=== PATIENT | female | born 1935 | race Caucasian/White ===

== ENCOUNTER → 2023-04-20 08:54 | Outpatient (CLI) | payer MEDICARE, SELFPAY ==
--- NOTE | ~2023-04-20 | US_ITS ---
Abdominal Sonogram: Real-time sonographic imaging of the abdomen was performed. Clinical History: Abdominal pain Findings: The liver is small with nodular contour. No intrahepatic biliary dilatation or definite ma ss lesion. Main portal vein demonstrates normal direction of flow. The spleen is normal in size witho ut evidence of focal lesion. The gallbladder is well distended, and contains small layering gallston es. No definite gallbladder wall thickening. The common bile duct measures 4 mm. The visualized panc reas, aorta, and IVC are unremarkable. The right kidney measures 10.7 cm in length and the left kidn ey measures 8.3 cm. There is no hydronephrosis or renal calculus. Moderate ascites noted Impression: Cirrhotic liver with associated moderate abdominopelvic ascites. Cholelithiasis. Reviewed, dictated and finalized at [facility]. Impression: Cirrhotic liver with associated moderate abdominopelvic ascites. Cholelithiasis.
--- NOTE | ~2023-04-20 | XR_ITS ---
Supine and upright views of the abdomen Clinical history: Abdominal pain Findings: Bowel gas pattern is nonspecific. No evidence for obstruction or free air. No abnormal mass lesion or calcification is seen. There is levoscoliosis and degenerative spondylitic changes of the lumbar spine. Impression: Nonspecific bowel gas pattern. Degenerative changes of the lumbar spine with levoscoliosis. Reviewed, dictated and finalized at location . Impression: Nonspecific bowel gas pattern. Degenerative changes of the lumbar spine with levoscoliosis.
== END ==
DX: R10.84 Generalized abdominal pain (principal); K80.20 Calculus of gallbladder without cholecystitis without obstruction
CPT/HCPCS: 74018; 76700

== ENCOUNTER 2023-05-17 11:59 | Outpatient (CLI) | payer MEDICARE, SELFPAY ==
[2023-05-17 12:22] LABS: Basophils Percent Auto 0.5 % (0.2-1.2); Eosinophils Absolute Auto 0.2 K/mm3 (0-0.3); Eosinophils Percent Auto 3.1 % (0-4.4); Hematocrit 33.5 % (37.0-47.0); Hemoglobin 10.4 g/dL (12.0-15.0); Immature Granulocyte Absolute 0.02 K/mm3 (0.00-0.031); Immature Granulocyte Percent A 0.4 % (0-0.5); Lymphocytes Absolute Auto 0.64 K/mm3 (0.9-3.2); Lymphocytes Percent Auto 11.5 % (18.3-44.2); Mean Corpuscular Hemoglobin 27.4 pg (26-34); Mean Corpuscular Volume 88.4 fl (80-100); Mean Platelet Volume 8.8 fl (7.4-10.4); Monocytes Absolute Auto 0.6 K/mm3 (0.1-0.6); Monocytes Percent Auto 9.9 % (2.6-8.5); Neutrophils Absolute Auto 4.2 K/mm3 (1.3-6.7); Neutrophils Percent Auto 74.6 % (45.5-73.1); Platelet Count Result 176 k/mm3 (150-375); Red Blood Count 3.79 M/mm3 (4.2-5.4); Red Cell Distribution Width 17.7 % (11.5-14.5); White Blood Count 5.6 K/mm3 (4.5-10.0)
[2023-05-17 12:34] LABS: Iron 32 ug/dL (37-170)
[2023-05-17 12:43] LABS: Percent Iron Saturation 9 % (20-50)
== END 2023-05-17 12:00 | disposition home or self-care (01) ==
PROVIDERS: Visit Provider Internal Medicine Gastroenterology
DX: K74.60 Unspecified cirrhosis of liver (principal)
CPT/HCPCS: 36415; 83540; 83550; 85025; 86038; 86039

== ENCOUNTER 2023-06-06 13:12 | Outpatient (CLI) | payer MEDICARE, SELFPAY ==
--- NOTE | ~2023-06-06 | US_ITS ---
EXAMINATION: US paracentesis abd w/image DATE: 06/06/2023 15:29 INDICATION: Ascites. TECHNIQUE: The procedure and its risks and benefits were discussed with the patient. Potential risks discussed included bleeding and infection. The skin was prepped and draped in sterile fashion. 1% lid ocaine was used for local anesthesia. Under ultrasound guidance, a 5 Fr catheter with trochar was adv anced into the ascites in the left lower quadrant. Fluid was aspirated into vacuum bottles. The juan ter was removed, and a dressing was applied. There were no immediate complications. FINDINGS: Ultrasound images demonstrate ascites and the catheter within the fluid. IMPRESSION: 1. Successful ultrasound-guided paracentesis yielding 4850 mL of clear yellow fluid. Reviewed, dictated and finalized at location A.
[2023-06-06 14:01] LABS: Mean Platelet Volume 9.1 fl (7.4-10.4); Platelet Count Result 189 k/mm3 (150-375)
[2023-06-06 14:17] LABS: INR 1.6; Prothrombin Time 19.8 Seconds (11.1-14.7)
[2023-06-06 17:08] LABS: Appearance Peritoneal Fluid Clear (Clear); Color Peritoneal Fluid Yellow (Colorless); Source Peritoneal Fluid Peritoneal Fluid
[2023-06-06 17:09] LABS: Nucleated Cells Peritoneal Flu 141 /uL (0-500)
[2023-06-06 17:11] LABS: Lymphocytes Peritoneal Fluid 8 %; Macrophages Peritoneal Fluid 4 %; Mesothelial Cells Peritoneal Fluid 2 %; Monocytes Peritoneal Fluid 52 %; Neutrophils Peritoneal Fluid 32 % (0-25)
[2023-06-09 10:46] LABS: RBC Peritoneal Fluid < 2000 /uL (0-100000)
[2023-06-11 20:57] LABS: Mitochondrial (M2) Ab (IgG) <=20.0 U (<=20.0)
== END 2023-06-06 13:13 | disposition home or self-care (01) ==
LOC: ANHIMG 13:13
PROVIDERS: Referring Provider Nurse Practitioner; Visit Provider Internal Medicine Gastroenterology
DX: R18.8 Other ascites (principal); K74.60 Unspecified cirrhosis of liver
CPT/HCPCS: 36415; 49083; 83520; 85049; 85610; 88104; 88108; 88305; 89051

== ENCOUNTER 2023-07-19 03:29 | Emergency (ER) | payer MEDICARE, SELFPAY ==
[2023-07-19] VITALS (7 sets, daily range): BP systolic 106–129; BP diastolic 53–99; PULSE 82–99; RESP 15–21; TEMP 36.6; O2SAT 95–98
--- NOTE | ~2023-07-19 | XR_ITS ---
Portable chest x-ray Comparison: 07/04/2014 Clinical History: Pain Findings: Possible minimal right pleural effusion. Probable minimal central congestive change. Card iomediastinal silhouette is stable, status post CABG. There is a transverse, displaced fracture throu gh the surgical neck region of the proximal right humerus.. Impression: Transverse, displaced fracture of the surgical neck region of the proximal right humerus. There is so me lucency about the fracture site, which could indicate typical osteolysis, however underlying patho logic lesion is not definitively excluded. Dedicated shoulder radiographs are recommended to further assess. Minimal central congestive change and minimal right pleural effusion. Stable cardiomegaly, status post CABG. Reviewed, dictated and finalized at [facility]. FF PUBLISHING AGENT Impression: Transverse, displaced fracture of the surgical neck region of the proximal righ t humerus. There is some lucency about the fracture site, which could indicate typical osteolysis, however underlying pathologic lesion is not definitively ex cluded. Dedicated shoulder radiographs are recommended to further assess. Minimal central congestive change and minimal right pleural effusion. Stable cardiomegaly, status post CABG.
--- NOTE | ~2023-07-19 | XR_ITS ---
Right Shoulder Technique: AP and scapular Y views were obtained. Clinical History: Pain Findings: There is a transverse fracture through the surgical neck of the humerus, with significant d isplacement by at least one full shaft width. There is probable comminution of fracture with extensio n of fracture lines to the greater tuberosity. Humeral head remains normally located with respect to the glenoid. AC joint intact. Soft tissues are unremarkable. Impression: Comminuted fracture of the surgical neck of the humerus with extension to the greater tuberosity, wit h significant displacement of the major distal fracture fragment. No definite evidence for underlying pathologic lesion. Reviewed, dictated and finalized at location . ISHER ASSISTANT Impression: Comminuted fracture of the surgical neck of the humerus with extension to the g reater tuberosity, with significant displacement of the major distal fracture f ragment. No definite evidence for underlying pathologic lesion.
--- NOTE | 2023-07-19 03:33 | ECG_ITS ---
Measurements Intervals [place] Rate: 91 P: [place]: 0 QRS: -3 QRSD: 98 T: -28 QT: 361 QTc: 446 Interpretive Statements ATRIAL FIBRILLATION POSSIBLE ANTERIOR MYOCARDIAL INFARCTION , OF INDETERMINATE AGE [30 ms Q WAVE IN V3/V4, OR R < 0.2 mV IN V4] INFEROLATERAL T-WAVE ABNORMALITY, CONSIDER ISCHEMIA ABNORMAL ECG NO PREVIOUS ECG AVAILABLE FOR COMPARISON Electronically Signed On 07-19-2023 16:58:27 WOOL SPOTTER by Josh Redd M.D.
[2023-07-19 03:53] LABS: Basophils Percent Auto 0.7 % (0.2-1.2); Eosinophils Absolute Auto 0.3 K/mm3 (0-0.3); Eosinophils Percent Auto 5.2 % (0-4.4); Hematocrit 27.4 % (37.0-47.0); Hemoglobin 8.3 g/dL (12.0-15.0); Immature Granulocyte Absolute 0.03 K/mm3 (0.00-0.031); Immature Granulocyte Percent A 0.6 % (0-0.5); Lymphocytes Absolute Auto 0.84 K/mm3 (0.9-3.2); Lymphocytes Percent Auto 15.5 % (18.3-44.2); Mean Corpuscular HGB Conc 30.3 g/dl (32-36); Mean Corpuscular Hemoglobin 27.2 pg (26-34); Mean Corpuscular Volume 89.8 fl (80-100); Mean Platelet Volume 8.3 fl (7.4-10.4); Monocytes Absolute Auto 0.9 K/mm3 (0.1-0.6); Monocytes Percent Auto 16.1 % (2.6-8.5); Neutrophils Absolute Auto 3.4 K/mm3 (1.3-6.7); Neutrophils Percent Auto 61.9 % (45.5-73.1); Platelet Count Result 234 k/mm3 (150-375); Red Blood Count 3.05 M/mm3 (4.2-5.4); Red Cell Distribution Width 18.2 % (11.5-14.5); White Blood Count 5.4 K/mm3 (4.5-10.0)
[2023-07-19 04:04] LABS: Potassium 4.3 mmol/L (3.4-5.0)
[2023-07-19 04:05] LABS: Alanine Aminotransferase 11 U/L (6-35); Albumin Level 3.2 g/dL (3.5-5.1); Alkaline Phosphatase 100 U/L (38-126); Anion Gap 9 mmol/L (8-16); Aspartate Amino Transferase 21 U/L (14-36); Blood Urea Nitrogen 31 mg/dL (7-17); Calcium 8.8 mg/dL (8.4-10.2); Carbon Dioxide 25 mmol/L (22-30); Chloride 102 mmol/L (98-107); Estimated Glomerular Filt Rate 42; Glucose 92 mg/dL (65-110); Lipase 151 U/L (23-300); Sodium 136 mmol/L (137-145)
[2023-07-19 04:08] LABS: INR 1.6; Prothrombin Time 20.2 Seconds (11.1-14.7)
[2023-07-19 04:09] LABS: Partial Thromboplastin Time 43.4 SECONDS (22.3-36.8)
--- NOTE | 2023-07-19 04:10 | ED.CHESTPAIN ---
HPI - Chest Pain General Chief Complaint: Chest Pain <Apurva Quinn MD - Last Filed: 07/19/23 07:10> Stated Complaint: CHEST PAIN, COVID+ <Apurva Quinn MD - Last Filed: 07/19/23 07:10> Time Seen by Provider: 07/19/23 03:37 <Apurva Quinn MD - Last Filed: 07/19/23 07:10> History of Present Illness HPI narrative: patient presents the emergency department by EMS from rehab. She has had a complicated extensive past medical history recently. She has a cardiac history of quadruple bypass in 2006. Recently she fell resulting in a in arm fracture. Recently diagnosed with pericardial effusion. She has a history of atrial fibrillation. For the past 3 days she has had intermittent episodes of chest pain relieved with nitro. Tonight she was sent in for evaluation. She was also recently diagnosed with COVID. Overall she is very pleasant and in no distress. <Apurva Quinn MD - Last Filed: 07/19/23 07:10> Related Data Home Medications: Home Medications Medication Instructions Recorded Confirmed diltiazem HCl 30 mg tablet 30 mg PO BID 05/17/23 07/07/23 (Cardizem) labetalol 200 mg tablet 200 mg PO TID 05/17/23 07/07/23 ondansetron HCl 4 mg tablet 4 mg PO Q8H 05/17/23 07/07/23 pantoprazole 40 mg tablet,delayed 40 mg PO QAM 05/17/23 07/07/23 release rivaroxaban 10 mg tablet (Xarelto) 10 mg PO DAILY 05/17/23 07/07/23 acetaminophen 500 mg capsule 500 mg PO Q6H PRN 07/07/23 alprazolam 0.25 mg tablet 0.25 mg PO DAILY 07/07/23 cholecalciferol (vitamin D3) 325 325 mcg PO WEEKLY 07/07/23 mcg (13,000 unit) capsule empagliflozin 10 mg tablet 10 mg PO DAILY 07/07/23 (Jardiance) ezetimibe 10 mg tablet 10 mg PO DAILY 07/07/23 furosemide 20 mg tablet (Lasix) 40 mg PO QAM 07/07/23 07/07/23 furosemide 40 mg/4 mL oral solution 40 mg PO QAM 07/07/23 krill oil 500 mg capsule mg PO 07/07/23 labetalol 200 mg tablet 200 mg PO Q12H 07/07/23 lactulose 10 gram oral packet 20 g PO DAILY 07/07/23 lidocaine 5 % topical patch 1 patch topical DAILY 07/07/23 melatonin 3 mg tablet 3 mg PO QHS 07/07/23 nitroglycerin 0.4 mg sublingual 0.4 mg sublingual Q5M PRN 07/07/23 tablet rivaroxaban 10 mg tablet (Xarelto) 10 mg PO DAILY 07/07/23 <Apurva Quinn MD - Last Filed: 07/19/23 07:10> Allergies/Adverse Reactions: Allergies Allergy/AdvReac Type Severity Reaction Status Date / Time atropine Allergy Unknown Unknown Verified 07/07/23 10:42 <Apurva Quinn MD - Last Filed: 07/19/23 07:10> Review of Systems Review of Systems: Review of systems negative except for what is documented in the HPI <Apurva Quinn MD - Last Filed: 07/19/23 07:10> [facility] Past Medical History Medical History: Medical History A-fib Arthritis Gall bladder disease Glaucoma Heart disease Hypertension Macular degeneration <Apurva Quinn MD - Last Filed: 07/19/23 07:10> Surgical History Surgical History: Surgical History H/O heart bypass surgery H/O: hysterectomy <Apurva Quinn MD - Last Filed: 07/19/23 07:10> Family History Family History: Family History Mother Heart disease Hypertension <Apurva Quinn MD - Last Filed: 07/19/23 07:10> Social History Social History: Social History Smoking status: Former smoker Alcohol intake: never Substance use: never Substance use type: does not use <Apurva Quinn MD - Last Filed: 07/19/23 07:10> Exam Narrative: GENERAL: Well-appearing, well-nourished, and in no acute distress. HEAD: Normocephalic, atraumatic. EYES: PERRLA and EOMI. ENT: Nares clear, no rhinorrhea or epistaxis. Mucous membranes moist. NECK: Supple. CHEST: Clear to auscult
[2023-07-19 04:15] LABS: Troponin I < 0.012 ng/mL (0.000-0.034)
--- NOTE | 2023-07-19 06:26 | ECG_ITS ---
Measurements Intervals [place] Rate: 84 P: [place]: 0 QRS: 9 QRSD: 92 T: -23 QT: 403 QTc: 478 Interpretive Statements ATRIAL FIBRILLATION ABNORMAL RHYTHM ECG INFEROLATERAL T-WAVE ABNORMALITY, CONSIDER ISCHEMIA ABNORMAL ECG COMPARED TO ECG 07/19/2023 03:34:46 NO SIGNIFICANT CHANGES Electronically Signed On 07-19-2023 16:59:07 [employer] by Josh Redd M.D.
[2023-07-19] MEDS: ASPIRIN 81 MG CHEWABLE TABLET 324 MG PO (06:48)
[2023-07-19 06:59] LABS: Troponin I < 0.012 ng/mL (0.000-0.034)
== END 2023-07-19 09:35 ==
PROVIDERS: Emergency Medicine; Emergency Provider Emergency Medicine
DX: R07.89 Other chest pain (principal); I48.91 Unspecified atrial fibrillation; M19.90 Unspecified osteoarthritis, unspecified site; I11.0 Hypertensive heart disease with heart failure; I50.9 Heart failure, unspecified
CPT/HCPCS: 36415; 71045; 73030; 80053; 83690; 84484; 85025; 85610; 85730; 93005; 99284; A9270

== ENCOUNTER 2023-08-19 12:21 | Inpatient (IN) | payer MEDICARE, SELFPAY ==
[2023-08-19] VITALS (13 sets, daily range): BP systolic 112–161; BP diastolic 66–96; PULSE 92–128; RESP 18–40; TEMP 36.2–36.4; O2SAT 87–100; BMI 27.6
--- NOTE | ~2023-08-19 | CT_ITS ---
EXAMINATION: CTA chest PE protocol DATE: 08/20/2023 08:24 INDICATION: Hypoxia TECHNIQUE: Computed tomography angiography (CTA) of the chest was performed with 100 mL Omnipaque-350 intravenous contrast timed to evaluate the pulmonary arteries. Coronal maximum intensity projection 3D-reconstructions were created by the technologist. The dose-length product (DLP) was 441.39 mGy-cm. Automated exposure control and iterative reconstruction technique were employed. COMPARISON: None. FINDINGS: The pulmonary arteries are well-opacified. Motion artifact limits evaluation of the periphe ral pulmonary arteries. No central pulmonary embolism is identified. Cardiomegaly is noted. There are changes of coronary artery bypass grafting. There is a moderate size right pleural effusion. No pneu mothorax is identified. There are minimal airspace opacities of the left lower lobe. There is near co mplete passive atelectasis of the right middle and lower lobes. There are healing anterolateral fract ures of the right sixth and seventh ribs. There is mild mediastinal and left hilar lymphadenopathy, l ikely reactive. There is enlargement of the main and central pulmonary arteries, consistent with pulm onary hypertension. There is severe thoracic and lower cervical spondylosis. Upper abdominal ascites is noted. Thyroid nodules measure up to 2.8 cm on the right. IMPRESSION: 1. No central pulmonary embolus identified.. Sensitivity limited by motion artifact. 2. Cardiomegaly. 3. Moderate size right pleural effusion with passive atelectasis of the right middle and lower lobes. 4. Minimal airspace opacities of the left lower lobe, consistent with atelectasis versus pneumonia. 5. Multinodular goiter. Consider follow-up thyroid ultrasound for risk stratification. Reviewed, dictated and finalized at location F. UNT OFFICER IMPRESSION: 1. No central pulmonary embolus identified.. Sensitivity limited by motion baljinder fact. 2. Cardiomegaly. 3. Moderate size right pleural effusion with passive atelectasis of the right m iddle and lower lobes. 4. Minimal airspace opacities of the left lower lobe, consistent with atelectas is versus pneumonia. 5. Multinodular goiter. Consider follow-up thyroid ultrasound for risk stratifi cation.
--- NOTE | ~2023-08-19 | XR_ITS ---
EXAMINATION: XR chest 1V portable INDICATION: Shortness of breath TECHNIQUE: Portable AP chest at 0554 hours COMPARISON: 08/19/2023, 08/20/2023 FINDINGS: There is a moderate to large sized right pleural effusion without significant change. Assoc iated airspace opacities of the right mid and lower lung zones are stable. Cardiomegaly is noted. The re is no pneumothorax. There are changes of coronary artery bypass grafting. 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 IMPRESSION: 1. Moderate to large size right pleural effusion without significant change. Associated airspace opac ities of the right mid and lower lung zones. Are consistent with passive atelectasis is seen on the c omparison CT. 2. Cardiomegaly. Reviewed, dictated and finalized at location F. STAND ATTENDANT IMPRESSION: 1. Moderate to large size right pleural effusion without significant change. As sociated airspace opacities of the right mid and lower lung zones. Are consiste nt with passive atelectasis is seen on the comparison CT. 2. Cardiomegaly.
--- NOTE | ~2023-08-19 | US_ITS ---
EXAMINATION: US thoracentesis DATE: 08/22/2023 15:14 INDICATION: Right pleural effusion TECHNIQUE: The procedure and its risks and benefits were discussed with the patient. Potential risks discussed included bleeding, infection, and pneumothorax. The patient understood the risks and agreed to proceed. The skin was prepped and draped in sterile fashion. 1% lidocaine was used for local anes thesia. Under ultrasound guidance, a 5 Fr catheter with trochar was advanced into the right pleural e ffusion. Fluid was aspirated. The catheter was removed, and a dressing was applied. There were no imm ediate complications. FINDINGS: Ultrasound images demonstrate a moderate-sized right pleural effusion and the catheter within the flu id. IMPRESSION: 1. Successful ultrasound-guided thoracentesis yielding 1100 mL of isaias-colored fluid. Reviewed, dictated and finalized at location A. SPLANTER IMPRESSION: 1. Successful ultrasound-guided thoracentesis yielding 1100 mL of isaias-colore d fluid.
--- NOTE | ~2023-08-19 | XR_ITS ---
EXAMINATION: XR chest 2V DATE: 08/19/2023 13:25 INDICATION: Shortness of breath. Ascites. TECHNIQUE: frontal and lateral views of the chest were obtained. COMPARISON: Chest radiograph dated 07/19/2023 FINDINGS: Significant interval increase in size of a now large right pleural effusion with opacification of the right lower and majority the mid lung zones. 1 cm nodular opacity in the left perihilar region. No p neumothorax or left-sided pleural effusion. Cardiomegaly with dense mitral annular calcification. The re is a prominent bulge along the left side of the mediastinum most likely related to enlargement of the main pulmonary artery although could not exclude lymphadenopathy at the AP window. Median sternot ezequiel wires and mediastinal surgical clips are seen, likely from prior coronary artery bypass grafting. Partially visualized displaced fracture at the right humeral neck. Moderate to severe thoracic spond ylosis. Age-indeterminate mild compression fractures in the upper lumbar spine. IMPRESSION: 1. Significant increase in size of a unilateral large right pleural effusion with associated atelecta sis and/or pneumonia in the mid and lower lung zones. Consider diagnostic/therapeutic thoracentesis. 2. 1 cm nodular opacity in the left perihilar region which given conspicuity is most likely calcified related to old granulomatous disease. 3. Prominent bulge along the left side of the mediastinum likely related to enlargement of the centra l pulmonary arteries in the setting of pulmonary arterial hypertension however could not exclude lymp hadenopathy at the AP window and would consider further evaluation with contrast enhanced chest CT to more definitively evaluate both this and the pulmonary nodule. Reviewed, dictated and finalized at location A. RESS STRIPPER IMPRESSION: 1. Significant increase in size of a unilateral large right pleural effusion wi th associated atelectasis and/or pneumonia in the mid and lower lung zones. 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 2. 1 cm nodular opacity in the left perihilar region which given conspicuity is most likely calcified related to old granulomatous disease. 3. Prominent bulge along the left side of the mediastinum likely related to enl argement of the central pulmonary arteries in the setting of pulmonary arterial hypertension however could not exclude lymphadenopathy at the AP window and wo uld consider further evaluation with contrast enhanced chest CT to more definit ively evaluate both this and the pulmonary nodule.
--- NOTE | ~2023-08-19 | US_ITS ---
EXAMINATION: US paracentesis abd w/image DATE: 08/22/2023 15:14 INDICATION: Ascites. TECHNIQUE: The procedure and its risks and benefits were discussed with the patient. Potential risks discussed included bleeding and infection. The skin was prepped and draped in sterile fashion. 1% lid ocaine was used for local anesthesia. Under ultrasound guidance, a 5 Fr catheter with trochar was adv anced into the ascites in the right abdomen. Fluid was aspirated into vacuum bottles. The catheter wa s removed, and a dressing was applied. There were no immediate complications. FINDINGS: Ultrasound images demonstrate ascites and the catheter within the fluid. IMPRESSION: 1. Successful ultrasound-guided paracentesis yielding 1600 mL of clear yellow fluid. Reviewed, dictated and finalized at location A. X DIPPER
--- NOTE | ~2023-08-19 | XR_ITS ---
Portable chest x-ray Comparison: 08/21/2023 Clinical History: Effusion Findings: Moderate to large right pleural effusion is unchanged. Left lung clear. Cardiomediastinal silhouette is stable, status post CABG. Stable fracture through the proximal right humeral shaft.. Impression: Stable moderate to large right pleural effusion. Stable right humeral fracture. Reviewed, dictated and finalized at [facility]. CULTURAL SALES REPRESENTATIVE Impression: Stable moderate to large right pleural effusion. Stable right humeral fracture.
--- NOTE | ~2023-08-19 | XR_ITS ---
EXAMINATION: XR shoulder RT min 2V INDICATION: Proximal humerus fracture TECHNIQUE: Four views of the right shoulder are submitted. COMPARISON: 07/19/2023 FINDINGS: Again noted is a comminuted surgical neck fracture of the humerus with extension into the g reater tuberosity. The distal fracture fragment remains anteriorly and inferiorly displaced. There is calcified callus formation at the fracture site. No new fracture is identified. 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 Soft tissues are unremarkable. A right -sided pleural effusion is noted. IMPRESSION: 1. Comminuted surgical neck fracture of the right humerus, with extension to the greater tuberosity, with persistent displacement of the distal fracture fragment and interval development of calcified ca llus. Reviewed, dictated and finalized at location F. LOPMENT DIRECTOR IMPRESSION: 1. Comminuted surgical neck fracture of the right humerus, with extension to th e greater tuberosity, with persistent displacement of the distal fracture fragm ent and interval development of calcified callus.
--- NOTE | ~2023-08-19 | XR_ITS ---
EXAMINATION: [id number] DATE: 08/22/2023 15:06 INDICATION: Status post thoracentesis for right pleural effusion TECHNIQUE: frontal and lateral views of the chest were obtained. COMPARISON: Chest radiograph dated 06/19/2024 FINDINGS: Interval decrease in a now small left pleural effusion. Airspace opacity left mid and lower lung zone could represent associated atelectasis and/or pneumonia. No pneumothorax or left-sided pleural effus ion. Cardiomegaly with mitral annular calcification. Median sternotomy wires and mediastinal surgical clips are seen, likely from prior coronary artery bypass grafting. Again seen is a displaced fractur e of the right humeral neck with some callus formation. IMPRESSION: 1. No pneumothorax and decrease in size of a now small right pleural effusion postthoracentesis. 2. Opacities in the right mid and lower lung zone which could represent associated atelectasis and/or pneumonia. 3. Healing displaced proximal right humeral fracture. Reviewed, dictated and finalized at location A. SELING CENTER MANAGER IMPRESSION: 1. No pneumothorax and decrease in size of a now small right pleural effusion p ostthoracentesis. 2. Opacities in the right mid and lower lung zone which could represent associa kip atelectasis and/or pneumonia. 3. Healing displaced proximal right humeral fracture.
--- NOTE | 2023-08-19 12:55 | ECG_ITS ---
Measurements Intervals [place] Rate: 100 P: CT: 0 QRS: 50 QRSD: 85 T: -35 QT: 336 QTc: 433 Interpretive Statements ATRIAL FIBRILLATION WITH RAPID VENTRICULAR RESPONSE LOW QRS VOLTAGE IN LIMB LEADS ST-T WAVE ABNORMALITY IN ANTEROLAT/INF LEADS- CONSIDER ISCHEMIA BASELINE ARTIFACT- I, II, III, V1-V6 ABNORMAL ECG COMPARED TO ECG 07/19/2023 06:29:00 HEART RATE HAS INCREASED Electronically Signed On 08-19-2023 13:17:33 AUTOMOTIVE UPHOLSTERER by Caleb Chakraborty D.O.
[2023-08-19 13:14] LABS: Basophils Percent Auto 0.4 % (0.2-1.2); Eosinophils Absolute Auto 0.1 K/mm3 (0-0.3); Eosinophils Percent Auto 0.9 % (0-4.4); Hematocrit 34.2 % (37.0-47.0); Hemoglobin 9.5 g/dL (12.0-15.0); Immature Granulocyte Absolute 0.03 K/mm3 (0.00-0.031); Immature Granulocyte Percent A 0.4 % (0-0.5); Lymphocytes Absolute Auto 0.65 K/mm3 (0.9-3.2); Lymphocytes Percent Auto 8.7 % (18.3-44.2); Mean Corpuscular HGB Conc 27.8 g/dl (32-36); Mean Corpuscular Hemoglobin 23.2 pg (26-34); Mean Corpuscular Volume 83.6 fl (80-100); Mean Platelet Volume 8.3 fl (7.4-10.4); Monocytes Absolute Auto 0.8 K/mm3 (0.1-0.6); Monocytes Percent Auto 10.4 % (2.6-8.5); Neutrophils Absolute Auto 5.9 K/mm3 (1.3-6.7); Neutrophils Percent Auto 79.2 % (45.5-73.1); Platelet Count Result 267 k/mm3 (150-375); Red Blood Count 4.09 M/mm3 (4.2-5.4); Red Cell Distribution Width 18.3 % (11.5-14.5); White Blood Count 7.5 K/mm3 (4.5-10.0)
[2023-08-19 13:27] LABS: INR 2.4; Prothrombin Time 27.6 Seconds (11.1-14.7)
[2023-08-19 13:28] LABS: Hypochromasia 1+ (NORMAL); Partial Thromboplastin Time 42.5 SECONDS (22.3-36.8); Platelet Estimate Adequate (Adequate); Schistocytes None Seen (NORMAL)
[2023-08-19 13:29] LABS: Alanine Aminotransferase 13 U/L (6-35); Albumin Level 3.7 g/dL (3.5-5.1); Alkaline Phosphatase 119 U/L (38-126); Anion Gap 9 mmol/L (8-16); Aspartate Amino Transferase 19 U/L (14-36); Bilirubin,Total 0.9 mg/dL (0.2-1.3); Blood Urea Nitrogen 37 mg/dL (7-17); Calcium 8.9 mg/dL (8.4-10.2); Carbon Dioxide 22 mmol/L (22-30); Chloride 107 mmol/L (98-107); Estimated Glomerular Filt Rate 36; Glucose 96 mg/dL (65-110); Lactic Acid Reflex 1.5 mmol/L (0.7-2.0); Potassium 5.3 mmol/L (3.4-5.0); Sodium 138 mmol/L (137-145)
[2023-08-19 13:39] LABS: NT Pro B Type Natriuretic Pept 8290 pg/mL (19.9-100); Troponin I 0.017 ng/mL (0.000-0.034)
--- NOTE | 2023-08-19 13:41 | ED.SOB ---
HPI - SOB/Dyspnea General Chief Complaint: Shortness of Breath/Dyspnea Stated Complaint: sob Time Seen by Provider: 08/19/23 12:53 History of Present Illness HPI Narrative: Patient is an 87-year-old female with history of AFib on Eliquis, cirrhosis presenting with shortness of breath. Patient states that for the last several days she has been increasingly short of breath and has some minor chest pressure. States that she is in physical therapy for a broken right arm they noticed that she was breathing hard so she came in for evaluation. States that she had a paracentesis several months ago her to abdominal swelling. States that she felt somewhat short of breath at this time the paracentesis helped. States that her abdomen feels slightly distended but not like it was. Complains of mild lower extremity swelling. No abdominal pain, nausea vomiting, diarrhea, dysuria. No fevers or chills. Related Data Home Medications Medication Instructions Recorded Confirmed diltiazem HCl 30 mg tablet 30 mg PO Q12H 05/17/23 08/19/23 (Cardizem) ondansetron HCl 4 mg tablet 4 mg PO Q8H 05/17/23 08/19/23 pantoprazole 40 mg tablet,delayed 40 mg PO QAM 05/17/23 08/19/23 release alprazolam 0.25 mg tablet 0.25 mg PO DAILY PRN Anxiety 07/07/23 08/19/23 ezetimibe 10 mg tablet 10 mg PO HS 07/07/23 08/19/23 furosemide 20 mg tablet (Lasix) 20 mg PO QAM 07/07/23 08/19/23 krill oil 500 mg capsule 1,000 mg PO DAILY 07/07/23 08/19/23 labetalol 200 mg tablet 200 mg PO Q12H 07/07/23 08/19/23 lidocaine 5 % topical patch 1 patch topical DAILY 07/07/23 08/19/23 nitroglycerin 0.4 mg sublingual 0.4 mg sublingual Q5M PRN Chest 07/07/23 08/19/23 tablet Pain rivaroxaban 10 mg tablet (Xarelto) 10 mg PO HS 07/07/23 08/19/23 ergocalciferol (vitamin D2) 1,250 1,250 mcg PO WEEKLY 08/19/23 08/19/23 mcg (50,000 unit) capsule spironolactone 50 mg tablet 50 mg PO BID 08/19/23 08/19/23 Allergies Allergy/AdvReac Type Severity Reaction Status Date / Time atropine Allergy Unknown Unknown Verified 07/07/23 10:42 acetaminophen AdvReac Headache Verified 08/19/23 18:13 [From Darvocet-N 100] apixaban [From Eliquis] AdvReac Numbness Verified 08/19/23 18:12 propoxyphene AdvReac Headache Verified 08/19/23 18:12 [From Darvocet-N] [id number]-[id number]-JsM Reductase AdvReac Muscle Pain Verified 08/19/23 18:12 Inhibitor Review of Systems Review of Systems: All systems reviewed & are unremarkable except as noted in HPI and below PMFSH Past Medical History Medical History (Updated 08/20/23 @ 12:45 by Samantha Arvizu MD) Arthritis Autoimmune liver disease Chronic anemia Chronic anticoagulation Chronic kidney disease, stage 3 Cirrhosis of liver Coronary artery disease Gastroesophageal reflux disease Glaucoma Hypertension Macular degeneration Paroxysmal atrial fibrillation Surgical History Surgical History (Updated 08/19/23 @ 20:48 by Astrid Mckinnon PA-C) History of cataract extraction History of coronary artery bypass graft (2006) History of hysterectomy History of tonsillectomy Family History Family History Mother Heart disease Hypertension Social History Social History (Updated 08/19/23 @ 20:49 by Astrid Mckinnon PA-C) Social History: Healthcare power of collections attorney: Oma Rowena, niece. Code status: Full code. Smoking status: Never smoker Alcohol intake: never Substance use: never Substance use type: does not use Do You Feel Safe in your Home?: Yes Lack of Transportation: No Lack of Food: Never True Current Housing: I Have Housing Concerned About Future Housing: No Difficulty Paying Gas/Electric Bills: No Difficulty Paying for Meds: No Currently Unemployed: No Education: High School Diploma/GED Difficulty w/ Childcare or Family Care: No Additional living arrangements comments: Lives alone. Spiritual care concerns: No Exam Narrative:
[2023-08-19] MEDS: FUROSEMIDE INJ 40 MG/4 ML VIAL IV PUSH (14:31)
--- NOTE | 2023-08-19 16:40 | PC.NURSE ---
This patient, Mary Beth Puente, was admitted to [facility] Surg Room 326-01. Patient/family oriented to hospital policies and general routines including ID bracelet, bed and alarms, visiting hours, pain management, procedures, bathroom and other care routines, personal items, smoking policy, room service/diet, and visiting hours. Information on how to activate the Rapid Response Team has been discussed. Patient/Family are encouraged to report perceived risks to care and to ask questions if they do not understand what they are told or what they should do.
[2023-08-19 20:00] LABS: Anion Gap 7 mmol/L (8-16); Blood Urea Nitrogen 38 mg/dL (7-17); Calcium 9.3 mg/dL (8.4-10.2); Carbon Dioxide 24 mmol/L (22-30); Chloride 106 mmol/L (98-107); Estimated Glomerular Filt Rate 36; Glucose 95 mg/dL (65-110); Magnesium 2.1 mg/dL (1.6-2.3); Potassium 5.2 mmol/L (3.4-5.0); Sodium 137 mmol/L (137-145)
--- NOTE | 2023-08-19 20:41 | PM.IMHP ---
H&P: HPI History of Present Illness Date/Time: 08/19/23 16:45 Chief Complaint: Shortness of breath. Narrative: This is a very pleasant 87-year-old female with cirrhosis, congestive heart failure, coronary artery disease status post CABG, paroxysmal atrial fibrillation on chronic anticoagulation, gastroesophageal reflux disease, anemia, and chronic kidney disease who presented to the emergency department via private vehicle for evaluation of shortness of breath. The patient provides the following history; her nephew provides additional information with the patient's permission. According to the nephew, she has chronic shortness of breath and even at rest she sometimes appears to be a bit labored. She is currently on home health and physical therapy was there today working with her (recent right humeral fracture) and they felt she seemed increasingly short of breath from baseline and they decided would be best for her to come in for evaluation as she has also noticed some pressure in her chest the last few days though not currently. SpO2 was 87% on room air on arrival to the ED. Labs were significant for proBNP of 8290, potassium 5.3, creatinine 1.40. Chest x-ray showed significant increase in a large right pleural effusion which is thought to be the cause of her symptoms. Thoracentesis was unable to be performed today as she had a dose of Xarelto last evening at about 22:00. She was given a dose of IV Lasix 40 mg x 1 and she is being admitted in this setting. At the time my evaluation she has no specific complaints. She endorses chronic orthopnea which has been a little worse over the last week or so. She has noticed some increase in swelling in her legs recently. She denies lightheadedness, dizziness, sweats, cold and flu symptoms, exertional chest pain, current chest discomfort, pleuritic pain, sensations of racing heart, nausea, vomiting, diarrhea, abdominal pain, and calf pain. She has not gained weight and in fact she has lost 30 to 45 lb in the last several months due to intermittent issues with nausea and early satiety. Review of Systems Review of Systems: Twelve systems were reviewed and are negative except for as per HPI. [facility] Past Medical History Medical History (Updated 08/19/23 @ 20:56 by Astrid Mckinnon PA-C) Arthritis Autoimmune liver disease Chronic anemia Chronic anticoagulation Chronic kidney disease, stage 3 Cirrhosis of liver Coronary artery disease Gastroesophageal reflux disease Glaucoma Hypertension Macular degeneration Paroxysmal atrial fibrillation Surgical History Surgical History (Updated 08/19/23 @ 20:48 by Astrid Mckinnon PA-C) History of cataract extraction History of coronary artery bypass graft (2006) History of hysterectomy History of tonsillectomy Family History Family History Mother Heart disease Hypertension Social History Social History (Updated 08/19/23 @ 20:49 by Astrid Mckinnon PA-C) Social History: Healthcare power of claim attorney: Oma Guaman, niece. Code status: Full code. Smoking status: Never smoker Alcohol intake: never Substance use: never Substance use type: does not use Do You Feel Safe in your Home?: Yes Lack of Transportation: No Lack of Food: Never True Current Housing: I Have Housing Concerned About Future Housing: No Difficulty Paying Gas/Electric Bills: No Difficulty Paying for Meds: No Currently Unemployed: No Education: High School Diploma/GED Difficulty w/ Childcare or Family Care: No Additional living arrangements comments: Lives alone. Spiritual care concerns: No Meds Home Medications and Allergies Home Medications Medication Instructions Recorded Confirmed Type diltiazem HCl 30 mg tablet 30 mg PO Q12H 05/17/23 08/19/23 History (Cardizem) ondansetron HCl 4 mg tablet 4 mg PO Q8H 05/17/23 08/19/23 History pantoprazole 40 mg tablet,delayed 40 mg P
[2023-08-19 21:26] LABS: Troponin I 0.029 ng/mL (0.000-0.034)
[2023-08-19] MEDS: ONDANSETRON HCL ODT 4 MG TABLET PO (21:45)
[2023-08-19] MEDS: LABETALOL HCL 100 MG TABLET 200 MG PO (21:46)
[2023-08-19] MEDS: dilTIAZem HCL 30 MG TABLET PO (21:46)
[2023-08-19] MEDS: EZETIMIBE 10 MG TABLET PO (21:46)
[2023-08-19] MEDS: FUROSEMIDE INJ 40 MG/4 ML VIAL 20 MG IV PUSH (21:46)
[2023-08-19] MEDS: ALPRAZolam (*CRX) 0.25 MG TABLET PO (23:20)
[2023-08-20] VITALS (11 sets, daily range): BP systolic 111–121; BP diastolic 51–69; PULSE 64–89; RESP 18–20; TEMP 36.1–36.7; O2SAT 98–100
[2023-08-20 06:14] LABS: Hematocrit 29.8 % (37.0-47.0); Hemoglobin 8.2 g/dL (12.0-15.0); Mean Corpuscular HGB Conc 27.5 g/dl (32-36); Mean Corpuscular Hemoglobin 23.4 pg (26-34); Mean Corpuscular Volume 84.9 fl (80-100); Mean Platelet Volume 8.2 fl (7.4-10.4); Platelet Count Result 225 k/mm3 (150-375); Red Blood Count 3.51 M/mm3 (4.2-5.4); Red Cell Distribution Width 18.6 % (11.5-14.5); White Blood Count 7.3 K/mm3 (4.5-10.0)
[2023-08-20 06:25] LABS: INR 1.6; Prothrombin Time 20.3 Seconds (11.1-14.7)
[2023-08-20 06:26] LABS: Partial Thromboplastin Time 40.4 SECONDS (22.3-36.8)
[2023-08-20 06:34] LABS: Anion Gap 10 mmol/L (8-16); Carbon Dioxide 21 mmol/L (22-30); Chloride 104 mmol/L (98-107); Sodium 135 mmol/L (137-145)
[2023-08-20 06:35] LABS: Blood Urea Nitrogen 43 mg/dL (7-17); Calcium 8.9 mg/dL (8.4-10.2); Estimated Glomerular Filt Rate 36; Glucose 90 mg/dL (65-110)
[2023-08-20] MEDS: PANTOPRAZOLE 40 MG TABLET PO (09:10)
[2023-08-20] MEDS: LABETALOL HCL 100 MG TABLET 200 MG PO ×2 (09:10→21:55)
[2023-08-20] MEDS: dilTIAZem HCL 30 MG TABLET PO ×2 (09:10→21:56)
[2023-08-20] MEDS: ONDANSETRON HCL ODT 4 MG TABLET PO ×2 (09:13→15:53)
[2023-08-20] MEDS: LIDOCAINE 5% PATCH 1 PATCH TOPICAL (09:14)
[2023-08-20] MEDS: FUROSEMIDE INJ 40 MG/4 ML VIAL IV PUSH (09:17)
--- NOTE | 2023-08-20 12:06 | P.PNIM_ITS ---
Progress Note: A&P Assessment and Plan (1) Hypoxia: Code(s): R09.02 - Hypoxemia Status: Acute Assessment and Plan: * Etiology concern for effusion that is noted on CXR, vs effusion and possible LLL PNA found on CTA. * Continue supportive oxygenation. * Wean oxygen as able to. * Continue to monitor and VS (2) Pleural effusion: Code(s): J90 - Pleural effusion, not elsewhere classified Status: Acute Assessment and Plan: * Thoracentesis is ordered. Xarelto is being held in the setting of needing drained. * Attempting to diurese with Lasix 40 mg IVP BID today. * CXR in AM. * Daily weight * Accurate I&O. (3) Cirrhosis of liver with ascites: Code(s): K74.60 - Unspecified cirrhosis of liver; R18.8 - Other ascites Status: Acute Assessment and Plan: * Paracentesis is ordered by admitting hospitalist, although no imaging is noted to have been done showing ascites, and her Physical exam is not all that suspicious of needing acute para, will keep order and see what Radiologist says when US is performed. * Attempting to diurese. (4) Hyperkalemia: Code(s): E87.5 - Hyperkalemia Status: Acute Assessment and Plan: * Presenting potassium was 5.3. Trended down to 5.0. * Continue to monitor with labs. (5) Chronic kidney disease, stage 3: Code(s): N18.30 - Chronic kidney disease, stage 3 unspecified Status: Acute Assessment and Plan: * At baseline with Cr of 1.4. * Using Lasix today at increased dose to attempt diuresis. (6) Chronic anemia: Code(s): D64.9 - Anemia, unspecified Status: Acute Assessment and Plan: * Suspect Secondary to Chronic kidney disease. * No signs of active bleeding. * Hgb is 8.2, down from 9.5 yesterday. * Will order occult blood from stool. (7) Paroxysmal atrial fibrillation: Code(s): I48.0 - Paroxysmal atrial fibrillation Status: Acute Assessment and Plan: * Chronically on Xarelto. * Currently rate controlled with oral Diltiazem and labetalol. 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 * SCD's in meantime. (9) Abnormal chest x-ray: Code(s): R93.89 - Abnormal findings on diagnostic imaging of other specified body structures Status: Acute Assessment and Plan: * CTA PE protocol was ordered this AM for the findings of dilation of the Pulmonary arteries noted on CXR from yesterday it demonstrates no PE, there is cardiomegaly, moderate right sided pleural effusion with passive atelectasis of the RLM and RLL, minimal airspace opacities of the LLL consistent with Atelectasis vs. PNA and a multinodular goiter. * As there is concern for possible PNA, abx of Azithromycin and Rocephin are ordered to start. * Repeat CXR in AM. * Monitor labs and VS. 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 She was being evaluated by Home Health when they noted that she was having increased dyspnea and she was brought to the ER for evaluatio
--- NOTE | 2023-08-20 12:06 | PM.IMPN ---
Progress Note: A&P Assessment and Plan (1) Hypoxia: Code(s): R09.02 - Hypoxemia Status: Acute Assessment and Plan: Etiology concern for effusion that is noted on CXR, vs effusion and possible LLL PNA found on CTA. Continue supportive oxygenation. Wean oxygen as able to. Continue to monitor and VS (2) Pleural effusion: Code(s): J90 - Pleural effusion, not elsewhere classified Status: Acute Assessment and Plan: Thoracentesis is ordered. Xarelto is being held in the setting of needing drained. Attempting to diurese with Lasix 40 mg IVP BID today. CXR in AM. Daily weight Accurate I&O. (3) Cirrhosis of liver with ascites: Code(s): K74.60 - Unspecified cirrhosis of liver; R18.8 - Other ascites Status: Acute Assessment and Plan: Paracentesis is ordered by admitting hospitalist, although no imaging is noted to have been done showing ascites, and her Physical exam is not all that suspicious of needing acute para, will keep order and see what Radiologist says when US is performed. Attempting to diurese. (4) Hyperkalemia: Code(s): E87.5 - Hyperkalemia Status: Acute Assessment and Plan: Presenting potassium was 5.3. Trended down to 5.0. Continue to monitor with labs. (5) Chronic kidney disease, stage 3: Code(s): N18.30 - Chronic kidney disease, stage 3 unspecified Status: Acute Assessment and Plan: At baseline with Cr of 1.4. Using Lasix today at increased dose to attempt diuresis. (6) Chronic anemia: Code(s): D64.9 - Anemia, unspecified Status: Acute Assessment and Plan: Suspect Secondary to Chronic kidney disease. No signs of active bleeding. Hgb is 8.2, down from 9.5 yesterday. Will order occult blood from stool. (7) Paroxysmal atrial fibrillation: Code(s): I48.0 - Paroxysmal atrial fibrillation Status: Acute Assessment and Plan: Chronically on Xarelto. Currently rate controlled with oral Diltiazem and labetalol. 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 SCD's in meantime. (9) Abnormal chest x-ray: Code(s): R93.89 - Abnormal findings on diagnostic imaging of other specified body structures Status: Acute Assessment and Plan: CTA PE protocol was ordered this AM for the findings of dilation of the Pulmonary arteries noted on CXR from yesterday it demonstrates no PE, there is cardiomegaly, moderate right sided pleural effusion with passive atelectasis of the RLM and RLL, minimal airspace opacities of the LLL consistent with Atelectasis vs. PNA and a multinodular goiter. As there is concern for possible PNA, abx of Azithromycin and Rocephin are ordered to start. Repeat CXR in AM. Monitor labs and VS. 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 She was being evaluated by Home Health when they noted that she was having increased dyspnea and she was brought to the ER for evaluation where it was found that the pt was initially hypoxic with sats of 87%, and she is now requiring supplemental oxygen. Her BNP was 8290, K+ 5.3 and Cr of 1.4. CXR with large right sided pleural effusion present and they were unable to do Thoracentesis yesterday because the pt had Xarelto within the previous 24 hours. She endorses recent MARINELLI, Orthopnea and ntoes that it has been worse over the course of the past week, but she does
[2023-08-20] MEDS: AZITHROMYCIN 500 MG/NS 250 ML 500 MG/250 ML BAG 250 MG IVPB (14:01)
--- NOTE | 2023-08-20 20:58 | ECHO_ITS ---
Patient Info Name: Mary Beth Puente Age: 87 years : 1935 Gender: Female Ht: 63 in Wt: 120 lbs BSA: 1.56 m2 HR: 83 bpm BP: 111 / 69 mmHg Heart Rhythm: Atrial Fibrillation Technical Quality: Good Exam Date: 08/20/2023 1:31 PM Exam Location: Echo Lab Patient Status: Outpatient Admit Date: 08/19/2023 Staff Ordering Physician: Astrid Mckinnon PA-C Assistant Passenger Locomotive Engineer: Thuan Carreon RDCS Attending Provider: Nohemy Irizarry Referring Physician: Pratibha NG; Exam Type: CA echo doppler color flow Study Info Indications - CHF, CAD Complete two-dimensional, color flow and Doppler transthoracic echocardiogram is performed. Summary 1. Complete two-dimensional, color flow and Doppler transthoracic echocardiogram is performed. 2. Left ventricular chamber dimension is normal. 3. Left ventricular systolic function is normal, estimated at 55-60%. 4. There is moderately increased left ventricular wall thickness. 5. The left ventricular diastolic function is indeterminate. 6. Right ventricular chamber dimension is severely enlarged. 7. Right ventricular systolic function is reduced. 8. Left atrial chamber dimension is severely enlarged. 9. Right atrial chamber dimension is severely enlarged. 10. There is mild to moderate aortic valve stenosis with a peak velocity of 202 cm/s, mean gradient of 7 mmHg, and aortic valve area of 1.5 cm2. 11. There is mild aortic valve regurgitation. 12. There is severe aortic valve calcification. 13. There is mild mitral valve regurgitation. 14. The mitral valve annulus is severely calcified. 15. There is severe tricuspid valve regurgitation. 16. Severe pulmonary hypertension, estimated pulmonary arterial systolic pressure is 60 mmHg. 17. There is moderate pulmonic regurgitation. 18. Pleural effusion is seen. Left Ventricle Left ventricular chamber dimension is normal. Left ventricular systolic function is normal, estimated at 55-60%. There is moderately increased left ventricular wall thickness. The left ventricular diastolic function is indeterminate. Right Ventricle Right ventricular chamber dimension is severely enlarged. Right ventricular systolic function is reduced. Left Atria Left atrial chamber dimension is severely enlarged. Right Atria Right atrial chamber dimension is severely enlarged. Atrial Septum Suspected patent foramen ovale visualized by color flow imaging. Aortic Valve The aortic valve is probable trileaflet. There is mild to moderate aortic valve stenosis with a peak velocity of 202 cm/s, mean gradient of 7 mmHg, and aortic valve area of 1.5 cm2. There is mild aortic valve regurgitation. There is severe aortic valve calcification. Pulmonic Valve The pulmonic valve is normal. There is no pulmonic valve stenosis. There is moderate pulmonic regurgitation. Mitral Valve There is no mitral valve stenosis. There is mild mitral valve regurgitation. The mitral valve annulus is severely calcified. Tricuspid Valve The tricuspid valve leaflets are normal. There is no significant tricuspid valve stenosis. There is severe tricuspid valve regurgitation. Severe pulmonary hypertension, estimated pulmonary arterial systolic pressure is 60 mmHg. Other Findings Pleural effusion is seen. Pericardium/Pleural The pericardium appears normal. There is no pericardial effusion. Inferior Vena Cava Normal inferior vena cava with <50% collapse upon inspiration consistent with elevated right atrial pressure, 10 mmHg. Aorta The aortic root size at the sinus of Valsalva is normal. Left Andrew
[2023-08-20] MEDS: EZETIMIBE 10 MG TABLET PO (21:52)
[2023-08-21] VITALS (13 sets, daily range): BP systolic 95–130; BP diastolic 50–77; PULSE 55–90; RESP 12–24; TEMP 36.3–36.4; O2SAT 95–100
[2023-08-21] MEDS: ALPRAZolam (*CRX) 0.25 MG TABLET PO (01:18)
[2023-08-21] MEDS: ONDANSETRON HCL ODT 4 MG TABLET PO ×2 (01:18→14:59)
[2023-08-21 06:19] LABS: Basophils Absolute Auto 0.1 K/mm3 (0.0-0.1); Basophils Percent Auto 0.7 % (0.2-1.2); Eosinophils Absolute Auto 0.3 K/mm3 (0-0.3); Eosinophils Percent Auto 3.7 % (0-4.4); Hematocrit 27.5 % (37.0-47.0); Hemoglobin 7.6 g/dL (12.0-15.0); Immature Granulocyte Absolute 0.04 K/mm3 (0.00-0.031); Immature Granulocyte Percent A 0.6 % (0-0.5); Lymphocytes Absolute Auto 0.88 K/mm3 (0.9-3.2); Mean Corpuscular HGB Conc 27.6 g/dl (32-36); Mean Corpuscular Hemoglobin 22.8 pg (26-34); Mean Corpuscular Volume 82.6 fl (80-100); Mean Platelet Volume 8.4 fl (7.4-10.4); Monocytes Absolute Auto 0.8 K/mm3 (0.1-0.6); Monocytes Percent Auto 12.1 % (2.6-8.5); Neutrophils Absolute Auto 4.7 K/mm3 (1.3-6.7); Neutrophils Percent Auto 69.9 % (45.5-73.1); Platelet Count Result 219 k/mm3 (150-375); Red Blood Count 3.33 M/mm3 (4.2-5.4); Red Cell Distribution Width 18.3 % (11.5-14.5); White Blood Count 6.8 K/mm3 (4.5-10.0)
[2023-08-21 06:41] LABS: Alanine Aminotransferase 11 U/L (6-35); Albumin Level 3.2 g/dL (3.5-5.1); Alkaline Phosphatase 101 U/L (38-126); Anion Gap 9 mmol/L (8-16); Aspartate Amino Transferase 18 U/L (14-36); Bilirubin,Total 0.7 mg/dL (0.2-1.3); Blood Urea Nitrogen 45 mg/dL (7-17); Calcium 8.4 mg/dL (8.4-10.2); Carbon Dioxide 25 mmol/L (22-30); Chloride 101 mmol/L (98-107); Estimated Glomerular Filt Rate 33; Glucose 87 mg/dL (65-110); Potassium 4.5 mmol/L (3.4-5.0); Sodium 135 mmol/L (137-145)
[2023-08-21 06:46] LABS: Hypochromasia 1+ (NORMAL); Platelet Estimate Adequate (Adequate)
[2023-08-21 06:47] LABS: Anisocytosis 1+ (NORMAL); Schistocytes None Seen (NORMAL)
[2023-08-21] MEDS: LABETALOL HCL 100 MG TABLET 200 MG PO ×2 (07:58→20:46)
[2023-08-21] MEDS: FUROSEMIDE INJ 40 MG/4 ML VIAL IV PUSH (08:03)
[2023-08-21] MEDS: PANTOPRAZOLE 40 MG TABLET PO (08:03)
[2023-08-21] MEDS: dilTIAZem HCL 30 MG TABLET PO ×2 (08:03→20:46)
--- NOTE | 2023-08-21 10:03 | P.PNIM_ITS ---
Progress Note: A&P Assessment and Plan (1) Hypoxia: Code(s): R09.02 - Hypoxemia Status: Acute Assessment and Plan: * Etiology concern for effusion that is noted on CXR, vs effusion and possible LLL PNA found on CTA. * Continue supportive oxygenation. * Wean oxygen as able to. * Continue to monitor and VS * 08/21/23: Stable and nurse attempting to wean oxygen. Pt. does not normally wear oxygen at baseline. We will repeat CXR in AM to evaluate effusion and any infection. Overall interval improvement in oxygenation. (2) Pleural effusion: Code(s): J90 - Pleural effusion, not elsewhere classified Status: Acute Assessment and Plan: * Thoracentesis is ordered. Xarelto is being held in the setting of needing drained. * Attempting to diurese with Lasix 40 mg IVP daily today. * CXR in AM. * Daily weight * Accurate I&O. * 08/21/23: CXR this AM shows a moderate to large size right pleural effusion without significant change in size. There are associated airspace opacities of the right middle and lower lung zones with cardiomegaly. ECHO performed yesterday was read as a normal LVSF with E Fof 55-60%. Pt does have severe Pulmonary HTN w/pressrure of 60. Pt's clinical exam is improved overall with regards to auscultation, the ability to attempt to wean supplemental oxygen and VS. She has had an overall net loss of weight by 1.1 kg since admission. We will continue the Lasix 40 mg IVP daily in the current setting an re- evaluate with repeat labs and imaging in the AM. (3) Cirrhosis of liver with ascites: Code(s): K74.60 - Unspecified cirrhosis of liver; R18.8 - Other ascites Status: Acute Assessment and Plan: * Paracentesis is ordered by admitting hospitalist, although no imaging is noted to have been done showing ascites, and her Physical exam is not all that suspicious of needing acute para, will keep order and see what Radiologist says when US is performed. * Attempting to diurese. * 08/21/22: Abdomen today is more firm to palpation and more rotund. Little to no relief given with the administration of Lasix. (4) Hyperkalemia: Code(s): E87.5 - Hyperkalemia Status: Resolved Assessment and Plan: * Presenting potassium was 5.3. Trended down to 5.0. * Continue to monitor with labs. * 08/21/23: Resolved at 4.5. Will continue to monitor now for hypokalemia in setting of using loop diuretics. (5) Chronic kidney disease, stage 3: Code(s): N18.30 - Chronic kidney disease, stage 3 unspecified Status: Acute Assessment and Plan: * At baseline with Cr of 1.4. * Using Lasix today at increased dose to attempt diuresis. * 08/21/23: Stable creatinine at 1.5. (6) Chronic anemia: Code(s): D64.9 - Anemia, unspecified Status: Chronic Assessment and Plan: * Suspect Secondary to Chronic kidney disease. * No signs of active bleeding. * Hgb is 8.2, down from 9.5 yesterday. * Will order occult blood from stool. * 08/21/23: Still awaiting results of stool for occult blood. No acute blood loss and Xarelto currently on hold for procedure tomorrow. Suspect this is chronic in nature secondary to renal disease. (7) Paroxysmal atrial fibrillation: Code(s): I48.0 - Paroxysmal atrial fibrillation Status: Chronic Assessment and Plan: * Chronically on Xarelto. * Currently rate controlled with oral Diltiazem and labetalol. * Monitor with telemetry * 08/21/23: Currently rate continues to be controlled 70s-80s. Continue telemetry in the current setting and continue to monitor. (8) Chronic anticoagulati
--- NOTE | 2023-08-21 10:03 | PM.IMPN ---
Progress Note: A&P Assessment and Plan (1) Hypoxia: Code(s): R09.02 - Hypoxemia Status: Acute Assessment and Plan: Etiology concern for effusion that is noted on CXR, vs effusion and possible LLL PNA found on CTA. Continue supportive oxygenation. Wean oxygen as able to. Continue to monitor and VS 08/21/23: Stable and nurse attempting to wean oxygen. Pt. does not normally wear oxygen at baseline. We will repeat CXR in AM to evaluate effusion and any infection. Overall interval improvement in oxygenation. (2) Pleural effusion: Code(s): J90 - Pleural effusion, not elsewhere classified Status: Acute Assessment and Plan: Thoracentesis is ordered. Xarelto is being held in the setting of needing drained. Attempting to diurese with Lasix 40 mg IVP daily today. CXR in AM. Daily weight Accurate I&O. 08/21/23: CXR this AM shows a moderate to large size right pleural effusion without significant change in size. There are associated airspace opacities of the right middle and lower lung zones with cardiomegaly. ECHO performed yesterday was read as a normal LVSF with E Fof 55-60%. Pt does have severe Pulmonary HTN w/pressrure of 60. Pt's clinical exam is improved overall with regards to auscultation, the ability to attempt to wean supplemental oxygen and VS. She has had an overall net loss of weight by 1.1 kg since admission. We will continue the Lasix 40 mg IVP daily in the current setting an re-evaluate with repeat labs and imaging in the AM. (3) Cirrhosis of liver with ascites: Code(s): K74.60 - Unspecified cirrhosis of liver; R18.8 - Other ascites Status: Acute Assessment and Plan: Paracentesis is ordered by admitting hospitalist, although no imaging is noted to have been done showing ascites, and her Physical exam is not all that suspicious of needing acute para, will keep order and see what Radiologist says when US is performed. Attempting to diurese. 08/21/22: Abdomen today is more firm to palpation and more rotund. Little to no relief given with the administration of Lasix. (4) Hyperkalemia: Code(s): E87.5 - Hyperkalemia Status: Resolved Assessment and Plan: Presenting potassium was 5.3. Trended down to 5.0. Continue to monitor with labs. 08/21/23: Resolved at 4.5. Will continue to monitor now for hypokalemia in setting of using loop diuretics. (5) Chronic kidney disease, stage 3: Code(s): N18.30 - Chronic kidney disease, stage 3 unspecified Status: Acute Assessment and Plan: At baseline with Cr of 1.4. Using Lasix today at increased dose to attempt diuresis. 08/21/23: Stable creatinine at 1.5. (6) Chronic anemia: Code(s): D64.9 - Anemia, unspecified Status: Chronic Assessment and Plan: Suspect Secondary to Chronic kidney disease. No signs of active bleeding. Hgb is 8.2, down from 9.5 yesterday. Will order occult blood from stool. 08/21/23: Still awaiting results of stool for occult blood. No acute blood loss and Xarelto currently on hold for procedure tomorrow. Suspect this is chronic in nature secondary to renal disease. (7) Paroxysmal atrial fibrillation: Code(s): I48.0 - Paroxysmal atrial fibrillation Status: Chronic Assessment and Plan: Chronically on Xarelto. Currently rate controlled with oral Diltiazem and labetalol. Monitor with telemetry 08/21/23: Currently rate continues to be controlled 70s-80s. Continue telemetry in the current setting and continue to monitor. 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 SCD's in meantime. 08/21/23: Continue to hold for procedure tomorrow. (9) Abnormal chest x-ray: Code(s): R93.89 - Abnormal findings on diagnostic imaging of other specified body structures Status: Acute As
[2023-08-21] MEDS: AZITHROMYCIN 500 MG/NS 250 ML 500 MG/250 ML BAG 250 MG IVPB (12:48)
[2023-08-21 15:05] LABS: IFOB Positive Control Positive; Immunochemical Fecal Occult Bl Positive (N)
[2023-08-21] MEDS: EZETIMIBE 10 MG TABLET PO (20:46)
[2023-08-22] VITALS (14 sets, daily range): BP systolic 110–117; BP diastolic 55–62; PULSE 60–97; RESP 18–20; TEMP 36.7–36.8; O2SAT 84–95
[2023-08-22] MEDS: ALPRAZolam (*CRX) 0.25 MG TABLET PO (01:27)
[2023-08-22] MEDS: ONDANSETRON HCL ODT 4 MG TABLET PO (05:32)
[2023-08-22] MEDS: LIDOCAINE 5% PATCH 1 PATCH TOPICAL ×2 (05:33→21:29)
[2023-08-22 06:24] LABS: Basophils Percent Auto 0.5 % (0.2-1.2); Eosinophils Absolute Auto 0.3 K/mm3 (0-0.3); Eosinophils Percent Auto 3.9 % (0-4.4); Hematocrit 28.4 % (37.0-47.0); Immature Granulocyte Absolute 0.02 K/mm3 (0.00-0.031); Immature Granulocyte Percent A 0.3 % (0-0.5); Lymphocytes Absolute Auto 0.83 K/mm3 (0.9-3.2); Lymphocytes Percent Auto 12.9 % (18.3-44.2); Mean Corpuscular HGB Conc 28.2 g/dl (32-36); Mean Corpuscular Hemoglobin 22.7 pg (26-34); Mean Corpuscular Volume 80.7 fl (80-100); Mean Platelet Volume 8.3 fl (7.4-10.4); Monocytes Absolute Auto 0.8 K/mm3 (0.1-0.6); Monocytes Percent Auto 11.9 % (2.6-8.5); Neutrophils Absolute Auto 4.5 K/mm3 (1.3-6.7); Neutrophils Percent Auto 70.5 % (45.5-73.1); Platelet Count Result 221 k/mm3 (150-375); Red Blood Count 3.52 M/mm3 (4.2-5.4); Red Cell Distribution Width 18.3 % (11.5-14.5); White Blood Count 6.4 K/mm3 (4.5-10.0)
[2023-08-22 06:43] LABS: Alanine Aminotransferase 11 U/L (6-35); Albumin Level 3.5 g/dL (3.5-5.1); Alkaline Phosphatase 102 U/L (38-126); Anion Gap 9 mmol/L (8-16); Aspartate Amino Transferase 18 U/L (14-36); Bilirubin,Total 0.6 mg/dL (0.2-1.3); Blood Urea Nitrogen 47 mg/dL (7-17); Calcium 8.8 mg/dL (8.4-10.2); Carbon Dioxide 25 mmol/L (22-30); Chloride 101 mmol/L (98-107); Estimated Glomerular Filt Rate 30; Glucose 73 mg/dL (65-110); Magnesium 2.2 mg/dL (1.6-2.3); Potassium 4.4 mmol/L (3.4-5.0); Sodium 135 mmol/L (137-145)
[2023-08-22 06:49] LABS: Anisocytosis 1+ (NORMAL); Hypochromasia 2+ (NORMAL); Platelet Estimate Adequate (Adequate)
[2023-08-22 06:50] LABS: Schistocytes None Seen (NORMAL)
[2023-08-22] MEDS: LABETALOL HCL 100 MG TABLET 200 MG PO ×2 (08:22→21:28)
[2023-08-22] MEDS: FUROSEMIDE INJ 40 MG/4 ML VIAL IV PUSH (08:24)
[2023-08-22] MEDS: dilTIAZem HCL 30 MG TABLET PO ×2 (08:24→21:27)
[2023-08-22] MEDS: PANTOPRAZOLE 40 MG TABLET PO (08:24)
--- NOTE | 2023-08-22 10:56 | PM.IMPN ---
Progress Note: A&P Assessment and Plan (1) Hypoxia: Code(s): R09.02 - Hypoxemia Status: Acute Assessment and Plan: Etiology concern for effusion that is noted on CXR, vs effusion and possible LLL PNA found on CTA. Continue supportive oxygenation. Wean oxygen as able to. Continue to monitor and VS 08/21/23: Stable and nurse attempting to wean oxygen. Pt. does not normally wear oxygen at baseline. We will repeat CXR in AM to evaluate effusion and any infection. Overall interval improvement in oxygenation. 08/22/23: Pt failed trial of oxygen wean with oxygen found to be 84% this morning. 1L Oxygen was replaced and pt recovered without incident. Suspect the degree of ascites and the degree of effusion on the right side is contributing to her hypoxia. Will attempt to wean again after Paracentesis and Thoracentesis and if unable to wean, will will do home oxygen evaluation. (2) Pleural effusion: Code(s): J90 - Pleural effusion, not elsewhere classified Status: Acute Assessment and Plan: Thoracentesis is ordered. Xarelto is being held in the setting of needing drained. Attempting to diurese with Lasix 40 mg IVP daily today. CXR in AM. Daily weight Accurate I&O. 08/21/23: CXR this AM shows a moderate to large size right pleural effusion without significant change in size. There are associated airspace opacities of the right middle and lower lung zones with cardiomegaly. ECHO performed yesterday was read as a normal LVSF with E Fof 55-60%. Pt does have severe Pulmonary HTN w/pressrure of 60. Pt's clinical exam is improved overall with regards to auscultation, the ability to attempt to wean supplemental oxygen and VS. She has had an overall net loss of weight by 1.1 kg since admission. We will continue the Lasix 40 mg IVP daily in the current setting an re-evaluate with repeat labs and imaging in the AM. 08/22/23: Repeat CXR this AM shows interval resolution of the left sided effusion, but the right side remains large in size. There are no signs of acute infection, so the abx is discontinued. Pt to have Thoracentesis and Paracentesis this afternoon. Pt did receive another dose of Lasix 40 mg yesterday and this AM her renal function was slightly further declined at 1.60/47. Will hold off on further attempt to diurese any fluid off given the appearance of the CXR and the fact that she is having a Thoracentesis today. (3) Right humeral fracture: Code(s): S42.301A - Unspecified fracture of shaft of humerus, right arm, initial encounter for closed fracture Status: Acute Assessment and Plan: Fracture from 07/30, again identified on CXR this AM. Pt with surprisingly good AROM of the right arm and little pain that she has not complained of with exception of Lidocaine patch. She follows with Dr. Lindo, orthopedic surgeon at [facility]. She last saw him within the past couple of weeks and was told that my bone is back in one piece. I have concern for possible instability of the arm and Orthopedics activities concierge is consulted for recommendations of weight bearing and correct management in the current situation pending her discharge and follow up with Dr. Lindo. (4) Positive occult stool blood test: Code(s): R19.5 - Other fecal abnormalities Status: Acute Assessment and Plan: Pt with noted drop in Hgb despite holding Xarelto. Asymptomatic Consult GI for evaluation prior to pt's Xarelto being restarted post thoracentesis and paracentesis today. Coags are ordered in the setting of her chronic liver disease for review. (5) Cirrhosis of liver with ascites: Code(s): K74.60 - Unspecified cirrhosis of liver; R18.8 - Other ascites Status: Acute Assessment and Plan: Paracentesis is ordered by admitting hospitalist, although no imaging is noted to have been done showing ascites, and her Physical exam is not all that suspicious of needing acute para, will keep order and see what Radiologist
[2023-08-22 12:00] LABS: INR 1.3; Partial Thromboplastin Time 35.5 SECONDS (22.3-36.8); Prothrombin Time 17.2 Seconds (11.1-14.7)
[2023-08-22] MEDS: EZETIMIBE 10 MG TABLET PO (21:25)
[2023-08-23] VITALS (16 sets, daily range): BP systolic 97–115; BP diastolic 43–62; PULSE 68–88; RESP 15–22; TEMP 36.4–36.5; O2SAT 90–97
[2023-08-23 07:21] LABS: Basophils Percent Auto 0.5 % (0.2-1.2); Eosinophils Absolute Auto 0.2 K/mm3 (0-0.3); Eosinophils Percent Auto 3.1 % (0-4.4); Hematocrit 27.3 % (37.0-47.0); Hemoglobin 7.6 g/dL (12.0-15.0); Immature Granulocyte Absolute 0.03 K/mm3 (0.00-0.031); Immature Granulocyte Percent A 0.5 % (0-0.5); Lymphocytes Absolute Auto 0.79 K/mm3 (0.9-3.2); Lymphocytes Percent Auto 12.3 % (18.3-44.2); Mean Corpuscular HGB Conc 27.8 g/dl (32-36); Mean Corpuscular Hemoglobin 22.8 pg (26-34); Mean Corpuscular Volume 81.7 fl (80-100); Mean Platelet Volume 8.4 fl (7.4-10.4); Monocytes Absolute Auto 0.6 K/mm3 (0.1-0.6); Neutrophils Absolute Auto 4.7 K/mm3 (1.3-6.7); Neutrophils Percent Auto 73.6 % (45.5-73.1); Platelet Count Result 220 k/mm3 (150-375); Red Blood Count 3.34 M/mm3 (4.2-5.4); Red Cell Distribution Width 18.5 % (11.5-14.5); White Blood Count 6.4 K/mm3 (4.5-10.0)
[2023-08-23 07:33] LABS: Alanine Aminotransferase 9 U/L (6-35); Albumin Level 3.1 g/dL (3.5-5.1); Alkaline Phosphatase 98 U/L (38-126); Anion Gap 4 mmol/L (8-16); Aspartate Amino Transferase 18 U/L (14-36); Bilirubin,Total 0.7 mg/dL (0.2-1.3); Blood Urea Nitrogen 45 mg/dL (7-17); Calcium 8.5 mg/dL (8.4-10.2); Carbon Dioxide 30 mmol/L (22-30); Chloride 99 mmol/L (98-107); Estimated Glomerular Filt Rate 36; Glucose 84 mg/dL (65-110); Magnesium 2.2 mg/dL (1.6-2.3); Potassium 4.5 mmol/L (3.4-5.0); Sodium 133 mmol/L (137-145)
[2023-08-23 07:56] LABS: Hypochromasia 2+ (NORMAL); Ovalocytes 1+ (NORMAL); Platelet Estimate Adequate (Adequate); Schistocytes None Seen (NORMAL)
--- NOTE | 2023-08-23 08:13 | PM.CNOR ---
Assessment and Plan Assessment and plan (1) Right humeral fracture: Qualifiers: Encounter type: subsequent encounter Humerus Location: surgical neck Fracture type: closed Fracture alignment: displaced Fracture healing: with routine healing Fracture morphology: 2-part Qualified Code(s): S42.221D - 2-part displaced fracture of surgical neck of right humerus, subsequent encounter for fracture with routine healing Code(s): S42.301A - Unspecified fracture of shaft of humerus, right arm, initial encounter for closed fracture Status: Acute Assessment and Plan: Asked to see patient for right humerus fracture while she is here for pulmonary complications. She has about 2 months from right proximal fracture. New radiographs yesterday show good callus formation. She has fairly good range of motion on exam mild tenderness. She can progress to weight-bearing as tolerated. No need for immobilization this time. PT/OT for assistance and ambulation with walker. Able to use arm with walker. May follow up as directed History of Present Illness HPI Consult date: 08/23/23 Requesting physician: Nohemy Irizarry APN-C Consult reason: fracture (Right shoulder) Chief complaint: Pleural Effusions/Ascites Narrative: 87-year-old woman claims she fell June 24 injuring her right shoulder. Right proximal humerus fracture which she has been followed at [facility] for. She is admitted here pulmonary complications. Was told she was not a surgical candidate to medical history. She has some pain in the right shoulder with movement. She is able to move. She is out of the sling. Denies numbness or tingling. Review of Systems Constitutional: Constitutional: Denies fever(s) Eyes: Eyes: Denies blurry vision ENT: Reports Normal hearing present Cardiovascular: Cardiovascular: Denies chest pain and Denies dyspnea Respiratory: Respiratory: Denies dyspnea and Denies wheezing Gastrointestinal: Gastrointestinal: Denies abdominal pain Genitourinary: Genitourinary: Denies urinary urgency Musculoskeletal: Musculoskeletal: Reports as per HPI and Denies numbness Integumentary/Breasts: Skin/Breast: Denies changing lesions and Denies sores Neurologic: Reports Normal hearing present, Denies behavioral changes, Denies confusion, Denies numbness and Denies convulsions Psychiatric: Psychiatric: Denies behavioral changes, Denies confusion and Denies hallucinations Endocrine: Endocrine: Denies heat intolerance Hematologic/Lymphatic: Hematologic/Lymphatic: Denies easy bleeding Allergic/Immunologic: Allergic/Immunologic: Denies wheezing [facility] Past Medical History Medical History Arthritis Autoimmune liver disease Chronic anemia Chronic anticoagulation Chronic kidney disease, stage 3 Cirrhosis of liver Coronary artery disease Gastroesophageal reflux disease Glaucoma Hypertension Macular degeneration Paroxysmal atrial fibrillation Positive occult stool blood test Right humeral fracture Surgical History Surgical History History of cataract extraction History of coronary artery bypass graft (2006) History of hysterectomy History of tonsillectomy Family History Family History Mother Heart disease Hypertension Social History Social History Social History: Healthcare power of attorney law clerk: Oma Guaman, niece. Code status: Full code. Smoking status: Never smoker Alcohol intake: never Substance use: never Substance use type: does not use Do You Feel Safe in your Home?: Yes Lack of Transportation: No Lack of Food: Never True Current Housing: I Have Housing Concerned About Future Housing: No Difficulty Paying Gas/Electric Bills: No Difficulty Paying for Meds: No Cu
[2023-08-23] MEDS: LABETALOL HCL 100 MG TABLET 200 MG PO ×2 (09:05→21:04)
[2023-08-23] MEDS: PANTOPRAZOLE 40 MG TABLET PO (09:06)
[2023-08-23] MEDS: dilTIAZem HCL 30 MG TABLET PO ×2 (09:06→21:03)
--- NOTE | 2023-08-23 11:21 | PM.IMPN ---
Progress Note: A&P Assessment and Plan (1) Hypoxia: Code(s): R09.02 - Hypoxemia Status: Resolved Assessment and Plan: Etiology concern for effusion that is noted on CXR, vs effusion and possible LLL PNA found on CTA. Continue supportive oxygenation. Wean oxygen as able to. Continue to monitor and VS 08/21/23: Stable and nurse attempting to wean oxygen. Pt. does not normally wear oxygen at baseline. We will repeat CXR in AM to evaluate effusion and any infection. Overall interval improvement in oxygenation. 08/22/23: Pt failed trial of oxygen wean with oxygen found to be 84% this morning. 1L Oxygen was replaced and pt recovered without incident. Suspect the degree of ascites and the degree of effusion on the right side is contributing to her hypoxia. Will attempt to wean again after Paracentesis and Thoracentesis and if unable to wean, will do home oxygen evaluation. 08/23/23: Resolved, sats maintaining on room air. (2) Pleural effusion: Code(s): J90 - Pleural effusion, not elsewhere classified Status: Acute Assessment and Plan: Thoracentesis is ordered. Xarelto is being held in the setting of needing drained. Attempting to diurese with Lasix 40 mg IVP daily today. CXR in AM. Daily weight Accurate I&O. 08/21/23: CXR this AM shows a moderate to large size right pleural effusion without significant change in size. There are associated airspace opacities of the right middle and lower lung zones with cardiomegaly. ECHO performed yesterday was read as a normal LVSF with E Fof 55-60%. Pt does have severe Pulmonary HTN w/pressure of 60. Pt's clinical exam is improved overall with regards to auscultation, the ability to attempt to wean supplemental oxygen and VS. She has had an overall net loss of weight by 1.1 kg since admission. We will continue the Lasix 40 mg IVP daily in the current setting an re-evaluate with repeat labs and imaging in the AM. 08/22/23: Repeat CXR this AM shows interval resolution of the left sided effusion, but the right side remains large in size. There are no signs of acute infection, so the abx is discontinued. Pt to have Thoracentesis and Paracentesis this afternoon. Pt did receive another dose of Lasix 40 mg yesterday and this AM her renal function was slightly further declined at 1.60/47. Will hold off on further attempt to diurese any fluid off given the appearance of the CXR and the fact that she is having a Thoracentesis today. 08/23/23: Post thoracentesis yesterday where 1100 ml was withdrawn, CXR is without pneumothorax and there is interval decrease in size of right pleural effusion. There are signs of acute atelectasis in the right middle and lower lung zones. (3) Right humeral fracture: Qualifiers: Encounter type: subsequent encounter Humerus Location: surgical neck Fracture type: closed Fracture morphology: 2-part Fracture alignment: displaced Fracture healing: with routine healing Qualified Code(s): S42.221D - 2-part displaced fracture of surgical neck of right humerus, subsequent encounter for fracture with routine healing Code(s): S42.301A - Unspecified fracture of shaft of humerus, right arm, initial encounter for closed fracture Status: Acute Assessment and Plan: Fracture from 07/30, again identified on CXR this AM. Pt with surprisingly good AROM of the right arm and little pain that she has not complained of with exception of Lidocaine patch. She follows with Dr. Lindo, orthopedic surgeon at [facility]. She last saw him within the past couple of weeks and was told that my bone is back in one piece. I have concern for possible instability of the arm and Orthopedics refrigeration brazer/solderer is consulted for recommendations of weight bearing and correct management in the current situation pending her discharge and follow up with Dr. Lindo. 08/23/23: Dr. Browning consulted, and I do appreciate his expert input, and no new precautions, splinting or weight bearing limitatio
--- NOTE | 2023-08-23 15:03 | WPDGICN ---
Assessment and Plan Assessment and plan (1) Acute on chronic anemia: Code(s): D64.9 - Anemia, unspecified Status: Acute Assessment and Plan: probably multifactorial from ckd, cirrhosis, etc she is unsure about EGD, will go ahead and schedule for tomorrow but patient also will talk to family members before committing to EGD (she would need one anyways to assess if varices/portal hypertension based on history of cirrhosis and also if safe to resume anticoagulation) (2) Positive occult stool blood test: Code(s): R19.5 - Other fecal abnormalities Status: Acute Assessment and Plan: egd in am if she is agreeable (3) Respiratory failure with hypoxia: Code(s): J96.91 - Respiratory failure, unspecified with hypoxia Status: Acute Assessment and Plan: resolved after thoracenthesis (4) Cirrhosis of liver with ascites: Code(s): K74.60 - Unspecified cirrhosis of liver; R18.8 - Other ascites Status: Acute Assessment and Plan: she will see Dr Bernstein as outpatient just had new paracentesis (5) Pleural effusion: Code(s): J90 - Pleural effusion, not elsewhere classified Status: Acute (6) Chronic anticoagulation: Code(s): 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 Status: Chronic (7) Paroxysmal atrial fibrillation: Code(s): I48.0 - Paroxysmal atrial fibrillation Status: Chronic GI Consult Note Consult date/time: 08/23/23 15:03 Reason for consult: cirrhosis, ascites, chronic anemia and FOBT + HPI: Mary Beth Puente is a 87 year old female?with cirrhosis who has seen Dr Bernstein (mild elevated ELIAS, no alcohol use and required paracentesis previously), congestive heart failure, coronary artery disease status post CABG, paroxysmal atrial fibrillation on chronic anticoagulation with xarelto, chronic anemia Hgb ~ 10, and chronic kidney disease who came to the emergency department for worsening shortness of breath. She has been getting home health and physical therapy because recent right humeral fracture and previous to admission noted more labored breathing. On arrival was hypoxic, CXR found significant increase in a large right pleural effusion, she underwent thoracenthesis 1.1 L and also 1.6L ascites fluid removed, now she is feeling much better. We are called because noted slowly downtrending hgb 7.6 but no overt gib however occult blood positive. She had egd and colonoscopy about 10 years ago per patient. She is unsure if would like to have EGD. Review of Systems Constitutional: Constitutional: Denies chills and Reports fatigue Eyes: Eyes: Denies blurry vision ENT: Reports Normal hearing present Cardiovascular: Cardiovascular: Denies chest pain Respiratory: Respiratory: Reports dyspnea on exertion Gastrointestinal: Gastrointestinal: Denies bloating Genitourinary: Genitourinary: Denies nocturia Musculoskeletal: Musculoskeletal: Denies neck pain Integumentary/Breasts: Skin/Breast: Denies rash Neurologic: Denies confusion Psychiatric: Psychiatric: Denies behavioral changes [facility] Past Medical History Medical History (Updated 08/23/23 @ 15:10 by Wally Fernandez MD) Acute on chronic anemia Arthritis Autoimmune liver disease Chronic anemia Chronic anticoagulation Chronic kidney disease, stage 3 Cirrhosis of liver Coronary artery disease Gastroesophageal reflux disease Glaucoma Hypertension Macular degeneration Paroxysmal atrial fibrillation Positive occult stool blood test Right humeral fracture Surgical History Surgical History History of cataract extraction History of coronary artery bypass graft (2006) History of hysterectomy History of tonsillectomy Family History Family History Mother Heart disease Hypertension Social History Social History (Reviewed 08/23/23 @ 08:15 by
--- NOTE | 2023-08-23 16:24 | HOMEO2EVAL ---
Evaluation was performed at [facility] Home Oxygen Evaluation RC: Home Oxygen (O2) Evaluation Start: 08/23/23 09:05 Freq: ONCE Status: Active Protocol: RPE Activity Type Activity Date Activity User E-sign Co-sign Detail Recorded Client Recorded Date Recorded By Document 08/23/23 15:45 TAMMY [id number] 08/23/23 16:24 TAMMY Document 08/23/23 15:50 TAMMY [id number] 08/23/23 16:24 TAMMY Document 08/23/23 16:00 TAMMY [id number] 08/23/23 16:24 TAMMY 08/23/23 08/23/23 08/23/23 15:45 15:50 16:00 Home O2 Evaluation [Oxygen] -Test Phase Resting Exercise Resting -Oxygen Delivery Room Air Room Air Room Air [Pulse Oximetry] -Pulse Oximetry (90-100 %) 92 90 91 [Pulse Rate] -Pulse Rate (60-100 beats/min) 75 86 79 [Comments] -Home Oxygen Evaluation Comments NO HOME O2 NEEDED AT THIS TIME. [Charges] -Evaluation Charges O2 Evaluation by Pulmonary
--- NOTE | 2023-08-23 16:25 | PCRCNOTE ---
HOME O2 EVAL DONE, NO HOME O2 NEEDED AT THIS TIME.
[2023-08-23] MEDS: ONDANSETRON HCL ODT 4 MG TABLET PO (18:32)
[2023-08-23] MEDS: EZETIMIBE 10 MG TABLET PO (21:04)
[2023-08-23] MEDS: ALPRAZolam (*CRX) 0.25 MG TABLET PO (21:04)
[2023-08-24] VITALS (11 sets, daily range): BP systolic 85–121; BP diastolic 35–74; PULSE 62–80; RESP 16–22; TEMP 35.9–36.6; O2SAT 92–95
[2023-08-24 06:32] LABS: Basophils Percent Auto 0.7 % (0.2-1.2); Eosinophils Absolute Auto 0.3 K/mm3 (0-0.3); Eosinophils Percent Auto 4.7 % (0-4.4); Hematocrit 27.1 % (37.0-47.0); Hemoglobin 7.7 g/dL (12.0-15.0); Immature Granulocyte Absolute 0.02 K/mm3 (0.00-0.031); Immature Granulocyte Percent A 0.4 % (0-0.5); Lymphocytes Absolute Auto 1.01 K/mm3 (0.9-3.2); Lymphocytes Percent Auto 18.3 % (18.3-44.2); Mean Corpuscular HGB Conc 28.4 g/dl (32-36); Mean Corpuscular Volume 80.9 fl (80-100); Mean Platelet Volume 8.4 fl (7.4-10.4); Monocytes Absolute Auto 0.7 K/mm3 (0.1-0.6); Monocytes Percent Auto 12.5 % (2.6-8.5); Neutrophils Absolute Auto 3.5 K/mm3 (1.3-6.7); Neutrophils Percent Auto 63.4 % (45.5-73.1); Platelet Count Result 214 k/mm3 (150-375); Red Blood Count 3.35 M/mm3 (4.2-5.4); Red Cell Distribution Width 18.5 % (11.5-14.5); White Blood Count 5.5 K/mm3 (4.5-10.0)
[2023-08-24 06:43] LABS: Alanine Aminotransferase 10 U/L (6-35); Albumin Level 2.9 g/dL (3.5-5.1); Alkaline Phosphatase 89 U/L (38-126); Anion Gap 6 mmol/L (8-16); Aspartate Amino Transferase 17 U/L (14-36); Bilirubin,Total 0.6 mg/dL (0.2-1.3); Blood Urea Nitrogen 42 mg/dL (7-17); Calcium 8.4 mg/dL (8.4-10.2); Carbon Dioxide 25 mmol/L (22-30); Chloride 102 mmol/L (98-107); Estimated Glomerular Filt Rate 39; Glucose 84 mg/dL (65-110); Magnesium 2.2 mg/dL (1.6-2.3); Potassium 4.3 mmol/L (3.4-5.0); Sodium 133 mmol/L (137-145)
[2023-08-24 08:19] LABS: Hypochromasia 1+ (NORMAL); Platelet Estimate Adequate (Adequate); Schistocytes None Seen (NORMAL)
[2023-08-24 08:20] LABS: Ovalocytes 1+ (NORMAL)
--- NOTE | 2023-08-24 10:44 | PCPTNOTE ---
The patient treatment was not able to be completed due to patient out of room for testing. Will plan to continue treatment per plan of care.
--- NOTE | 2023-08-24 10:50 | PC.NURSE ---
To GI lab via relocalityer.
[2023-08-24] MEDS: LACTATED RINGERS 1,000 ML 150 ML IV CONT (11:04)
--- NOTE | 2023-08-24 11:39 | WPDANESEPPF ---
Anes - Initial Pre Proc Eval Procedure: Operation Date: 08/24/23 13:30 Proposed Procedures p Esophagogastroduodenoscopy - Wally Fernandez MD Date/Time: 08/24/23 11:39 Surgeon: BONILLA Li Pre Op Diagnosis: Pleural Effusions/Ascites Patient Data Age: 87 Gender: F Height: 1.47 m Weight: 58.5 kg Last Vital Signs Temp 96.7 F L 08/24/23 11:02 Pulse 79 08/24/23 11:02 Resp 16 08/24/23 11:02 BP 121/52 L 08/24/23 11:02 Pulse Ox 92 08/24/23 11:02 O2 Del Method Room Air 08/24/23 11:02 O2 Flow Rate 1 08/23/23 09:05 FiO2 28 08/21/23 07:51 Allergies Allergy/AdvReac Type Severity Reaction Status Date / Time atropine Allergy Unknown Unknown Verified 07/07/23 10:42 acetaminophen AdvReac Headache Verified 08/19/23 18:13 [From Darvocet-N 100] apixaban [From Eliquis] AdvReac Numbness Verified 08/19/23 18:12 propoxyphene AdvReac Headache Verified 08/19/23 18:12 [From Darvocet-N] [id number] Reductase AdvReac Muscle Pain Verified 08/19/23 18:12 Inhibitor Home Medications Medication Instructions Recorded Confirmed Type diltiazem HCl 30 mg tablet 30 mg PO Q12H 05/17/23 08/19/23 History (Cardizem) ondansetron HCl 4 mg tablet 4 mg PO Q8H 05/17/23 08/19/23 History pantoprazole 40 mg tablet,delayed 40 mg PO QAM 05/17/23 08/19/23 History release alprazolam 0.25 mg tablet 0.25 mg PO DAILY PRN Anxiety 07/07/23 08/19/23 History ezetimibe 10 mg tablet 10 mg PO HS 07/07/23 08/19/23 History furosemide 20 mg tablet (Lasix) 20 mg PO QAM 07/07/23 08/19/23 History krill oil 500 mg capsule 1,000 mg PO DAILY 07/07/23 08/19/23 History labetalol 200 mg tablet 200 mg PO Q12H 07/07/23 08/19/23 History lidocaine 5 % topical patch 1 patch topical DAILY 07/07/23 08/19/23 History nitroglycerin 0.4 mg sublingual 0.4 mg sublingual Q5M PRN Chest 07/07/23 08/19/23 History tablet Pain rivaroxaban 10 mg tablet (Xarelto) 10 mg PO HS 07/07/23 08/19/23 History ergocalciferol (vitamin D2) 1,250 1,250 mcg PO WEEKLY 08/19/23 08/19/23 History mcg (50,000 unit) capsule spironolactone 50 mg tablet 50 mg PO BID 08/19/23 08/19/23 History simethicone 125 mg tablet 125 mg PO TID PRN Abdominal 08/23/23 08/23/23 History Discomfort Laboratory Tests 08/24/23 06:16 WBC 5.5 K/mm3 (4.5-10.0) RBC 3.35 L M/mm3 (4.2-5.4) Hgb 7.7 L g/dL (12.0-15.0) Hct 27.1 L % (37.0-47.0) MCV 80.9 fl (80-100) MCH 23.0 L pg (26-34) MCHC 28.4 L g/dl (32-36) RDW 18.5 H % (11.5-14.5) Plt Count 214 k/mm3 (150-375) MPV 8.4 fl (7.4-10.4) Immature Gran % (Auto) 0.4 % (0-0.5) Neut % (Auto) 63.4 % (45.5-73.1) Lymph % (Auto) 18.3 % (18.3-44.2) [place] % (Auto) 12.5 H % (2.6-8.5) Eos % (Auto) 4.7 H % (0-4.4) Baso % (Auto) 0.7 % (0.2-1.2) Lymph # (Auto) 1.01 K/mm3 (0.9-3.2) [place] # (Auto) 0.7 H K/mm3 (0.1-0.6) Eos # (Auto) 0.3 K/mm3 (0-0.3) Baso # (Auto) 0.0 K/mm3 (0.0-0.1) Abs Immat Gran (auto) 0.02 K/mm3 (0.00-0.031) Absolute Neuts (auto) 3.5 K/mm3 (1.3-6.7) Absolute Nucleated RBC 0.0 K/mm3 (0.0-0.012) Nucleated RBC % 0.0 % (0.0-0.2) Platelet Estimate Adequate (Adequate) Hypochromasia 1+ (NORMAL) Ovalocytes 1+ (NORMAL) Schistocytes None seen (NORMAL) Sodium 133 L mmol/L (137-145) Potassium 4.3 mmol/L (3.4-5.0) Chloride 102 mmol/L (98-107) Carbon Dioxide 25 mmol/L (22-30) Anion Gap 6 L mmol/L (8-16) BUN 42 H mg/dL (7-17) Creatinine 1.30 H mg/dL (0.7-1.0) Estim Creat Clear Calc Not Reportable Estimated GFR 39 L (59 - ) Glucose 84 mg/dL (65-110) Calcium 8.4 mg/dL (8.4-10.2) Magnesium 2.2 mg/dL (1.6-2.3) Total Bilirubin 0.6 mg/dL (0.2-1.3) AST 17 U/L (14-36) ALT 10 U/L (6-35) Alkaline Phosphatase 89 U/L (38-126) Total Protein 5.0 L g/dL
--- NOTE | 2023-08-24 12:05 | PC.NURSE ---
Back from GI Lab via stretcher.
[2023-08-24] MEDS: PANTOPRAZOLE 40 MG TABLET PO (12:14)
[2023-08-24] MEDS: SIMETHICONE 125 MG CHEW TAB PO (13:08)
--- NOTE | 2023-08-24 13:09 | PM.DS ---
DS: Admitting Diagnosis Discharge Date 08/24/23 Admitting Diagnosis Large pleural effusion DS: Discharge Diagnosis Discharge Diagnosis (1) Hypoxia: Code(s): R09.02 - Hypoxemia Status: Resolved (2) Pleural effusion: Code(s): J90 - Pleural effusion, not elsewhere classified Status: Acute (3) Right humeral fracture: Qualifiers: Encounter type: subsequent encounter Fracture alignment: displaced Fracture healing: with routine healing Fracture morphology: 2-part Fracture type: closed Humerus Location: surgical neck Qualified Code(s): S42.221D - 2-part displaced fracture of surgical neck of right humerus, subsequent encounter for fracture with routine healing Code(s): S42.301A - Unspecified fracture of shaft of humerus, right arm, initial encounter for closed fracture Status: Acute (4) Positive occult stool blood test: Code(s): R19.5 - Other fecal abnormalities Status: Acute (5) Cirrhosis of liver with ascites: Code(s): K74.60 - Unspecified cirrhosis of liver; R18.8 - Other ascites Status: Acute (6) Hyperkalemia: Code(s): E87.5 - Hyperkalemia Status: Resolved (7) Chronic kidney disease, stage 3: Code(s): N18.30 - Chronic kidney disease, stage 3 unspecified Status: Acute (8) Chronic anemia: Code(s): D64.9 - Anemia, unspecified Status: Chronic (9) Paroxysmal atrial fibrillation: Code(s): I48.0 - Paroxysmal atrial fibrillation Status: Chronic (10) Chronic anticoagulation: Code(s): Z79.01 - detention (current) use of anticoagulants Status: Chronic (11) Abnormal chest x-ray: Code(s): R93.89 - Abnormal findings on diagnostic imaging of other specified body structures Status: Acute DS: Summary Hospital Course Hospital Course: This is a 87-year-old female with a past medical history of cirrhosis, CHF, CAD status post CABG, AFib on anticoagulation, GERD, anemia and CKD the presented to the ED on 08/19/2023 due to shortness of breath. Patient also endorses increased chest pressure but no pain. She was found to have a oxygen saturation of 87% on room air she was started on O2. Chest x-ray showing large right pleural effusion. Due to patient be on anticoagulation this had to be held prior to thoracentesis being done. Echocardiogram showing normal LVSF with EF of 55-60%. Patient does get paracentesis as needed he due to cirrhosis and increased ascites fluid. Patient underwent paracentesis on 08/22/2023. Patient also had a thoracentesis on 08/22/2023. There were no signs of acute infection and the antibiotics that patient was recently put more discontinued. Fluid analysis was sent. Patient was able to come off of oxygen after thoracentesis and paracentesis were performed. It was noticed that patient had a drop in hemoglobin. Due to patient being on Xarelto anemia workup was performed she was found to have positive occult stool. GI was consulted and EGD was performed due to concern for esophageal varices. EGD did not reveal any sign of acute bleed or varices but did show a gastric nodule that should be followed up as an outpatient. Patient was cleared by GI to resume Xarelto. Patient much better and her symptoms are much improved. Her labs and vital signs are stable and she is medically clear for discharge at this time. Time Spent with Patient Time attestation: Total time spent providing and/or coordinating discharge services: DS: Data Data Completed and Pending Labs on day of discharge: Labs from last 24 hours 08/24/23 06:16 WBC 5.5 RBC 3.35 L Hgb 7.7 L Hct 27.1 L MCV 80.9 MCH 23.0 L MCHC 28.4 L RDW 18.5 H Plt Count 214 MPV 8.4 Immature Gran % (Auto) 0.4 Neut % (Auto) 63.4 Lymph % (Auto) 18.3 Sampson % (Auto) 12.5 H Eos % (Auto) 4.7 H Baso % (Auto) 0.7 Lymph # (Auto) 1.01 Sampson # (Auto) 0.7 H Eos # (Auto) 0.3 Baso # (Auto) 0.0 Abs Immat
== END 2023-08-24 15:45 | disposition home health service (06) | DRG 187 ==
LOC: ANHED 14:37 → ANH3MEDSUR 16:32
PROVIDERS: Internal Medicine Gastroenterology; Nurse Practitioner Adult Health; Physician Assistant; Admitting Provider Student in an Organized Health Care Education/Training Program; Emergency Provider Emergency Medicine; Visit Provider Internal Medicine Critical Care Medicine
PROC: 0DJ08ZZ Inspection of Upper Intestinal Tract, Via Natural or Artificial Opening Endoscopic (ICD-10-PCS; CPT 43235; principal; 2023-08-24 13:30)
DX: J90 Pleural effusion, not elsewhere classified (principal); I13.0 Hypertensive heart and chronic kidney disease with heart failure and stage 1 through stage 4 chronic kidney disease, or unspecified chronic kidney disease; R18.8 Other ascites; R09.02 Hypoxemia; N18.30 Chronic kidney disease, stage 3 unspecified; S42.211D Unspecified displaced fracture of surgical neck of right humerus, subsequent encounter for fracture with routine healing; X58.XXXD Exposure to other specified factors, subsequent encounter; I50.9 Heart failure, unspecified; K74.60 Unspecified cirrhosis of liver; D13.1 Benign neoplasm of stomach; R19.5 Other fecal abnormalities; E87.5 Hyperkalemia; I48.0 Paroxysmal atrial fibrillation; R93.89 Abnormal findings on diagnostic imaging of other specified body structures; I25.10 Atherosclerotic heart disease of native coronary artery without angina pectoris; D63.1 Anemia in chronic kidney disease; K21.9 Gastro-esophageal reflux disease without esophagitis; M19.90 Unspecified osteoarthritis, unspecified site; H40.9 Unspecified glaucoma; H35.30 Unspecified macular degeneration; Z79.01 Long term (current) use of anticoagulants; Z95.1 Presence of aortocoronary bypass graft; Z90.710 Acquired absence of both cervix and uterus
CPT/HCPCS: 32555; 36415; 49083; 71045; 71046; 71275; 73030; 80048; 80053; 82274; 83605; 83735; 83880; 84443; 84484; 85025; 85027; 85610; 85730; 87070; 87075; 87205; 93005; 93306; 94618; 96375; 96376; 97161; 97165; 97530; 97535; 99291; A9270; G0378; J0456; J0696; J1940; J2704; J7120; Q9967

== ENCOUNTER 2023-10-05 09:38 | Outpatient (CLI) | payer MEDICARE, SELFPAY ==
--- NOTE | ~2023-10-05 | XR_ITS ---
EXAMINATION: XR chest 2V DATE: 10/05/2023 10:26 INDICATION: Shortness of breath. TECHNIQUE: Frontal and lateral views of the chest were obtained. COMPARISON: Chest 2 views 08/22/23, chest CT 08/20/2023 FINDINGS: There is a moderate-sized right pleural effusion. There are airspace opacities at right balwinder g base. No pneumothorax. Cardiomegaly is noted. Median sternotomy wires and mediastinal surgical clip s are seen, likely from prior coronary artery bypass grafting. There is an old healed fracture of pro ximal right humerus. There is mild chronic anterior wedging of multiple vertebral bodies. IMPRESSION: 1. Worsened moderate-sized right pleural effusion. 2. Airspace opacities at right lung base, consistent with atelectasis versus pneumonia. 3. Cardiomegaly. Reviewed, dictated and finalized at location A. EF PILOT IMPRESSION: 1. Worsened moderate-sized right pleural effusion. 2. Airspace opacities at right lung base, consistent with atelectasis versus pn eumonia. 3. Cardiomegaly.
== END 2023-10-05 09:39 | disposition home or self-care (01) ==
DX: R91.8 Other nonspecific abnormal finding of lung field (principal); J90 Pleural effusion, not elsewhere classified; I51.7 Cardiomegaly
CPT/HCPCS: 71046

== ENCOUNTER 2023-10-07 17:41 | Observation (INO) | payer MEDICARE, SELFPAY ==
--- NOTE | ~2023-10-07 | US_ITS ---
EXAMINATION: US thoracentesis DATE: 10/08/2023 11:24 INDICATION: pleural effusion TECHNIQUE: The procedure and its risks, benefits, and alternatives were discussed with the patient. P otential risks discussed included bleeding, infection, and pneumothorax. The patient understood the r isks and agreed to proceed. The skin was prepped and draped in sterile fashion. 1% lidocaine was used for local anesthesia. Under ultrasound guidance, a 5 Fr catheter with trochar was advanced into the right pleural effusion. Fluid was aspirated. The catheter was removed, and a dressing was applied. Th ere were no immediate complications. FINDINGS: Ultrasound images demonstrate a right pleural effusion and the catheter within the fluid. IMPRESSION: 1. Successful ultrasound-guided thoracentesis yielding 1000 mL of yellow fluid. Reviewed, dictated and finalized at location A. Y MAN IMPRESSION: 1. Successful ultrasound-guided thoracentesis yielding 1000 mL of yellow fluid .
--- NOTE | ~2023-10-07 | XR_ITS ---
EXAMINATION: XR chest 1V DATE: 10/08/2023 10:28 INDICATION: Right pleural effusion status post thoracentesis. TECHNIQUE: A single frontal view of the chest was obtained. COMPARISON: Chest single view 10/07/2023, chest CT 08/20/23 FINDINGS: There is a moderate-sized right pleural effusion. There are airspace opacities in right mid and lower lung zones. No pneumothorax. Cardiomegaly is noted. Median sternotomy wires and mediastina l surgical clips are seen, likely from prior coronary artery bypass grafting. There is an old healed fracture of proximal right humerus. IMPRESSION: 1. Moderate-sized right pleural effusion with improvement status post thoracentesis. 2. Airspace opacities in right mid and lower lung zones, consistent with atelectasis versus pneumonia . 3. Cardiomegaly. Reviewed, dictated and finalized at location A. L SORTER IMPRESSION: 1. Moderate-sized right pleural effusion with improvement status post thoracent esis. 2. Airspace opacities in right mid and lower lung zones, consistent with atelec tasis versus pneumonia. 3. Cardiomegaly.
--- NOTE | ~2023-10-07 | US_ITS ---
EXAMINATION: US paracentesis abd w/image DATE: 10/08/2023 11:22 INDICATION: Ascites. TECHNIQUE: The procedure and its risks, benefits, and alternatives were discussed with the patient. P otential risks discussed included bleeding and infection. The skin was prepped and draped in sterile fashion. 1% lidocaine was used for local anesthesia. Under ultrasound guidance, a 5 Fr catheter with trochar was advanced into the ascites in the right lower quadrant. Fluid was aspirated. The catheter was removed, and a dressing was applied. There were no immediate complications. FINDINGS: Ultrasound images demonstrate ascites and the catheter within the fluid. IMPRESSION: 1. Successful ultrasound-guided paracentesis yielding 1300 mL of yellow fluid. Reviewed, dictated and finalized at location A. S LOADER
--- NOTE | ~2023-10-07 | XR_ITS ---
EXAMINATION: XR chest 2V DATE: 10/07/2023 18:59 INDICATION: Shortness of breath TECHNIQUE: PA and lateral views of the chest are obtained. COMPARISON: 10/05/2023 FINDINGS: There is a stable moderate-sized right pleural effusion. Cardiomegaly is noted. There are u nchanged airspace opacities of the right lung base. No pneumothorax is identified. Median sternotomy wires and mediastinal surgical clips are seen, likely from prior coronary artery bypass grafting. An old healed fracture of the proximal right humerus is noted. There is severe thoracic spondylosis. IMPRESSION: 1. Stable moderate size right pleural effusion with associated airspace opacities, consistent with at electasis versus pneumonia. 2. Cardiomegaly. Reviewed, dictated and finalized at location F. DENTIAL SALES REPRESENTATIVE IMPRESSION: 1. Stable moderate size right pleural effusion with associated airspace opaciti es, consistent with atelectasis versus pneumonia. 2. Cardiomegaly.
[2023-10-07 18:19] VITALS: BP 138/104; PULSE 71; RESP 20; TEMP 36.1; O2SAT 96
--- NOTE | 2023-10-07 18:22 | ECG_ITS ---
Measurements Intervals [place] Rate: 75 P: CT: 0 QRS: -7 QRSD: 99 T: -14 QT: 431 QTc: 484 Interpretive Statements ATRIAL FIBRILLATION INCOMPLETE RIGHT BUNDLE BRANCH BLOCK BORDERLINE ST-T WAVE ABNORMALITY- INFERIOR LEADS BASELINE ARTIFACT- I, III, AVL, AVF ABNORMAL ECG COMPARED TO ECG 08/19/2023 13:08:54 HEART RATE HAS DECREASED Electronically Signed On 10-07-2023 20:22:28 TELECOMMUNICATIONS FIELD ENGINEER by Caleb Chakraborty D.O.
[2023-10-07 18:45] LABS: Basophils Percent Auto 0.6 % (0.2-1.2); Eosinophils Absolute Auto 0.2 K/mm3 (0-0.3); Eosinophils Percent Auto 2.8 % (0-4.4); Hematocrit 30.4 % (37.0-47.0); Hemoglobin 8.2 g/dL (12.0-15.0); Immature Granulocyte Absolute 0.02 K/mm3 (0.00-0.031); Immature Granulocyte Percent A 0.3 % (0-0.5); Lymphocytes Absolute Auto 0.54 K/mm3 (0.9-3.2); Lymphocytes Percent Auto 7.7 % (18.3-44.2); Mean Corpuscular Hemoglobin 18.6 pg (26-34); Mean Corpuscular Volume 69.1 fl (80-100); Mean Platelet Volume 8.3 fl (7.4-10.4); Monocytes Absolute Auto 0.5 K/mm3 (0.1-0.6); Monocytes Percent Auto 7.4 % (2.6-8.5); Neutrophils Absolute Auto 5.7 K/mm3 (1.3-6.7); Neutrophils Percent Auto 81.2 % (45.5-73.1); Platelet Count Result 259 k/mm3 (150-375); Red Cell Distribution Width 21.1 % (11.5-14.5); White Blood Count 7.1 K/mm3 (4.5-10.0)
[2023-10-07 18:54] LABS: Alanine Aminotransferase 13 U/L (6-35); Albumin Level 3.6 g/dL (3.5-5.1); Alkaline Phosphatase 102 U/L (38-126); Anion Gap 6 mmol/L (8-16); Aspartate Amino Transferase 29 U/L (14-36); Bilirubin,Total 0.8 mg/dL (0.2-1.3); Blood Urea Nitrogen 28 mg/dL (7-17); Calcium 8.8 mg/dL (8.4-10.2); Carbon Dioxide 25 mmol/L (22-30); Chloride 108 mmol/L (98-107); Estimated Glomerular Filt Rate 59; Glucose 110 mg/dL (65-110); Lipase 134 U/L (23-300); Potassium 4.3 mmol/L (3.4-5.0); Sodium 139 mmol/L (137-145)
[2023-10-07 18:59] LABS: INR 1.4; Prothrombin Time 18.1 Seconds (11.1-14.7)
[2023-10-07 19:01] LABS: Partial Thromboplastin Time 38.6 SECONDS (22.3-36.8)
[2023-10-07 19:05] LABS: Troponin I < 0.012 ng/mL (0.000-0.034)
[2023-10-07 19:11] LABS: Anisocytosis 1+ (NORMAL); Hypochromasia 1+ (NORMAL); Platelet Estimate Adequate (Adequate)
[2023-10-07 19:12] LABS: Ovalocytes 1+ (NORMAL); Schistocytes None Seen (NORMAL)
--- NOTE | 2023-10-07 20:10 | ED.GENADULT ---
HPI - General Adult General Chief complaint: Weakness Stated complaint: SOB, pneumonia Time Seen by Provider: 10/07/23 19:40 History of Present Illness HPI narrative: Patient is a 87-year-old female who presents emergency department with chief complaint of shortness of breath and abnormal chest x-ray. The patient reports that she has history of cirrhosis and reports that she has had pleural effusions and ascites before in the past patient reports she was last tapped both thoracentesis and paracentesis in the middle of August the patient reports that she had an outpatient chest x-ray done and was told that she may have a pneumonia but does have a large pleural effusion. The patient states she has been getting more short of breath and she gets short of breath with even getting up from a wheelchair to a bed. The patient reports that this time she is not hypoxic she does report that she is on an anticoagulant and has not taken her evening dose tonight as she was coming up to the [facility]. Related Data Home Medications Medication Instructions Recorded Confirmed diltiazem HCl 30 mg tablet 30 mg PO Q12H 05/17/23 08/19/23 (Cardizem) ondansetron HCl 4 mg tablet 4 mg PO Q8H 05/17/23 08/19/23 pantoprazole 40 mg tablet,delayed 40 mg PO QAM 05/17/23 08/19/23 release alprazolam 0.25 mg tablet 0.25 mg PO DAILY PRN Anxiety 07/07/23 08/19/23 ezetimibe 10 mg tablet 10 mg PO HS 07/07/23 08/19/23 furosemide 20 mg tablet (Lasix) 20 mg PO QAM 07/07/23 08/19/23 krill oil 500 mg capsule 1,000 mg PO DAILY 07/07/23 08/19/23 labetalol 200 mg tablet 200 mg PO Q12H 07/07/23 08/19/23 lidocaine 5 % topical patch 1 patch topical DAILY 07/07/23 08/19/23 nitroglycerin 0.4 mg sublingual 0.4 mg sublingual Q5M PRN Chest 07/07/23 08/19/23 tablet Pain rivaroxaban 10 mg tablet (Xarelto) 10 mg PO HS 07/07/23 08/19/23 ergocalciferol (vitamin D2) 1,250 1,250 mcg PO WEEKLY 08/19/23 08/19/23 mcg (50,000 unit) capsule spironolactone 50 mg tablet 50 mg PO BID 08/19/23 08/19/23 simethicone 125 mg tablet 125 mg PO TID PRN Abdominal 08/23/23 08/23/23 Discomfort Allergies Allergy/AdvReac Type Severity Reaction Status Date / Time atropine Allergy Unknown Unknown Verified 07/07/23 10:42 acetaminophen AdvReac Headache Verified 08/19/23 18:13 [From Darvocet-N 100] apixaban [From Eliquis] AdvReac Numbness Verified 08/19/23 18:12 propoxyphene AdvReac Headache Verified 08/19/23 18:12 [From Darvocet-N] [id number] Reductase AdvReac Muscle Pain Verified 08/19/23 18:12 Inhibitor Review of Systems Review of Systems: A 10 system review of systems was completed on the patient and is negative except for what is stated in the HPI. Nursing and ancillary documentation was reviewed. [facility] Past Medical History Medical History Acute on chronic anemia Arthritis Autoimmune liver disease Chronic anemia Chronic anticoagulation Chronic kidney disease, stage 3 Cirrhosis of liver Coronary artery disease Gastric nodule Gastroesophageal reflux disease Glaucoma Hypertension Macular degeneration Paroxysmal atrial fibrillation Positive occult stool blood test Right humeral fracture Surgical History Surgical History History of cataract extraction History of coronary artery bypass graft (2006) History of hysterectomy History of tonsillectomy Family History Family History Mother Heart disease Hypertension Social History Social History Social History: Healthcare power of attorney general: Oma Guaman, niece. Code status: Full code. Smoking status: Never smoker Alcohol intake: never Substance use: never Substance use type: does not use Do You Feel Safe in your Home?: Yes Lack of Transportat
--- NOTE | 2023-10-07 21:15 | ECG_ITS ---
Measurements Intervals [place] Rate: 77 P: VT: 0 QRS: -8 QRSD: 97 T: -32 QT: 400 QTc: 455 Interpretive Statements ATRIAL FIBRILLATION INCOMPLETE RIGHT BUNDLE BRANCH BLOCK BORDERLINE ST-T WAVE ABNORMALITY- ANTEROLAT/INF LEADS BASELINE ARTIFACT- I, III, AVL, AVF, V1-V6 ABNORMAL ECG COMPARED TO ECG 10/07/2023 18:33:15 NO SIGNIFICANT CHANGES Electronically Signed On 10-08-2023 8:59:26 WIRE TURNING MACHINE OPERATOR by Caleb Chakraborty D.O.
[2023-10-07 21:42] LABS: Troponin I < 0.012 ng/mL (0.000-0.034)
--- NOTE | 2023-10-07 23:03 | ADMGEN ---
This patient, Mary Beth Puente, was admitted to [address] [place] [address] Room 324-02 at 22:30. Patient/family oriented to hospital policies and general routines including ID bracelet, bed and alarms, visiting hours, pain management, procedures, bathroom and other care routines, personal items, smoking policy, room service/diet, and visiting hours. Information on how to activate the Rapid Response Team has been discussed. Patient/Family are encouraged to report perceived risks to care and to ask questions if they do not understand what they are told or what they should do.
[2023-10-08] VITALS (8 sets, daily range): BP systolic 109–138; BP diastolic 55–62; PULSE 78–118; RESP 18–22; TEMP 36.2–36.6; O2SAT 92–95; BMI 28.5
[2023-10-08 01:00] LABS: Troponin I < 0.012 ng/mL (0.000-0.034)
--- NOTE | 2023-10-08 01:39 | PM.IMHP ---
H&P: HPI History of Present Illness Date/Time: 10/08/23 01:39 Chief Complaint: Shortness of breath Narrative: 87-year-old female with past medical history of right-sided heart failure, moderate aortic stenosis, severe pulmonary hypertension and valvular insufficiency who presented to the ER with shortness of breath. The patient reports he has been having progressive shortness of breath for the last week. Her doctor reviewed her outpatient chest x-ray from Tuesday and center into the ER after telling her that she had pneumonia and a large pleural effusion. Patient has not been having any cough or congestion. She has had recurrent pleural effusions in the past due to heart failure. She has had worsening over generalized weakness and denies any significant cough. She does report that her abdomen has been becoming more distended recently. She has had a 12 lb weight gain since her last doctor's visit the of September. She has also noticed over the last week her legs pay have become more swollen as well. She denies any chest pain or palpitations. She denies significant orthopnea but when I arrived to interview the patient at 03:00 patient was sitting upright on the side of the bed. She stated she could not get comfortable laying down. She has not been having any hypoxia. She lives alone and does tend to eat a lot of prepackaged meals. However she does not add any additional salt to food that she cooks or to the prepackaged foods. She has been compliant with her cardiac meds. She reports that she has become so short of breath that she was having difficulty keeping up with her physical therapy for her right humerus fracture. It was actually her physical therapist that suggested she come in for evaluation. The patient had a thoracentesis and a paracentesis done in August. She reports that she had 5 L of fluid removed with her paracentesis. Patient reports that during her recent hospitalization at [facility] when she broke her humerus they mentioned a cardiac procedure. It sounds as if they were discussing with her whether she would like to have a Maze procedure. She is still considering this. Review of Systems Review of Systems: 12 systems were reviewed with pertinent positives and negatives per HPI. Except as documented in the HPI, all other systems were reviewed and are negative. [facility] Past Medical History Medical History (Updated 10/08/23 @ 09:01 by Venus Reardon DO) Arthritis Autoimmune liver disease CHF (congestive heart failure) Echocardiogram 08/2023: EF 55-60 with normal left ventricular dimension, moderate left ventricular wall thickness, indeterminate diastolic dysfunction, severe right ventricular enlargement, reduced right ventricular systolic function, severe left and right atrial enlargement, [id number] aortic valve stenosis with peak velocity 2 O2 mean gradient of 7 and valve area of 1.5, mild aortic valve regurgitation, severe tricuspid regurgitation, severe pulmonary hypertension with RVSP of 60, moderate pulmonic regurgitation Chronic anemia Chronic anticoagulation Chronic kidney disease, stage 3 Cirrhosis of liver Coronary artery disease Gastric nodule Gastroesophageal reflux disease Glaucoma Hypertension Macular degeneration Paroxysmal atrial fibrillation Right humeral fracture Surgical History Surgical History History of cataract extraction History of coronary artery bypass graft (2006) History of hysterectomy History of tonsillectomy Family History Family History Mother Heart disease Hypertension Social History Social History (Updated 10/08/23 @ 08:53 by Venus Reardon DO) Social History: She was for 60 years but has been since 2018. She lives alone. She mobilizes by use of a folding wheelchair and therapy is encouraged her to start trying to ambulate
[2023-10-08] MEDS: FUROSEMIDE INJ 40 MG/4 ML VIAL IV PUSH (09:04)
[2023-10-08] MEDS: dilTIAZem HCL 30 MG TABLET PO ×2 (11:45→20:53)
[2023-10-08] MEDS: OPTI-GEN TAB 2 TABLET PO ×2 (11:45→17:22)
[2023-10-08] MEDS: PANTOPRAZOLE 40 MG TABLET PO (11:45)
[2023-10-08] MEDS: SPIRONOLACTONE 50 MG TABLET PO ×2 (11:45→17:22)
--- NOTE | 2023-10-08 18:10 | PM.IMPN ---
Progress Note: A&P Assessment and Plan (1) Recurrent right pleural effusion: Code(s): J90 - Pleural effusion, not elsewhere classified Status: Acute (2) Generalized weakness: Code(s): R53.1 - Weakness Status: Acute (3) Chronic kidney disease, stage 3: Qualifiers: Chronic kidney disease stage 3 subtype: stage 3a (GFR 45-59) Qualified Code(s): N18.31 - Chronic kidney disease, stage 3a Code(s): N18.30 - Chronic kidney disease, stage 3 unspecified Status: Acute (4) Acute dyspnea: Code(s): R06.00 - Dyspnea, unspecified Status: Acute (5) Ascites: Qualifiers: Ascites type: other type Qualified Code(s): R18.8 - Other ascites Code(s): R18.8 - Other ascites Status: Acute Plan Place patient under observation status 10/08/2023: Patient underwent thoracentesis with drainage of 1000 cc yellow fluid 10/08/2023: Patient underwent paracenteses with drainage of 1300 cc yellow fluid Continue with IV fluids and oral Aldactone for diuresis Strict input and output monitoring Encouraged to ambulate DC planning in a.m. if she remains stable ? Patient seen and examined at bedside during my morning rounds ? Collaborated with patient's nurse at the bedside in detail and addressed all concerns ? Labs, electrolytes, radiology, investigations and test results reviewed ? Consult/Nursing/Ancilliary notes on the chart reviewed and appreciated ? Spoke with patient/family at the bedside and answered all the questions that they had Repeat labs in a.m. Electrolyte replacement as per protocol. Patient will be monitored very closely on the floor. Further recommendations as per the hospital course. Time Spent With Patient Time with patient: 15 - 25 minutes Subjective Date/time seen: 10/08/23 18:10 Interval history: Patient seen and evaluated at bedside status post thoracentesis and paracentesis. She is feeling better. Shortness of breath has improved. Review of Systems Review of Systems: 12 systems were reviewed with pertinent positives and negatives per HPI. Except as documented in the HPI, all other systems were reviewed and are negative. All systems reviewed & are unremarkable except as noted in HPI and below Exam Narrative: PHYSICAL EXAMINATION: Vital signs: Please see the chart General physical exam: Patient sitting at the bedside, pleasant and cooperative with exam, appears tired and fatigued Head/eyes: Atraumatic, EOMI, PERRLA ENT: Moist mucous membranes, nasal passages clear Neck: Supple, full range of motion, trachea midline CVS: S1 + S2, regular rate and rhythm, no murmurs Respiratory: Bilaterally decreased air entry in both lung lawson, mild B/L crackles, symmetric chest expansion, + scattered bilateral rales Abdomen: Soft, + mild abdominal tenderness on palpation, bowel sounds +ve, no organomegaly Extremities: No clubbing, no cyanosis, ++ bilateral pitting edema, no calf tenderness Musculoskeletal: Moves all, adequate range of motion, no muscle spasms Skin: Warm, dry, no jaundice, no cyanosis Neurological: Awake, alert, oriented x 3, cranial nerves II-XII intact, no focal neurological deficits Psychiatric: Normal mood, non suicidal HENMT: Other: Mucous membranes are moist, no oral pharyngeal erythema, crowded posterior oropharynx Eyes: Other: Pupils are equal and reactive, evidence of bilateral lens replacements noted, positive conjunctival pallor, no scleral icterus Neck: Other: Marked JVD even with the patient's sitting completely upright, otherwise supple, loss of cervical lordosis Resp: Other: Markedly decreased breath sounds on the right, conversational tachypnea Cardio: Other: Regular rate, irregular rhythm, 2+ bilateral radial pulses GI: Other: Distended, tight, nontender, dullness to percussion Back/Spine/Pelvis: Other: Mild thoracic kyphosis Skin: Other: Generalized
[2023-10-08] MEDS: EZETIMIBE 10 MG TABLET PO (20:53)
[2023-10-08] MEDS: ALPRAZolam (*CRX) 0.25 MG TABLET PO (23:33)
[2023-10-09] VITALS (9 sets, daily range): BP systolic 90–138; BP diastolic 59–68; PULSE 61–100; RESP 16–26; TEMP 36.1–36.6; O2SAT 90–92
[2023-10-09 06:05] LABS: Basophils Absolute Auto 0.1 K/mm3 (0.0-0.1); Basophils Percent Auto 0.8 % (0.2-1.2); Eosinophils Absolute Auto 0.3 K/mm3 (0-0.3); Eosinophils Percent Auto 4.4 % (0-4.4); Hematocrit 28.7 % (37.0-47.0); Hemoglobin 7.6 g/dL (12.0-15.0); Immature Granulocyte Absolute 0.01 K/mm3 (0.00-0.031); Immature Granulocyte Percent A 0.2 % (0-0.5); Lymphocytes Absolute Auto 1.22 K/mm3 (0.9-3.2); Lymphocytes Percent Auto 19.9 % (18.3-44.2); Mean Corpuscular HGB Conc 26.5 g/dl (32-36); Mean Corpuscular Hemoglobin 18.4 pg (26-34); Mean Corpuscular Volume 69.3 fl (80-100); Mean Platelet Volume 8.3 fl (7.4-10.4); Monocytes Absolute Auto 0.7 K/mm3 (0.1-0.6); Monocytes Percent Auto 11.8 % (2.6-8.5); Neutrophils Absolute Auto 3.9 K/mm3 (1.3-6.7); Neutrophils Percent Auto 62.9 % (45.5-73.1); Platelet Count Result 263 k/mm3 (150-375); Red Blood Count 4.14 M/mm3 (4.2-5.4); Red Cell Distribution Width 20.9 % (11.5-14.5); White Blood Count 6.1 K/mm3 (4.5-10.0)
[2023-10-09 06:19] LABS: Anion Gap 2 mmol/L (8-16); Blood Urea Nitrogen 29 mg/dL (7-17); Calcium 8.5 mg/dL (8.4-10.2); Carbon Dioxide 27 mmol/L (22-30); Chloride 107 mmol/L (98-107); Estimated Glomerular Filt Rate 47; Glucose 97 mg/dL (65-110); Potassium 4.4 mmol/L (3.4-5.0); Sodium 136 mmol/L (137-145)
[2023-10-09 07:00] LABS: Iron 22 ug/dL (37-170)
[2023-10-09 07:09] LABS: Percent Iron Saturation 6 % (20-50)
[2023-10-09] MEDS: OPTI-GEN TAB 2 TABLET PO (09:59)
[2023-10-09] MEDS: LABETALOL HCL 100 MG TABLET 200 MG PO (09:59)
[2023-10-09] MEDS: LIDOCAINE 5% PATCH 1 PATCH TOPICAL (10:00)
[2023-10-09] MEDS: PANTOPRAZOLE 40 MG TABLET PO (10:00)
[2023-10-09] MEDS: dilTIAZem HCL 30 MG TABLET PO (10:00)
[2023-10-09] MEDS: SPIRONOLACTONE 50 MG TABLET PO (10:00)
[2023-10-09] MEDS: IRON SUCROSE COMPLEX 500 MG in SODIUM CHLORIDE 0.9% IV 250 ML 79 MG IVPB (10:31)
--- NOTE | 2023-10-09 12:09 | PM.DS ---
DS: Admitting Diagnosis Discharge Date 10/09/2023: Admitting Diagnosis (1) Recurrent right pleural effusion: ?Code(s): J90 - Pleural effusion, not elsewhere classified ?Status:?Acute (2) Generalized weakness: ?Code(s): R53.1 - Weakness ?Status:?Acute (3) Chronic kidney disease, stage 3: ?Qualifiers: ?Chronic kidney disease stage 3 subtype:?stage 3a (GFR 45-59)? Qualified Code(s):?N18.31 - Chronic kidney disease, stage 3a ?Code(s): N18.30 - Chronic kidney disease, stage 3 unspecified ?Status:?Acute (4) Acute dyspnea: ?Code(s): R06.00 - Dyspnea, unspecified ?Status:?Acute (5) Ascites: ?Qualifiers: ?Ascites type:?other type? Qualified Code(s):?R18.8 - Other ascites ?Code(s): R18.8 - Other ascites ?Status:?Acute DS: Discharge Diagnosis Discharge Diagnosis (1) Generalized weakness: Code(s): R53.1 - Weakness Status: Acute (2) Recurrent right pleural effusion: Code(s): J90 - Pleural effusion, not elsewhere classified Status: Acute (3) Acute dyspnea: Code(s): R06.00 - Dyspnea, unspecified Status: Acute (4) Acute on chronic anemia: Code(s): D64.9 - Anemia, unspecified Status: Acute (5) Respiratory failure with hypoxia: Code(s): J96.91 - Respiratory failure, unspecified with hypoxia Status: Acute (6) Pleural effusion: Code(s): J90 - Pleural effusion, not elsewhere classified Status: Acute (7) Hypoxia: Code(s): R09.02 - Hypoxemia Status: Resolved (8) Chronic anemia: Code(s): D64.9 - Anemia, unspecified Status: Chronic (9) Chronic kidney disease, stage 3: Qualifiers: Chronic kidney disease stage 3 subtype: stage 3a (GFR 45-59) Qualified Code(s): N18.31 - Chronic kidney disease, stage 3a Code(s): N18.30 - Chronic kidney disease, stage 3 unspecified Status: Acute (10) Coronary artery disease: Code(s): I25.10 - Atherosclerotic heart disease of [place] coronary artery without angina pectoris Status: Acute (11) Chronic anticoagulation: Code(s): Z79.01 - USP (current) use of anticoagulants Status: Chronic (12) Paroxysmal atrial fibrillation: Code(s): I48.0 - Paroxysmal atrial fibrillation Status: Chronic (13) Portal hypertension: Code(s): K76.6 - Portal hypertension Status: Acute (14) Ascites: Qualifiers: Ascites type: other type Qualified Code(s): R18.8 - Other ascites Code(s): R18.8 - Other ascites Status: Acute (15) Cirrhosis: Code(s): K74.60 - Unspecified cirrhosis of liver Status: Acute DS: Summary Hospital Course Reason for hospitalization: Patient admitted with shortness of breath Hospital Course: H&P: HPI History of Present Illness Date/Time: 10/08/23? 01:39 Chief Complaint: Shortness of breath Narrative: 87-year-old female with past medical history of right-sided heart failure, moderate aortic stenosis, severe pulmonary hypertension and valvular insufficiency who presented to the ER with shortness of breath.? The patient reports he has been having progressive shortness of breath for the last week.? Her doctor reviewed her outpatient chest x-ray from Tuesday and center into the ER after telling her that she had pneumonia and a large pleural effusion.? Patient has not been having any cough or congestion.? She has had recurrent pleural effusions in the past due to heart failure.? She has had worsening over generalized weakness and denies any significant cough.? She does report that her abdomen has been becoming more distended recently.? She has had a 12 lb weight gain since her last doctor's visit the September.? She has also noticed over the last week her legs pay have become more swollen as well.? She denies any chest pain or palpitations.? She denies significant orthopnea but when I arrived to interview
== END 2023-10-09 15:20 | disposition home health service (06) ==
LOC: ANHED 20:31 → ANH3MEDSUR 22:01
PROVIDERS: Emergency Medicine; Admitting Provider Internal Medicine; Emergency Provider Emergency Medicine; Visit Provider Family Medicine
DX: J90 Pleural effusion, not elsewhere classified (principal); J96.91 Respiratory failure, unspecified with hypoxia; R53.1 Weakness; I13.0 Hypertensive heart and chronic kidney disease with heart failure and stage 1 through stage 4 chronic kidney disease, or unspecified chronic kidney disease; I50.810 Right heart failure, unspecified; N18.30 Chronic kidney disease, stage 3 unspecified; D63.1 Anemia in chronic kidney disease; K74.60 Unspecified cirrhosis of liver; K76.6 Portal hypertension; R18.8 Other ascites; I35.0 Nonrheumatic aortic (valve) stenosis; R94.31 Abnormal electrocardiogram [ECG] [EKG]; I25.10 Atherosclerotic heart disease of native coronary artery without angina pectoris; Z82.49 Family history of ischemic heart disease and other diseases of the circulatory system; Z95.1 Presence of aortocoronary bypass graft; K21.9 Gastro-esophageal reflux disease without esophagitis; H40.9 Unspecified glaucoma; H35.30 Unspecified macular degeneration; I48.0 Paroxysmal atrial fibrillation; I27.20 Pulmonary hypertension, unspecified; Z79.01 Long term (current) use of anticoagulants; Z79.891 Long term (current) use of opiate analgesic; Z79.899 Other long term (current) drug therapy
CPT/HCPCS: 32555; 36415; 49083; 71045; 71046; 80048; 80053; 82728; 83540; 83550; 83690; 83735; 84100; 84484; 85025; 85610; 85730; 93005; 96365; 96366; 99285; A9270; G0378; J1756; J1940; J7050

== ENCOUNTER 2023-11-03 15:57 | Observation (INO) | payer MEDICARE, SELFPAY ==
[2023-11-03] VITALS (22 sets, daily range): BP systolic 120–151; BP diastolic 53–131; PULSE 88–146; RESP 12–27; TEMP 36.3–36.9; O2SAT 93–99; BMI 22.1
--- NOTE | 2023-11-03 16:37 | ED.RECABL ---
HPI - Recheck/Abnormal Lab/Rx General Chief Complaint: Recheck/Abnormal Lab/Rx <Virginia Gloria PA-C - Last Filed: 11/03/23 16:48> Stated Complaint: elevated K+ <Virginia Gloria PA-C - Last Filed: 11/03/23 16:48> Time Seen by Provider: 11/03/23 18:14 <Virginia Gloria PA-C - Last Filed: 11/03/23 16:48> Focused HPI: 88 y/o F with a hx of CHF, cirrhosis, a fib chronically anticoagulated with Xarelto, hyperlipidemia, and hypertension presents to the ED for hyperkalemia. Pt states she had labs drawn yesterday by her PCP Yesterday and was contacted by her PCP today advised to come to the ER for a potassium of 6.7. 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 Bernstein. patient states her PCP recently discontinued her Lasix and started her on torsemide two weeks ago, also discontinued her labetalol yesterday. She denies chest pain, shortness of breath, Palpitations, syncope, abdominal pain, vomiting or diarrhea, fever. patient states she had some dysuria yesterday but believes that has since resolved. GENERAL: Well-appearing, well-nourished, and in no acute distress. HEAD: Normocephalic, atraumatic. CHEST: Clear to auscultation. ?No respiratory distress. HEART: Regular rate and rhythm.? NEURO: ?Alert and oriented x3. Patient screened in triage and initial orders placed.? ?Additional care and disposition to be based upon?diagnostic testing and treatment. <Virginia Gloria PA-C - Last Filed: 11/03/23 16:48> History of Present Illness HPI narrative: 88-year-old female present to the emergency department for evaluation of hyperkalemia. Patient had a potassium of 6.7 yesterday but on repeat was 6.2 today. Patient is on spironolactone addendum recently had her Lasix stopped. Patient denies any complaints. <Parish Joshi MD - Last Filed: 11/03/23 21:13> Related Data Home Medications: Home Medications Medication Instructions Recorded Confirmed diltiazem HCl 30 mg tablet 30 mg PO Q12H 05/17/23 10/07/23 (Cardizem) ondansetron HCl 4 mg tablet 4 mg PO Q8H PRN Nausea 05/17/23 10/07/23 pantoprazole 40 mg tablet,delayed 40 mg PO QAM 05/17/23 10/07/23 release alprazolam 0.25 mg tablet 0.25 mg PO DAILY PRN Anxiety 07/07/23 10/07/23 ezetimibe 10 mg tablet 10 mg PO HS 07/07/23 10/07/23 furosemide 20 mg tablet (Lasix) 20 mg PO QAM 07/07/23 10/07/23 krill oil 500 mg capsule 1,500 mg PO DAILY 07/07/23 10/07/23 labetalol 200 mg tablet 200 mg PO Q12H 07/07/23 10/07/23 lidocaine 5 % topical patch 1 patch topical DAILY 07/07/23 10/07/23 nitroglycerin 0.4 mg sublingual 0.4 mg sublingual Q5M PRN Chest 07/07/23 10/07/23 tablet Pain rivaroxaban 10 mg tablet (Xarelto) 10 mg PO HS 07/07/23 10/07/23 ergocalciferol (vitamin D2) 1,250 1,250 mcg PO WEEKLY 08/19/23 10/07/23 mcg (50,000 unit) capsule spironolactone 50 mg tablet 50 mg PO BID 08/19/23 10/07/23 simethicone 125 mg tablet 125 mg PO TID PRN gas, bloating 08/23/23 10/07/23 coenzyme Q10 200 mg tablet 200 mg PO DAILY 10/07/23 10/07/23 oxycodone 5 mg tablet 5 mg PO Q8H PRN Pain (Scale Score 10/07/23 10/07/23 4-6) vitamins A,C,J-uhkv-dgzbfx 2,148 2 tablet PO BID 10/07/23 10/07/23 mcg-113 mg-45 mg-17.4 mg tablet (PreserVision AREDS) <Virginia Gloria PA-C - Last Filed: 11/03/23 16:48> Allergies/Adverse Reactions: Allergies Allergy/AdvReac Type Severity Reaction Status Date / Time atropine Allergy Unknown Unknown Verified 07/07/23 10:42 acetaminophen AdvReac Headache Verified 08/19/23 18:13 [From Darvocet-N 100] apixaban [From Eliquis] AdvReac Numbness Verified 08/19/23 18:12 propoxyphene AdvReac Headache Verified 08/19/23 18:12 [From Darvocet-N] Bfscdsb-IYY-HrM Reductase AdvReac Muscle Pain Verified 08/19/23 18:12 Inhibitor <Virginia Gloria PA-C - Last Filed: 11/03/23 16:48> Review of Systems Review of Systems: All systems reviewed & are unremar
--- NOTE | 2023-11-03 16:48 | ECG_ITS ---
Measurements Intervals [place] Rate: 92 P: [place]: 0 QRS: -3 QRSD: 90 T: 8 QT: 332 QTc: 413 Interpretive Statements ATRIAL FLUTTER/TACHYCARDIA DELAYED PRECORDIAL R/S TRANSITION ABNORMAL ECG COMPARED TO ECG 10/07/2023 21:21:27 ATRIAL FLUTTER NOW PRESENT Electronically Signed On 11-03-2023 20:18:05 CDT by Caleb Chakraborty D.O.
[2023-11-03 17:17] LABS: Basophils Absolute Auto 0.1 K/mm3 (0.0-0.1); Basophils Percent Auto 0.9 % (0.2-1.2); Eosinophils Absolute Auto 0.4 K/mm3 (0-0.3); Eosinophils Percent Auto 5.6 % (0-4.4); Hematocrit 40.5 % (37.0-47.0); Hemoglobin 11.5 g/dL (12.0-15.0); Immature Granulocyte Absolute 0.02 K/mm3 (0.00-0.031); Immature Granulocyte Percent A 0.3 % (0-0.5); Lymphocytes Absolute Auto 0.98 K/mm3 (0.9-3.2); Lymphocytes Percent Auto 14.1 % (18.3-44.2); Mean Corpuscular HGB Conc 28.4 g/dl (32-36); Mean Corpuscular Hemoglobin 20.6 pg (26-34); Mean Corpuscular Volume 72.6 fl (80-100); Monocytes Absolute Auto 0.5 K/mm3 (0.1-0.6); Monocytes Percent Auto 7.8 % (2.6-8.5); Neutrophils Percent Auto 71.3 % (45.5-73.1); Platelet Count Result 301 k/mm3 (150-375); Red Blood Count 5.58 M/mm3 (4.2-5.4); Red Cell Distribution Width 30.1 % (11.5-14.5)
[2023-11-03 17:29] LABS: Anisocytosis 1+; Hypochromasia 1+; Ovalocytes 1+; Platelet Estimate Adequate (Adequate); Schistocytes None Seen
[2023-11-03 17:43] LABS: Alanine Aminotransferase 20 U/L (6-35); Albumin Level 4.8 g/dL (3.5-5.1); Alkaline Phosphatase 111 U/L (38-126); Anion Gap 7 mmol/L (4-12); Aspartate Amino Transferase 35 U/L (14-36); Bilirubin,Total 0.8 mg/dL (0.2-1.3); Blood Urea Nitrogen 56 mg/dL (7-17); Calcium 10.2 mg/dL (8.4-10.2); Carbon Dioxide 28 mmol/L (22-30); Chloride 97 mmol/L (98-107); Estimated Glomerular Filt Rate 33; Glucose 136 mg/dL (65-110); Magnesium 2.5 mg/dL (1.6-2.3); Potassium 6.2 mmol/L (3.4-5.0); Sodium 132 mmol/L (137-145)
[2023-11-03] MEDS: ALBUTEROL SULFATE NEB 2.5 MG/3 ML INH INHALATION (18:15)
[2023-11-03 18:30] LABS: Glucose Point of Care 104 mg/dl (65-105)
[2023-11-03] MEDS: DEXTROSE 50% 25 GM/50 ML SYRINGE IV PUSH (18:31)
[2023-11-03] MEDS: FUROSEMIDE INJ 40 MG/4 ML VIAL 20 MG IV PUSH (18:32)
[2023-11-03] MEDS: SODIUM BICARBONATE 8.4% 50 MEQ/50 ML SYRINGE IV PUSH (18:32)
[2023-11-03] MEDS: INSULIN HUMAN REGULAR (*BKC) 100 UNITS/ML IV PUSH (18:34)
[2023-11-03] MEDS: CALCIUM GLUC 1,000 MG/NS 50 ML 1,000 MG/50 ML BAG 100 MG IVPB (18:35)
[2023-11-03 18:48] LABS: Appearance Urine Clear (Clear); Bilirubin Urine Negative (Negative); Blood Urine Negative (Negative); Color Urine Yellow (Yellow); Glucose Urine UA Negative (Negative); Ketones Urine Negative (Negative); Leukocyte Esterase Ur Negative LEU/UL (Negative); Nitrate Urine Negative (Negative); Protein Urine Negative (Negative); Specific Grav Ur 1.007 (1.001-1.035); Urobilinogen Urine 0.2 mg/dL (<2.0); pH Urine 5.5 (5.0-9.0)
[2023-11-03] MEDS: SODIUM ZIRCONIUM CYCLOSILICATE 10 GM POWD.PACK PO (19:15)
[2023-11-03 19:17] LABS: Add Urine Microscopic? NO
[2023-11-03 23:05] LABS: Anion Gap 13 mmol/L (4-12); Blood Urea Nitrogen 61 mg/dL (7-17); Calcium 10.4 mg/dL (8.4-10.2); Carbon Dioxide 27 mmol/L (22-30); Chloride 94 mmol/L (98-107); Estimated Glomerular Filt Rate 33; Glucose 193 mg/dL (65-110); Potassium 5.3 mmol/L (3.4-5.0); Sodium 134 mmol/L (137-145)
--- NOTE | 2023-11-03 23:05 | ADMGEN ---
This patient, Mary Beth Puente, was admitted to IMU Room 206-02. Patient/family oriented to hospital policies and general routines including ID bracelet, bed and alarms, visiting hours, pain management, procedures, bathroom and other care routines, personal items, smoking policy, room service/diet, and visiting hours. Information on how to activate the Rapid Response Team has been discussed. Patient/Family are encouraged to report perceived risks to care and to ask questions if they do not understand what they are told or what they should do.
--- NOTE | 2023-11-03 23:07 | PM.IMHP ---
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 Source of information comes from review of past medical records, ER physician report and patient report. The patient is a very good historian. The patient was hospitalized in October for right-sided CHF exacerbation with recurrent pleural effusion. She underwent paracentesis and thoracentesis at that time and had 1 L of fluid removed from her right pleural effusion and 1.3 L of peritoneal fluid. After active diuresis she was discharged back home on her spironolactone and Lasix. She was then rehospitalized 2 weeks later at [facility] in [place] for recurrent pleural effusion and had right-sided thoracentesis. She reports since her thoracentesis her breathing is much improved. Her abdominal distension has improved since her admission here in she did not require recurrent paracentesis. She went to her primary care physician for routine follow-up and had labs drawn which demonstrated a potassium of 6.7. She had no other complaints. She reports that she has otherwise been feeling well. She has been her usual active self. She did report morning dysuria once yesterday but has not had persistent dysuria. She does have chronic urinary incontinence. She has discussed medication options with her primary care physician in they have deferred treatment of her incontinence due to side effects of those medications. She has continued to take her spironolactone as directed. She was on Lasix but when she saw her primary care physician yesterday the diuretic was changed to toresimide. Patient is down 8 kg in weight since August and 17 kg in weight since June. Review of Systems Review of Systems: 12 systems were reviewed with pertinent positives and negatives per HPI. Except as documented in the HPI, all other systems were reviewed and are negative. [facility] Past Medical History Medical History (Updated 11/04/23 @ 01:45 by Venus Reardon DO) Arthritis Autoimmune liver disease CHF (congestive heart failure) Echocardiogram 08/2023: EF 55-60 with normal left ventricular dimension, moderate left ventricular wall thickness, indeterminate diastolic dysfunction, severe right ventricular enlargement, reduced right ventricular systolic function, severe left and right atrial enlargement, [id number] aortic valve stenosis with peak velocity 2 O2 mean gradient of 7 and valve area of 1.5, mild aortic valve regurgitation, severe tricuspid regurgitation, severe pulmonary hypertension with RVSP of 60, moderate pulmonic regurgitation Chronic anemia Chronic anticoagulation Chronic kidney disease, stage 3 Cirrhosis of liver Coronary artery disease Gastric nodule Gastroesophageal reflux disease Glaucoma Hypertension Macular degeneration Paroxysmal atrial fibrillation Recurrent right pleural effusion Requiring multiple thoracentesis Right humeral fracture Surgical History Surgical History History of cataract extraction History of coronary artery bypass graft (2006) History of hysterectomy History of tonsillectomy Family History Family History Mother Heart disease Hypertension Social History Social History (Updated 11/04/23 @ 01:34 by Venus Reardon DO) Social History: She was for 60 years but has been since 2018. She lives alone. She mobilizes by use of a folding wheelchair and therapy is encouraged her to start trying to ambulate with a Rollator. She still d
[2023-11-04] VITALS (11 sets, daily range): BP systolic 112–128; BP diastolic 55–66; PULSE 73–105; RESP 12–16; TEMP 36.5; O2SAT 84–100; BMI 23.5
[2023-11-04] MEDS: dilTIAZem HCL 30 MG TABLET PO ×2 (02:23→09:00)
[2023-11-04 04:36] LABS: Hematocrit 38.3 % (37.0-47.0); Hemoglobin 10.9 g/dL (12.0-15.0); Mean Corpuscular HGB Conc 28.5 g/dl (32-36); Mean Corpuscular Hemoglobin 20.5 pg (26-34); Mean Corpuscular Volume 71.9 fl (80-100); Platelet Count Result 257 k/mm3 (150-375); Red Blood Count 5.33 M/mm3 (4.2-5.4); White Blood Count 7.3 K/mm3 (4.5-10.0)
[2023-11-04 04:47] LABS: Anion Gap 6 mmol/L (4-12); Blood Urea Nitrogen 56 mg/dL (7-17); Carbon Dioxide 31 mmol/L (22-30); Chloride 97 mmol/L (98-107); Estimated Glomerular Filt Rate 30; Glucose 91 mg/dL (65-110); Potassium 4.9 mmol/L (3.4-5.0); Sodium 134 mmol/L (137-145)
[2023-11-04] MEDS: OPTI-GEN TAB 2 TABLET PO (09:00)
[2023-11-04] MEDS: SODIUM ZIRCONIUM CYCLOSILICATE 10 GM POWD.PACK PO (09:01)
--- NOTE | 2023-11-04 10:57 | PC.NURSE ---
Dr. Wilson given report. Per Dr. Mccarthy notify Cardiology. Report given to Dr. Clay given report on the family's report of allergy to Metoprolol.
[2023-11-04] MEDS: FERROUS SULFATE 325 MG TABLET DR 324 MG PO (12:42)
--- NOTE | 2023-11-04 13:23 | PM.DS ---
DS: Admitting Diagnosis Discharge Date 11/04/2023: Admitting Diagnosis (1) Acute hyperkalemia: ?Code(s): E87.5 - Hyperkalemia ?Status:?Acute (2) Chronic kidney disease, stage 3: ?Qualifiers: ?Chronic kidney disease stage 3 subtype:?stage 3a (GFR 45-59)? Qualified Code(s):?N18.31 - Chronic kidney disease, stage 3a ?Code(s): N18.30 - Chronic kidney disease, stage 3 unspecified ?Status:?Acute (3) Chronic anticoagulation: ?Code(s): Z79.01 - senior living (current) use of anticoagulants ?Status:?Chronic (4) Paroxysmal atrial fibrillation: ?Code(s): I48.0 - Paroxysmal atrial fibrillation ?Status:?Chronic DS: Discharge Diagnosis Discharge Diagnosis (1) Acute hyperkalemia: Code(s): E87.5 - Hyperkalemia Status: Acute (2) Generalized weakness: Code(s): R53.1 - Weakness Status: Acute (3) Cirrhosis of liver with ascites: Code(s): K74.60 - Unspecified cirrhosis of liver; R18.8 - Other ascites Status: Acute (4) Chronic anemia: Code(s): D64.9 - Anemia, unspecified Status: Chronic (5) Chronic kidney disease, stage 3: Qualifiers: Chronic kidney disease stage 3 subtype: stage 3a (GFR 45-59) Qualified Code(s): N18.31 - Chronic kidney disease, stage 3a Code(s): N18.30 - Chronic kidney disease, stage 3 unspecified Status: Acute (6) Autoimmune liver disease: Code(s): K76.89 - Other specified diseases of liver Status: Acute (7) Coronary artery disease: Code(s): I25.10 - Atherosclerotic heart disease of [place] coronary artery without angina pectoris Status: Acute (8) Chronic anticoagulation: Code(s): Z79.01 - 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 (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) use of anticoagulants Status: Chronic (9) Paroxysmal atrial fibrillation: Code(s): I48.0 - Paroxysmal atrial fibrillation Status: Chronic (10) Portal hypertension: Code(s): K76.6 - Portal hypertension Status: Acute (11) Gallstones: Code(s): K80.20 - Calculus of gallbladder without cholecystitis without obstruction Status: Acute (12) Cirrhosis: Code(s): K74.60 - Unspecified cirrhosis of liver Status: Acute DS: Summary Hospital Course Reason for hospitalization: Patient was sent to the ER for evaluation to get treated for elevated potassium level Hospital Course: History of Present Illness Date/Time: 11/03/23? 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 Source of information comes from review of past medical records, ER physician report and patient report.? The patient is a very good historian.? The patient was hospitalized in October for right-sided CHF exacerbation with recurrent pleural effusion.? She underwent paracentesis and thoracentesis at that time and had 1 L of fluid removed from her right pleural effusion and 1.3 L of peritoneal fluid.? After active diuresis she was discharged back home on her spironolactone and Lasix.? She was then rehospitalized 2 weeks later at [facility] in [place] for recurrent pleural effusion and had right-sided thoracentesis.? She reports since her thoracentesis her breathing is much improved.? Her abdominal distension has improved since her admission here in she did not require recurrent paracentesis.? She went to her primary care physician for routine follow-up and had labs drawn which demonstrated a potassium of 6.7.? She had no other complaints.? She reports that she has otherwise been feeling well.? She has been her usual active self.? She did report morning dysuria once yesterday but has not had persistent dysu
--- NOTE | 2023-11-04 15:12 | PC.NURSE ---
POC reviewed per Dr. Wilson no need to recheck potassium
--- NOTE | 2023-11-04 16:42 | PC.NURSE ---
Dr. Wilson has been given report on the discharge POC et the concerns voiced by the pts niece. With no changes made at this time et to feel free to follow up with the PCP with any concerns message left. Dr Wilson came to the nurses station after the message was left et requested to call the pts niece back to ensure a [place] discharge Plan of care for the discharge orders with no answer from the pts niece at the time of calling from the nurses station. No further changes made
--- NOTE | 2023-11-04 17:26 | PC.NURSE ---
Addendum entered by Ute Villa RN 11/04/23 17:34: The pt's niece has been given report on the events et the changes made to the current POC at this time. Prior to discharge with no further concerns voiced. Education has been given On changes made to Torsemide et to NOT continue the Spironolactone Original Note: Britta Mccarthy / Gary RN 1.) Torsemide 40 mg PO BID. Education has been given to the pt with a new discharge packet completed. The pts niece has been given education on the current discharge POC. The pts nephew was a the bedside et given report as well et education. Discharge packet updated et new orders transmitted. New discharge education given as well as a new discharge packet. All belongings removed per the pt et nephew. The pt was escorted to private family vehicle per PCT. No manifestations of distress noted at the time of discharge from the campus.
== END 2023-11-04 17:27 | disposition home or self-care (01) ==
LOC: ANHED 19:00 → ANHIMU 23:41
PROVIDERS: Internal Medicine; Physician Assistant; Admitting Provider Hospitalist; Emergency Provider Emergency Medicine; Visit Provider Family Medicine
DX: E87.5 Hyperkalemia (principal); I13.0 Hypertensive heart and chronic kidney disease with heart failure and stage 1 through stage 4 chronic kidney disease, or unspecified chronic kidney disease; I50.9 Heart failure, unspecified; N18.30 Chronic kidney disease, stage 3 unspecified; D63.1 Anemia in chronic kidney disease; I48.0 Paroxysmal atrial fibrillation; K74.60 Unspecified cirrhosis of liver; K75.4 Autoimmune hepatitis; R94.31 Abnormal electrocardiogram [ECG] [EKG]; I25.10 Atherosclerotic heart disease of native coronary artery without angina pectoris; Z95.1 Presence of aortocoronary bypass graft; J90 Pleural effusion, not elsewhere classified; R32 Unspecified urinary incontinence; K21.9 Gastro-esophageal reflux disease without esophagitis; H35.30 Unspecified macular degeneration; Z99.89 Dependence on other enabling machines and devices; Z99.3 Dependence on wheelchair; E78.5 Hyperlipidemia, unspecified; Z79.01 Long term (current) use of anticoagulants; Z79.891 Long term (current) use of opiate analgesic; Z79.899 Other long term (current) drug therapy
CPT/HCPCS: 36415; 80048; 80053; 81003; 82948; 83735; 85025; 85027; 93005; 94640; 96365; 96375; 99285; A9270; G0378; J0612; J1815; J1940

== ENCOUNTER 2024-04-27 08:02 | Outpatient (CLI) | payer MEDICARE, SELFPAY ==
--- NOTE | ~2024-04-27 | US_ITS ---
Limited Abdominal Sonogram: Real-time sonographic imaging of the right upper quadrant was performed. Clinical History: Cirrhosis Findings: The liver demonstrate nodular contour with mild hyperechogenicity. No definite focal hepat ic mass seen. Main portal vein demonstrates normal direction of flow. The gallbladder is well distend ed, and demonstrate echogenic, shadowing gallstones, and layering sludge. No gallbladder wall thicken ing. The common bile duct measures 7 mm. The visualized pancreas, aorta, and IVC are unremarkable. Impression: Cirrhotic change of the liver, with nodular contour. Cholelithiasis and gallbladder sludge. Reviewed, dictated and finalized at location M. Impression: Cirrhotic change of the liver, with nodular contour. Cholelithiasis and gallbladder sludge.
== END 2024-04-27 08:03 | disposition home or self-care (01) ==
PROVIDERS: PCP Nurse Practitioner; Visit Provider Nurse Practitioner
DX: K74.60 Unspecified cirrhosis of liver (principal); R18.8 Other ascites; K80.20 Calculus of gallbladder without cholecystitis without obstruction
CPT/HCPCS: 76705

== ENCOUNTER 2024-10-11 11:24 | Outpatient (CLI) | payer MEDICARE, SELFPAY ==
--- NOTE | ~2024-10-11 | XR_ITS ---
CHEST RADIOGRAPH, PA AND LATERAL CLINICAL HISTORY: sob, history of pleural effusions, SOB X TUESDAY . COMPARISON: 10/08/2023 TECHNIQUE: PA and lateral views of the chest. FINDINGS Sternal wires and mediastinal clips are identified, the wires are midline and intact. Large hiatal hernia is redemonstrated. The remainder of the cardiomediastinal silhouette is otherwise unremarkable. Large right-sided pleural effusion, similar in appearance to previous examination dated 10/08/2023. The remainder of the lungs are clear. IMPRESSION: Large right-sided pleural effusion without focal infiltrate. Reviewed, dictated and finalized at location A. STERED NURSE PRACTITIONER
[2024-10-11 12:03] LABS: Hematocrit 39.3 % (37.0-47.0); Hemoglobin 12.7 g/dL (12.0-15.0); Mean Corpuscular HGB Conc 32.3 g/dl (32-36); Mean Corpuscular Hemoglobin 30.6 pg (26-34); Mean Corpuscular Volume 94.7 fl (80-100); Mean Platelet Volume 8.6 fl (7.4-10.4); Platelet Count Result 186 k/mm3 (150-375); Red Blood Count 4.15 M/mm3 (4.2-5.4); Red Cell Distribution Width 14.6 % (11.5-14.5); White Blood Count 5.4 K/mm3 (4.5-10.0)
[2024-10-11 12:28] LABS: INR 2.3; Prothrombin Time 25.3 Seconds (11.1-14.7)
[2024-10-11 12:36] LABS: Alanine Aminotransferase 20 U/L (6-35); Albumin Level 4.2 g/dL (3.5-5.1); Alkaline Phosphatase 109 U/L (38-126); Anion Gap 10 mmol/L (4-12); Aspartate Amino Transferase 23 U/L (14-36); Blood Urea Nitrogen 18 mg/dL (7-17); Calcium 9.7 mg/dL (8.4-10.2); Carbon Dioxide 27 mmol/L (22-30); Chloride 104 mmol/L (98-107); Estimated Glomerular Filt Rate 46; Glucose 102 mg/dL (65-110); Potassium 4.3 mmol/L (3.4-5.0); Sodium 141 mmol/L (137-145)
--- OUTSIDE RECORDS SUMMARY | 2024-10-11 12:53 | XMS_ITS | Encounter Summary ---
Author Organization [facility] Address [address] [place], [place] [address] [address] Care Team Providers Care Organic Extractions Technician Name Role Phone Ed Patel MD Primary Care Provider [phone] Denia Wick RN Unavailable Michael Mondragon MD Unavailable [phone] Keiry Solorio PROGRAMMABLE LOGIC CONTROLLER ASSEMBLER-PROFESSOR OF SPORT MANAGEMENT Unavailable [phone] Reason for Visit * Reason Onset Date Comments Follow-up 07/27/2023 Encounter Details Date Type Department Care Team (Late st Contact Info) Description 07/27/2023 Telephone [facility] [address] [facility] [facility] [place] [id number] Harjinder Metz MD [address] [facility] [address] [place] [address] Follow-up Social History Tobacco Use Types Packs/Day Years Used Date Smoking Tobacco: Never Smokeless Tobacco: Never Alcohol Use Standard Drinks/Week Comments Not Currently 1 (1 standard drink = 0.6 oz pur e alcohol) twice a year AUDIT-C Answer Date Recorded Q1: How often do you have a drink containing alcohol? Never 06/24/2023 Q2: How many drinks containi ng alcohol do you have on a typical day when you are drinking? Patient does not drink Q3: How often do you have si x or more drinks on one occasion? Never 06/24/2023 Overall Financial Resource Strain (CARDIA) Answe r Date Recorded How hard is it for you to pa y for the very basics like food, housing, medical care, and heating? Not hard at all 06/24/2023 [facility] - Occupational Stress Questionnaire Answer Date Recorded Do you feel stress - tense, restless, nervous, or anxious, or unable to sleep at night because your mind is troubled all the time - these days? Not at all 06/24/2023 Hunger Vital Sign Answer Date Recorded Within the past 12 months, y ou worried that your food would run out before you got the money to buy more. Never true 06/25/20 23 Within the past 12 months, t he food you bought just didn't last and you didn't have money to get more. Never true 06/25/2023 PRAPARE - Transportation Answer Date Re corded In the past 12 months, has l ack of transportation kept you from medical appointments or from getting medications? No 06/08 In the past 12 months, has l ack of transportation kept you from meetings, work, or from getting things needed for daily living? No 06/24/2023 Housing Stability Vital Sign Answer Norbert e Recorded In the last 12 months, was t here a time when you were not able to pay the mortgage or rent on time? No 06/24/2023 In the last 12 months, how many places have you lived? 1 06/24/2023 In the last 12 months, was t here a time when you did not have a steady place to sleep or slept in a fci (including now)? No 06/24/2023 Housing Stability Vital Sign Answer Norbert e Recorded In the last 12 months, was t here a time when you were not able to pay the mortgage or rent on time? No 06/24/2023 Number of Times Moved in the Last Year Not on fi le 06/24/2023 Homeless in the Last Year Not on file 2022 Sex and Gender Information Value Date Recorded Sex Assigned at Not on file Gender Identity Not on file Sexual Orientation Not on file documented as of this encounter Functional Status Functional Status Response Date of Assess ment Is person deaf or have serious hearing difficult y? Yes 06/24/2023 Is person blind or have serious difficulty seein g? No 06/24/2023 Does person have serious dif ficulty walking/climbing stairs? Yes 06/24/2023 Does person have difficulty dressing/bathing? Ye s 06/24/2023 Does person have difficulty doing errands alone? No 06/24/2023 Cognitive Status Response Date of Assessm ent Does person have difficulty concentrating/remembering/making decisions? 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 documented in this encounter Plan of Treatment Not on file documented as of this encounter Visit Diagnoses Not on filedocumented in this encounter Care Teams Organic Extractions Technician Relationship Specialty Start Date End Date Ed Patel MD [address] [place] [address] [place] [id number] PCP - General 12/30/09 Denia Wick RN Observer Helper 07/05/14 Michael Mondragon MD Cardiovascular Disease 11/27/18 Keiry Solorio APRN-[facility] [address] [place] [address] [address] [place] [address] Nurse Practitioner Cardiology 11/20/20 documented as of this encounter
--- OUTSIDE RECORDS SUMMARY | 2024-10-11 12:53 | XMS_ITS | Referral Summary ---
Author Organization [facility] Address [facility] [place] [address] Care Team Providers Care Brim Blocker Name Role Phone Ed Patel MD Primary Care Provider [phone] Denia Wick RN Unavailable [phone] Michael Mondragon MD Unavailable [phone] Keiry Solorio HEEL SEAT SANDER-CHORE WORKER Unavailable [phone] Source Comments [facility],non-owned Affiliates and Associated Physician Practices is amultiple site organization consisting of ambulatory clinics and hospital sitesin [place], [place], [place] and [place]. This disclosure is being madepursuant to the Care Everywhere program and may not contain all information available regarding this patient. Last updated 18.[facility] Allergies Active Allergy Reactions Criticality Noted Date Comments Dicyclomine Dizziness 07/05/2014 Propoxyphene N-Apap 09/12/2011 Apixaban Numbness 07/03/2019 States she went numb on her left side and had bad chest pains/will not take ever again Hmg-Coa-R Inhibitors Myalgias High 09/30/2016 Medications * Be aware that medications may not be up to date on this document. Alwaysverify current medications with the patient. Medication Sig Dispensed Refills Start Date End Date Status ezetimibe (ZETIA) 10 MG tablet Take 1 (one) tablet by mouth once daily Active Krill Oil 1000 MG CAPS Take 1,500 Units by mouth once daily Active ALPRAZolam (XANAX) 0.25 MG tablet Take 1 (one) tablet by mouth nightly as needed for Insomnia, Anxiety or Other 3 01/24/2017 Active nitroGLYCERIN (NITROSTAT) 0.4 MG tablet Dissolve 1 (one) tablet under the tongue every 5 minutes as needed for Angina 3 01/24/2017 Active rivaroxaban (XARELTO) 10 MG tablet Take 1 tablet by mouth daily with food 30 tablet 11 07/03/2019 Active dilTIAZem (Cardizem) 30 MG tablet Take 1 (one) tablet by mouth 2 times daily Active acetaminophen (Tylenol) 500 MG tablet Take 1 (one) tablet by mouth every 6 hours as needed Maximum allowable Acetaminophen amount = 4 Grams (4000 mg) / 24 hours. 07/05/2023 Active Additional Information Patient taking differently: 500-1,000 mgOral EVERY 6 HOURS PRN,Fever, Pain, Headache, Maximum allowable Acetaminophen amount = 4 Grams (4000 mg) / 24 hours., Reported on 08/12/2023 saline nasal spray ([place]; Baby [place]) 0.65 % nasal spray [place] 2 (two) sprays into each nostril every 1 hour as needed for Dry Nose 07/05/2023 Active Additional Information Patient not taking.Reason: Other, Reported on 04/25/2024 lidocaine (Lidoderm) 5 % patch Apply 1 (one) patch to skin every 24 hours as needed (For right arm pain) Apply patch to most painful area and remove after 12 hours. May reapply a new patch 12 hours later. 07/05/2023 Active Additional Information Patient not taking.Reason: Other, Reported on 04/25/2024 simethicone (Mylicon) 80 MG chew tablet Take 1 (one) tablet by mouth 4 times daily as needed for Gas Pain 07/05/2023 Active pantoprazole EC (Protonix) 40 MG tablet Take 1 (one) tablet by mouth once daily 07/05/2023 Active vitamin D3 (Cholecalciferol) 25 MCG (1000 UNITS) tablet Take 1 (one) tablet by mouth once daily Start on 07/27, please take 5000 units until then 07/27/2023 Active Additional Information Patient taking differently: 1,500 UnitsOral DAILY,(No instructions reported), Reason: Provider adjusted, Reported on 04/25/2024 furosemide (Lasix) 40 MG tablet Take 1 (one) tablet by mouth once daily 07/05/2023 Active Additional Information Patient taking differently:40 mg Oral2 TIMES DAILY, Reason: Provider adjusted, Reported on 04/25/2024 spironolactone (Aldactone) 25 MG tablet Take 1 (one) tablet by mouth once daily 07/05/2023 Active traMADol (Ultram) 50 MG tablet Take 1 (one) tablet by mouth once daily as needed 12/16/2022 Active ondansetron (Zofran) 4 MG tablet Take 1 (one) tablet by mouth every 6 hours as needed 05/27/2023 Active famotidine (Pepcid) 40 MG tablet Take 1 (one) tablet by mouth at bedtime Active ascorbic acid (Vitamin C) 250 MG tablet Take 6 (six) tablets by mouth once daily Active labetalol (Normodyne; Trandate) 100 MG tablet Take 1 (one) tablet by mouth every 12 hours Active Active Problems Problem Noted Date Diagnosed Date Closed fracture of proximal end of right humerus 06/25/2023 Closed fracture of multiple ribs of right side 1 08/25/2022 Other cirrhosis of liver 06/25/2023 Other ascites 06/25/2023 Ground-level fall 06/25/2023 Pleural effusion associated with hepatic disorde r 06/25/2023 Cardiomegaly 06/25/2023 Trauma 06/24/2023 Paroxysmal atrial fibrillation 07/03/2019 Coronary artery disease involving [place]apache heart 0 02/28/2017 MARINELLI (dyspnea on exertion) 2016 Pulmonary hypertension 2016 MARINELLI (dyspnea on exertion) 10/13/20162022 Overview (07/07/2023): Last Assessment & Plan: Dyspnea is likely due to obesity and CHF. Will continue with hydrochlorothiazide and Lasix on every other day. 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 (FLUAD TRIVALENT; 65Y+) (AIIV3) 06/25/2018 INFLUENZA VACCINE, HIGH-DOSE , QUADR. (FLUZONE HIGH-DOSE QUADRIVALENT; 65Y+), 0.7 ML (HD-IIV4) 04/07/2017 INFLUENZA VACCINE, HIGH-DOSE , TRIV. (FLUZONE HIGH-DOSE TRIVALENT; 65Y+) (HD-IIV3) 06/07/2019,04/07/2017 TDAP (7yrs+) 06/24/2023(Deferred: Patient Condition - Pt states that she got that less than 5 years ago .) Social History Tobacco Use Types Packs/Day Years [...] and heating? Not hard at all 06/24/2023 PHQ-2 Answer Date Recorded Patient Health Questionnaire-2 Score 2 08/10/2023 [facility] - Occupational Stress Questionnaire Answer Date Recorded [...] place to sleep or slept in a nursing home (including now)? No 06/24/2023 Housing Stability Vital [...] on file Sexual Orientation Not on file Last Filed Vital Signs Vital Sign Reading Time Taken Comments Blood Pressure 110/64 05/02/2024 12:15 PM CDT Pulse 60 05/02/2024 12:15 PM CDT Temperature 36.6 C (97.9 F) 05/02/2024 11:59 AM CDT Respiratory Rate 16 05/02/2024 12:15 PM CDT Oxygen Saturation 92% 05/02/2024 12:15 PM CDT Inhaled Oxygen Concentration - - Weight 57.2 kg (126 lb) 04/25/2024 11:23 AM CDT Height 147.3 cm (4' 10 ) 04/25/2024 11:23 AM CDT Body Mass Index 26.33 04/25/2024 11:23 AM CDT Functional Status Functional Status Response Date of [...] person have difficulty concentrating/remembering/making decisions? No 06/24/2023 Plan of Treatment Not on file Advance Directives * Full Code (Latest Code Status on File) Date Activated Date Inactivated Comments 06/24/2023 6:12 PM 07/05/2023 12:38 PM * Full Code Date Activated Date Inactivated Comments 09/30/2016 12:46 PM 10/01/2016 1:35 PM * Full Code Date Activated Date Inactivated Comments 07/05/2014 12:08 PM 07/05/2014 5:38 PM Care Teams Brim Blocker Relationship Specialty Start Date End Date Ed Patel MD [address] [facility] [address] [place] [phone] PCP - General 12/30/09 Denia Wick RN Soa Engineer 07/05/14 Michael Mondragon MD Cardiovascular Disease 11/27/18 Keiry Solorio APRN-CHORE WORKER [facility] [place] [address] [place] [address] [address] [place] [address] Nurse Practitioner Cardiology 11/20/20
--- OUTSIDE RECORDS SUMMARY | 2024-10-11 12:53 | XMS_ITS | Clinical Summary ---
Author Organization [facility] Address [address] 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
--- OUTSIDE RECORDS SUMMARY | 2024-10-11 12:53 | XMS_ITS | CONTINUITY OF CARE DOCUMENT ---
Author Name kelseyajaymarcie Address Unknown Organization [facility] Address [address] [facility] [address] [place] [address] Phone [phone] Care Team Providers Care Materials Coordinator Name Role Phone Edgar PIZARRO, Guy Unavailable FRANK MALIN Unavailable [phone] FRANK MALIN Unavailable [phone] INSURANCE PROVIDERS Payer name Policy type / Coverage type [place] red green party ID AARP MEDICARE ADVANTAGE ([facility] PPO) Other [id number]
--- OUTSIDE RECORDS SUMMARY | 2024-10-11 12:53 | XMS_ITS | Continuity of Care Document ---
Author Organization [facility] Address [address] [place] [address] [address] [place] [address] Phone Care Team Providers Care Product Safety Coordinator Name Role Phone [facility] Unavailable Unavail able Sickage, Natasha Unavailable Unavailable Advance Directives Directive Yes / No Effective Date File Name No Information Encounters Encounter Description Practice Location Reason(s) For Visit Diagnoses Date Provider Providers Copied on Encounter [facility], [address], [place], [place], [id number], [place] tel:[phone] [facility] [place] No Information [facility] [address], [address], [place], [place], [id number] , [place]. tel:[phone] Referring Provider: Shanna Pérez, [address] [facility] [place] [address], [place], [address]. tel:[phone] sulting Provider: Natasha Celis, [address] [place] [address], [address]. tel:[phone] Family History Family Member Type Diagnosis Age At Onset No Information Payers Payer name Insurance type Covered republican ID Authoriza tion(s) No Information Social History Type Description Quantity Date Captured Comments Sex Female Smoking Status No Information Chief Complaint And Reason For Visit No Information Reason For Referral Reason For Referral No Information History Of Present Illness Encounter Date Complaint History Of Prese nt Illness No Information Functional Status Date Functional Assessmen t No Information Instructions Date Instruction Additional Infor mation No Information Assessments Type Assessment Date No Information Patient Care Teams Name Effective Dates (start - stop) Status Members No Information
--- OUTSIDE RECORDS SUMMARY | 2024-10-11 12:53 | XMS_ITS | Encounter Summary ---
Author Organization [facility] Address 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
--- OUTSIDE RECORDS SUMMARY | 2024-10-11 12:53 | XMS_ITS | Encounter Summary ---
Author Organization [facility] Address [address] [place] [address] Care Team Providers Care Reference And Instruction Librarian Name Role Phone Unavailable Primary Care Provider Unavailabl e Encounter Details Date Type Department Care Team (Late st Contact Info) Description 02/22/2002 Outpatient Historical [facility] [place], [place] Support Serv. (Adt Cardiology[facility]) [address] [place] [id number] Cornelio Scott MD NO ADDRESS ON FILE Social History Tobacco Use Types Packs/Day Years Used Date Smoking Tobacco: Never Assessed Comments Unknown Sex and Gender Information Value Date Recorded Sex Assigned at Not on file Legal Sex Female 3:28 AM UTILITY ENGINEER Gender Identity Not on file Sexual Orientation Not on file documented as of this encounter Plan of Treatment Not on file documented as of this encounter Visit Diagnoses Not on filedocumented in this encounter
--- OUTSIDE RECORDS SUMMARY | 2024-10-11 12:53 | XMS_ITS | Clinical Summary ---
Author Organization [facility] Address [address] [place] [address] Care Team Providers Care Shirt Closer Name Role Phone Fiona Doherty APRN, TESTING TECH Unavailable [phone] Ed Patel MD Primary Care Provider [phone] Allergies Active Allergy Reactions Criticality Noted Date Comments Apixaban Anxiety 10/21/2023 Headache, disorientation, anxiety Statins Rash 09/09/2023 Medications ALPRAZolam (XANAX) 0.25 MG Tablet TK 1 T PO QD PRN 7 Active Vitamin D3 (CHOLECALCIFERO L) 125 MCG Tablet Take 5,000 Units by mouth. 3 Active ezetimibe (ZETIA) 10 MG Tablet Take 10 mg by mouth. Active Empagliflozin (JARDIANCE) 10 MG Tablet Take 10 mg by mouth. 3 Active Krill Oil 1000 MG Capsule Take 2,000 Units by mouth. Active nitroGLYCERIN (NITROSTAT) 0.4 MG SL Tablet IVY. ONE EVERY FIVE MINUTES FOR UP TO 3 DOSES UTD 7 Active ondansetron (ZOFRAN) 4 MG Tablet TAKE 1 TABLET BY MOUTH EVERY 6 HOURS NEEDED 3 Active oxyCODONE (ROXICODONE) 5 MG Tablet 0 3 Active pantoprazole (PROTONIX) 40 MG Tablet Delayed Response Take 40 mg by mouth. 3 Active Xarelto 10 MG Tablet Take 10 mg by mouth daily. 3 Active simethicone (MYLICON) 80 MG Chewable Tablet Take 80 mg by mouth. 3 Active traMADol (ULTRAM) 50 MG Tablet Take 50 mg by mouth. 9 Active dilTIAZem (CARDIZEM) 30 MG Tablet Take 30 mg by mouth in the morning and at bedtime. Active Multiple Vitamins-Minera ls (PreserVision AREDS) Capsule Take 1 Capsule by mouth daily. Active naloxone HCl (Narcan) 4 MG/0.1ML Liquid 1 [place] by Nasal route as needed for Opioid Reversal (opioid overdose). administer for symptoms of overdose (severe sleepiness, breathing problems, not responsive). Call 911. May use additional dose to repeat 1 spray intranasally in 2-3 minutes if needed. 2 Each 4 Active baclofen (LIORESAL) 5 MG Tablet Take 1 Tablet by mouth every 8 hours as needed for Muscle spasms. 90 Tablet 4 Active spironolactone (ALDACTONE) 25 MG Tablet Take 1 Tablet by mouth daily. 4 Active furosemide (LASIX) 80 MG Tablet Take 1 Tablet by mouth 2 times daily (with meals). 180 Tablet 3 4 Active famotidine (PEPCID) 40 MG Tablet Take 40 mg by mouth daily. 4 Active Active Problems Problem Noted Date Diagnosed Date Congestive heart failure (CHF) 10/22/2023 PAF (paroxysmal atrial fibrillation) 10/22/2023 Pulmonary HTN 10/22/2023 Arthritis 10/22/2023 Hypertension 10/22/2023 Hyperlipidemia 10/22/2023 Cirrhosis of liver 10/22/2023 CAD (coronary artery disease) 10/22/2023 Anasarca 10/22/2023 Resolved Problems Problem Noted Date Diagnosed Date Resolved Date Pleural effusion 10/21/2023 10/24/2023 Immunizations Immunization Administration Dates Next Due Albumin IV 10/23/2023,10/23/2023,10/22/2023 ,10/22/2023 Social History Tobacco Use Types Packs/Day Years Used Date Smoking Tobacco: Never Passive Smoke Exposure: Never Smokeless Tobacco: Never Tobacco Cessation:Counseling Given: Not Answered Alcohol Use Standard Drinks/Week Comments Never 0 (1 standard drink = 0.6 oz pur e alcohol) [facility] Utilities Answer Date Recorded In the past 12 months has e ITN, oil, or water [employer] threatened to shut off services in your home? Patient declined 10/21/2023 Social Connection and Isolation Panel [NHANES] A nswer Date Recorded In a typical week, how many times do you talk on the phone with family, friends, or neighbors? Patient declined 10/21/2023 How often do you get togethe r with friends or relatives? Patient declined 10/21/2023 How often do you attend anabaptism or mormon serv ices? Patient declined 10/21/2023 Do you belong to any clubs o r organizations such as anabaptism groups, unions, fraternal or athletic groups, or school groups? Patient declined 10/21/2023 How often do you attend meet ings of the clubs or organizations you belong to? Patient declined 10/21/2023 Are you , , di vorced, , never , or living with a partner? Patient declined 10/21/2023 AUDIT-C Answer Date Recorded Q1: How often do you have a drink containing alc ohol? Patient declined 10/21/2023 Q2: How many drinks containi ng alcohol do you have on a typical day when you are drinking? Patient declined 10/21/2023 Q3: How often do you have si x or more drinks on one occasion? Patient declined 10/21/2023 Overall Financial Resource Strain (CARDIA) Answe r Date Recorded How hard is it for you to pa y for the very basics like food, housing, medical care, and heating? Patient declined 10/21/2023 [facility] - Occupational Stress Questionnaire Answer Date Recorded Do you feel stress - tense, restless, nervous, or anxious, or unable to sleep at night because your mind is troubled all the time - these days? Patient declined 10/21/2023 Exercise Vital Sign Answer Date Recorde d On average, how many days pe r week do you engage in moderate to strenuous exercise (like a brisk walk)? Patient declined On average, how many minutes do you engage in exercise at this level? Patient declined 10/21/2023 Hunger Vital Sign Answer Date Recorded Within the past 12 months, y ou worried that your food would run out before you got the money to buy more. Patient declined Within the past 12 months, t he food you bought just didn't last and you didn't have money to get more. Patient declined PRAPARE - Transportation Answer Date Re corded In the past 12 months, has l ack of transportation kept you from medical appointments or from getting medications? Patient declined 10/21/2023 In the past 12 months, has l ack of transportation kept you from meetings, work, or from getting things needed for daily living? Patient declined 10/21/2023 Housing Stability Vital Sign Answer Norbert e Recorded In the last 12 months, was t here a time when you were not able to pay the mortgage or rent on time? Patient declined 10/21/19 24 In the last 12 months, how many places have you lived? 1 10/21/2023 In the last 12 months, was t here a time when you did not have a steady place to sleep or slept in a half-way (including now)? 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 Gender Identity Not on file Sexual Orientation Not on file Last Filed Vital Signs Vital Sign Reading Time Taken Comments Blood Pressure 126/78 04/12/2024 3:24 PM CDT Pulse 100 04/12/2024 3:24 PM CDT Temperature 36.3 C (97.4 F) 04/12/2024 3:24 PM CDT Respiratory Rate 16 11/17/2023 9:54 AM CDT Oxygen Saturation 95% 04/12/2024 3:24 PM CDT Inhaled Oxygen Concentration - - Weight 56.2 kg (124 lb) 04/12/2024 3:24 PM CDT Height 147.3 cm (4' 10 ) 04/12/2024 3:24 PM CDT Body Mass Index 25.92 04/12/2024 3:24 PM CDT Plan of Treatment Upcoming Encounters Date Type Department Care Team (Late st Contact Info) Description 11/12/2024 3:00 PM CDT Office Visit [facility] - [facility] - [place] [address] [place] [address] Fiona Doherty, ELECTRICITY TRADER, TESTING TECH [address] [facility], [address] [place] [address] Health Maintenance Due Date Last Done Comments DEXA Bone Density 1935 TdaP Immunization 1935 Pneumococcal Immunization (5 0+ years) (1 of 2 - PCV) 10/12/1954 Zoster Immunization (1 of 2) 10/12/1985 Hepatitis B Immunization (1 of 3 - Risk 3-dose series) 1995 Respiratory Syncytial Virus (RSV) Immunization (Adult) (1 - 1-dose 75+ series) 10/12/2010 Influenza Immunization (#1) 04/08/202405/10, 06/25/2018, 04/07/2017 SARS-COV-2 Immunization ( - season) 2024 10/28/2020, 10/07/2020 Hepatitis C Virus (HCV) Screening Completed 06/26/2023 Meningococcal Immunization (ACWY) Aged Out No longer eligible b ased on patient's age to complete this topic Rotavirus Immunization Aged Out No lo nger eligible based on patient's age to complete this topic Insurance MEDICARE C [employer] Advance Directives * Full Code (Latest Code Status on File) Date Activated Date Inactivated Comments 10/21/2023 9:25 PM 10/24/2023 6:54 PM CPR-Full Dago atment: FULL ARREST: Attempt Resuscitation/CPR wit intubation and mechanical ventilation. PRE-ARREST: Use entire range of life support measures to stabilize the patient. Care Teams Shirt Closer Relationship Specialty Start Date End Date Ed Patel MD [address] [place] [address] PCP - General Primary Care 07/22/23 Fiona Doherty APRN, TESTING TECH [address] [facility], [address] [place] [address] Nurse Practitioner Cardiology 07/14/23
--- OUTSIDE RECORDS SUMMARY | 2024-10-11 12:53 | XMS_ITS | Clinical Summary ---
Author Organization [facility] at the [facility] Address [address] [place] [address] Care Team Providers Care Hot Air Furnace Installer And Repairer Name Role Phone Ed Patel MD Primary Care Provider [phone] Allergies Active Allergy Reactions Criticality Noted Date Comments Apixaban Other (See comments) Low 07/03/2019 States she went numb on her left side and had bad chest pains/will not take ever again Dicyclomine Dizziness Low 07/05/2014 Ilrnssk-Xhb-Zvc Reductase Inhibitors Unknown High 09/30/2016 Medications ezetimibe (ZETIA) 10 mg tablet Take 10 mg by mouth daily Active hydroCHLOROthia zide (HYDRODIURIL) 25 mg tablet Take 25 mg by mouth daily Active nitroglycerin (NITROSTAT) 0.4 mg SL tablet IVY. ONE EVERY FIVE MINUTES FOR UP TO 3 DOSES UTD 01/24/2017 Active rivaroxaban (XARELTO) 15 mg tablet Take 10 mg by mouth daily Active dilTIAZem (CARDIZEM) 30 mg tablet Take 30 mg by mouth 4 (four) times a day Active KRILL OIL ORAL Take by mouth Active cyanocobalamin, vitamin B-12, (VITAMIN B-12 ORAL) Take by mouth Active coenzyme Q10 (CO Q-10) 10 mg capsule Take 10 mg by mouth daily Active ferrous sulfate 325 mg (65 mg of elemental iron) tablet Take 325 mg by mouth Active ALPRAZolam (XANAX) 0.25 mg tablet as needed 0 06/15/2019 Active vitamins A,C,E-zinc-tracy er (PRESERVISION AREDS) 7,160-113-100 ommi-ns-lusg tablet Take 1 tablet by mouth 2 times daily Active traMADol (ULTRAM) 50 mg tablet 3 07/13/2019 Active atenoloL (TENORMIN) 25 mg tablet Take 25 mg by mouth daily Active furosemide (LASIX) 20 mg tablet Take 0.5 tablets (10 mg total) by mouth every other day 15 tablet 3 09/19/2019 Active Active Problems Problem Noted Date Diagnosed Date MARINELLI (dyspnea on exertion) 07/04/2019 MARINELLI (dyspnea on exertion) 2016 Assessment & Plan (09/21/2019 4:02 PM TECHNOLOGY SOLUTIONS ARCHITECT): Dyspnea is likely due to obesity and CHF. Will continue with hydrochlorothiazide and Lasix on every other day. Assessment & Plan (07/06/2019 8:51 PM TECHNOLOGY SOLUTIONS ARCHITECT): Patient feels better after blood transfusion. Her exertional dyspnea is likely combination of obesity, deconditioning and underlying diastolic dysfunction. I will start her on Lasix 10 mg every other day and follow her symptoms. If her electrolytes and creatinine remains stable we can increase the dose of Lasix. She is also getting hydrochlorothiazide. Assessment & Plan (05/20/2019 11:25 AM CDT): Patient has chronic dyspnea which has gotten worse over the last 2 months. Differential includes worsening CHF, anemia or undiagnosed obstructive airway disease. I will obtain CBC, basic metabolic panel, BNP and full set of PFTs. Obtain results of her echocardiogram. Immunizations Immunization Administration Dates Next Due Influenza, Trivalent, Adjuvanted, Intramuscular 06/25/2018 Influenza, Trivalent, High D ose, Split, Preservative Free, Intramuscular 04/07/2017 Influenza, Trivalent, IM (MDV) 04/30/2014 Surgical History Surgery Date Site/Laterality Comments HEART SURGERY bypass HYSTERECTOMY Medical History Medical History Date Comments A-fib (HCC) Family History Medical History Relation Name Comments Heart disease Mother Relation Name Status Comments Mother Social History Tobacco Use Types Packs/Day Years Used Date Smoking Tobacco: Never Smokeless Tobacco: Never Personal Safety Answer Date Recorded Getting School Help Needed Not on file 08/22 Comments Unknown Sex and Gender Information Value Date Recorded Sex Assigned at Not on file Legal Sex Female 2:33 PM CDT Gender Identity Not on file Sexual Orientation Not on file Obstetrics History Last Filed Vital Signs Vital Sign Reading Time Taken Comments Blood Pressure 178/70 09/19/2019 1:49 PM TECHNOLOGY SOLUTIONS ARCHITECT Pulse 70 09/19/2019 1:49 PM TECHNOLOGY SOLUTIONS ARCHITECT Temperature 36.7 C (98.1 F) 09/19/2019 1:49 PM TECHNOLOGY SOLUTIONS ARCHITECT Respiratory Rate 22 09/19/2019 1:49 PM TECHNOLOGY SOLUTIONS ARCHITECT Oxygen Saturation 97% 09/19/2019 1:49 PM TECHNOLOGY SOLUTIONS ARCHITECT Inhaled Oxygen Concentration - - Weight 80 kg (176 lb 6.4 oz) 09/19/2019 1:49 PM TECHNOLOGY SOLUTIONS ARCHITECT Height 147.3 cm (4' 10 ) 07/04/2019 2:40 PM TECHNOLOGY SOLUTIONS ARCHITECT Body Mass Index 36.87 07/04/2019 2:40 PM TECHNOLOGY SOLUTIONS ARCHITECT Plan of Treatment Not on file Insurance [facility] MEDICARE [employer] [place] [employer] [place] [address] Care Teams Hot Air Furnace Installer And Repairer Relationship Specialty Start Date End Date Ed Patel MD [address] [address] PCP - General Internal Medicine 04/18/19
--- OUTSIDE RECORDS SUMMARY | 2024-10-11 12:53 | XMS_ITS | Referral Summary ---
Author Organization [facility] Address [address] [place] [address] Care Team Providers Care Off Premise Service Representative Name Role Phone Ed Patel MD Primary Care Provider [phone] Allergies Active Allergy Reactions Criticality Noted Date Comments Apixaban Other (See comments) Low 07/03/2019 States she went numb on her left side and had bad chest pains/will not take ever again Dicyclomine Dizziness Low 07/05/2014 Lokyrul-Asf-Rar Reductase Inhibitors Unknown High 09/30/2016 Medications ezetimibe [...] Active vitamins A,C,E-zinc-tracy er (PRESERVISION AREDS) 7,160-113-100 kyxy-ep-ftcg tablet Take 1 tablet by mouth 2 [...] 2016 Assessment & Plan (09/21/2019 4:02 PM RESIDENT SERVICE COORDINATOR): Dyspnea is likely due to obesity and CHF. Will continue with hydrochlorothiazide and Lasix on every other day. Assessment & Plan (07/06/2019 8:51 PM RESIDENT SERVICE COORDINATOR): Patient feels better after blood transfusion. Her [...] Intramuscular 04/07/2017 Influenza, Trivalent, IM (MDV) 04/30/2014 Social History Tobacco Use Types Packs/Day Years [...] Comments Blood Pressure 178/70 09/19/2019 1:49 PM RESIDENT SERVICE COORDINATOR Pulse 70 09/19/2019 1:49 PM RESIDENT SERVICE COORDINATOR Temperature 36.7 C (98.1 F) 09/19/2019 1:49 PM RESIDENT SERVICE COORDINATOR Respiratory Rate 22 09/19/2019 1:49 PM RESIDENT SERVICE COORDINATOR Oxygen Saturation 97% 09/19/2019 1:49 PM RESIDENT SERVICE COORDINATOR Inhaled Oxygen Concentration - - Weight 80 kg (176 lb 6.4 oz) 09/19/2019 1:49 PM RESIDENT SERVICE COORDINATOR Height 147.3 cm (4' 10 ) 07/04/2019 2:40 PM RESIDENT SERVICE COORDINATOR Body Mass Index 36.87 07/04/2019 2:40 PM RESIDENT SERVICE COORDINATOR Plan of Treatment Not on file Insurance [employer] [facility] [facility] MEDICARE RAILRO[employer] MEDICARE [employer] Care Teams Off Premise Service Representative Relationship Specialty Start Date End Date Ed Patel MD [address] [address] PCP - General Internal Medicine 04/18/19
--- OUTSIDE RECORDS SUMMARY | 2024-10-11 12:53 | XMS_ITS | Clinical Summary ---
Author Organization [facility] Address [facility] [facility] [place] [place] [address] Care Team Providers Care Help Desk Manager Name Role Phone Ed Patel MD Primary Care Provider [phone] Denia Wick RN Unavailable [phone] Michael Mondragon MD Unavailable [phone] Keiry Solorio ORTHOPEDIC DESIGNER-RUBBER MILL OPERATOR Unavailable [phone] Source Comments [facility],non-owned Affiliates and Associated Physician Practices is amultiple site organization consisting of ambulatory clinics and hospital sitesin [place], [place], [place] and [place]. This disclosure is being madepursuant to the Care Everywhere program and may not contain all information available regarding this patient. Last updated 18.[facility] Allergies Active Allergy Reactions Criticality Noted [...] hours., Reported on 08/12/2023 saline nasal spray ([place]; Baby [place]) 0.65 % nasal spray [place] 2 (two) sprays into each nostril every [...] atrial fibrillation 07/03/2019 Coronary artery disease involving alutiiq heart 0 02/28/2017 MARINELLI (dyspnea on exertion) 2016 Pulmonary hypertension 2016 MARINELLI (dyspnea on exertion) 10/13/20162022 Overview (07/07/2023): Last Assessment & Plan: Dyspnea is likely due to obesity and CHF. Will continue with hydrochlorothiazide and Lasix on every other day. 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 02/10/2016 Essential [...] that less than 5 years ago .) Family History Medical History Relation Name Comments CAD (Coronary Artery Disease) Mother Relation Name Status Comments Mother Social [...] Recorded Patient Health Questionnaire-2 Score 2 08/10/2023 [facility] - [...] Mass Index 26.33 04/25/2024 11:23 AM CDT Plan of Treatment Health Maintenance Due Date Last Done Comments BONE DENSITY TESTING 1935 DTAP/TDAP/TD VACCINES (1 - Tdap) 10/12/1954 PNEUMOCOCCAL VACCINE 50+ (1 of 2 - PCV) 10/12/1954 ZOSTER VACCINE (1 of 2) 10/12/1985 HEPATITIS B VACCINE (1 of 3 - Risk 3-dose series) 1995 Respiratory Syncytial Virus (RSV) Vaccine Pt: or over 60 yrs (1 - 1-dose 75+ series) 10/12/2010 COVID-19 VACCINE ( season) 2024 10/28/2020, 10/07/2020 INFLUENZA VACCINE (#1) 2024 9, 06/25/2018, 04/07/2017, Additional history exists DEPRESSION SCREENING 08/08/2024 08/10/2023 MEDICARE AWV CALENDAR YEAR 2024 HIB VACCINE Aged Out No longer eligi ble based on patient's age to complete this topic HPV VACCINE Aged Out No longer eligi ble based on patient's age to complete this topic MENINGOCOCCAL (Group B) VACCINE Aged Out No longer eligible based on patient's age to complete this topic MENINGOCOCCAL VACCINE Aged Out No keya prakash eligible based on patient's age to complete this topic Advance Directives * Full Code (Latest Code Status on File) Date Activated Date Inactivated Comments 06/24/2023 6:12 PM 07/05/2023 12:38 PM * Full Code Date Activated Date Inactivated Comments 09/30/2016 12:46 PM 10/01/2016 1:35 PM * Full Code Date Activated Date Inactivated Comments 07/05/2014 12:08 PM 07/05/2014 5:38 PM Care Teams Help Desk Manager Relationship Specialty Start Date End Date Ed Patel MD [address] [facility] [address] [place] [address] PCP - General 12/30/09 Denia Wick, RN Medical Laboratory Manager 07/05/14 Michael Mondragon MD Cardiovascular Disease 11/27/18 Keiry Solorio, ORTHOPEDIC DESIGNER-RUBBER MILL OPERATOR [facility] [place] [facility] [facility] [address] [place] [address] Nurse Practitioner Cardiology 11/20/20
--- OUTSIDE RECORDS SUMMARY | 2024-10-11 12:53 | XMS_ITS | Clinical Summary ---
Author Organization [facility] Address [address] [place] [address] Care Team Providers Care Collection Manager Name Role Phone Unavailable Primary Care Provider Unavailabl e Social History Tobacco Use Types Packs/Day Years Used Date Smoking Tobacco: Never Assessed Comments Unknown Sex and Gender Information Value Date Recorded Sex Assigned at Not on file Legal Sex Female 7:07 PM CDT Gender Identity Not on file Sexual Orientation Not on file Plan of Treatment Health Maintenance Due Date Last Done Comments DTaP, Tdap and Td Vaccines ( 1 - Tdap) 10[birth year]12/1954 Zoster Vaccines (1 of 2) 10/12/1985 Pneumococcal Vaccine: 65+ Ye ars (1 of 1 - PCV) 10/12/2000 RSV Immunization or 60+ Years (1 - 1-dose 75+ series) 10/12/2010 COVID-19 Vaccine ( - 2023-2 5 season) 2024 Influenza Adult (#1) 2024 Meningococcal B Vaccine Aged Out No l onger eligible based on patient's age to complete this topic Meningococcal Vaccine Aged Out No keya prakash eligible based on patient's age to complete this topic RSV Immunizations Under 20 Months Aged Out No longer eligible based on patient's age to complete this topic
--- OUTSIDE RECORDS SUMMARY | 2024-10-11 12:53 | XMS_ITS | Patient Health Summary ---
Author Organization [facility] Address [address] [place] [address] Care Team Providers Care Bilingual Sales Assistant Name Role Phone Ed Patel MD Primary Care Provider [phone] Denia Wick RN Unavailable [phone] Michael Mondragon MD Unavailable [phone] Keiry Jones CAR DISPATCHER-COMMUNITY CENTER DIRECTOR Unavailable [phone]- [phone] Note from [facility] [place],non-owned Affiliates and Associated Physician Practices is amultiple site organization consisting of ambulatory clinics and hospital sitesin [place], [place], [place] and [place]. This disclosure is being madepursuant to the Care Everywhere program and may not contain all information available regarding this patient. Last updated 18.[facility] Allergies * Dicyclomine(Dizziness) * Propoxyphene N-Apap * Apixaban(Numbness) * Hmg-Coa-R Inhibitors(Myalgias) -High Criticality * Amlodipine Besylate,Inactive Medications * Be aware that medications may not be up to date on this document. Alwaysverify current medications with the patient. * ezetimibe (ZETIA) 10 MG tablet Take 1 (one) tablet by mouth once daily * Krill Oil 1000 MG CAPS Take 1,500 Units by mouth once daily * ALPRAZolam (XANAX) 0.25 MG tablet(Started 01/24/2017) Take 1 (one) tablet by mouth nightly as needed for Insomnia, Anxiety or Other 3 refills left * nitroGLYCERIN (NITROSTAT) 0.4 MG tablet(Started 01/24/2017) Dissolve 1 (one) tablet under the tongue every 5 minutes as needed for Angina 3 refills left * rivaroxaban (XARELTO) 10 MG tablet(Started 07/03/2019) Take 1 tablet by mouth daily with food 11 refills remaining * dilTIAZem (Cardizem) 30 MG tablet Take 1 (one) tablet by mouth 2 times daily * acetaminophen (Tylenol) 500 MG tablet(Started 07/05/2023) Take 1 (one) tablet by mouth every 6 hours as needed Maximum allowable Acetaminophen amount = 4 Grams (4000 mg) / 24 hours. * saline nasal spray ([place]; Baby Orick) 0.65 % nasal spray(Started 07/05/2023) [place] 2 (two) sprays into each nostril every 1 hour as needed for Dry Nose * lidocaine (Lidoderm) 5 % patch(Started 07/05/2023) Apply 1 (one) patch to skin every 24 hours as needed (For right arm pain) Apply patch to most painful area and remove after 12 hours. May reapply a new patch 12 hours later. * simethicone (Mylicon) 80 MG chew tablet(Started 07/05/2023) Take 1 (one) tablet by mouth 4 times daily as needed for Gas Pain * pantoprazole EC (Protonix) 40 MG tablet(Started 07/05/2023) Take 1 (one) tablet by mouth once daily * vitamin D3 (Cholecalciferol) 25 MCG (1000 UNITS) tablet(Started 07/27/2023) Take 1 (one) tablet by mouth once daily Start on 07/27, please take 5000 units until then * furosemide (Lasix) 40 MG tablet(Started 07/05/2023) Take 1 (one) tablet by mouth once daily * spironolactone (Aldactone) 25 MG tablet(Started 07/05/2023) Take 1 (one) tablet by mouth once daily * traMADol (Ultram) 50 MG tablet(Started 12/16/2022) Take 1 (one) tablet by mouth once daily as needed * ondansetron (Zofran) 4 MG tablet(Started 05/27/2023) Take 1 (one) tablet by mouth every 6 hours as needed * famotidine (Pepcid) 40 MG tablet Take 1 (one) tablet by mouth at bedtime * ascorbic acid (Vitamin C) 250 MG tablet Take 6 (six) tablets by mouth once daily * labetalol (Normodyne; Trandate) 100 MG tablet Take 1 (one) tablet by mouth every 12 hours Active Problems Problem Noted Date Diagnosed Date Closed fracture of proximal end of right humerus 06/25/2023 Closed fracture of multiple ribs of right side 1 08/25/2022 Other cirrhosis of liver 06/25/2023 Other ascites 06/25/2023 Ground-level fall 06/25/2023 Pleural effusion associated with hepatic disorde r 06/25/2023 Cardiomegaly 06/25/2023 Trauma 06/24/2023 Paroxysmal atrial fibrillation 07/03/2019 Coronary artery disease involving [place] heart 0 02/28/2017 MARINELLI (dyspnea on exertion) 2016 Pulmonary hypertension 2016 MARINELLI (dyspnea on exertion) 10/13/20162022 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 (FLUAD TRIVALENT; 65Y+) (AIIV3)(Given 06/25/2018) * INFLUENZA VACCINE, HIGH-DOSE, QUADR. (FLUZONE HIGH-DOSE QUADRIVALENT; 65Y+), 0.7 ML (HD-IIV4)(Given 04/07/2017) * INFLUENZA VACCINE, HIGH-DOSE, TRIV. (FLUZONE HIGH-DOSE TRIVALENT; 65Y+) (HD-IIV3)(Given 06/07/2019, 04/07/2017) Social History Tobacco Use Types Packs/Day Years [...] you are drinking? Patient does not drink 3 Q3: How often do you have si x or more drinks on one occasion? Never 06/24/2023 Overall Financial Resource Strain (CARDIA) Answe r Date Recorded How hard is it for you to pa y for the very basics like food, housing, medical care, and heating? Not hard at all 06/24/2023 PHQ-2 Answer Date Recorded Patient Health Questionnaire-2 Score 2 08/10/2023 [facility] - Occupational Stress [...] place to sleep or slept in a detention (including now)? No 06/24/2023 Housing Stability Vital [...] Mass Index 26.33 04/25/2024 11:23 AM CDT Procedures * PATHOLOGY TISSUE(Performed 05/02/2024) Performed for Gastric nodule * MO ESOPHAGOSCOPY,ENDOSCOPIC ULTRASND(Performed 05/02/2024) Performed for Gastric nodule * ENDOSCOPIC ULTRASONOGRAPHY, GI(Performed 05/02/2024) * XR SHOULDER RIGHT 2VW OR MORE(Performed 08/10/2023) Performed for Closed fracture of proximal end of right humerus, unspecified fracture morphology, initial encounter * CBC W/O DIFFERENTIAL(Performed 07/05/2023) * PT-INR SLH(Performed 07/05/2023) * PHOSPHORUS BLOOD(Performed 07/05/2023) * MAGNESIUM BLOOD(Performed 07/05/2023) * COMPREHENSIVE METABOLIC PANEL(Performed 07/05/2023) * VAS RIGHT VENOUS DUPLEX UE(Performed 07/04/2023) Performed for Other closed displaced fracture of proximal end of right humerus, initial encounter * B-TYPE NATRIURETIC PEPTIDE(Performed 07/04/2023) * CBC W/O DIFFERENTIAL(Performed 07/04/2023) * PT-INR SLH(Performed 07/04/2023) * PHOSPHORUS BLOOD(Performed 07/04/2023) * MAGNESIUM BLOOD(Performed 07/04/2023) * COMPREHENSIVE METABOLIC PANEL(Performed 07/04/2023) * CBC W/O DIFFERENTIAL(Performed 07/03/2023) * PT-INR SLH(Performed 07/03/2023) * PHOSPHORUS BLOOD(Performed 07/03/2023) * MAGNESIUM BLOOD(Performed 07/03/2023) * COMPREHENSIVE METABOLIC PANEL(Performed 07/03/2023) * CBC W/O DIFFERENTIAL(Performed 07/02/2023) * PT-INR SLH(Performed 07/02/2023) * PHOSPHORUS BLOOD(Performed 07/02/2023) * MAGNESIUM BLOOD(Performed 07/02/2023) * COMPREHENSIVE METABOLIC PANEL(Performed 07/02/2023) * CBC W/O DIFFERENTIAL(Performed 07/01/2023) * PT-INR SLH(Performed 07/01/2023) * PHOSPHORUS BLOOD(Performed 07/01/2023) * MAGNESIUM BLOOD(Performed 07/01/2023) * COMPREHENSIVE METABOLIC PANEL(Performed 07/01/2023) * CBC W/O DIFFERENTIAL(Performed 06/30/2023) * PT-INR SLH(Performed 06/30/2023) * PHOSPHORUS BLOOD(Performed 06/30/2023) * MAGNESIUM BLOOD(Performed 06/30/2023) * COMPREHENSIVE METABOLIC PANEL(Performed 06/30/2023) * TSH REFLEX FREE T4(Performed 06/29/2023) * CBC W/O DIFFERENTIAL(Performed 06/29/2023) * PT-INR SLH(Performed 06/29/2023) * PHOSPHORUS BLOOD(Performed 06/29/2023) * MAGNESIUM BLOOD(Performed 06/29/2023) * COMPREHENSIVE METABOLIC PANEL(Performed 06/29/2023) * ECHO COMPLETE W CONTRAST(Performed 06/28/2023) Performed for Pleural effusion * CARDIAC EKG ORDER(Performed 06/28/2023) * PT-INR SLH(Performed 06/28/2023) * PHOSPHORUS BLOOD(Performed 06/28/2023) * MAGNESIUM BLOOD(Performed 06/28/2023) * COMPREHENSIVE METABOLIC PANEL(Performed 06/28/2023) * CBC W/O DIFFERENTIAL(Performed 06/28/2023) * IR US PARACENTESIS(Performed 06/27/2023) Performed for Other cirrhosis of liver (HCC) * CYTOLOGY NON-CLINICAL EDITOR PANEL (STL)(Performed 06/27/2023) Performed for Other cirrhosis of liver (HCC) * DIFFERENTIAL MANUAL FLUID(Performed 06/27/2023) * PROTEIN BODY FLUID(Performed 06/27/2023) * CELL COUNT W DIFFERENTIAL FLUID(Performed 06/27/2023) * ALBUMIN BODY FLUID(Performed 06/27/2023) * CULTURE FLUID+GRAM STAIN(Performed 06/27/2023) * US ABDOMEN LTD W COMP DOPPLER(Performed 06/27/2023) Performed for Other cirrhosis of liver (HCC) * XR TIBIA FIBULA LEFT 2VW(Performed 06/27/2023) Performed for Left leg pain * URINE DRUG SCREEN IMMUNOASSAY(Performed 06/27/2023) * URINALYSIS W/MICROSCOPIC NO CULTURE(Performed 06/27/2023) * XR CHEST 1VW PORTABLE(Performed 06/27/2023) Performed for MARINELLI (dyspnea on exertion), Pulmonary hypertension (HCC) * CYTOPLASMIC PATTERN(Performed 06/27/2023) * ELIAS HEP-2 IGG BY IFA(Performed 06/27/2023) * FOLATE(Performed 06/27/2023) * VITAMIN B12(Performed 06/27/2023) * IRON + TRANSFERRIN PANEL(Performed 06/27/2023) * FERRITIN(Performed 06/27/2023) * SMOOTH MUSCLE ANTIBODY W REFLEX TITER(Performed 06/27/2023) * MITOCHONDRIAL ANTIBODY SCREEN(Performed 06/27/2023) * HIV-1 HIV-2 ANTIBODY + HIV P24 AG PANEL(Performed 06/27/2023) * HEPATITIS B SURFACE ANTIGEN W RFLX CONFIRMATION(Performed 06/27/2023) * HEPATITIS B SURFACE ANTIBODY(Performed 06/27/2023) * HEPATITIS B CORE ANTIBODY TOTAL(Performed 06/27/2023) * HEPATITIS A ANTIBODY(Performed 06/27/2023) * B-TYPE NATRIURETIC PEPTIDE(Performed 06/27/2023) * ELIAS BLOOD SCREEN W/REFLEX TITER(Performed 06/27/2023) * PT-INR SLH(Performed 06/27/2023) * PHOSPHORUS BLOOD(Performed 06/27/2023) * MAGNESIUM BLOOD(Performed 06/27/2023) * COMPREHENSIVE METABOLIC PANEL(Performed 06/27/2023) * CBC W/O DIFFERENTIAL(Performed 06/27/2023) * PHOSPHORUS BLOOD(Performed 06/26/2023) * MAGNESIUM BLOOD(Performed 06/26/2023) * COMPREHENSIVE METABOLIC PANEL(Performed 06/26/2023) * HEPATITIS C AB SCREEN RFLX NAAT QUANT(Performed 06/26/2023) * CERULOPLASMIN(Performed 06/26/2023) * FACBW-6-YBMOGVWADAL BLOOD(Performed 06/26/2023) * CBC W/O DIFFERENTIAL(Performed 06/26/2023) * TRANSFUSE RED BLOOD CELL LEUKOREDUCED UNIT(S)(Performed 06/26/2023) * PREPARE RBC LEUKOREDUCED UNIT(Performed 06/26/2023) * CBC W/O DIFFERENTIAL(Performed 06/26/2023) * XR CHEST 1VW PORTABLE(Performed 06/26/2023) Performed for Cardiomegaly, Pleural effusion associated with hepatic disorder * CBC W/O DIFFERENTIAL(Performed 06/26/2023) * CBC W/O DIFFERENTIAL(Performed 06/26/2023) * PT-INR SLH(Performed 06/26/2023) * PHOSPHORUS BLOOD(Performed 06/26/2023) * MAGNESIUM BLOOD(Performed 06/26/2023) * BASIC METABOLIC PANEL (CALCIUM TOTAL)(Performed 06/26/2023) * TRANSFUSE RED BLOOD CELL LEUKOREDUCED UNIT(S)(Performed 06/25/2023) * PREPARE RBC LEUKOREDUCED UNIT(Performed 06/25/2023) * CBC W/O DIFFERENTIAL(Performed 06/25/2023) * MAGNESIUM BLOOD(Performed 06/25/2023) * BASIC METABOLIC PANEL (CALCIUM TOTAL)(Performed 06/25/2023) * XR CHEST 1VW PORTABLE(Performed 06/25/2023) Performed for Pleural effusion * CBC W/O DIFFERENTIAL(Performed 06/25/2023) * PT-INR SLH(Performed 06/25/2023) * PHOSPHORUS BLOOD(Performed 06/25/2023) * CBC W/O DIFFERENTIAL(Performed 06/25/2023) * VITAMIN D 25-HYDROXY(Performed 06/25/2023) * PT-INR SLH(Performed 06/25/2023) * PHOSPHORUS BLOOD(Performed 06/25/2023) * MAGNESIUM BLOOD(Performed 06/25/2023) * CBC W/O DIFFERENTIAL(Performed 06/25/2023) * BASIC METABOLIC PANEL (CALCIUM TOTAL)(Performed 06/25/2023) * TEG 6S PLATELET MAPPING(Performed 06/24/2023) * TEG 6 GLOBAL HEMOSTASIS W/ LYSIS(Performed 06/24/2023) * EKG 12-LEAD(Performed 06/24/2023) Performed for Trauma * XR HUMERUS RIGHT 2VW OR MORE(Performed 06/24/2023) Performed for Trauma * XR ELBOW RIGHT 2VW(Performed 06/24/2023) Performed for Trauma * XR SHOULDER RIGHT 2VW OR MORE(Performed 06/24/2023) Performed for Trauma * BLOOD TYPE VERIFICATION(Performed 06/24/2023) * CT LUMBAR SPINE WO CONTRAST(Performed 06/24/2023) Performed for Trauma * CT THORACIC SPINE WO CONTRAST(Performed 06/24/2023) Performed for Trauma * CT CHEST ABDOMEN PELVIS W CONT(Performed 06/24/2023) Performed for Trauma * CT CERVICAL SPINE WO CONTRAST(Performed 06/24/2023) Performed for Trauma * CT HEAD WO CONTRAST(Performed 06/24/2023) Performed for Trauma * XR PELVIS 1 OR 2VW(Performed 06/24/2023) Performed for Trauma * XR CHEST 1VW PORTABLE(Performed 06/24/2023) Performed for Trauma * TYPE + SCREEN PANEL(Performed 06/24/2023) * PTT SLH(Performed 06/24/2023) * TEG 6S PLATELET MAPPING(Performed 06/24/2023) * TEG 6 GLOBAL HEMOSTASIS W/ LYSIS(Performed 06/24/2023) * PT-INR SLH(Performed 06/24/2023) * CBC W AUTO DIFFERENTIAL(Performed 06/24/2023) * COMPREHENSIVE METABOLIC PANEL(Performed 06/24/2023) * ALCOHOL ETHYL BLOOD(Performed 06/24/2023) * OXYGEN(Performed 06/24/2023) * ECHOCARDIOGRAM 2D WITH DOPPLER(Performed 10/23/2020) Performed for Shortness of breath, 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 (HCC) * BASIC METABOLIC PANEL (CALCIUM TOTAL)(Performed 04/18/2020) Performed for Shortness of breath * B-TYPE NATRIURETIC PEPTIDE(Performed 04/18/2020) Performed for Shortness of breath, 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 (HCC), Essential hypertension, benign * EKG 12-LEAD(Performed 04/18/2020) Performed for Paroxysmal atrial fibrillation (HCC) * ECHOCARDIOGRAM 2D WITH DOPPLER(Performed 01/09/2019) Performed for Murmur, Atrial fibrillation, unspecified type (HCC) * HOLTER MONITOR(Performed 12/15/2018) Performed for Palpitations * EKG 12-LEAD(Performed 11/27/2018) Performed for Palpitations * LAB RESULTS ORDER(Performed 10/25/2018) * XR CHEST 2VW(Performed 01/18/2017) Performed for MARINELLI (dyspnea on exertion) * COMPLETE PFT W/WO BRONCHODILATOR(Performed 10/27/2016) * ECHOCARDIOGRAM 2D WITH DOPPLER(Performed 10/26/2016) Performed for SOB (shortness of breath) * CARDIAC CATH CONSULT(Performed 2016) * CARDIAC CATH(Performed 2016) * XR CHEST 2VW(Performed 2016) Performed for MARINELLI (dyspnea on exertion) * PULMONARY/RESPIRATORY REPORT ORDER(Performed 10/05/2016) * CARDIAC PROCEDURE ORDER(Performed 10/05/2016) * CARDIAC RHYTHM STRIP ORDER(Performed 10/05/2016) * ACT - POINT OF CARE(Performed 09/30/2016) * EKG 12-LEAD(Performed 09/30/2016) Performed for S/P drug eluting coronary stent placement * BLOOD GASES ARTERIAL(Performed 09/30/2016) Performed for Essential hypertension, benign * PT-INR(Performed 09/28/2016) Performed for Pre-op testing, Abnormal stress test, Chest pain, unspecified type * CBC W AUTO DIFFERENTIAL(Performed 09/28/2016) Performed for Pre-op testing, Abnormal stress test, Chest pain, unspecified type * BASIC METABOLIC PANEL (CALCIUM TOTAL)(Performed 09/28/2016) Performed for Pre-op testing, Abnormal stress test, Chest pain, unspecified type * NM MYOCARD PERF REST STRESS(Performed 09/22/2016) Performed for Chest pain, unspecified type * EVENT MONITOR(Performed 08/13/2014) Performed for Palpitations * CARDIAC RHYTHM STRIP ORDER(Performed 07/19/2014) * CARDIAC EKG ORDER(Performed 07/08/2014) * NM MYOCARD PERF REST STRESS(Performed 07/05/2014) Performed for Chest pain, unspecified * ECHOCARDIOGRAM 2D WITH DOPPLER(Performed 07/05/2014) Performed for Chest pain * CT ANGIO CHEST(Performed 07/05/2014) Performed for Chest pain * TSH(Performed 07/05/2014) * CBC W AUTO DIFFERENTIAL(Performed 07/05/2014) * B-TYPE NATRIURETIC PEPTIDE(Performed 07/05/2014) * COMPREHENSIVE METABOLIC PANEL(Performed 07/05/2014) * TROPONIN I(Performed 07/05/2014) Performed for Chest pain * TROPONIN I(Performed 07/05/2014) Performed for Chest pain * XR HIP RIGHT 2VW OR MORE(Performed 12/11/2012) Performed for Right hip pain * XR LUMBAR SPINE 4VW OR MORE(Performed 12/11/2012) Performed for Low back pain, Right hip pain * URINALYSIS REFLEX MICROSCOPIC REFLEX CULTURE(Performed 09/12/2011) * CULTURE URINE(Performed 09/12/2011) * AMYLASE BLOOD(Performed 09/12/2011) * LIPASE BLOOD(Performed 09/12/2011) * COMPREHENSIVE METABOLIC PANEL(Performed 09/12/2011) * CBC W AUTO DIFFERENTIAL(Performed 09/12/2011) * EKG 12-LEAD(Performed 09/12/2011) Performed for Chest pain * XR ANKLE LEFT 3VW OR MORE(Performed 12/30/2009) Performed for Ankle Pain Results * PATHOLOGY TISSUE (05/02/2024 11:21 AM CDT) Case Report Surgical Pathology Report Case: [id number] Authorizing Provider: Dinorah Winkler MD Collected: 05/02/2024 11:21 AM Ordering Location: [facility] Received: 05/02/2024 12:55 PM Pathologist: Keiry Hui MD Specimen: Gastric Biopsy, Gastric antral nodule 05/03/2024 3:28 PM CDT [facility] Final Diagnosis Stomach, antral nodule, endomucosal resection (A): - Hyperplastic polyp with reactive changes and features of erosion 05/03/2024 3:[facility] PM [facility] Microscopic Description and Comment Microscopic examination substantiates the final diagnosis. 05/03/2024 3:28 PM CDT [facility] Clinical History The patient is an 88-year-old woman with gastric mucosal mass/polyp found on endoscopy. Operative procedure/findings: Upper EUS/EGD - mass in the antrum of the stomach, endomucosal resection 05/03/2024 3:28 PM T [facility] Gross Description The requisition and specimen(s) are identified with the patient's name Mary Beth Gutierrez. Received in formalin, specimen A , is a 1.2 x 1.0 x 1.0 cm dark pink polypoid tissue. The resection margin is inked green. The tissue is sectioned and entirely submitted in cassettes A1. DF 05/03/2024 3:28 PM CDT [facility] Pathologist Location at [facility] 05/03/2024 3:28 PM CDT [facility] Disclaimer The performance characteristics of all immunohistochemical and indirect immunofluorescence stains (if any) cited in this report were determined by the Histopathology Laboratory of [facility]. Some of these tests were developed by our own laboratory and have not been cleared or approved by the US Food and Drug Administration. The FDA does not require this test to go through premarket FDA review. These tests are used for clinical purposes. They should not be regarded as investigational or for research. This laboratory is certified under the Clinical Laboratory Improvement Amendments (CLIA) as qualified to perform high complexity clinical laboratory testing. This case has been personally reviewed and interpreted by the attending (teaching) pathologist. 05/03/2024 3:28 PM CDT [facility] Embedded Images 05/03/2024 3:28 PM CDT [facility] Biopsy, NOS GASTRIC BIOPSY SPECIMEN / Unknown 05/02/2024 11:21 AM CDT 05/02/2024 12:55 PM CDT Comment:Pre-op diagnosis: Gastric nodule [K31.89] Dinorah Winkler MD LAB - PATHOLOGY/CYTO LOGY ORDERABLES Performing Organization Address City/State/[facility] Co de Phone Number [facility] [address] [phone] * ENDOSCOPIC ULTRASONOGRAPHY, GI (05/02/2024 10:50 AM CDT) Report Endoscopy POC Endoscopy Department Report _ Patient Name: Mary Beth Gutierrez Procedure Date: 05/02/2024 10:50 AM Date of : 1935 Classification: Outpatient Gender: Female Ethnicity: Not or Race: White _ Providers: Dinorah Winkler MD, Dave Spence (Fellow) Referring MD: Procedure: Upper EUS Indications: Gastric mucosal mass/polyp found on endoscopy Medications: Monitored Anesthesia Care Description of Procedure: Pre-Anesthesia Assessment: - Prior to the procedure, a History and Physical was performed, and patient medications and allergies were reviewed. The patient's tolerance of previous anesthesia was also reviewed. The risks and benefits of the procedure and the sedation options and risks were discussed with the patient. All questions were answered, and informed consent was obtained. Prior Anticoagulants: The patient has taken Xarelto (rivaroxaban), last dose was 2 days prior to procedure. ASA Grade Assessment: III - A patient with severe systemic disease. After reviewing the risks and benefits, the patient was deemed in satisfactory condition to undergo the procedure. After obtaining informed consent, the endoscope was passed under direct vision. Throughout the procedure, the patient's blood pressure, pulse, and oxygen saturations were monitored continuously. The [id number] was introduced through the mouth, and advanced to the second part of duodenum. The [id number] was introduced through the and advanced to the. The [id number] was introduced through the and advanced to the. The upper EUS was accomplished without difficulty. The patient tolerated the procedure well. Findings: ENDOSCOPIC FINDING: : The examined esophagus was normal. A single 15 mm sessile polyp with no bleeding and no stigmata of recent bleeding was found at the pylorus. The exam of the stomach was otherwise normal. The examined duodenum was normal. ENDOSONOGRAPHIC FINDING: : A hypoechoic round mass was identified endosonographically in the antrum of the stomach. The mass measured 18 mm by 8 mm in maximal cross-sectional diameter. The endosonographic borders were well-defined. There was sonographic evidence suggesting invasion into the luminal interface/superficial mucosa (Layer 1). Preparations were made for mucosal resection. Eleview was injected to raise the lesion. Snare mucosal resection was performed. Resection and retrieval were complete. Resected tissue margins were examined and clear of polyp tissue. To prevent bleeding after the polypectomy, two hemostatic clips were successfully placed (MR conditional). Clip certified medicine aide: [employer]. There was no bleeding during, or at the end, of the procedure. Multiple stones were visualized endosonographically in the gallbladder. Estimated Blood Loss: Estimated blood loss: none. Complications: No immediate complications. Impression: - Normal esophagus. - A single gastric polyp. - Normal examined duodenum. - A mass was found in the antrum of the stomach. Clips (MR conditional) were placed. Clip certified medicine aide: [employer]. - Multiple stones were visualized endosonographically in the gallbladder. - Mucosal resection was performed. Resection and retrieval were complete. Recommendation: - Discharge patient to home. - Resume previous diet. - Await path results. - Patient has a contact number available for emergencies. The signs and symptoms of potential delayed complications were discussed with the patient. Return to normal activities tomorrow. Written discharge instructions were provided to the patient. - Return to referring physician. Attending Participation: I was present and participated during the entire procedure, including non-sam portions. Procedure Code(s): --- Professional --- 87930, Esophagogastroduodenos copy, flexible, transoral; with endoscopic mucosal resection 38135, Esophagogastroduodenos copy, flexible, transoral; with endoscopic ultrasound examination limited to the esophagus, stomach or duodenum, and adjacent structures Diagnosis Code(s): --- Professional --- K31.7, Polyp of stomach and duodenum K31.89, Other diseases of stomach and duodenum CPT copyright 2021 [employer]. All rights reserved. The codes documented in this report are preliminary and upon hematology technician review may be revised to meet current compliance requirements. Dinorah Winkler MD 05/02/2024 12:01:15 PM This report has been signed electronically. Note Initiated On: 05/02/2024 10:50 AM Number of Addenda: [address] [address] [facility] 05/02/2024 10:5 0 AM CDT Dinorah Winkler MD GI PROCEDURE ORDERAB LES [facility] * XR SHOULDER RIGHT 2VW OR MORE (08/10/2023 9:16 AM ADULT CARE MANAGER) Only the most recent of2 resultswithin the time period is included. Anatomical Region Laterality Modality Upper Extremity Radiographic Shila ging 08/10/2023 9:24 AM ADULT CARE MANAGER Impressions 08/10/2023 9:31 AM ADULT CARE MANAGER IMPRESSION: Moderately displaced proximal humerus fracture with continued callus formation. Report dictated by Larry Kraus MD (resident physician in radiology). I, Jose M Eden MD have personally reviewed and interpreted this examination/study. > Interpreting Provider: Jose M Eden MD on 08/10/2023 9:31 AM Narrative 08/10/2023 9:31 AM ADULT CARE MANAGER PROCEDURE: XR SHOULDER RIGHT 2VW OR MORE, DATE/TIME OF EXAM: 08/10/2023 9:16 AM, LOCATION [facility] INDICATION: S42.201A: Closed fracture of proximal end of right humerus, unspecified fracture morphology, initial encounter ADDITIONAL CLINICAL INFORMATION: Ordering Provider Reason For Exam: Technologist Note: Additional: COMPARISON: 06/24/2023. FINDINGS: Again noted is a moderately displaced comminuted fracture of the proximal humerus with displacement of the humeral shaft relative to the head. There is callus formation. The humeral head is moderately subluxed inferiorly relative to the glenoid. The acromioclavicular joint demonstrates moderate osteoarthritis. The bones are osteopenic. Sternotomy wires and surgical clips are seen. Procedure Note Jose M Eden MD - 08/10/2023 PROCEDURE: XR SHOULDER RIGHT 2VW OR MORE, DATE/TIME OF EXAM: 08/10/2023 9:16 AM, LOCATION [facility] INDICATION: S42.201A: Closed fracture of proximal end of right humerus, unspecified fracture morphology, initial encounter ADDITIONAL CLINICAL INFORMATION: Ordering Provider Reason For Exam: Technologist Note: Additional: COMPARISON: 06/24/2023. FINDINGS: Again noted is a moderately displaced comminuted fracture of theproximal humerus with displacement of the humeral shaft relative to the head.There is callus formation. The humeral head is moderately subluxed inferiorly relative to the glenoid. The acromioclavicular joint demonstratesmoderate osteoarthritis. The bones are osteopenic. Sternotomy wires and surgical clips are seen. IMPRESSION: Moderately displaced proximal humerus fracture with continued callus formation. Report dictated by Larry Kraus MD (resident physician in radiology). I, Jose M Eden MD have personally reviewed and interpreted this examination/study. > Interpreting Provider: Jose M Eden MD on 08/10/2023 9:31 AM Josh Stephens MD DIAGNOSTIC IMAGING O RDERABLES * (ABNORMAL) PT-INR [facility] (07/05/2023 3:26 AM ADULT CARE MANAGER) Only the most recent of13 resultswithin the time period is included. PT 29.5(H) 12.1 - 14.8 Seconds 07/05/2023 4:28 AM [facility] INR 2.9 See Comment 07/05/2023 4:28 AM [facility] Comment:The suggested therap eutic range for standard coumadin (warfarin) therapy is an INR of 2.0-3.0. For high-risk patients (Mechanical Mitral Valve Prosthesis, etc.), the suggested prophylactic therapeutic range is an INR of 2.5-3.5. Blood BLOOD SPECIMEN / Unknown Lab Venipuncture / Unknown 07/05/2023 3:26 AM ADULT CARE MANAGER 07/05/2023 3:57 AM ADULT CARE MANAGER Alexander Damico MD LAB - COAGULATION OR DERABLES [address] [address], [facility] [phone] * (ABNORMAL) CBC W/O DIFFERENTIAL (07/05/2023 3:26 AM ADULT CARE MANAGER) Only the most recent of17 resultswithin the time period is included. WBC 5.7 3.5 - 10.5 10 3/uL 07/05/2023 4:12 AM [facility] RBC 2.79(L) 3.80 - 5.20 10 6/uL 07/05/2023 4:12 AM [facility] Hemoglobin 7.5(L) 12.0 - 15.6 g/dL 07/05/2023 4:12 AM [facility] Hematocrit 24.2(L) 35.0 - 45.0 % 07/05/2023 4:12 AM [facility] MCV 86.7 80.7 - 98.3 fL 07/05/2023 4:12 AM [facility] MCH 26.9 26.7 - 34.0 pg 07/05/2023 4:12 AM [facility] MCHC 31.0 30.8 - 35.9 g/dL 07/05/2023 4:12 AM [facility] RDW-SD 51.2(H) 36.0 - 50.0 fL 07/05/2023 4:12 AM [facility] RDW-CV 16.6(H) 11.2 - 14.8 % 07/05/2023 4:12 AM [facility] Platelet Count 221 150 - 400 10 3/uL 07/05/2023 4:12 AM [facility] MPV 8.7(L) 9.4 - 12.9 fL 07/05/2023 4:12 AM [facility] nRBC Absolute 0.00 0 10 3/uL 07/05/2023 4:12 AM [facility] nRBC Auto 0.0 0 /100 WBC 07/05/2023 4:12 AM [facility] Blood BLOOD SPECIMEN / Unknown Lab Venipuncture / Unknown 07/05/2023 3:26 AM ADULT CARE MANAGER 07/05/2023 3:57 AM [facility] Alexander Damico MD LAB - HEMATOLOGY ORD ERABLES [facility] [address] [place] [address], [facility] [phone] * (ABNORMAL) COMPREHENSIVE METABOLIC PANEL (07/05/2023 3:26 AM ADULT CARE MANAGER) Only the most recent of13 resultswithin the time period is included. BUN 28(H) 7 - 26 mg/dL 07/05/2023 4:29 AM [facility] Creatinine 1.20(H) 0.56 - 0.96 mg/dL 07/05/2023 4:29 AM [facility] Sodium 139 136 - 145 mmol/L 07/05/2023 4:29 AM [facility] Potassium 4.2 3.5 - 4.5 mmol/L 07/05/2023 4:29 AM [facility] Chloride 102 98 - 107 mmol/L 07/05/2023 4:29 AM [facility] CO2 31(H) 22 - 29 mmol/L 07/05/2023 4:29 AM [facility] Glucose 94 70 - 115 mg/dL 07/05/2023 4:29 AM [facility] Calcium 8.2(L) 8.4 - 10.2 mg/dL 07/05/2023 4:29 AM [facility] Protein Total 4.8(L) 6.0 - 8.3 g/dL 07/05/2023 4:29 AM [facility] Albumin 2.4(L) 3.4 - 5.0 g/dL 07/05/2023 4:29 AM [facility] Bilirubin Total 1.2 0.2 - 1.2 mg/dL 07/05/2023 4:29 AM [facility] Alkaline Phosphatase 80 40 - 150 U/L 07/05/2023 4:29 AM [facility] ALT 9 5 - 55 U/L 07/05/2023 4:29 AM [facility] AST 12 5 - 34 U/L 07/05/2023 4:29 AM [facility] Anion Gap 6 6 - 16 07/05/2023 4:29 AM [facility] BUN/Creatinine Ratio 23 7 - 23 07/05/2023 4:29 AM [facility] Osmolality Calculated 293 275 - 295 mOsm/kg 07/05/2023 4:29 AM [facility] Albumin/Globulin Ratio 1.0(L) 1.1 - 2.3 07/05/2023 4:29 AM [facility] eGFR by CKD-EPI 44(L) >=90 mL/min/1.7 3 m2 07/05/2023 4:29 AM [facility] Blood BLOOD SPECIMEN / Unknown Lab Venipuncture / Unknown 07/05/2023 3:26 AM ADULT CARE MANAGER 07/05/2023 3:59 AM ADULT CARE MANAGER Alexander Damico MD LAB - CHEMISTRY [facility]MIN [facility] Performing Organization Address City/[facility]/ZIP Co de Phone Number [facility] [address] [place] [address], [place] [phone] * PHOSPHORUS BLOOD (07/05/2023 3:26 AM ADULT CARE MANAGER) Only the most recent of13 resultswithin the time period is included. Phosphorus 3.2 2.9 - 5.1 mg/dL 07/05/2023 4:29 AM ADULT CARE MANAGER [facility] Blood BLOOD SPECIMEN / Unknown Lab Venipuncture / Unknown 07/05/2023 3:26 AM ADULT CARE MANAGER 07/05/2023 3:59 AM ADULT CARE MANAGER Alexander Damico MD LAB - CHEMISTRY [facility]MIN [facility] Performing Organization Address [facility]/ZIP Co de Phone Number [address] [address], [place] [phone] * MAGNESIUM BLOOD (07/05/2023 3:26 AM ADULT CARE MANAGER) Only the most recent of13 resultswithin the time period is included. Magnesium 1.8 1.6 - 2.6 mg/dL 07/05/2023 4:29 AM ADULT CARE MANAGER [facility] Blood BLOOD SPECIMEN / Unknown Lab Venipuncture / Unknown 07/05/2023 3:26 AM ADULT CARE MANAGER 07/05/2023 3:59 AM ADULT CARE MANAGER Alexander Damico MD LAB - CHEMISTRY [facility] [place] [address] [address], [place] [phone] * VAS RIGHT VENOUS DUPLEX UE (07/04/2023 12:44 PM ADULT CARE MANAGER) Anatomical Region Laterality Modality Upper Extremity Intravascular Ul trasound 07/04/2023 11:5 4 AM ADULT CARE MANAGER Narrative Procedure Note Gabrielle Perales MD - 07/06/2023 Alexander Damico MD VASCULAR LAB ORDERAB LES * (ABNORMAL) B-TYPE NATRIURETIC PEPTIDE (07/04/2023 9:54 AM ADULT CARE MANAGER) Only the most recent of4 resultswithin the time period is included. BNP 821(H) <100 pg/mL 07/04/2023 10:59 AM ADULT CARE MANAGER [facility] Comment: A decision threshold of 100 pg/mL has been demonstrated to provide the maximal combination of sensitivity, specificity and predictive value for the diagnosis of congestive heart failure (CHF). Virtually all patients with no evidence of CHF have BNP values less than 100 pg/mL. A BNP value greater than 100 pg/mL is consistent with the diagnosis of CHF in the appropriate clinical setting. In a study of 693 patients (male and female) with diagnosed CHF, the following values were determined based on the NYHA functional classification system: NYHA Functional Class Mean Valule (pg/mL) % >100 pg/mL I 320 58.1 II 432 73.0 III 656 79.0 IV 1635 98.3 Blood BLOOD SPECIMEN / Unknown Lab Venipuncture / Unknown 07/04/2023 9:54 AM ADULT CARE MANAGER 07/04/2023 10:27 AM ADULT CARE MANAGER Alexander Damico MD LAB - CHEMISTRY ARMIN [facility] Organization Address City/State/[facility] Co de Phone Number [facility] [address] [place] [address], [facility] [phone] * TSH REFLEX FREE T4 (06/29/2023 3:06 AM ADULT CARE MANAGER) TSH 2.946 0.350 - 4.940 uIU/mL 06/29/2023 4:44 AM ADULT CARE MANAGER [facility] Blood BLOOD SPECIMEN / Unknown Lab Venipuncture / Unknown 06/29/2023 3:06 AM ADULT CARE MANAGER 06/29/2023 3:52 AM ADULT CARE MANAGER Alexander Damico MD LAB - CHEMISTRY ARMIN [facility] Organization Address City/State/ZIP Co de Phone Number [address] [address], [facility] [phone] * ECHO COMPLETE W CONTRAST (06/28/2023 12:21 PM ADULT CARE MANAGER) BSA 1.8111316 [id number] m2 SSM CV FUJI PACS LV biplane EF 78 54 - 74 % SSM CV FUJI PACS LV A2C EF 83 52 - 76 % SSM CV FUJ I PACS LV A4C EF 70 46 - 78 % SSM CV FUJ I PACS LV stroke vol BP 75.2 mL SSM CV FUJI PACS LV stroke vol BP index 40.1 mL/m2 SSM CV FUJI PACS LVOT stroke vol 63.86 mL SSM CV FUJI PACS LVOT stroke vol index 34.08 mL/m2 SSM CV FUJI PACS LV stroke vol 2D teich 49.355 ml SSM CV FUJI PACS LV Stroke Index 2D Teich 26.34 mL/m2 SSM CV FUJI PACS LV stroke vol index A4C MOD 47.445 ml/m2 SSM CV FUJI PACS LVIDd 4.30 3.8 - 5.2 cm SSM CV FUJI PACS LVIDs 2.95 2.2 - 3.5 cm SSM CV FUJI PACS IVSd 2D 1.425 0.6 - 0.9 cm SSM CV FUJI PACS LVPWd 1.36 0.6 - 0.9 cm SSM CV FUJI PACS Fractional Shortening 2D 31 28 - 44 % SSM CV FUJI PACS LV ESV BP 21.098 14 - 42 mL SSM CV FUJI PACS LV ESV index BP 11.3 8 - 24 mL/m2 SSM CV FUJI PACS LV ESV A2C 19.986 10 - 54 mL SSM CV FUJI PACS LV ESV index A2C 10.67 6 - 30 mL/m2 SSM CV FUJI PACS LV EDV BP 96.261 46 - 106 mL SSM CV FUJI PACS LV ESV A4C 21.481 12 - 60 mL SSM CV FUJI PACS LV ESV index A4C 11.46 7 - 35 mL/m2 SSM CV FUJI PACS LV EDV index BP 51.4 29 - 61 mL/m2 SSM CV FUJI PACS LV EDV A2C 125.446 41 - 133 mL SSM CV FUJI PACS LV EDV index A2C 66.95 26 - 74 mL/m2 SSM CV FUJI PACS LV EDV A4C 67.43 mL SSM CV FU JI PACS LV ESV 2D 33.477 14 - 42 mL SSM CV FUJI PACS LV EDV index A4C 35.99 30 - 82 mL/m2 SSM CV FUJI PACS LV ESV index 2D 17.87 8 - 24 mL/m2 SSM CV FUJI PACS LV EDV 2D 82.832 46 - 106 mL SSM CV FUJI PACS LV EDV index 2D 44.21 29 - 61 mL/m2 SSM CV FUJI PACS LVOT diam 1.9 cm SSM CV FUJ I PACS LVOT area 2.86 cm2 SSM CV FUJ I PACS LV RWT 0.631 SSM CV FUJ I PACS LV Evans A2C 7.547 cm SSM CV F UJI PACS LV Evans A4C 6.833 cm SSM CV F UJI PACS IVS/LVPW 1.052 SSM CV FUJ I PACS LV mass 2D 258.90168 [id number] 66 - 150 g SSM CV FUJI PACS LV mass index 2D 138.12 44 - 88 g/m2 SSM CV FUJI PACS MV E pk cyrus 126.438 cm/s SSM CV F UJI PACS MV E' lateral cyrus 12.353 cm/s SS M CV FUJI PACS MV DT 128 ms SSM CV FUJ I PACS MV E/e' lateral 10.235 SSM CV FUJI PACS LA vol BP 125.453 mL SSM CV FUJ I PACS TR pk cyrus 401.1 cm/s SSM CV FUJ I PACS P vein S/D ratio 0.90 SSM CV FUJI PACS LVOT pk cyrus 0.98 m/s SSM CV F UJI PACS LVOT mn cyrus 0.67 m/s SSM CV F UJI PACS LVOT mn grad 2.0 mmHg SSM CV FUJI PACS LVOT Cardiac Output 11.549 l/min SSM CV FUJI PACS LVOT Cardiac Index 6.16 l/min/m2 SSM CV FUJI PACS LA vol index 67.0 16 - 34 mL/m2 SSM CV FUJI PACS LA size 5.231 2.7 - 3.8 cm SSM CV FUJI PACS LA vol BP A-L 134.764 mL SSM CV FUJI PACS RV-evans basal diam 4.1 2.5 - 4.1 cm SSM CV FUJI PACS RV-evans longitudinal diam 6.4 5.9 - 8.3 cm SSM CV FUJI PACS RVIDd 3.6 cm SSM CV FUJ I PACS RVOT VTI 13.97 cm SSM CV FUJ I PACS TV S' cyrus 9.171 cm/s SSM CV FUJ I PACS RVOT pk cyrus 0.83 m/s SSM CV F UJI PACS RA area 37.086 cm2 SSM CV FUJ I PACS AV mn grad 12 mmHg SSM CV FU JI PACS AV pk grad 22 mmHg SSM CV FU JI PACS AV mn cyrus 1.68 m/s SSM CV FUJ I PACS AV pk cyrus 2.41 m/s SSM CV FUJ I PACS AV VTI 44.988 cm SSM CV FUJ I PACS LVOT pk grad 3.452 mmHg SSM CV FUJI PACS LVOT VTI 22.343 cm SSM CV FUJ I PACS AV area cont VTI 1.4 cm2 SSM CV FUJI PACS AV area pk cyrus 1.2 cm2 SSM C V FUJI PACS AV Doppler cyrus index pk cyrus 0.406 SSM CV FUJI PACS Dimensionless Index 0.497 SSM CV FUJI PACS MV mn grad 4 mmHg SSM CV FU JI PACS MV pk grad 9 mmHg SSM CV FU JI PACS MV mn cyrus 0.85 m/s SSM CV FUJ I PACS MV pk cyrus 175.927 cm/s SSM CV FUJ I PACS MV PHT 49 ms SSM CV FUJ I PACS MV area PHT 4.46 cm2 SSM CV F UJI PACS MV area cont eq 2.10 cm2 SSM CV FUJI PACS MV VTI 30.445 cm SSM CV FUJ I PACS TR VTI 85.4 cm SSM CV FUJ I PACS TR pk grad 64 mmHg SSM CV FU JI PACS RVOT mn grad 1 mmHg SSM CV FUJI PACS RVOT pk grad 2 mmHg SSM CV FUJI PACS MO pk cyrus 296.85 cm/s SSM CV FUJ I PACS MO pk grad 10 mmHg SSM CV FU JI PACS PV mn grad 2 mmHg SSM CV FU JI PACS PV pk cyrus 113.156 cm/s SSM CV FUJ I PACS PV pk grad 4 mmHg SSM CV FU JI PACS PV VTI 19.961 cm SSM CV FUJ I PACS PV mn cyrus 72.108 cm/s SSM CV FUJ I PACS Ascending aorta 3.00 cm SSM CV FUJI PACS IVC size 3.2 cm SSM CV FUJ I PACS LA ESV A4C MOD Index 62 ml/m2 SSM CV FUJI PACS LA ESV A2C MOD Index 68 ml/m2 SSM CV FUJI PACS [id number] 5.689 cm SSM CV FUJ I PACS [id number] 5.403 cm SSM CV FUJ I PACS Prox Asc Ao Diameter Index 1.6 cm SSM CV FUJI PACS LVIDs index 1.57 1.3 - 2.1 cm/m2 SSM CV FUJI PACS LV LVIDd index 2.29 2.3 - 3.1 cm/m2 SSM CV FUJI PACS sPAP 79.0 mmHg SSM CV FUJ I PACS Anatomical Region Laterality Modality Ultrasound Narrative 06/28/2023 2:03 PM ADULT CARE MANAGER Left Ventricle: Left ventricle size is normal. Moderately increased wall thickness. Normal systolic function with a visually estimated EF of 65 - 70%. Normal wall motion. Grade III diastolic dysfunction with elevated left atrial pressure. Right Ventricle: Right ventricle is moderately dilated. Increased free wall thickness. Moderately reduced systolic function. Left Atrium: Left atrium is severely dilated. Left atrium volume index is 67.0 mL/m2. Right Atrium: Right atrium is severely dilated. Aortic Valve: Valve structure is trileaflet. Moderately calcified leaflets. No regurgitation. Mild to moderate stenosis. AV mean gradient is 12 mmHg. AV peak velocity is 2.41 m/s. AV area by continuity VTI is 1.4 cm2. Mitral Valve: Valve structure is normal. Severe posterior mitral annular calcification. Mildly restricted motion of the posterior leaflet. Mild regurgitation. MV mean gradient is 4 mmHg. Tricuspid Valve: Severe regurgitation. The pulmonary artery systolic pressure is severely elevated. Estimated sPAP is 79.0 mmHg. IVC/SVC: IVC diameter is greater than 21 mm and decreases less than 50% during inspiration; therefore the estimated right atrial pressure is elevated (~15 mmHg). Pericardium: No pericardial effusion. Bilateral pleural effusion. Left Ventricle Left ventricle size is normal. Moderately increased wall thickness. Normal systolic function with a visually estimated EF of 65 - 70%. Normal wall motion. Grade III diastolic dysfunction with elevated left atrial pressure. Right Ventricle Right ventricle is moderately dilated. Increased free wall thickness. Moderately reduced systolic function. Left Atrium Left atrium is severely dilated. Left atrium volume index is 67.0 mL/m2. Right Atrium Right atrium is severely dilated. IVC/SVC IVC diameter is greater than 21 mm and decreases less than 50% during inspiration; therefore the estimated right atrial pressure is elevated (~15 mmHg). Mitral Valve Valve structure is normal. Severe posterior mitral annular calcification. Mildly restricted motion of the posterior leaflet. Mild regurgitation. MV mean gradient is 4 mmHg. Tricuspid Valve Valve structure is normal. No restricted motion. Severe regurgitation. The pulmonary artery systolic pressure is severely elevated. Estimated sPAP is 79.0 mmHg. No stenosis. Aortic Valve Valve structure is trileaflet. Moderately calcified leaflets. No regurgitation. Mild to moderate stenosis. AV mean gradient is 12 mmHg. AV peak velocity is 2.41 m/s. AV area by continuity VTI is 1.4 cm2. Pulmonic Valve Valve structure is normal. No restricted motion. Mild regurgitation. No stenosis. Ascending Aorta Normal sized sinus of Valsalva (aortic root) and ascending aorta. Pericardium No pericardial effusion. Bilateral pleural effusion. Study Details Study quality was adequate. A complete 2D, color Doppler and spectral Doppler echocardiogram was performed. The apical, parasternal, subcostal and suprasternal views were obtained. Definity ultrasound enhancing agent used. Patient exhibited atrial fibrillation. Technical difficulties due to patient's heart rhythm, patient's clinical status and patient's body habitus. Procedure Note Preston Wilkinson MD - 06/28/2023 Left Ventricle: Left ventricle size is normal. Moderately increasedwall thickness. Normal systolic function with a visually estimated EF of65 - 70%. Normal wall motion. Grade III diastolic dysfunction withelevated left atrial pressure. Right Ventricle: Right ventricle is moderately dilated. Increased freewall thickness. Moderately reduced systolic function. Left Atrium: Left atrium is severely dilated. Left atrium volume indexis 67.0 mL/m2. Right Atrium: Right atrium is severely dilated. Aortic Valve: Valve structure is trileaflet. Moderately calcifiedleaflets. No regurgitation. Mild to moderate stenosis. AV mean gradient is12 mmHg. AV peak velocity is 2.41 m/s. AV area by continuity VTI is 1.4cm2. Mitral Valve: Valve structure is normal. Severe posterior mitralannular calcification. Mildly restricted motion of the posterior leaflet.Mild regurgitation. MV mean gradient is 4 mmHg. Tricuspid Valve: Severe regurgitation. The pulmonary artery systolicpressure is severely elevated. Estimated sPAP is 79.0 mmHg. IVC/SVC: IVC diameter is greater than 21 mm and decreases less than 50%during inspiration; therefore the estimated right atrial pressure iselevated (~15 mmHg). Pericardium: No pericardial effusion. Bilateral pleural effusion. Alexander Damico MD ECHO CUPID * CARDIAC EKG ORDER (06/28/2023 8:23 AM ADULT CARE MANAGER) Only the most recent of2 resultswithin the time period is included. Narrative 06/28/2023 8:23 AM ADULT CARE MANAGER Ordered by an unspecified provider. Scanned Document CARDIAC SERVICES ORD ERABLES * IR US PARACENTESIS (06/27/2023 3:38 PM ADULT CARE MANAGER) Anatomical Region Laterality Modality Abdomen X-Ray Angiograph y 06/27/2023 4:50 PM ADULT CARE MANAGER Impressions 06/27/2023 4:53 PM ADULT CARE MANAGER IMPRESSION: Successful ultrasound-guided paracentesis, diagnostic and therapeutic. > Interpreting Provider: Carlos Enrique Mayfield MD on 06/27/2023 4:53 PM Narrative 06/27/2023 4:53 PM ADULT CARE MANAGER PROCEDURE: IR US PARACENTESIS DATE/TIME OF EXAM: 06/27/2023 4:36 PM CLINICAL INFORMATION: Refractory ascites, abdominal discomfort, suspected spontaneous bacterial peritonitis Indication: K74.69: Other cirrhosis of liver (CMS/HCC) COMPARISON: None. PROCEDURE: The risks, benefits, and alternatives of the procedure were discussed with the patient, who agreed to proceed and signed informed consent. The patient was placed in the supine position. An appropriate skin entry site was chosen over the right lower quadrant of the lower abdomen. A sonographic image was obtained for the patient permanent medical record. The skin was prepped and draped in standard sterile fashion. Standard timeout was performed and [place] Protocol Policy steps were completed for the documented procedure. 1% lidocaine was utilized to anesthetize the skin and subcutaneous tissues at the proposed needle entry site. A tiny dermatotomy was made. A 6.5 Bangladeshi pigtail drainage catheter was inserted into the peritoneal cavity using the trocar technique. Appropriate needle placement was confirmed with return of fluid. The catheter was fed off the needle and the needle was withdrawn. The catheter was attached to vacuum drainage. A total of 2.5 liters of clear yellow-colored fluid was aspirated. Fluid was sent to laboratory for analysis if indicated with orders. The patient complained of spasmodic pain in the right and left chest [unclear if this was related to paracentesis, as she felt it even when no aspiration/suction was being performed'. She insisted on the catheter being removed immediately. The catheter was cut and removed. There were no immediate complications. COMPLICATIONS: None immediate. Procedure Note Carlos Enrique Mayfield MD - 06/27/2023 PROCEDURE: IR US PARACENTESIS DATE/TIME OF EXAM: 06/27/2023 4:36 PM CLINICAL INFORMATION: Refractory ascites, abdominal discomfort,suspected spontaneous bacterial peritonitis Indication: K74.69: Other cirrhosis of liver (CMS/HCC) COMPARISON: None. PROCEDURE: The risks, benefits, and alternatives of the procedure were discussedwith the patient, who agreed to proceed and signed informed consent. Thepatient was placed in the supine position. An appropriate skin entry site was chosen over the right lower quadrant of the lower abdomen. A sonographic image was obtained for the patient permanent medical record. The skinwas prepped and draped in standard sterile fashion. Standard timeout was performed and [place] Protocol Policy steps were completed for the documented procedure. 1% lidocaine was utilized to anesthetize the skin and subcutaneoustissues at the proposed needle entry site. A tiny dermatotomy was made. A 6.5 Bangl[place]hi pigtail drainage catheter was inserted into the peritoneal cavity using the trocar technique. Appropriate needle placement was confirmed with return of fluid. The catheter was fed off the needle and the needle was withdrawn. The catheter was attached to vacuum drainage. A total of 2.5 liters of clear yellow-colored fluid was aspirated. Fluid was sent to laboratory for analysis if indicated with orders. Thepatient complained of spasmodic pain in the right and left chest [unclear ifthis was related to paracentesis, as she felt it even when noaspiration/suction was being performed'. She insisted on the catheter being removed immediately. The catheter was cut and removed. There were no immediate complications. COMPLICATIONS: None immediate. IMPRESSION: Successful ultrasound-guided paracentesis, diagnostic and therapeutic. > Interpreting Provider: Carlos Enrique Mayfield MD on 06/27/2023 4:53 PM Alexander Damico MD IR ORDERABLES * PROTEIN BODY FLUID ([facility] ONLY) (06/27/2023 3:33 PM ADULT CARE MANAGER) Protein Fluid 2.8 Not Established For Fluids g/dL 06/27/2023 4:17 PM ADULT CARE MANAGER [facility] Comment:The analytical perfo rmance of this test has been independently validated by [facility]. A reference range has not been established. Comparison of this result with the concentration in blood, serum or plasma is recommended. Fluid PERITONEAL FLUID / Unknown Collection / Unknown 06/27/2023 3:33 PM ADULT CARE MANAGER 06/27/2023 3:54 PM ADULT CARE MANAGER Alexander Damico MD LAB - BODY FLUID ORD ERABLES [facility] [address] [place] [address], [facility] [phone] * ALBUMIN BODY FLUID ([facility] ONLY) (06/27/2023 3:33 PM ADULT CARE MANAGER) Albumin Fluid 1.7 Not Established For Fluids g/dL 06/27/2023 4:17 PM ADULT CARE MANAGER [facility] Comment:The analytical perfo rmance of this test has been independently validated by [facility]. A reference range has not been established. Comparison of this result with the concentration in blood, serum or plasma is recommended. Fluid PERITONEAL FLUID / Unknown Collection / Unknown 06/27/2023 3:33 PM ADULT CARE MANAGER 06/27/2023 3:54 PM ADULT CARE MANAGER Alexander Damico MD LAB - BODY FLUID ORD ERABLES Performing Organization Address [facility]/ZIP Co de Phone Number [address] [address], [facility] [phone] * (ABNORMAL) CELL COUNT W DIFFERENTIAL FLUID (06/27/2023 3:33 PM ADULT CARE MANAGER) Pathologist [facility] Color Fluid Yellow(A) Colorless, Straw 06/27/2023 4:24 PM ADULT CARE MANAGER [facility] Clarity Fluid Slightly Cloudy(A) Clear 06/27/2023 4:24 PM [facility] Volume Fluid 5.0 mL 06/27/2023 4:24 PM [facility] WBC Fluid 264 Reference Range Not Established x10e6/L 06/27/2023 4:24 PM [facility] RBC Fluid <3,000 Reference Range Not Established x10e6/L 06/27/2023 4:24 PM [facility] Differential Manual Differential to follow. 06/27/2023 4:24 PM [facility] Fluid PERITONEAL FLUID / Unknown Collection / Unknown 06/27/2023 3:33 PM ADULT CARE MANAGER 06/27/2023 3:54 PM ADULT CARE MANAGER Narrative [facility] - 06/27/2023 4:24 PM ADULT CARE MANAGER No reference ranges established for body fluid cell counts. The reference ranges provided are derived from published literature. The test results must be integrated into the clinical context for interpretation. Alexander Damico MD LAB - BODY FLUID ORD ERABLES Performing Organization Address City/[facility]/ZIP Co de Phone Number [address] [address], [facility] [phone] * CYTOLOGY NON-CLINICAL EDITOR PANEL (STL) (06/27/2023 3:33 PM ADULT CARE MANAGER) Case Report Medical Cytology Report Case: [id number] Authorizing Provider: Alexander Damico MD Collected: 06/27/2023 03:33 PM Ordering Location: [address] Received: 06/28/2023 08:42 AM Pathologist: Roxana Jones MD Specimen: Peritoneal Fluid 07/02/2023 2:33 PM [facility] Specimen Adequacy Adequate cellularity for evaluation. 07/02/2023 2:33 PM [facility] Final Diagnosis Peritoneal fluid, paracentesis, cytology: - Negative for malignancy - Mixed inflammation with reactive mesothelial cells and macrophages 07/02/2023 2:33 PM [facility] Clinical History The patient is a 87-year-old woman with MASLD complicated presenting following a fall. 07/02/2023 2:33 PM [facility] Gross Description 1 cytospin Pap stained slide from 2 cc clear, yellow fluid 07/02/2023 2:33 PM [facility] Microscopic Description Microscopic examination substantiates the final diagnosis. The specimen is insufficient to make a cell block. 07/02/2023 2:33 PM [facility] Pathologist Location at [facility] 07/02/2023 2:33 PM [facility] Disclaimer The performance characteristics of all immunohistochemical and indirect immunofluorescence stains (if any) cited in this report were determined by the Histopathology Laboratory of [facility]. Some of these tests rely on the use of analyte-specific reagents and are subject to specific labeling requirements by the US Food and Drug Administration. Such tests were developed by the Histology Laboratory of [facility] and have not been cleared or approved by the FDA. The FDA has determined that such clearance and approval is not necessary. These tests are used for clinical purposes and should not be regarded as investigational or for research. This laboratory is certified under the Clinical Laboratory Improvement Amendments (CLIA) as qualified to perform high complexity clinical laboratory testing. This case has been personally reviewed and interpreted by the attending (teaching) pathologist. 07/02/2023 2:33 PM [facility] Embedded Images 07/02/2023 2:33 PM [facility] Pathology/Cytolo gy PERITONEAL FLUID / Unknown Collection / Unknown 06/27/2023 3:33 PM ADULT CARE MANAGER 06/28/2023 8:42 AM ADULT CARE MANAGER Alexander Damico MD LAB - PATHOLOGY/CYTO LOGY ORDERABLES [facility] [address] [place] [address], [facility] [phone] * DIFFERENTIAL MANUAL FLUID (06/27/2023 3:33 PM ADULT CARE MANAGER) Segs % Fluid 57 % 06/27/2023 5:23 PM ADULT CARE MANAGER [facility] Lymphocytes % Fluid 6 % 06/27/2023 5:23 PM ADULT CARE MANAGER [facility] Monocytes % Fluid 1 % 023 5:23 PM ADULT CARE MANAGER [facility] Macrophages % Fluid 35 % 06/27/2023 5:23 PM ADULT CARE MANAGER [facility] Mesothelials % Fluid 1 % 06/27/2023 5:23 PM ADULT CARE MANAGER [facility] Fluid PERITONEAL FLUID / Unknown Collection / Unknown 06/27/2023 3:33 PM ADULT CARE MANAGER 06/27/2023 3:54 PM ADULT CARE MANAGER Narrative [facility] - 06/27/2023 5:23 PM ADULT CARE MANAGER Occasional erythrophage and siderophage seen. Alexander Damico MD LAB - BODY FLUID ORD ERABLES Performing Organization Address [facility]/ZIP Co de Phone Number [facility] [address] [phone], [facility] [phone] * CULTURE FLUID+GRAM STAIN (06/27/2023 3:33 PM ADULT CARE MANAGER) Culture No growth FARHAN 07/01/2023 5:27 AM ADULT CARE MANAGER [facility] Gram Stain Light Red blood cells 07/01/2023 5:27 AM ADULT CARE MANAGER [facility] Gram Stain No organisms seen 023 5:27 AM ADULT CARE MANAGER [facility] Gram Stain No polymorphonuclear cells 07/01/2023 5:27 AM ADULT CARE MANAGER [facility] Other PERITONEAL FLUID / Unknown Collection / Unknown 06/27/2023 3:33 PM ADULT CARE MANAGER 06/27/2023 3:54 PM ADULT CARE MANAGER Alexander Damico MD LAB - MICROBIOLOGY O RDERABLES [facility] [address] [place], [place] [address], [facility] [phone] * US ABDOMEN LTD W COMP DOPPLER (06/27/2023 11:49 AM ADULT CARE MANAGER) Anatomical Region Laterality Modality Abdomen Ultrasound 06/27/2023 11:3 3 AM ADULT CARE MANAGER Impressions 06/27/2023 1:38 PM ADULT CARE MANAGER IMPRESSION: 1.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 2.Normal liver Doppler with patent hepatic vasculature. 3.Cholelithiasis without evidence of acute cholecystitis. Pericholecystic fluid and gallbladder wall thickening favored to be secondary to chronic liver disease and large volume ascites. If there is clinical concern for acute cholecystitis, a HIDA scan may be obtained for further evaluation. > Dictated by Tayo Sow MD (resident physician in radiology). I, Aren Carlton MD have personally reviewed and interpreted this examination/study. > Interpreting Provider: Aren Carlton MD on 06/27/2023 1:38 PM Narrative 06/27/2023 1:38 PM ADULT CARE MANAGER PROCEDURE: US ABDOMEN LTD W COMP DOPPLER, DATE/TIME OF EXAM: 06/27/2023 9:44 AM, LOCATION [facility] INDICATION: K74.69: Other cirrhosis of liver (CMS/HCC) COMPARISON: CT chest abdomen pelvis with contrast 06/24/2023 FINDINGS: Abdomen: The liver has a coarse echotexture and nodular surface, consistent with cirrhosis. No discrete hepatic mass or intrahepatic biliary dilatation is seen. Gallstones are seen within the gallbladder. Pericholecystic fluid is present. The gallbladder wall measures 5 mm in thickness. Sonographic Ortega's sign is negative. The common bile duct is nondilated, measuring 4 mm. The right kidney measures 10.7 x 4.2 x 3.9 cm. Limited views of the right kidney reveal no evidence of nephrolithiasis or hydronephrosis. Scattered punctate echogenic foci within the right kidney are favored to represent Scott plaques. The spleen measures 12.9 cm in length. The visible pancreas is normal in echogenicity. Large volume ascites is present. Liver Doppler: Color and spectral Doppler evaluation demonstrates patency of the hepatic veins with appropriate flow direction and multiphasic waveforms. The main, left, and right portal veins appear patent with normal hepatopetal flow. The main portal vein demonstrates a normal phasic waveform and velocity measures 31 cm/s. The proper hepatic artery is patent and demonstrates a normal arterial waveform with brisk systolic upstroke and antegrade flow. Resistive index in the proper hepatic artery measures 0.75. Procedure Note Aren Carlton MD - 06/27/2023 PROCEDURE: US ABDOMEN LTD W COMP DOPPLER, DATE/TIME OF EXAM:06/27/2023 9:44 AM, LOCATION [facility] INDICATION: K74.69: Other cirrhosis of liver (CMS/HCC) COMPARISON: CT chest abdomen pelvis with contrast 06/24/2023 FINDINGS: Abdomen: The liver has a coarse echotexture and nodular surface, consistent with cirrhosis. No discrete hepatic mass or intrahepatic biliary dilatationis seen. Gallstones are seen within the gallbladder. Pericholecystic fluid is present. The gallbladder wall measures 5 mm in thickness. Sonographic Ortega's sign is negative. The common bile duct is nondilated, measuring4 mm. The right kidney measures 10.7 x 4.2 x 3.9 cm. Limited views of theright kidney reveal no evidence of nephrolithiasis or hydronephrosis.Scattered punctate echogenic foci within the right kidney are favored to represent Scott plaques. The spleen measures 12.9 cm in length. The visible pancreas is normal in echogenicity. Large volume ascites is present. Liver Doppler: Color and spectral Doppler evaluation demonstrates patency of thehepatic veins with appropriate flow direction and multiphasic waveforms. The main, left, and right portal veins appear patent with normal hepatopetal flow. The main portal vein demonstrates a normal phasic waveform and velocity measures 31 cm/s. The proper hepatic artery is patent and demonstrates a normal arterial waveform with brisk systolic upstroke and antegrade flow. Resistiveindex in the proper hepatic artery measures 0.75. IMPRESSION: 1.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 2.Normal liver Doppler with patent hepatic vasculature. 3.Cholelithiasis without evidence of acute cholecystitis.Pericholecystic fluid and gallbladder wall thickening favored to be secondary to chronic liver disease and large volume ascites. If there is clinical concern for acute cholecystitis, a HIDA scan may be obtained for further evaluation. > Dictated by Tayo Sow MD (resident physician in radiology). I, Aren Carlton MD have personally reviewed and interpreted this examination/study. > Interpreting Provider: Aren Carlton MD on 31:38 PM Alexander Damico MD US ORDERABLES * XR TIBIA FIBULA LEFT 2VW (06/27/2023 9:35 AM ADULT CARE MANAGER) Anatomical Region Laterality Modality Lower Extremity Radiographic Shila ging 06/27/2023 10:5 0 AM ADULT CARE MANAGER Impressions 06/27/2023 10:51 AM ADULT CARE MANAGER IMPRESSION: There is partially visualized knee osteoarthritis. There is mild bowing of the tibia and fibula and a likely chronic deformity of distal fibula. No acute fracture. There is soft tissue swelling of the left lower extremity. A calcaneal spur is present. > Interpreting Provider: Oswald Lehman MD on 06/27/2023 10:51 AM Narrative 06/27/2023 10:51 AM ADULT CARE MANAGER PROCEDURE: XR TIBIA FIBULA LEFT 2VW DATE/TIME OF EXAM: 06/27/2023 9:36 AM CLINICAL INFORMATION: None relevant/not provided if blank. Indication: M79.605: Left leg pain Additional History: COMPARISON: None. Procedure Note Oswald Lehman MD - 06/27/2023 PROCEDURE: XR TIBIA FIBULA LEFT 2VW DATE/TIME OF EXAM: 06/27/2023 9:36 AM CLINICAL INFORMATION: None relevant/not provided if blank. Indication: M79.605: Left leg pain Additional History: COMPARISON: None. IMPRESSION: There is partially visualized knee osteoarthritis. There is mild bowingof the tibia and fibula and a likely chronic deformity of distal fibula. No acute fracture. There is soft tissue swelling of the left lowerextremity. A calcaneal spur is present. > Interpreting Provider: Oswald Lehman MD on 06/27/2023 10:51 AM Alexander Damico MD DIAGNOSTIC IMAGING O RDERABLES * URINALYSIS W/MICROSCOPIC NO CULTURE (06/27/2023 6:40 AM ADULT CARE MANAGER) Color UA Yellow Straw, Yellow 06/27/2023 7:03 AM [facility] Clarity UA Clear Clear 06/27/2023 7:03 AM [facility] Specific Bradley UA 1.019 1.005 - 1.030 06/27/2023 7:03 AM [facility] pH UA 5.0 5.0 - 8.0 pH 06/27/2023 7:03 AM [facility] Protein UA Negative Negative 06/27/2023 7:03 AM [facility] Glucose UA Negative Negative 06/27/2023 7:03 AM [facility] Ketone UA Negative Negative 06/27/2023 7:03 AM [facility] Bilirubin UA Negative Negative 06/27/2023 7:03 AM [facility] Blood UA Negative Negative 06/27/2023 7:03 AM [facility] Nitrite UA Negative Negative 06/27/2023 7:03 AM [facility] Leukocyte Esterase Negative Negative 06/27/2023 7:03 AM [facility] Urobilinogen UA Negative Negative mg/dL 06/27/2023 7:03 AM [facility] RBC UA 0-2 None Seen, 0-2, 3-5 /HPF 06/27/2023 7:03 AM [facility] WBC UA 0-5 None Seen, 0-5 /HPF 06/27/2023 7:03 AM [facility] Squamous Epithelial Cells UA 0-2 None Seen, 0-2, 3-5 /HPF 06/27/2023 7:03 AM [facility] Urine URINE SPECIMEN OBTAINED BY CLEAN CATCH PROCEDURE / Unknown Collection / Unknown 06/27/2023 6:40 AM ADULT CARE MANAGER 06/27/2023 6:55 AM [facility] - 06/27/2023 7:03 AM ADULT CARE MANAGER Alexander Damico MD LAB - URINALYSIS ORD ERABLES [facility] [address] [place] [address], [facility] [phone] * (ABNORMAL) URINE DRUG SCREEN IMMUNOASSAY (06/27/2023 6:40 AM [facility]) [facility] Amphetamines Screen Urine Negative Negative : < 1000 ng/mL 06/27/2023 7:18 AM [facility] Barbiturates Screen Urine Negative Negative : < 200 ng/mL 06/27/2023 7:18 AM [facility] Benzodiazepine Screen Urine Negative Negative : < 200 ng/mL 06/27/2023 7:18 AM [facility] Opiates Urine Positive(A) Negative : < 300 ng/mL 06/27/2023 7:18 AM [facility] Comment:Positive urine opiat e screening results should be confirmed by another generally accepted non-immunological method such as gas chromatography or mass spectrometry. Cocaine Metabolites Urine Negative Negative : < 300 ng/mL 06/27/2023 7:18 AM [facility] Phencyclidine Screen Urine Negative Negative : < 25 ng/ml 06/27/2023 7:18 AM [facility] Cannabinoids Screen Urine Negative Negative : <50 ng/mL 06/27/2023 7:18 AM [facility] Methadone Screen Urine Negative Negative : < 300 ng/mL 06/27/2023 7:18 AM [facility] Fentanyl Screen Urine Positive(A) Negative : <1.5 ng/mL 06/27/2023 7:18 AM [facility] Comment:Positive urine fenta nyl screening results should be confirmed by another generally accepted non-immunological method such as gas chromatography or mass spectrometry. Urine URINE / Unknown Collection / Unknown 06/27/2023 6:40 AM [facility] 06/27/2023 6:55 AM [facility] - 06/27/2023 7:18 AM [facility] The Urine Toxicology Screening Panel does not screen for Propoxyphene, Meprobamate, Carisoprodol, Trazodone, mdyl-sdo-oadhchp medications and/or volatiles (Acetone, Isopropanol, Methanol or Ethylene Glycol). Ethanol, Salicylate, Acetaminophen, Tricyclic Antidepressants and several therapeutic drugs may be individually assayed in serum or plasma specimen. Toxicology testing by the [facility] is an aid to medical diagnosis and treatment of patients. No documented chain of custody was maintained. Results are intended to be used for clinical purposes only. Alexander Damico MD LAB - URINE CHEMISTR Y ORDERABLES [facility] [address] [place] [address], [facility] [phone] * XR CHEST 1VW PORTABLE (06/27/2023 5:50 AM ADULT CARE MANAGER) Only the most recent of4 resultswithin the time period is included. Anatomical Region Laterality Modality Chest Radiographic Shila ging 06/27/2023 10:4 1 AM ADULT CARE MANAGER Impressions 06/27/2023 10:42 AM ADULT CARE MANAGER IMPRESSION: Median sternotomy wires are well aligned. 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 There is cardiomegaly. There is left lower lung atelectasis and calcification of the mitral annulus. There is a hiatal hernia. No pneumothorax. There may be a small left pleural effusion. Heart size is unchanged. > Interpreting Provider: Oswald Lehman MD on 06/27/2023 10:42 AM Narrative 06/27/2023 10:42 AM ADULT CARE MANAGER PROCEDURE: XR CHEST 1VW PORTABLE DATE/TIME OF EXAM: 06/27/2023 5:50 AM CLINICAL INFORMATION: None relevant/not provided if blank. Indication: R06.09: MARINELLI (dyspnea on exertion) I27.20: Pulmonary hypertension (CMS/HCC) Additional History: COMPARISON: 06/26/2023. Procedure Note Oswald Lehman MD - 06/27/2023 PROCEDURE: XR CHEST 1VW PORTABLE DATE/TIME OF EXAM: 06/27/2023 5:50 AM CLINICAL INFORMATION: None relevant/not provided if blank. Indication: R06.09: MARINELLI (dyspnea on exertion) I27.20: Pulmonary hypertension (CMS/HCC) Additional History: COMPARISON: 06/26/2023. IMPRESSION: Median sternotomy wires are well aligned. 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 There is cardiomegaly. There is left lower lung atelectasis and calcification of the mitral annulus. There is a hiatal hernia. No pneumothorax. There may be a small left pleural effusion. Heart size is unchanged. > Interpreting Provider: Oswald Lehman MD on 06/27/2023 10:42 AM Alexander Damico MD DIAGNOSTIC IMAGING O RDERABLES * (ABNORMAL) CYTOPLASMIC PATTERN (06/27/2023 4:59 AM ADULT CARE MANAGER) Cytoplasmic Pattern Titer 1:640(A) 06/29/2023 10:24 PM ADULT CARE MANAGER [facility] [employer] ([facility]) Cytoplasmic Pattern Rods and Rings(A) 06/29/2023 10:24 PM ADULT CARE MANAGER [facility] ([facility]) Comment: Performed By: [facility] [address] [place] [address] Pond Worker: Ken Mcfadden MD, PhD CLIA Number: [id number] Blood BLOOD SPECIMEN / Unknown Venipuncture / Unknown 06/27/2023 4:59 AM ADULT CARE MANAGER 06/27/2023 5:08 AM ADULT CARE MANAGER Alexander Damico MD LAB - CHEMISTRY [facility]MIN [facility]) [address] [place] [address], [facility] * ELIAS HEP-2 IGG BY IFA (06/27/2023 4:59 AM ADULT CARE MANAGER) ELIAS HEp-2 IgG <1:80 <1:80 06/29/2023 10:24 PM ADULT CARE MANAGER [facility] ([facility]) ELIAS Interpretive Comment See Note 06/29/2023 10:24 PM ADULT CARE MANAGER [facility] ([facility]) Comment: Antinuclear antibodies by IFA negative for homogeneous, speckled, nucleolar, centromere, and nuclear dots patterns. Rods and Rings pattern Clinical Associations: commonly found in HCV patients who have been treated with pegylated interferon-alpha/ribavirin combination therapy. Main autoantibodies: IMPDH2 (no available tests) List of Abbreviations Antisynthetase syndrome (ARS), chronic active hepatitis (CAH), inflammatory myopathies (IM) [dermatomyositis (DM), polymyositis (PM), necrotizing autoimmune myopathy (NAM)', interstitial lung disease (ILD), juvenile idiopathic arthritis (AMY), mixed connective tissue disease (MCTD), primary biliary cholangitis (PBC), rheumatoid arthritis (RA), systemic autoimmune rheumatic diseases (SARD), Sjogren syndrome (SjS), systemic lupus erythematosus (SLE), systemic sclerosis (SSc), undifferentiated connective tissue disease (UCTD). INTERPRETIVE INFORMATION: ELIAS Interpretive Comment Presence of antinuclear antibodies (ELIAS) is a hallmark feature of systemic autoimmune rheumatic diseases (SARD). However, ELIAS lacks diagnostic specificity and is associated with a variety of diseases (cancers, autoimmune, infectious, and inflammatory conditions) and may also occur in healthy individuals in varying prevalence. The lack of diagnostic specificity requires confirmation of positive ELIAS by more specific serologic tests. ELIAS (nuclear reactivity) positive patterns reported include centromere, homogeneous, nuclear dots, nucleolar, or speckled. ELIAS (cytoplasmic reactivity) positive patterns reported include reticular/AMA, discrete/GW body-like, polar/golgi-like, cytoplasmic speckled or rods and rings. All positive patterns are reported to endpoint titers (1:2560). Reported patterns may help guide differential diagnosis, although they may not be specific for individual antibodies or diseases. Mitotic staining patterns not reported. Negative results do not necessarily rule out SARD. Performed By: [facility] [address] [place] [address] Pond Worker: Ken Mcfadden MD, PhD CLIA Number: [id number] Blood BLOOD SPECIMEN / Unknown Venipuncture / Unknown 06/27/2023 4:59 AM ADULT CARE MANAGER 06/27/2023 5:08 AM ADULT CARE MANAGER Alexander Damico MD LAB - SEROLOGY ORDER SAMIRA [facility] ([facility]) [address] [phone], [facility] * SMOOTH MUSCLE ANTIBODY W REFLEX TITER (06/27/2023 4:59 AM ADULT CARE MANAGER) F-Actin Antibody IgG 9 0 - 19 Units 06/28/2023 8:47 PM ADULT CARE MANAGER [facility] ([facility]) Comment: If F-Actin (Smooth Muscle) Antibody, IgG is negative, the Smooth Muscle Antibody titer by IFA is not performed. REFERENCE INTERVAL: F-Actin (Smooth Muscle) Antibody, IgG by RODRICK 19 Units or less ....... Negative 20 - 30 Units .......... Weak Positive-Suggest repeat testing in two to three weeks with fresh specimen. 31 Units or greater..... Positive-Suggestive of autoimmune hepatitis type 1 or chronic active hepatitis. F-actin IgG antibodies have been shown to have increased sensitivity for autoimmune hepatitis (AIH) but lower specificity than smooth muscle antibodies (SMA). F-actin IgG antibodies can also be seen in SMA-negative disease controls (non-AIH), especially in patients with primary biliary cirrhosis and chronic hepatitis C infections. Some patients with AIH may be SMA-positive but negative for F-actin IgG. Consider testing for SMA by IFA if suspicion for AIH is strong. Performed By: [facility] [address] [place] [address] Pond Worker: Ken Mcfadden MD, PhD CLIA Number: [id number] Blood BLOOD SPECIMEN / Unknown Venipuncture / Unknown 06/27/2023 4:59 AM ADULT CARE MANAGER 06/27/2023 5:08 AM ADULT CARE MANAGER Alexander Damico MD LAB - SEROLOGY ORDER SAMIRA Performing Organization Address City/[facility]/ZIP Co de Phone Number [facility] ([facility]) [address] [place] [address] * HIV-1 HIV-2 ANTIBODY + HIV P24 AG PANEL (06/27/2023 4:59 AM ADULT CARE MANAGER) HIV Antigen/Antibod y 1 & 2 Non-reacti ve Non-react juan 06/27/2023 6:07 AM ADULT CARE MANAGER [facility] Comment:No Laboratory eviden ce of HIV infection. Blood BLOOD SPECIMEN / Unknown Venipuncture / Unknown 06/27/2023 4:59 AM ADULT CARE MANAGER 06/27/2023 5:08 AM ADULT CARE MANAGER Alexander Damico MD LAB - CHEMISTRY ORDE STEVEN [facility] [address] [place] [address], [facility] [phone] * MITOCHONDRIAL ANTIBODY SCREEN (06/27/2023 4:59 AM ADULT CARE MANAGER) Mitochondrial M2 Antibody 9.4 0.0 - 24.9 Units 06/28/2023 8:47 PM ADULT CARE MANAGER [facility] ([facility]) Comment: REFERENCE INTERVAL: Mitochondrial (M2) Antibody, IgG 20.0 Units or less ......... Negative 20.1 - 24.9 Units........... Equivocal 25.0 Units or greater....... Positive Anti-mitochondrial antibodies (AMA) are thought to be present in 90-95% of patients with primary biliary cholangitis (PBC). However, the frequency of detected antibodies may be cohort or assay dependent, as lower sensitivities have been reported. Not all PBC patients are positive for AMA; some patients may be positive for SP100 and/or GP210 antibodies. A negative result does not rule out PBC. Performed By: [facility] [address] [place] [address] Pond Worker: Ken Mcfadden MD, PhD CLIA Number: [id number] Blood BLOOD SPECIMEN / Unknown Venipuncture / Unknown 06/27/2023 4:59 AM ADULT CARE MANAGER 06/27/2023 5:08 AM ADULT CARE MANAGER Alexander Damico MD LAB - CHEMISTRY [facility]MIN [facility] Organization Address City/State/ZIP Co de Phone Number [employer] [facility]) [address] [place] [address], [facility] * (ABNORMAL) ELIAS BLOOD SCREEN W/REFLEX TITER (06/27/2023 4:59 AM ADULT CARE MANAGER) Pathologist [facility] ELIAS IgG Detected (A) None Detected 06/28/2023 10:39 PM ADULT CARE MANAGER [facility] ([facility]) Comment: Antibodies to Anti-Nuclear Antibodies (ELIAS) detected. Additional testing to follow. INTERPRETIVE INFORMATION: Anti-Nuclear Antibodies (ELIAS), IgG by RODRICK Antinuclear Antibodies (ELIAS), IgG by RODRICK: ELIAS specimens are screened using enzyme-linked immunosorbent assay (RODRICK) methodology. All RODRICK results reported as Detected are further tested by indirect fluorescent assay (IFA) using HEp-2 substrate with an IgG-specific conjugate. The ELIAS RODRICK screen is designed to detect antibodies against dsDNA, histones, SS-A (Ro), SS-B (La), Zarate, Zarate/CONTINUING EDUCATION SPECIALIST, Scl-70, Roxane-1, centromeric proteins, other antigens extracted from the HEp-2 cell nucleus. ELIAS RODRICK assays have been reported to have lower sensitivities than ELIAS IFA for systemic autoimmune rheumatic diseases (SARD). Negative results do not necessarily rule out SARD. Performed By: [employer] [address] [place] [id number] Pond Worker: Ken Mcfadden MD, PhD CLIA Number: [id number] Blood BLOOD SPECIMEN / Unknown Venipuncture / Unknown 06/27/2023 4:59 AM ADULT CARE MANAGER 06/27/2023 5:08 AM ADULT CARE MANAGER Alexander Damico MD LAB - CHEMISTRY [facility]MIN [facility] Performing Organization Address [facility] Co de Phone Number [facility] ([facility]) [address] [place] [phone], [facility] * HEPATITIS B SURFACE ANTIBODY (06/27/2023 4:59 AM ADULT CARE MANAGER) Hepatitis B Virus Surface Antibody Non-react juan Non-react juan 06/27/2023 6:07 AM ADULT CARE MANAGER [facility] Comment: < 8 mIU/mL Hepatitis B surface Antibody (HBsAb). Nonreactive for HBsAb - individual is considered not immune to Hepatitis B Virus infection. Hepatitis B Surface Antibody Quantitative 0.1 <8.0 mIU/mL 06/27/2023 6:07 AM ADULT CARE MANAGER [facility] Comment: Hepatitis B Surface Antibody Numeric Result Interpretation: Nonreactive: <8.0 mIU/mL Indeterminate: 8.0 - 12.0 mIU/mL Reactive: >12.0 mIU/mL Blood BLOOD SPECIMEN / Unknown Venipuncture / Unknown 06/27/2023 4:59 AM ADULT CARE MANAGER 06/27/2023 5:08 AM ADULT CARE MANAGER Alexander Damico MD LAB - CHEMISTRY ARMIN [facility] Performing Organization Address City/[facility]/ZIP Co de Phone Number [facility] [address] [place] [address], [facility] [phone] * HEPATITIS B CORE ANTIBODY TOTAL (06/27/2023 4:59 AM ADULT CARE MANAGER) Pathologist [facility] HBc Antibody Total Non-reacti ve Non-reacti ve 06/27/2023 6:07 AM ADULT CARE MANAGER [facility] Blood BLOOD SPECIMEN / Unknown Venipuncture / Unknown 06/27/2023 4:59 AM ADULT CARE MANAGER 06/27/2023 5:08 AM ADULT CARE MANAGER Alexander Damico MD LAB - CHEMISTRY [place]MIN [place] [address] [address], [place] [phone] * HEPATITIS B SURFACE ANTIGEN W RFLX CONFIRMATION (06/27/2023 4:59 AM ADULT CARE MANAGER) Pathologist [facility] Hepatitis B Virus Surface Antigen Non-reacti ve Non-reacti ve 06/27/2023 6:07 AM ADULT CARE MANAGER [facility] Blood BLOOD SPECIMEN / Unknown Venipuncture / Unknown 06/27/2023 4:59 AM ADULT CARE MANAGER 06/27/2023 5:08 AM ADULT CARE MANAGER Alexander Damico MD LAB - CHEMISTRY ARMIN [facility] Performing Organization Address [facility]/ZIP Co de Phone Number [address] [address], [place] [phone] * (ABNORMAL) FOLATE (06/27/2023 4:59 AM ADULT CARE MANAGER) [facility] Folate 4.1(L) 7.0 - 31.4 ng/mL 06/27/2023 6:18 AM ADULT CARE MANAGER [facility] Blood BLOOD SPECIMEN / Unknown Venipuncture / Unknown 06/27/2023 4:59 AM ADULT CARE MANAGER 06/27/2023 5:08 AM ADULT CARE MANAGER Alexander Damico MD LAB - CHEMISTRY ARMIN [facility] Performing Organization Address City/[facility]/ZIP Co de Phone Number [address] [address], [place] [phone] * VITAMIN B12 (06/27/2023 4:59 AM ADULT CARE MANAGER) [facility] Vitamin B12 369 213 - 816 pg/mL 06/27/2023 6:18 AM [facility] Blood BLOOD SPECIMEN / Unknown Venipuncture / Unknown 06/27/2023 4:59 AM ADULT CARE MANAGER 06/27/2023 5:08 AM ADULT CARE MANAGER Alexander Damico MD LAB - CHEMISTRY ARMIN HARRIS Performing Organization Address [facility] Co de Phone Number [address] [address], [facility] [phone] * (ABNORMAL) IRON + TRANSFERRIN PANEL (06/27/2023 4:59 AM ADULT CARE MANAGER) [facility] Iron 21(L) 40 - 150 ug/dL 06/27/2023 5:52 AM [facility] Transferrin 200 174 - 382 mg/dL 06/27/2023 5:52 AM [facility] Transferrin Saturation % 8(L) 16 - 50 % 06/27/2023 5:52 AM [facility] TIBC Calculated 250 240 - 450 ug/dL 06/27/2023 5:52 AM [facility] Blood BLOOD SPECIMEN / Unknown Venipuncture / Unknown 06/27/2023 4:59 AM ADULT CARE MANAGER 06/27/2023 5:08 AM ADULT CARE MANAGER Alexander Damico MD LAB - CHEMISTRY ARMIN HARRIS Performing Organization Address [facility] Co de Phone Number [address] [address], [facility] [phone] * (ABNORMAL) HEPATITIS A ANTIBODY (06/27/2023 4:59 AM ADULT CARE MANAGER) [facility] Hepatitis A Virus Antibody Total Positive( A) Negative 06/28/2023 1:32 PM ADULT CARE MANAGER [employer] ([facility]) Comment: The positive anti-HAV is consistent with recent or remote Hepatitis A infection or antibody response to HAV vaccination. False positive anti-HAV can occur. Performed By: [employer] [address] [place] [id number] Pond Worker: Ken Mcfadden MD, PhD CLIA Number: [id number] Blood BLOOD SPECIMEN / Unknown Venipuncture / Unknown 06/27/2023 4:59 AM ADULT CARE MANAGER 06/27/2023 5:08 AM ADULT CARE MANAGER Alexander Damico MD LAB - CHEMISTRY ARMIN HARRIS [address] * FERRITIN (06/27/2023 4:59 AM ADULT CARE MANAGER) [facility] Ferritin 92 13 - 204 ng/mL 06/27/2023 6:07 AM ADULT CARE MANAGER [facility] Blood BLOOD SPECIMEN / Unknown Venipuncture / Unknown 06/27/2023 4:59 AM ADULT CARE MANAGER 06/27/2023 5:08 AM ADULT CARE MANAGER Alexander Damico MD LAB - CHEMISTRY ARMIN HARRIS Performing Organization Address [facility] Co de Phone Number [address] [address], [place] [phone] * HEPATITIS C AB SCREEN RFLX NAAT QUANT (06/26/2023 11:55 PM ADULT CARE MANAGER) [facility] Hepatitis C Antibody Non-react juan Non-reac tive 06/27/2023 1:13 AM ADULT CARE MANAGER [facility] Comment:Hepatitis C Antibody screen indicates no serologic evidence of past or current infection with Hepatitis C Virus. Patients with unexplained liver disease who are immunocompromised or suspected of having acute Hepatitis C infection may benefit from Nucleic Acid Test (NIDHI) for Hepatitis C Viral RNA to confirm Hepatitis C status. Blood BLOOD SPECIMEN / Unknown Lab Venipuncture / Unknown 06/26/2023 11:55 PM ADULT CARE MANAGER 06/27/2023 12:08 AM ADULT CARE MANAGER Alexander Damico MD LAB - CHEMISTRY ARMIN HARRIS Performing Organization Address City/[facility]/ZIP Co de Phone Number [address] [address], [place] [phone] * CERULOPLASMIN (06/26/2023 11:55 PM ADULT CARE MANAGER) Pathologist [facility] Ceruloplasmin 32 20 - 60 mg/dL 06/27/2023 2:07 AM ADULT CARE MANAGER [facility] Blood BLOOD SPECIMEN / Unknown Lab Venipuncture / Unknown 06/26/2023 11:55 PM ADULT CARE MANAGER 06/27/2023 12:08 AM ADULT CARE MANAGER Alexander Damico MD LAB - CHEMISTRY ARMIN HARRIS [facility] [address] [place] [address], [place] [phone] * (ABNORMAL) ZTHXD-0-LCBRCVSVSSC BLOOD (06/26/2023 11:55 PM ADULT CARE MANAGER) [facility] Acuuy-5-Imwkzn ypsin 284(H) 90 - 200 mg/dL 06/27/2023 2:07 AM ADULT CARE MANAGER [facility] Blood BLOOD SPECIMEN / Unknown Lab Venipuncture / Unknown 06/26/2023 11:55 PM ADULT CARE MANAGER 06/27/2023 12:08 AM ADULT CARE MANAGER Alexander Damico MD LAB - CHEMISTRY ARMIN HARRIS Performing Organization Address City/[facility]/ZIP Co de Phone Number [facility] [address] [place] [address], [place] [phone] * TRANSFUSE RED BLOOD CELL LEUKOREDUCED UNIT(S) (06/26/2023 12:11 PM ADULT CARE MANAGER) Alexander Damico MD NURSING - BLOOD PROD TRANSFUSION * PREPARE (CROSSMATCH) RBC UNIT(S), 1 Units (06/26/2023 7:13 AM ADULT CARE MANAGER) Only the most recent of2 resultswithin the time period is included. [facility] Unit Description AS1 LR PRBC [facility] Unit ABO A [facility] Unit Rh POS [facility] Product Number R02 [facility] Unit Donor # [id number] [facility] Unit Status transfused [facility] Product Code [id number] [facility] Blood Type Barcode 6200 [facility] Expiration Date [id number] S BLOOD BANK LAB Blood Bank BLOOD SPECIMEN / Unknown 06/24/2023 4:14 PM ADULT CARE MANAGER Alexander Damico MD LAB - BLOOD BANK ORD ERABLES [facility] [address] [place] [address], [facility] [phone] * (ABNORMAL) BASIC METABOLIC PANEL (CALCIUM TOTAL) (06/26/2023 12:26 AM ADULT CARE MANAGER) Only the most recent of5 resultswithin the time period is included. BUN 18 7 - 26 mg/dL 06/26/2023 1:01 AM [facility] Creatinine 1.22(H) 0.56 - 0.96 mg/dL 06/26/2023 1:01 AM [facility] Sodium 138 136 - 145 mmol/L 06/26/2023 1:01 AM [facility] Potassium 4.2 3.5 - 4.5 mmol/L 06/26/2023 1:01 AM [facility] Chloride 107 98 - 107 mmol/L 06/26/2023 1:01 AM [facility] CO2 23 22 - 29 mmol/L 06/26/2023 1:01 AM [facility] Glucose 114 70 - 115 mg/dL 06/26/2023 1:01 AM [facility] Calcium 7.9(L) 8.4 - 10.2 mg/dL 06/26/2023 1:01 AM [facility] Anion Gap 8 6 - 16 06/26/2023 1:01 AM [facility] BUN/Creatinine Ratio 15 7 - 23 06/26/2023 1:01 AM [facility] Osmolality Calculated 289 275 - 295 mOsm/kg 06/26/2023 1:01 AM [facility] eGFR by CKD-EPI 43(L) >=90 mL/min/1.7 3 m2 06/26/2023 1:01 AM [facility] Blood BLOOD SPECIMEN / Unknown Venipuncture / Unknown 06/26/2023 12:26 AM ADULT CARE MANAGER 06/26/2023 12:36 AM ADULT CARE MANAGER Tony Hoskins MD LAB - CHEMISTRY ARMIN HARRIS [facility] [address] [place] [address], [place] [phone] * TRANSFUSE RED BLOOD CELL LEUKOREDUCED UNIT(S) (06/25/2023 11:34 PM ADULT CARE MANAGER) Alexander Damico MD NURSING - BLOOD PROD TRANSFUSION * (ABNORMAL) VITAMIN D 25-HYDROXY (06/25/2023 12:35 AM ADULT CARE MANAGER) Vitamin D, 25 Hydroxy 20.0(L) 30.0 - 80.0 ng/mL 06/25/2023 8:47 AM ADULT CARE MANAGER [facility] Comment: The recommendations for 25-Hydroxy Vitamin D clinical decision points are as follows: Deficient: <20.0 ng/mL Insufficient: 20.0 - 29.9 ng/mL Sufficient: 30.0 - 100.0 ng/mL Potential Toxicity: >100 ng/mL Reference: The Endocrine Society Clinical Practice Guidelines. 2011 If the 25-Hydroxy Vitamin D results are inconsitent with clinical evidence, it is recommended that follow-up testing using a method such as LC/MS/MS be performed to confirm the result. Blood BLOOD SPECIMEN / Unknown Venipuncture / Unknown 06/25/2023 12:35 AM ADULT CARE MANAGER 06/25/2023 12:39 AM ADULT CARE MANAGER Brooklyn Carias PA-C LAB - CHEMIS TRY ORDERABLES [facility] [address] [place] [address], [place] [phone] * (ABNORMAL) TEG 6 GLOBAL HEMOSTASIS W/ LYSIS (06/24/2023 6:59 PM ADULT CARE MANAGER) Only the most recent of2 resultswithin the time period is included. Citrated Kaolin R (Reaction Time) 11.4(H) 4.6 - 9.1 min 06/24/2023 8:36 PM ADULT CARE MANAGER [facility] Comment:CK R result above no rmal range. Consistent with hypocoagulable clotting factors. Consider presence of clotting factor deficiency and/or anti-coagulant. Citrated Kaolin LY30 (Lysis) 0.9 0.0 - 2.6 % 06/24/2023 8:36 PM [facility] Citrated Functional Fibrinogen MA (Max Amplitude) 14.2(L) 15.0 - 32.0 mm 06/24/2023 8:36 PM [facility] Comment:CFF MA below normal range. Consistent with decreased fibrinogen contribution to clot strength. Citrated RapidTEG MA (Max Amplitude) 58.3 52.0 - 70.0 mm 06/24/2023 8:36 PM [facility] Blood BLOOD SPECIMEN / Unknown Venipuncture / Unknown 06/24/2023 6:59 PM ADULT CARE MANAGER 06/24/2023 7:04 PM ADULT CARE MANAGER Tony Hoskins MD LAB - HEMATOLOGY ORD ERABLES [facility] [address] [place] [address], [facility] [phone] * (ABNORMAL) TEG 6S PLATELET MAPPING (06/24/2023 6:59 PM ADULT CARE MANAGER) Only the most recent of2 resultswithin the time period is included. TEGPLM (Max Amplitude) Koalin 58.5 53.0 - 68.0 mm 06/24/2023 8:22 PM [facility] TEGPLM (Max Amplitude) ACTF 6.4 2.0 - 19.0 mm 06/24/2023 8:22 PM [facility] TEGPLM (Max Amplitude) ADP 46.6 45.0 - 69.0 mm 06/24/2023 8:22 PM [facility] TEGPLM (Max Amplitude) AA 30.0(L) 51.0 - 71.0 mm 06/24/2023 8:22 PM [facility] Comment:AA MA below normal r imani. Inhibition present. TEGPLM %Inhibition ADP 22.8(H) 0.0 - 17.0 % 06/24/2023 8:22 PM [facility] TEGPLM %Inhibition AA 54.7(H) 0.0 - 11.0 % 06/24/2023 8:22 PM ADULT CARE MANAGER [facility] TEGPLM %Aggregation ADP 77.2(L) 83.0 - 100.0 % 06/24/2023 8:22 PM [facility] TEGPLM % Aggregation AA 45.3(L) 89.0 - 100.0 % 06/24/2023 8:22 PM [facility] Blood BLOOD SPECIMEN / Unknown Venipuncture / Unknown 06/24/2023 6:59 PM ADULT CARE MANAGER 06/24/2023 7:04 PM ADULT CARE MANAGER Tony Hoskins MD LAB - HEMATOLOGY ORD ERABLES Performing Organization Address City/[facility]/ZIP Co de Phone Number [facility] [address] [place] [address], [facility] [phone] * EKG 12-LEAD (06/24/2023 5:07 PM ADULT CARE MANAGER) Only the most recent of5 resultswithin the time period is included. Ventricular Rate 78 BPM [facility] QRS Duration ms 84 ms [facility] Q-T Interval ms 404 ms [facility] QTC Calculation (Bezet) 460 ms [facility] Calculated R [place] 51 degrees [facility] Calculated T [place] -48 degrees [facility] Interpretation EKG ATRIAL FIBRILLATION LOW VOLTAGE QRS NONSPECIFIC T WAVE ABNORMALITY ABNORMAL ECG WHEN COMPARED WITH ECG OF 30-SEP-2016 12:46, ATRIAL FIBRILLATION HAS REPLACED SINUS RHYTHM QRS VOLTAGE HAS DECREASED T WAVE INVERSION NO LONGER EVIDENT IN ANTERIOR LEADS Confirmed by MD VINAY, BERNARD ([id number]) on 06/26/2023 12:19:24 PM [facility] 06/24/2023 5:07 PM ADULT CARE MANAGER 06/26/2023 12:19 PM ADULT CARE MANAGER Alexander Damico MD ECG ORDERABLES Performing Organization Address City/[facility]/ZIP Co de Phone Number [facility] * XR HUMERUS RIGHT 2VW OR MORE (06/24/2023 4:58 PM ADULT CARE MANAGER) Anatomical Region Laterality Modality Upper Extremity Radiographic Shila ging 06/24/2023 5:44 PM ADULT CARE MANAGER Narrative 06/25/2023 2:38 PM ADULT CARE MANAGER PROCEDURE: XR HUMERUS RIGHT 2VW OR MORE, DATE/TIME OF EXAM: 06/24/2023 4:58 PM, LOCATION [facility] INDICATION: T14.90XA: Trauma ADDITIONAL CLINICAL INFORMATION: Ordering Provider Reason For Exam: fracture COMPARISON: None. FINDINGS/IMPRESSION: Moderately displaced comminuted proximal humeral shaft fracture with medial angulation of the distal humeral shaft. Report dictated by Josh Ortega DO (resident physician in radiology). Josh Muñiz DO have personally reviewed and interpreted this examination/study. > Interpreting Provider: Josh Valentine DO on 06/25/2023 2:38 PM Procedure Note Josh Valentine DO - 06/25/2023 PROCEDURE: XR HUMERUS RIGHT 2VW OR MORE, DATE/TIME OF EXAM: 06/24/2023 4:58 PM, LOCATION [facility] INDICATION: T14.90XA: Trauma ADDITIONAL CLINICAL INFORMATION: Ordering Provider Reason For Exam: fracture COMPARISON: None. FINDINGS/IMPRESSION: Moderately displaced comminuted proximal humeral shaft fracture withmedial angulation of the distal humeral shaft. Report dictated by Josh Ortega DO (resident physician in radiology). Josh Muñiz DO have personally reviewed and interpreted this examination/study. > Interpreting Provider: Josh Valentine DO on 06/25/2023 2:38 PM Tony Hoskins MD DIAGNOSTIC IMAGING O RDERABLES * XR ELBOW RIGHT 2VW (06/24/2023 4:58 PM ADULT CARE MANAGER) Anatomical Region Laterality Modality Upper Extremity Radiographic Shila ging 06/27/2023 1:15 PM ADULT CARE MANAGER Impressions 06/27/2023 1:37 PM ADULT CARE MANAGER IMPRESSION: No fracture or dislocation. Report dictated by Cuong Hardy DO (Sales Analyst). Josh Muñiz DO have personally reviewed and interpreted this examination/study. > Interpreting Provider: Josh Valentine DO on 06/27/2023 1:37 PM Narrative 06/27/2023 1:37 PM ADULT CARE MANAGER PROCEDURE: XR ELBOW RIGHT 2VW, DATE/TIME OF EXAM: 06/24/2023 4:58 PM, LOCATION [facility] INDICATION: T14.90XA: Trauma ADDITIONAL CLINICAL INFORMATION: Ordering Provider Reason For Exam: fracture Technologist Note: Additional: COMPARISON: Lateral and AP views of the right humerus obtained on 06/24/2023. FINDINGS: There is no fracture. There is osteopenia. The joint alignment is normal. The soft tissues are normal without evidence of joint effusion. Procedure Note Josh Valentine DO - 06/27/2023 PROCEDURE: XR ELBOW RIGHT 2VW, DATE/TIME OF EXAM: 06/24/2023 4:58 PM, LOCATION [facility] INDICATION: T14.90XA: Trauma ADDITIONAL CLINICAL INFORMATION: Ordering Provider Reason For Exam: fracture Technologist Note: Additional: COMPARISON: Lateral and AP views of the right humerus obtained on 06/24/2023. FINDINGS: There is no fracture. There is osteopenia. The joint alignment is normal. The soft tissues are normal without evidence of joint effusion. IMPRESSION: No fracture or dislocation. Report dictated by Cuong Hardy DO (Sales Analyst). I, Josh Valentine DO have personally reviewed and interpreted this examination/study. > Interpreting Provider: Josh Valentine DO on 06/27/2023 1:37 PM Tony Hoskins MD DIAGNOSTIC IMAGING O RDERABLES * BLOOD TYPE VERIFICATION (06/24/2023 4:43 PM ADULT CARE MANAGER) ABO Rh A POS 06/24/2023 5:0 6 PM ADULT CARE MANAGER [facility] Blood Bank BLOOD SPECIMEN / Unknown Venipuncture / Unknown 06/24/2023 4:43 PM ADULT CARE MANAGER 06/24/2023 4:59 PM ADULT CARE MANAGER Alexander Damico MD LAB - BLOOD BANK ORD ERABLES [facility] [address] [place] [address], [facility] [phone] * CT CHEST ABDOMEN PELVIS W CONT - Abdomen-pelvis trauma, blunt or penetrating (06/24/2023 4:40 PM ADULT CARE MANAGER) Anatomical Region Laterality Modality Chest, Abdomen, Pelvis Computed Tomography 06/24/2023 4:38 PM ADULT CARE MANAGER Impressions 06/25/2023 8:58 AM ADULT CARE MANAGER Impression: 1.Partially visualized comminuted and displaced right proximal humeral fracture. 2.Minimally displaced fractures of the right anterolateral aspects of ribs 6 and 7. 3.Otherwise, no acute visceral, vascular, or osseus injury identified in the chest, abdomen, or pelvis. 4.Small bilateral pleural fluid collections. 5.Cirrhosis with sequelae of portal hypertension including large volume ascites and anasarca. 6.Multiple bilateral heterogeneous nodules of the thyroid, the largest on the right measuring up to 3.4 cm. Nonemergent thyroid ultrasound is recommended for further evaluation if not previously performed. 7.Cardiomegaly with pulmonary vascular congestion. 8.Punctate nonobstructive renal calculus on the left. 9.Extensive sigmoid diverticulosis. 10.Extensive atherosclerosis. > Dictated by Xavi Castañeda DO (resident physician in radiology). I, Kim Sharp MD have personally reviewed and interpreted this examination/study. > Interpreting Provider: Kim Sharp MD on 06/25/2023 8:58 AM Narrative 06/25/2023 8:58 AM ADULT CARE MANAGER PROCEDURE: CT CHEST ABDOMEN PELVIS W CONT, DATE/TIME OF EXAM: 06/24/2023 4:42 PM, LOCATION [facility] INDICATION: Trauma ADDITIONAL CLINICAL INFORMATION: Ordering Provider Reason For Exam: Technologist Note: Additional: COMPARISON: None. TECHNIQUE: CT of the chest, abdomen, and pelvis was performed after the uneventful administration of 100 mL of Isovue 370 intravenous contrast according to standard protocol. Findings: Chest: Lower Neck and Axillae: Multiple bilateral heterogeneous nodules of the thyroid the largest on the right measuring up to 3.4 cm (series 3, image 19). Lungs: Small bilateral pleural effusions. Mild groundglass opacity and vascular congestion. No suspicious pulmonary nodules are identified. There is no pneumothorax. Heart and Pericardium: The cardiac chambers are enlarged. Mediastinum and Radha: Postsurgical changes compatible with prior sternotomy. No mediastinal hemorrhage is present. No enlarged lymph nodes are present. Thoracic Vasculature: The aorta and its branch vessels are atherosclerotic. Abdomen/pelvis: Liver: The liver has a slightly nodular surface, that may suggest hepatic cirrhosis. There is distention of the hepatic veins. Gallbladder and Bile Ducts: Hyperattenuating material within the gallbladder likely represents sludge. Spleen: Normal. Pancreas: Normal. Adrenals: Normal. Kidneys: The kidneys are atrophic, left greater than right. Hypoattenuating subcentimeter lesions are noted bilaterally, too small to characterize, but statistically likely represent simple renal cysts. Punctate nonobstructing renal calculus in the interpolar region of the left kidney (series 4, image 49). Gastrointestinal: Small hiatal hernia. The stomach and visualized loops of small bowel are unremarkable. Extensive sigmoid colon diverticulosis without evidence of diverticulitis is seen. No evidence of obstruction. Normal appendix. Mesentery/Peritoneum/Retroperitoneum: Large volume ascites. Bladder: The bladder wall is diffusely thickened, likely due to decompressed state. Reproductive Organs: The uterus is absent. Abdominal Vasculature: Extensive atherosclerotic calcification of the aorta and its branch vessels. Bones: Comminuted and displaced right proximal humeral fracture is partially included. The glenohumeral joint remains articulated. Minimally displaced fractures of the right anterolateral aspects of ribs 6 and 7. A bone island is present in the L3 vertebral body (series 10, image 115). Grade 1 anterolisthesis of L5 on S1. Moderate to severe degenerative changes of the visualized cervical, thoracic and lumbar spine, most prominent at C5-6. Soft tissues: Anasarca. Fluid containing ventral hernia (series 3, image 107). Procedure Note Kim Sharp MD - 06/25/2023 PROCEDURE: CT CHEST ABDOMEN PELVIS W CONT, DATE/TIME OF EXAM:06/24/2023 4:42 PM, LOCATION [facility] INDICATION: Trauma ADDITIONAL CLINICAL INFORMATION: Ordering Provider Reason For Exam: Technologist Note: Additional: COMPARISON: None. TECHNIQUE: CT of the chest, abdomen, and pelvis was performed after the uneventful administration of 100 mL of Isovue 370 intravenous contrast according to standard protocol. Findings: Chest: Lower Neck and Axillae: Multiple bilateral heterogeneous nodules of the thyroid the largest onthe right measuring up to 3.4 cm (series 3, image 19). Lungs: Small bilateral pleural effusions. Mild groundglass opacity and vascular congestion. No suspicious pulmonary nodules are identified. There is no pneumothorax. Heart and Pericardium: The cardiac chambers are enlarged. Mediastinum and Radha: Postsurgical changes compatible with prior sternotomy. No mediastinal hemorrhage is present. No enlarged lymph nodes are present. Thoracic Vasculature: The aorta and its branch vessels are atherosclerotic. Abdomen/pelvis: Liver: The liver has a slightly nodular surface, that may suggest hepatic cirrhosis. There is distention of the hepatic veins. Gallbladder and Bile Ducts: Hyperattenuating material within the gallbladder likely represents sludge. Spleen: Normal. Pancreas: Normal. Adrenals: Normal. Kidneys: The kidneys are atrophic, left greater than right. Hypoattenuating subcentimeter lesions are noted bilaterally, too small to characterize,but statistically likely represent simple renal cysts. Punctatenonobstructing renal calculus in the interpolar region of the left kidney (series 4,image 49). Gastrointestinal: Small hiatal hernia. The stomach and visualized loops of small bowel are unremarkable. Extensive sigmoid colon diverticulosis without evidence of diverticulitis is seen. No evidence of obstruction. Normal appendix. Mesentery/Peritoneum/Retroperitoneum: Large volume ascites. Bladder: The bladder wall is diffusely thickened, likely due to decompressedstate. Reproductive Organs: The uterus is absent. Abdominal Vasculature: Extensive atherosclerotic calcification of the aorta and its branch vessels. Bones: Comminuted and displaced right proximal humeral fracture is partially included. The glenohumeral joint remains articulated. Minimallydisplaced fractures of the right anterolateral aspects of ribs 6 and 7. A bone island is present in the L3 vertebral body (series 10, [id number]). Grade 1 anterolisthesis of L5 on S1. Moderate to severe degenerative changes of the visualized cervical, thoracic and lumbar spine, most prominent at C5-6. Soft tissues: Anasarca. Fluid containing ventral hernia (series 3, image 107). Impression: 1.Partially visualized comminuted and displaced right proximal humeral fracture. 2.Minimally displaced fractures of the right anterolateral aspects ofribs 6 and 7. 3.Otherwise, no acute visceral, vascular, or osseus injury identified in the chest, abdomen, or pelvis. 4.Small bilateral pleural fluid collections. 5.Cirrhosis with sequelae of portal hypertension including large volume ascites and anasarca. 6.Multiple bilateral heterogeneous nodules of the thyroid, the largeston the right measuring up to 3.4 cm. Nonemergent thyroid ultrasound is recommended for further evaluation if not previously performed. 7.Cardiomegaly with pulmonary vascular congestion. 8.Punctate nonobstructive renal calculus on the left. 9.Extensive sigmoid diverticulosis. 10.Extensive atherosclerosis. > Dictated by Xavi Castañeda DO (resident physician in radiology). Kim Muñiz MD have personally reviewed and interpreted this examination/study. > Interpreting Provider: Kim Sharp MD on 06/25/2023 8:58 AM Alexander Damico MD CT ORDERABLES * CT LUMBAR SPINE WO CONTRAST - T/L-spine trauma, Spine fracture (06/24/2023 4:40 PM ADULT CARE MANAGER) Anatomical Region Laterality Modality Spine Computed Tomogra phy 06/24/2023 5:02 PM ADULT CARE MANAGER Impressions 06/24/2023 7:11 PM ADULT CARE MANAGER IMPRESSION: 1.No acute intracranial abnormality. 2.No acute fracture or traumatic malalignment of the cervical, thoracic, or lumbar spine. 3.Heterogeneous thyroid with a right lobe nodule measuring up to 4.2 cm. Recommend follow-up nonemergent outpatient thyroid ultrasound if not recently performed. 4.Please refer to concurrently reported chest, abdomen, and pelvis CT for description of additional nonspine-related abnormalities. > Dictated by Josh Ortega DO (resident physician in radiology). Jazmyn Muñiz MD, PhD have personally reviewed and interpreted this examination/study. > Interpreting Provider: Jazmyn Ferris MD, PhD on 06/24/2023 7:11 PM Narrative 06/24/2023 7:11 PM ADULT CARE MANAGER EXAM: CT HEAD WO CONTRAST, CT LUMBAR SPINE WO CONTRAST, CT THORACIC SPINE WO CONTRAST, CT CERVICAL SPINE WO CONTRAST, DATE/TIME OF EXAM: 06/24/2023 4:42 PM, LOCATION: [facility] HISTORY: Trauma EXAMINATION: CT scan of the head and CT scan of the cervical, thoracic, and lumbar spine without intravenous contrast TECHNIQUE: CT of the head and cervical spine was performed without intravenous contrast according to standard protocol. CT dose reduction technique was used, including Automated Exposure Control. Reformatted axial, sagittal, and coronal images of the thoracic and lumbar spine were obtained by the technologist from a concurrently performed chest, abdomen, and pelvis CT and sent to the workstation for review. COMPARISON: No prior similar studies are available for comparison. FINDINGS: HEAD: BRAIN PARENCHYMA: No acute hemorrhage, large vascular territory infarct, or mass effect. Small chronic lacune of the right thalamus. Left subinsular region with a tiny hypodensity, which either represents a small chronic lacune or prominent perivascular space. Hypodensities of the bilateral inferior basal ganglia, which favor prominent perivascular spaces. Scattered white matter hypodensities, which are nonspecific but likely represents the sequela of chronic microangiopathic change. Fjyr-to-klimqsud global parenchymal volume loss, which is commensurate for age. VENTRICLES/EXTRA-AXIAL SPACES: No ventriculomegaly or extra-axial collection. Basal cisterns are patent. EXTRACRANIAL STRUCTURES: No acute calvarial fracture. Incidentally noted hyperostosis frontalis interna. Age-indeterminate chronic-appearing fractures of the nasal bones. Minimal mucosal thickening of the ethmoid air cells and the maxillary sinuses. Nasal cavity is clear. Leftward deviated nasal septum with a moderate-sized spur indenting the mucosal surface of the left inferior nasal turbinate. Small right mastoid effusion. Left mastoid air cells are clear. Bilateral lens are present; otherwise, orbits are unremarkable. Moderate calcific atherosclerosis of the carotid siphons and mild calcific atherosclerosis of the vertebral artery V4 segments. Incidentally noted unerupted left maxillary molar and questionable unerupted tooth of the left anterior maxilla. CERVICAL SPINE: ALIGNMENT: Minimal levoconvex curvature of the cervical spine in addition to minimal grade 1 anterolisthesis of C2 on C3 and C3 on C4. No traumatic malalignment. ATLANTOAXIAL JOINT: The dens is intact, the lateral masses of C1 are normally aligned relative to C2, and the atlantodental interval is normal. Ficg-tn-dzbgghmr degenerative changes at the C1-C2 level. BONES: Vertebral body heights are maintained without evidence of acute fracture. Osseous structures are demineralized. DISCS: Multilevel advanced disc space narrowing, which is severe at the C5-C6 and C6-C7 levels. DEGENERATIVE CHANGES: Overall culjievg-dl-xyxede multilevel degenerative changes, characterized by varying degrees of posterior disc bulges/osteophyte complexes, facet arthropathy, and uncovertebral joint hypertrophy. SPINAL CANAL/NEUROFORAMEN: Multilevel spinal canal stenoses that is lsni-gx-vkoeciqw at the C3-C4 and C4-C5 levels and moderate at the C5-C6 and C6-C7 levels secondary to posterior disc bulges/osteophyte compresses. Multilevel neuroforaminal narrowing that is high-grade at the bilateral C3-C4, left C5-C6, and bilateral C6-C7 levels secondary to facet arthropathy and/or uncovertebral joint hypertrophy. SOFT TISSUES: No prevertebral soft tissue swelling. Posterior paraspinal soft tissues are unremarkable. Heterogeneous thyroid with a right lobe nodule measuring up to 4.2 cm and a left lobe nodule measuring 1.4 cm. OTHER: Left greater than right pleural effusions with associated passive atelectasis, which is better evaluated on concurrently reported chest, abdomen, and pelvis CT. Moderate left and wkvu-jt-mimmbkzc right calcific atherosclerosis of the carotid bulbs. THORACIC SPINE: ALIGNMENT: Mild dextroconvex curvature and mild kyphosis of thoracic spine curvature without significant listhesis. No traumatic malalignment. BONES: Vertebral body heights are maintained without evidence of acute fracture. Osseous structures are markedly demineralized. DISCS: Multilevel advanced disc space narrowing. DEGENERATIVE CHANGES: Overall moderate multilevel degenerative changes. SPINAL CANAL/NEUROFORAMEN: No significant osseous spinal canal stenosis. Multilevel neuroforaminal narrowing that is high-grade at the bilateral T10-T11 level. SOFT TISSUES: Posterior paraspinal soft tissues are unremarkable. OTHER: Small bilateral pleural effusions with associated passive atelectasis, which is better evaluated on concurrently reported chest, abdomen, an pelvis CT. Kiuu-lu-mrgwmwto calcific atherosclerosis of the thoracic aorta. LUMBAR SPINE: ALIGNMENT: Mild levoconvex curvature of the lumbar spine with approximately 7 mm right lateral listhesis of L1 relative to L2. Minimal retrolistheses of L1 on L2 and L2 on L3. Degenerative-related grade 1 anterolisthesis of L4 on L5 (measuring 3 mm) and L5 on S1 (measuring 7 mm). No traumatic malalignment. BONES: Vertebral body heights are maintained without evidence of acute fracture. Anterior aspect of the L3 vertebral body with a circumscribed sclerotic lesion measuring up to 1 cm (12/18, ), which favors a benign enostosis (i.e. bone island). Osseous structures are markedly demineralized. DISCS: Multilevel advanced disc space narrowing, which is severe at the L1-L2 and L2-L3 levels and nzzimfzn-ll-ztrfrc elsewhere. Vacuum phenomenon at multiple levels. Degenerative-related endplate sclerotic change at the L1-L2 and L2-L3 levels. DEGENERATIVE CHANGES: Overall severe multilevel degenerative change, characterized by varying degrees of posterior disc bulges, ligamentum flavum hypertrophy, and facet arthropathy. SPINAL CANAL/NEUROFORAMEN: Multilevel spinal canal stenoses that is moderate at the L1-L2 level and ydusezbq-cd-hncbbt from the L2-L3 through the L5-S1 levels secondary to posterior disc bulges/osteophyte complexes, ligamentum flavum hypertrophy, and facet arthropathy. Multilevel spinal canal stenoses that is severe at the right greater than left L1-L2 level, moderate at the bilateral L3-L4 level, and severe at the bilateral L5-S1 level. SOFT TISSUES: Posterior paraspinal soft tissues are unremarkable. OTHER: Partially imaged large volume ascites throughout the abdomen and pelvis. Partially imaged liver with a shrunken appearance and nodular surface suggestive of cirrhosis. Scarred atrophic left kidney with a small nonobstructive stone. Right kidney with a cyst measuring 1.1 cm. Multiple sigmoid colon diverticula without evidence of diverticulitis. These findings are better evaluated on concurrently reported chest, abdomen, and pelvis CT. Procedure Note Jazmyn Ferris MD - 06/24/2023 EXAM: CT HEAD WO CONTRAST, CT LUMBAR SPINE WO CONTRAST, CT THORACICSPINE WO CONTRAST, CT CERVICAL SPINE WO CONTRAST, DATE/TIME OF EXAM:06/24/2023 4:42 PM, LOCATION: [facility] HISTORY: Trauma EXAMINATION: CT scan of the head and CT scan of the cervical, thoracic, and lumbarspine without intravenous contrast TECHNIQUE: CT of the head and cervical spine was performed without intravenous contrast according to standard protocol. CT dose reduction technique was used, including Automated Exposure Control. Reformatted axial, sagittal, and coronal images of the thoracic and lumbar spine were obtained by the technologist from a concurrently performed chest, abdomen, and pelvis CT and sent to the workstation for review. COMPARISON: No prior similar studies are available for comparison. FINDINGS: HEAD: BRAIN PARENCHYMA: No acute hemorrhage, large vascular territory infarct,or mass effect. Small chronic lacune of the right thalamus. Left subinsular region with a tiny hypodensity, which either represents a small chronic lacune or prominent perivascular space. Hypodensities of the bilateral inferior basal ganglia, which favor prominent perivascular spaces. Scattered white matter hypodensities, which are nonspecific but likely represents the sequela of chronic microangiopathic change.Yluz-sm-ptfcyimh global parenchymal volume loss, which is commensurate for age. VENTRICLES/EXTRA-AXIAL SPACES: No ventriculomegaly or extra-axial collection. Basal cisterns are patent. EXTRACRANIAL STRUCTURES: No acute calvarial fracture. Incidentally noted hyperostosis frontalis interna. Age-indeterminate chronic-appearing fractures of the nasal bones. Minimal mucosal thickening of the ethmoidair cells and the maxillary sinuses. Nasal cavity is clear. Leftwarddeviated nasal septum with a moderate-sized spur indenting the mucosal surface of the left inferior nasal turbinate. Small right mastoid effusion. Left mastoid air cells are clear. Bilateral lens are present; otherwise,orbits are unremarkable. Moderate calcific atherosclerosis of the carotidsiphons and mild calcific atherosclerosis of the vertebral artery V4 segments. Incidentally noted unerupted left maxillary molar and questionable unerupted tooth of the left anterior maxilla. CERVICAL SPINE: ALIGNMENT: Minimal levoconvex curvature of the cervical spine inaddition to minimal grade 1 anterolisthesis of C2 on C3 and C3 on C4. Notraumatic malalignment. ATLANTOAXIAL JOINT: The dens is intact, the lateral masses of C1 are normally aligned relative to C2, and the atlantodental interval isnormal. Lenj-lb-wdedyphw degenerative changes at the C1-C2 level. BONES: Vertebral body heights are maintained without evidence of acute fracture. Osseous structures are demineralized. DISCS: Multilevel advanced disc space narrowing, which is severe at the C5-C6 and C6-C7 levels. DEGENERATIVE CHANGES: Overall mkadbajf-po-jlnzhs multilevel degenerative changes, characterized by varying degrees of posterior disc bulges/osteophyte complexes, facet arthropathy, and uncovertebral joint hypertrophy. SPINAL CANAL/NEUROFORAMEN: Multilevel spinal canal stenoses that is jpvs-rt-icikaagm at the C3-C4 and C4-C5 levels and moderate at the C5-C6 and C6-C7 levels secondary to posterior disc bulges/osteophytecompresses. Multilevel neuroforaminal narrowing that is high-grade at the bilateral C3-C4, left C5-C6, and bilateral C6-C7 levels secondary to facet arthropathy and/or uncovertebral joint hypertrophy. SOFT TISSUES: No prevertebral soft tissue swelling. Posterior paraspinal soft tissues are unremarkable. Heterogeneous thyroid with a right lobe nodule measuring up to 4.2 cm and a left lobe nodule measuring 1.4 cm. OTHER: Left greater than right pleural effusions with associated passive atelectasis, which is better evaluated on concurrently reported chest, abdomen, and pelvis CT. Moderate left and kdek-xk-uuqpbves rightcalcific atherosclerosis of the carotid bulbs. THORACIC SPINE: ALIGNMENT: Mild dextroconvex curvature and mild kyphosis of thoracicspine curvature without significant listhesis. No traumatic malalignment. BONES: Vertebral body heights are maintained without evidence of acute fracture. Osseous structures are markedly demineralized. DISCS: Multilevel advanced disc space narrowing. DEGENERATIVE CHANGES: Overall moderate multilevel degenerative changes. SPINAL CANAL/NEUROFORAMEN: No significant osseous spinal canal stenosis. Multilevel neuroforaminal narrowing that is high-grade at the bilateral T10-T11 level. SOFT TISSUES: Posterior paraspinal soft tissues are unremarkable. OTHER: Small bilateral pleural effusions with associated passive atelectasis, which is better evaluated on concurrently reported chest, abdomen, an pelvis CT. Yauy-pe-wshalctg calcific atherosclerosis of the thoracic aorta. LUMBAR SPINE: ALIGNMENT: Mild levoconvex curvature of the lumbar spine withapproximately 7 mm right lateral listhesis of L1 relative to L2. Minimalretrolistheses of L1 on L2 and L2 on L3. Degenerative-related grade 1 anterolisthesisof L4 on L5 (measuring 3 mm) and L5 on S1 (measuring 7 mm). No traumatic malalignment. BONES: Vertebral body heights are maintained without evidence of acute fracture. Anterior aspect of the L3 vertebral body with a circumscribed sclerotic lesion measuring up to 1 cm (5/13, 6/51), which favors abenign enostosis (i.e. bone island). Osseous structures are markedly demineralized. DISCS: Multilevel advanced disc space narrowing, which is severe at the L1-L2 and L2-L3 levels and bnoffzxn-ku-oqwxhn elsewhere. Vacuumphenomenon at multiple levels. Degenerative-related endplate sclerotic change atthe L1-L2 and L2-L3 levels. DEGENERATIVE CHANGES: Overall severe multilevel degenerative change, characterized by varying degrees of posterior disc bulges, ligamentum flavum hypertrophy, and facet arthropathy. SPINAL CANAL/NEUROFORAMEN: Multilevel spinal canal stenoses that is moderate at the L1-L2 level and mppzcmkd-pb-xnfjio from the L2-K9rbeahwg the L5-S1 levels secondary to posterior disc bulges/osteophytecomplexes, ligamentum flavum hypertrophy, and facet arthropathy. Multilevel spinal canal stenoses that is severe at the right greater than left L1-W5cgqok, moderate at the bilateral L3-L4 level, and severe at the bilateral L5-S1 level. SOFT TISSUES: Posterior paraspinal soft tissues are unremarkable. OTHER: Partially imaged large volume ascites throughout the abdomen and pelvis. Partially imaged liver with a shrunken appearance and nodular surface suggestive of cirrhosis. Scarred atrophic left kidney with asmall nonobstructive stone. Right kidney with a cyst measuring 1.1 cm.Multiple sigmoid colon diverticula without evidence of diverticulitis. These findings are better evaluated on concurrently reported chest, abdomen,and pelvis CT. IMPRESSION: 1.No acute intracranial abnormality. 2.No acute fracture or traumatic malalignment of the cervical, thoracic,or lumbar spine. 3.Heterogeneous thyroid with a right lobe nodule measuring up to 4.2 cm. Recommend follow-up nonemergent outpatient thyroid ultrasound if not recently performed. 4.Please refer to concurrently reported chest, abdomen, and pelvis CTfor description of additional nonspine-related abnormalities. > Dictated by Josh Ortega DO (resident physician in radiology). Jazmyn Muñiz MD, PhD have personally reviewed and interpreted this examination/study. > Interpreting Provider: Jazmyn Ferris MD, PhD on 06/24/2023 7:11 PM Alexander Damico MD CT ORDERABLES * CT THORACIC SPINE WO CONTRAST - T/L-spine trauma, spine fracture (06/24/2023 4:40 PM ADULT CARE MANAGER) Anatomical Region Laterality Modality Spine Computed Tomogra phy 06/24/2023 5:02 PM ADULT CARE MANAGER Impressions 06/24/2023 7:11 PM ADULT CARE MANAGER IMPRESSION: 1.No acute intracranial abnormality. 2.No acute fracture or traumatic malalignment of the cervical, thoracic, or lumbar spine. 3.Heterogeneous thyroid with a right lobe nodule measuring up to 4.2 cm. Recommend follow-up nonemergent outpatient thyroid ultrasound if not recently performed. 4.Please refer to concurrently reported chest, abdomen, and pelvis CT for description of additional nonspine-related abnormalities. > Dictated by Josh Ortega DO (resident physician in radiology). Jazmyn Muñiz MD, PhD have personally reviewed and interpreted this examination/study. > Interpreting Provider: Jazmyn Ferris MD, PhD on 06/24/2023 7:11 PM Narrative 06/24/2023 7:11 PM ADULT CARE MANAGER EXAM: CT HEAD WO CONTRAST, CT LUMBAR SPINE WO CONTRAST, CT THORACIC SPINE WO CONTRAST, CT CERVICAL SPINE WO CONTRAST, DATE/TIME OF EXAM: 06/24/2023 4:42 PM, LOCATION: [facility] HISTORY: Trauma EXAMINATION: CT scan of the head and CT scan of the cervical, thoracic, and lumbar spine without intravenous contrast TECHNIQUE: CT of the head and cervical spine was performed without intravenous contrast according to standard protocol. CT dose reduction technique was used, including Automated Exposure Control. Reformatted axial, sagittal, and coronal images of the thoracic and lumbar spine were obtained by the technologist from a concurrently performed chest, abdomen, and pelvis CT and sent to the workstation for review. COMPARISON: No prior similar studies are available for comparison. FINDINGS: HEAD: BRAIN PARENCHYMA: No acute hemorrhage, large vascular territory infarct, or mass effect. Small chronic lacune of the right thalamus. Left subinsular region with a tiny hypodensity, which either represents a small chronic lacune or prominent perivascular space. Hypodensities of the bilateral inferior basal ganglia, which favor prominent perivascular spaces. Scattered white matter hypodensities, which are nonspecific but likely represents the sequela of chronic microangiopathic change. Qrri-ip-kmarfynx global parenchymal volume loss, which is commensurate for age. VENTRICLES/EXTRA-AXIAL SPACES: No ventriculomegaly or extra-axial collection. Basal cisterns are patent. EXTRACRANIAL STRUCTURES: No acute calvarial fracture. Incidentally noted hyperostosis frontalis interna. Age-indeterminate chronic-appearing fractures of the nasal bones. Minimal mucosal thickening of the ethmoid air cells and the maxillary sinuses. Nasal cavity is clear. Leftward deviated nasal septum with a moderate-sized spur indenting the mucosal surface of the left inferior nasal turbinate. Small right mastoid effusion. Left mastoid air cells are clear. Bilateral lens are present; otherwise, orbits are unremarkable. Moderate calcific atherosclerosis of the carotid siphons and mild calcific atherosclerosis of the vertebral artery V4 segments. Incidentally noted unerupted left maxillary molar and questionable unerupted tooth of the left anterior maxilla. CERVICAL SPINE: ALIGNMENT: Minimal levoconvex curvature of the cervical spine in addition to minimal grade 1 anterolisthesis of C2 on C3 and C3 on C4. No traumatic malalignment. ATLANTOAXIAL JOINT: The dens is intact, the lateral masses of C1 are normally aligned relative to C2, and the atlantodental interval is normal. Vfjg-kg-xbbukapw degenerative changes at the C1-C2 level. BONES: Vertebral body heights are maintained without evidence of acute fracture. Osseous structures are demineralized. DISCS: Multilevel advanced disc space narrowing, which is severe at the C5-C6 and C6-C7 levels. DEGENERATIVE CHANGES: Overall hjqsjusr-nt-ualakr multilevel degenerative changes, characterized by varying degrees of posterior disc bulges/osteophyte complexes, facet arthropathy, and uncovertebral joint hypertrophy. SPINAL CANAL/NEUROFORAMEN: Multilevel spinal canal stenoses that is nemi-ed-ccryvrnz at the C3-C4 and C4-C5 levels and moderate at the C5-C6 and C6-C7 levels secondary to posterior disc bulges/osteophyte compresses. Multilevel neuroforaminal narrowing that is high-grade at the bilateral C3-C4, left C5-C6, and bilateral C6-C7 levels secondary to facet arthropathy and/or uncovertebral joint hypertrophy. SOFT TISSUES: No prevertebral soft tissue swelling. Posterior paraspinal soft tissues are unremarkable. Heterogeneous thyroid with a right lobe nodule measuring up to 4.2 cm and a left lobe nodule measuring 1.4 cm. OTHER: Left greater than right pleural effusions with associated passive atelectasis, which is better evaluated on concurrently reported chest, abdomen, and pelvis CT. Moderate left and salz-rt-idldxnkm right calcific atherosclerosis of the carotid bulbs. THORACIC SPINE: ALIGNMENT: Mild dextroconvex curvature and mild kyphosis of thoracic spine curvature without significant listhesis. No traumatic malalignment. BONES: Vertebral body heights are maintained without evidence of acute fracture. Osseous structures are markedly demineralized. DISCS: Multilevel advanced disc space narrowing. DEGENERATIVE CHANGES: Overall moderate multilevel degenerative changes. SPINAL CANAL/NEUROFORAMEN: No significant osseous spinal canal stenosis. Multilevel neuroforaminal narrowing that is high-grade at the bilateral T10-T11 level. SOFT TISSUES: Posterior paraspinal soft tissues are unremarkable. OTHER: Small bilateral pleural effusions with associated passive atelectasis, which is better evaluated on concurrently reported chest, abdomen, an pelvis CT. Tfkb-qd-mxzbduui calcific atherosclerosis of the thoracic aorta. LUMBAR SPINE: ALIGNMENT: Mild levoconvex curvature of the lumbar spine with approximately 7 mm right lateral listhesis of L1 relative to L2. Minimal retrolistheses of L1 on L2 and L2 on L3. Degenerative-related grade 1 anterolisthesis of L4 on L5 (measuring 3 mm) and L5 on S1 (measuring 7 mm). No traumatic malalignment. BONES: Vertebral body heights are maintained without evidence of acute fracture. Anterior aspect of the L3 vertebral body with a circumscribed sclerotic lesion measuring up to 1 cm (12/18, ), which favors a benign enostosis (i.e. bone island). Osseous structures are markedly demineralized. DISCS: Multilevel advanced disc space narrowing, which is severe at the L1-L2 and L2-L3 levels and fpstpdnu-kk-eeqprs elsewhere. Vacuum phenomenon at multiple levels. Degenerative-related endplate sclerotic change at the L1-L2 and L2-L3 levels. DEGENERATIVE CHANGES: Overall severe multilevel degenerative change, characterized by varying degrees of posterior disc bulges, ligamentum flavum hypertrophy, and facet arthropathy. SPINAL CANAL/NEUROFORAMEN: Multilevel spinal canal stenoses that is moderate at the L1-L2 level and bmambngs-lb-yfcvcg from the L2-L3 through the L5-S1 levels secondary to posterior disc bulges/osteophyte complexes, ligamentum flavum hypertrophy, and facet arthropathy. Multilevel spinal canal stenoses that is severe at the right greater than left L1-L2 level, moderate at the bilateral L3-L4 level, and severe at the bilateral L5-S1 level. SOFT TISSUES: Posterior paraspinal soft tissues are unremarkable. OTHER: Partially imaged large volume ascites throughout the abdomen and pelvis. Partially imaged liver with a shrunken appearance and nodular surface suggestive of cirrhosis. Scarred atrophic left kidney with a small nonobstructive stone. Right kidney with a cyst measuring 1.1 cm. Multiple sigmoid colon diverticula without evidence of diverticulitis. These findings are better evaluated on concurrently reported chest, abdomen, and pelvis CT. Procedure Note Jazmyn Ferris MD - 06/24/2023 EXAM: CT HEAD WO CONTRAST, CT LUMBAR SPINE WO CONTRAST, CT THORACICSPINE WO CONTRAST, CT CERVICAL SPINE WO CONTRAST, DATE/TIME OF EXAM:06/24/2023 4:42 PM, LOCATION: [facility] HISTORY: Trauma EXAMINATION: CT scan of the head and CT scan of the cervical, thoracic, and lumbarspine without intravenous contrast TECHNIQUE: CT of the head and cervical spine was performed without intravenous contrast according to standard protocol. CT dose reduction technique was used, including Automated Exposure Control. Reformatted axial, sagittal, and coronal images of the thoracic and lumbar spine were obtained by the technologist from a concurrently performed chest, abdomen, and pelvis CT and sent to the workstation for review. COMPARISON: No prior similar studies are available for comparison. FINDINGS: HEAD: BRAIN PARENCHYMA: No acute hemorrhage, large vascular territory infarct,or mass effect. Small chronic lacune of the right thalamus. Left subinsular region with a tiny hypodensity, which either represents a small chronic lacune or prominent perivascular space. Hypodensities of the bilateral inferior basal ganglia, which favor prominent perivascular spaces. Scattered white matter hypodensities, which are nonspecific but likely represents the sequela of chronic microangiopathic change.Qyff-bd-lyhbfptn global parenchymal volume loss, which is commensurate for age. VENTRICLES/EXTRA-AXIAL SPACES: No ventriculomegaly or extra-axial collection. Basal cisterns are patent. EXTRACRANIAL STRUCTURES: No acute calvarial fracture. Incidentally noted hyperostosis frontalis interna. Age-indeterminate chronic-appearing fractures of the nasal bones. Minimal mucosal thickening of the ethmoidair cells and the maxillary sinuses. Nasal cavity is clear. Leftwarddeviated nasal septum with a moderate-sized spur indenting the mucosal surface of the left inferior nasal turbinate. Small right mastoid effusion. Left mastoid air cells are clear. Bilateral lens are present; otherwise,orbits are unremarkable. Moderate calcific atherosclerosis of the carotidsiphons and mild calcific atherosclerosis of the vertebral artery V4 segments. Incidentally noted unerupted left maxillary molar and questionable unerupted tooth of the left anterior maxilla. CERVICAL SPINE: ALIGNMENT: Minimal levoconvex curvature of the cervical spine inaddition to minimal grade 1 anterolisthesis of C2 on C3 and C3 on C4. Notraumatic malalignment. ATLANTOAXIAL JOINT: The dens is intact, the lateral masses of C1 are normally aligned relative to C2, and the atlantodental interval isnormal. Rhms-xh-djtoeywy degenerative changes at the C1-C2 level. BONES: Vertebral body heights are maintained without evidence of acute fracture. Osseous structures are demineralized. DISCS: Multilevel advanced disc space narrowing, which is severe at the C5-C6 and C6-C7 levels. DEGENERATIVE CHANGES: Overall muiqzimj-bi-vjzrww multilevel degenerative changes, characterized by varying degrees of posterior disc bulges/osteophyte complexes, facet arthropathy, and uncovertebral joint hypertrophy. SPINAL CANAL/NEUROFORAMEN: Multilevel spinal canal stenoses that is uebo-ml-wypeotzz at the C3-C4 and C4-C5 levels and moderate at the C5-C6 and C6-C7 levels secondary to posterior disc bulges/osteophytecompresses. Multilevel neuroforaminal narrowing that is high-grade at the bilateral C3-C4, left C5-C6, and bilateral C6-C7 levels secondary to facet arthropathy and/or uncovertebral joint hypertrophy. SOFT TISSUES: No prevertebral soft tissue swelling. Posterior paraspinal soft tissues are unremarkable. Heterogeneous thyroid with a right lobe nodule measuring up to 4.2 cm and a left lobe nodule measuring 1.4 cm. OTHER: Left greater than right pleural effusions with associated passive atelectasis, which is better evaluated on concurrently reported chest, abdomen, and pelvis CT. Moderate left and brzt-ka-qnnfuizc rightcalcific atherosclerosis of the carotid bulbs. THORACIC SPINE: ALIGNMENT: Mild dextroconvex curvature and mild kyphosis of thoracicspine curvature without significant listhesis. No traumatic malalignment. BONES: Vertebral body heights are maintained without evidence of acute fracture. Osseous structures are markedly demineralized. DISCS: Multilevel advanced disc space narrowing. DEGENERATIVE CHANGES: Overall moderate multilevel degenerative changes. SPINAL CANAL/NEUROFORAMEN: No significant osseous spinal canal stenosis. Multilevel neuroforaminal narrowing that is high-grade at the bilateral T10-T11 level. SOFT TISSUES: Posterior paraspinal soft tissues are unremarkable. OTHER: Small bilateral pleural effusions with associated passive atelectasis, which is better evaluated on concurrently reported chest, abdomen, an pelvis CT. Tprs-ad-nnutffmr calcific atherosclerosis of the thoracic aorta. LUMBAR SPINE: ALIGNMENT: Mild levoconvex curvature of the lumbar spine withapproximately 7 mm right lateral listhesis of L1 relative to L2. Minimalretrolistheses of L1 on L2 and L2 on L3. Degenerative-related grade 1 anterolisthesisof L4 on L5 (measuring 3 mm) and L5 on S1 (measuring 7 mm). No traumatic malalignment. BONES: Vertebral body heights are maintained without evidence of acute fracture. Anterior aspect of the L3 vertebral body with a circumscribed sclerotic lesion measuring up to 1 cm (12/18, ), which favors abenign enostosis (i.e. bone island). Osseous structures are markedly demineralized. DISCS: Multilevel advanced disc space narrowing, which is severe at the L1-L2 and L2-L3 levels and xyugaqsn-gb-nyzdpb elsewhere. Vacuumphenomenon at multiple levels. Degenerative-related endplate sclerotic change atthe L1-L2 and L2-L3 levels. DEGENERATIVE CHANGES: Overall severe multilevel degenerative change, characterized by varying degrees of posterior disc bulges, ligamentum flavum hypertrophy, and facet arthropathy. SPINAL CANAL/NEUROFORAMEN: Multilevel spinal canal stenoses that is moderate at the L1-L2 level and reiaulez-wi-oufxcm from the L2-B0eqddirx the L5-S1 levels secondary to posterior disc bulges/osteophytecomplexes, ligamentum flavum hypertrophy, and facet arthropathy. Multilevel spinal canal stenoses that is severe at the right greater than left L1-Z2byeks, moderate at the bilateral L3-L4 level, and severe at the bilateral L5-S1 level. SOFT TISSUES: Posterior paraspinal soft tissues are unremarkable. OTHER: Partially imaged large volume ascites throughout the abdomen and pelvis. Partially imaged liver with a shrunken appearance and nodular surface suggestive of cirrhosis. Scarred atrophic left kidney with asmall nonobstructive stone. Right kidney with a cyst measuring 1.1 cm.Multiple sigmoid colon diverticula without evidence of diverticulitis. These findings are better evaluated on concurrently reported chest, abdomen,and pelvis CT. IMPRESSION: 1.No acute intracranial abnormality. 2.No acute fracture or traumatic malalignment of the cervical, thoracic,or lumbar spine. 3.Heterogeneous thyroid with a right lobe nodule measuring up to 4.2 cm. Recommend follow-up nonemergent outpatient thyroid ultrasound if not recently performed. 4.Please refer to concurrently reported chest, abdomen, and pelvis CTfor description of additional nonspine-related abnormalities. > Dictated by Josh Ortega DO (resident physician in radiology). I, Jazmyn Ferris MD, PhD have personally reviewed and interpreted this examination/study. > Interpreting Provider: Jazmyn Ferris MD, PhD on 06/24/2023 7:11 PM Alexander Damico MD CT ORDERABLES * CT CERVICAL SPINE WO CONTRAST - C-Spine Trauma, Spine fracture (06/24/2023 4:40 PM ADULT CARE MANAGER) Anatomical Region Laterality Modality Spine Computed Tomogra phy 06/24/2023 5:02 PM ADULT CARE MANAGER Impressions 06/24/2023 7:11 PM ADULT CARE MANAGER IMPRESSION: 1.No acute intracranial abnormality. 2.No acute fracture or traumatic malalignment of the cervical, thoracic, or lumbar spine. 3.Heterogeneous thyroid with a right lobe nodule measuring up to 4.2 cm. Recommend follow-up nonemergent outpatient thyroid ultrasound if not recently performed. 4.Please refer to concurrently reported chest, abdomen, and pelvis CT for description of additional nonspine-related abnormalities. > Dictated by Josh Ortega DO (resident physician in radiology). I, Jazmyn Ferris MD, PhD have personally reviewed and interpreted this examination/study. > Interpreting Provider: Jazmyn Ferris MD, PhD on 06/24/2023 7:11 PM Narrative 06/24/2023 7:11 PM ADULT CARE MANAGER EXAM: CT HEAD WO CONTRAST, CT LUMBAR SPINE WO CONTRAST, CT THORACIC SPINE WO CONTRAST, CT CERVICAL SPINE WO CONTRAST, DATE/TIME OF EXAM: 06/24/2023 4:42 PM, LOCATION: [facility] HISTORY: Trauma EXAMINATION: CT scan of the head and CT scan of the cervical, thoracic, and lumbar spine without intravenous contrast TECHNIQUE: CT of the head and cervical spine was performed without intravenous contrast according to standard protocol. CT dose reduction technique was used, including Automated Exposure Control. Reformatted axial, sagittal, and coronal images of the thoracic and lumbar spine were obtained by the technologist from a concurrently performed chest, abdomen, and pelvis CT and sent to the workstation for review. COMPARISON: No prior similar studies are available for comparison. FINDINGS: HEAD: BRAIN PARENCHYMA: No acute hemorrhage, large vascular territory infarct, or mass effect. Small chronic lacune of the right thalamus. Left subinsular region with a tiny hypodensity, which either represents a small chronic lacune or prominent perivascular space. Hypodensities of the bilateral inferior basal ganglia, which favor prominent perivascular spaces. Scattered white matter hypodensities, which are nonspecific but likely represents the sequela of chronic microangiopathic change. Cawm-xq-gmziuiao global parenchymal volume loss, which is commensurate for age. VENTRICLES/EXTRA-AXIAL SPACES: No ventriculomegaly or extra-axial collection. Basal cisterns are patent. EXTRACRANIAL STRUCTURES: No acute calvarial fracture. Incidentally noted hyperostosis frontalis interna. Age-indeterminate chronic-appearing fractures of the nasal bones. Minimal mucosal thickening of the ethmoid air cells and the maxillary sinuses. Nasal cavity is clear. Leftward deviated nasal septum with a moderate-sized spur indenting the mucosal surface of the left inferior nasal turbinate. Small right mastoid effusion. Left mastoid air cells are clear. Bilateral lens are present; otherwise, orbits are unremarkable. Moderate calcific atherosclerosis of the carotid siphons and mild calcific atherosclerosis of the vertebral artery V4 segments. Incidentally noted unerupted left maxillary molar and questionable unerupted tooth of the left anterior maxilla. CERVICAL SPINE: ALIGNMENT: Minimal levoconvex curvature of the cervical spine in addition to minimal grade 1 anterolisthesis of C2 on C3 and C3 on C4. No traumatic malalignment. ATLANTOAXIAL JOINT: The dens is intact, the lateral masses of C1 are normally aligned relative to C2, and the atlantodental interval is normal. Yvid-km-jlnrxvnu degenerative changes at the C1-C2 level. BONES: Vertebral body heights are maintained without evidence of acute fracture. Osseous structures are demineralized. DISCS: Multilevel advanced disc space narrowing, which is severe at the C5-C6 and C6-C7 levels. DEGENERATIVE CHANGES: Overall hunkmvvu-kr-hfgrzu multilevel degenerative changes, characterized by varying degrees of posterior disc bulges/osteophyte complexes, facet arthropathy, and uncovertebral joint hypertrophy. SPINAL CANAL/NEUROFORAMEN: Multilevel spinal canal stenoses that is qasl-be-ohgdncnh at the C3-C4 and C4-C5 levels and moderate at the C5-C6 and C6-C7 levels secondary to posterior disc bulges/osteophyte compresses. Multilevel neuroforaminal narrowing that is high-grade at the bilateral C3-C4, left C5-C6, and bilateral C6-C7 levels secondary to facet arthropathy and/or uncovertebral joint hypertrophy. SOFT TISSUES: No prevertebral soft tissue swelling. Posterior paraspinal soft tissues are unremarkable. Heterogeneous thyroid with a right lobe nodule measuring up to 4.2 cm and a left lobe nodule measuring 1.4 cm. OTHER: Left greater than right pleural effusions with associated passive atelectasis, which is better evaluated on concurrently reported chest, abdomen, and pelvis CT. Moderate left and mmio-xc-gbmftoky right calcific atherosclerosis of the carotid bulbs. THORACIC SPINE: ALIGNMENT: Mild dextroconvex curvature and mild kyphosis of thoracic spine curvature without significant listhesis. No traumatic malalignment. BONES: Vertebral body heights are maintained without evidence of acute fracture. Osseous structures are markedly demineralized. DISCS: Multilevel advanced disc space narrowing. DEGENERATIVE CHANGES: Overall moderate multilevel degenerative changes. SPINAL CANAL/NEUROFORAMEN: No significant osseous spinal canal stenosis. Multilevel neuroforaminal narrowing that is high-grade at the bilateral T10-T11 level. SOFT TISSUES: Posterior paraspinal soft tissues are unremarkable. OTHER: Small bilateral pleural effusions with associated passive atelectasis, which is better evaluated on concurrently reported chest, abdomen, an pelvis CT. Obim-dt-fcxsdxyb calcific atherosclerosis of the thoracic aorta. LUMBAR SPINE: ALIGNMENT: Mild levoconvex curvature of the lumbar spine with approximately 7 mm right lateral listhesis of L1 relative to L2. Minimal retrolistheses of L1 on L2 and L2 on L3. Degenerative-related grade 1 anterolisthesis of L4 on L5 (measuring 3 mm) and L5 on S1 (measuring 7 mm). No traumatic malalignment. BONES: Vertebral body heights are maintained without evidence of acute fracture. Anterior aspect of the L3 vertebral body with a circumscribed sclerotic lesion measuring up to 1 cm (12/18, ), which favors a benign enostosis (i.e. bone island). Osseous structures are markedly demineralized. DISCS: Multilevel advanced disc space narrowing, which is severe at the L1-L2 and L2-L3 levels and hmjjlsto-kb-hboaim elsewhere. Vacuum phenomenon at multiple levels. Degenerative-related endplate sclerotic change at the L1-L2 and L2-L3 levels. DEGENERATIVE CHANGES: Overall severe multilevel degenerative change, characterized by varying degrees of posterior disc bulges, ligamentum flavum hypertrophy, and facet arthropathy. SPINAL CANAL/NEUROFORAMEN: Multilevel spinal canal stenoses that is moderate at the L1-L2 level and lvqfdifw-vn-hdhraa from the L2-L3 through the L5-S1 levels secondary to posterior disc bulges/osteophyte complexes, ligamentum flavum hypertrophy, and facet arthropathy. Multilevel spinal canal stenoses that is severe at the right greater than left L1-L2 level, moderate at the bilateral L3-L4 level, and severe at the bilateral L5-S1 level. SOFT TISSUES: Posterior paraspinal soft tissues are unremarkable. OTHER: Partially imaged large volume ascites throughout the abdomen and pelvis. Partially imaged liver with a shrunken appearance and nodular surface suggestive of cirrhosis. Scarred atrophic left kidney with a small nonobstructive stone. Right kidney with a cyst measuring 1.1 cm. Multiple sigmoid colon diverticula without evidence of diverticulitis. These findings are better evaluated on concurrently reported chest, abdomen, and pelvis CT. Procedure Note Jazmyn Ferris MD - 06/24/2023 EXAM: CT HEAD WO CONTRAST, CT LUMBAR SPINE WO CONTRAST, CT THORACICSPINE WO CONTRAST, CT CERVICAL SPINE WO CONTRAST, DATE/TIME OF EXAM:06/24/2023 4:42 PM, LOCATION: [facility] HISTORY: Trauma EXAMINATION: CT scan of the head and CT scan of the cervical, thoracic, and lumbarspine without intravenous contrast TECHNIQUE: CT of the head and cervical spine was performed without intravenous contrast according to standard protocol. CT dose reduction technique was used, including Automated Exposure Control. Reformatted axial, sagittal, and coronal images of the thoracic and lumbar spine were obtained by the technologist from a concurrently performed chest, abdomen, and pelvis CT and sent to the workstation for review. COMPARISON: No prior similar studies are available for comparison. FINDINGS: HEAD: BRAIN PARENCHYMA: No acute hemorrhage, large vascular territory infarct,or mass effect. Small chronic lacune of the right thalamus. Left subinsular region with a tiny hypodensity, which either represents a small chronic lacune or prominent perivascular space. Hypodensities of the bilateral inferior basal ganglia, which favor prominent perivascular spaces. Scattered white matter hypodensities, which are nonspecific but likely represents the sequela of chronic microangiopathic change.Mewp-wb-oskkkqfd global parenchymal volume loss, which is commensurate for age. VENTRICLES/EXTRA-AXIAL SPACES: No ventriculomegaly or extra-axial collection. Basal cisterns are patent. EXTRACRANIAL STRUCTURES: No acute calvarial fracture. Incidentally noted hyperostosis frontalis interna. Age-indeterminate chronic-appearing fractures of the nasal bones. Minimal mucosal thickening of the ethmoidair cells and the maxillary sinuses. Nasal cavity is clear. Leftwarddeviated nasal septum with a moderate-sized spur indenting the mucosal surface of the left inferior nasal turbinate. Small right mastoid effusion. Left mastoid air cells are clear. Bilateral lens are present; otherwise,orbits are unremarkable. Moderate calcific atherosclerosis of the carotidsiphons and mild calcific atherosclerosis of the vertebral artery V4 segments. Incidentally noted unerupted left maxillary molar and questionable unerupted tooth of the left anterior maxilla. CERVICAL SPINE: ALIGNMENT: Minimal levoconvex curvature of the cervical spine inaddition to minimal grade 1 anterolisthesis of C2 on C3 and C3 on C4. Notraumatic malalignment. ATLANTOAXIAL JOINT: The dens is intact, the lateral masses of C1 are normally aligned relative to C2, and the atlantodental interval isnormal. Jbxv-zj-mgaukqlg degenerative changes at the C1-C2 level. BONES: Vertebral body heights are maintained without evidence of acute fracture. Osseous structures are demineralized. DISCS: Multilevel advanced disc space narrowing, which is severe at the C5-C6 and C6-C7 levels. DEGENERATIVE CHANGES: Overall fezquhfq-eu-tycemo multilevel degenerative changes, characterized by varying degrees of posterior disc bulges/osteophyte complexes, facet arthropathy, and uncovertebral joint hypertrophy. SPINAL CANAL/NEUROFORAMEN: Multilevel spinal canal stenoses that is ungb-ev-ktkwqddr at the C3-C4 and C4-C5 levels and moderate at the C5-C6 and C6-C7 levels secondary to posterior disc bulges/osteophytecompresses. Multilevel neuroforaminal narrowing that is high-grade at the bilateral C3-C4, left C5-C6, and bilateral C6-C7 levels secondary to facet arthropathy and/or uncovertebral joint hypertrophy. SOFT TISSUES: No prevertebral soft tissue swelling. Posterior paraspinal soft tissues are unremarkable. Heterogeneous thyroid with a right lobe nodule measuring up to 4.2 cm and a left lobe nodule measuring 1.4 cm. OTHER: Left greater than right pleural effusions with associated passive atelectasis, which is better evaluated on concurrently reported chest, abdomen, and pelvis CT. Moderate left and dqjr-rr-dzledzcf rightcalcific atherosclerosis of the carotid bulbs. THORACIC SPINE: ALIGNMENT: Mild dextroconvex curvature and mild kyphosis of thoracicspine curvature without significant listhesis. No traumatic malalignment. BONES: Vertebral body heights are maintained without evidence of acute fracture. Osseous structures are markedly demineralized. DISCS: Multilevel advanced disc space narrowing. DEGENERATIVE CHANGES: Overall moderate multilevel degenerative changes. SPINAL CANAL/NEUROFORAMEN: No significant osseous spinal canal stenosis. Multilevel neuroforaminal narrowing that is high-grade at the bilateral T10-T11 level. SOFT TISSUES: Posterior paraspinal soft tissues are unremarkable. OTHER: Small bilateral pleural effusions with associated passive atelectasis, which is better evaluated on concurrently reported chest, abdomen, an pelvis CT. Jwgt-yw-ndsunkgb calcific atherosclerosis of the thoracic aorta. LUMBAR SPINE: ALIGNMENT: Mild levoconvex curvature of the lumbar spine withapproximately 7 mm right lateral listhesis of L1 relative to L2. Minimalretrolistheses of L1 on L2 and L2 on L3. Degenerative-related grade 1 anterolisthesisof L4 on L5 (measuring 3 mm) and L5 on S1 (measuring 7 mm). No traumatic malalignment. BONES: Vertebral body heights are maintained without evidence of acute fracture. Anterior aspect of the L3 vertebral body with a circumscribed sclerotic lesion measuring up to 1 cm (12/18, ), which favors abenign enostosis (i.e. bone island). Osseous structures are markedly demineralized. DISCS: Multilevel advanced disc space narrowing, which is severe at the L1-L2 and L2-L3 levels and noqtdeud-va-mnuejt elsewhere. Vacuumphenomenon at multiple levels. Degenerative-related endplate sclerotic change atthe L1-L2 and L2-L3 levels. DEGENERATIVE CHANGES: Overall severe multilevel degenerative change, characterized by varying degrees of posterior disc bulges, ligamentum flavum hypertrophy, and facet arthropathy. SPINAL CANAL/NEUROFORAMEN: Multilevel spinal canal stenoses that is moderate at the L1-L2 level and ihnytdav-md-dubgzv from the L2-E1gypijtl the L5-S1 levels secondary to posterior disc bulges/osteophytecomplexes, ligamentum flavum hypertrophy, and facet arthropathy. Multilevel spinal canal stenoses that is severe at the right greater than left L1-M1ikjts, moderate at the bilateral L3-L4 level, and severe at the bilateral L5-S1 level. SOFT TISSUES: Posterior paraspinal soft tissues are unremarkable. OTHER: Partially imaged large volume ascites throughout the abdomen and pelvis. Partially imaged liver with a shrunken appearance and nodular surface suggestive of cirrhosis. Scarred atrophic left kidney with asmall nonobstructive stone. Right kidney with a cyst measuring 1.1 cm.Multiple sigmoid colon diverticula without evidence of diverticulitis. These findings are better evaluated on concurrently reported chest, abdomen,and pelvis CT. IMPRESSION: 1.No acute intracranial abnormality. 2.No acute fracture or traumatic malalignment of the cervical, thoracic,or lumbar spine. 3.Heterogeneous thyroid with a right lobe nodule measuring up to 4.2 cm. Recommend follow-up nonemergent outpatient thyroid ultrasound if not recently performed. 4.Please refer to concurrently reported chest, abdomen, and pelvis CTfor description of additional nonspine-related abnormalities. > Dictated by Josh Ortega DO (resident physician in radiology). Jazmyn Muñiz MD, PhD have personally reviewed and interpreted this examination/study. > Interpreting Provider: Jazmyn Ferris MD, PhD on 06/24/2023 7:11 PM Alexander Damico MD CT ORDERABLES * CT HEAD WO CONTRAST - Head Trauma, CSF leak, mental status changes (06/24/2023 4:40 PM ADULT CARE MANAGER) Anatomical Region Laterality Modality Head Computed Tomogra phy 06/24/2023 5:02 PM ADULT CARE MANAGER Impressions 06/24/2023 7:11 PM ADULT CARE MANAGER IMPRESSION: 1.No acute intracranial abnormality. 2.No acute fracture or traumatic malalignment of the cervical, thoracic, or lumbar spine. 3.Heterogeneous thyroid with a right lobe nodule measuring up to 4.2 cm. Recommend follow-up nonemergent outpatient thyroid ultrasound if not recently performed. 4.Please refer to concurrently reported chest, abdomen, and pelvis CT for description of additional nonspine-related abnormalities. > Dictated by Josh Ortega DO (resident physician in radiology). Jazmyn Muñiz MD, PhD have personally reviewed and interpreted this examination/study. > Interpreting Provider: Jazmyn Ferris MD, PhD on 06/24/2023 7:11 PM Narrative 06/24/2023 7:11 PM ADULT CARE MANAGER EXAM: CT HEAD WO CONTRAST, CT LUMBAR SPINE WO CONTRAST, CT THORACIC SPINE WO CONTRAST, CT CERVICAL SPINE WO CONTRAST, DATE/TIME OF EXAM: 06/24/2023 4:42 PM, LOCATION: [facility] HISTORY: Trauma EXAMINATION: CT scan of the head and CT scan of the cervical, thoracic, and lumbar spine without intravenous contrast TECHNIQUE: CT of the head and cervical spine was performed without intravenous contrast according to standard protocol. CT dose reduction technique was used, including Automated Exposure Control. Reformatted axial, sagittal, and coronal images of the thoracic and lumbar spine were obtained by the technologist from a concurrently performed chest, abdomen, and pelvis CT and sent to the workstation for review. COMPARISON: No prior similar studies are available for comparison. FINDINGS: HEAD: BRAIN PARENCHYMA: No acute hemorrhage, large vascular territory infarct, or mass effect. Small chronic lacune of the right thalamus. Left subinsular region with a tiny hypodensity, which either represents a small chronic lacune or prominent perivascular space. Hypodensities of the bilateral inferior basal ganglia, which favor prominent perivascular spaces. Scattered white matter hypodensities, which are nonspecific but likely represents the sequela of chronic microangiopathic change. Vyhe-om-lgbjkpsq global parenchymal volume loss, which is commensurate for age. VENTRICLES/EXTRA-AXIAL SPACES: No ventriculomegaly or extra-axial collection. Basal cisterns are patent. EXTRACRANIAL STRUCTURES: No acute calvarial fracture. Incidentally noted hyperostosis frontalis interna. Age-indeterminate chronic-appearing fractures of the nasal bones. Minimal mucosal thickening of the ethmoid air cells and the maxillary sinuses. Nasal cavity is clear. Leftward deviated nasal septum with a moderate-sized spur indenting the mucosal surface of the left inferior nasal turbinate. Small right mastoid effusion. Left mastoid air cells are clear. Bilateral lens are present; otherwise, orbits are unremarkable. Moderate calcific atherosclerosis of the carotid siphons and mild calcific atherosclerosis of the vertebral artery V4 segments. Incidentally noted unerupted left maxillary molar and questionable unerupted tooth of the left anterior maxilla. CERVICAL SPINE: ALIGNMENT: Minimal levoconvex curvature of the cervical spine in addition to minimal grade 1 anterolisthesis of C2 on C3 and C3 on C4. No traumatic malalignment. ATLANTOAXIAL JOINT: The dens is intact, the lateral masses of C1 are normally aligned relative to C2, and the atlantodental interval is normal. Gbkx-ri-adwlmrid degenerative changes at the C1-C2 level. BONES: Vertebral body heights are maintained without evidence of acute fracture. Osseous structures are demineralized. DISCS: Multilevel advanced disc space narrowing, which is severe at the C5-C6 and C6-C7 levels. DEGENERATIVE CHANGES: Overall qedpivqr-xp-tafsvl multilevel degenerative changes, characterized by varying degrees of posterior disc bulges/osteophyte complexes, facet arthropathy, and uncovertebral joint hypertrophy. SPINAL CANAL/NEUROFORAMEN: Multilevel spinal canal stenoses that is ycbi-wo-ednbspby at the C3-C4 and C4-C5 levels and moderate at the C5-C6 and C6-C7 levels secondary to posterior disc bulges/osteophyte compresses. Multilevel neuroforaminal narrowing that is high-grade at the bilateral C3-C4, left C5-C6, and bilateral C6-C7 levels secondary to facet arthropathy and/or uncovertebral joint hypertrophy. SOFT TISSUES: No prevertebral soft tissue swelling. Posterior paraspinal soft tissues are unremarkable. Heterogeneous thyroid with a right lobe nodule measuring up to 4.2 cm and a left lobe nodule measuring 1.4 cm. OTHER: Left greater than right pleural effusions with associated passive atelectasis, which is better evaluated on concurrently reported chest, abdomen, and pelvis CT. Moderate left and dste-pr-kvmnrwxl right calcific atherosclerosis of the carotid bulbs. THORACIC SPINE: ALIGNMENT: Mild dextroconvex curvature and mild kyphosis of thoracic spine curvature without significant listhesis. No traumatic malalignment. BONES: Vertebral body heights are maintained without evidence of acute fracture. Osseous structures are markedly demineralized. DISCS: Multilevel advanced disc space narrowing. DEGENERATIVE CHANGES: Overall moderate multilevel degenerative changes. SPINAL CANAL/NEUROFORAMEN: No significant osseous spinal canal stenosis. Multilevel neuroforaminal narrowing that is high-grade at the bilateral T10-T11 level. SOFT TISSUES: Posterior paraspinal soft tissues are unremarkable. OTHER: Small bilateral pleural effusions with associated passive atelectasis, which is better evaluated on concurrently reported chest, abdomen, an pelvis CT. Vtav-sy-tyjcsgdu calcific atherosclerosis of the thoracic aorta. LUMBAR SPINE: ALIGNMENT: Mild levoconvex curvature of the lumbar spine with approximately 7 mm right lateral listhesis of L1 relative to L2. Minimal retrolistheses of L1 on L2 and L2 on L3. Degenerative-related grade 1 anterolisthesis of L4 on L5 (measuring 3 mm) and L5 on S1 (measuring 7 mm). No traumatic malalignment. BONES: Vertebral body heights are maintained without evidence of acute fracture. Anterior aspect of the L3 vertebral body with a circumscribed sclerotic lesion measuring up to 1 cm (5/, 6/51), which favors a benign enostosis (i.e. bone island). Osseous structures are markedly demineralized. DISCS: Multilevel advanced disc space narrowing, which is severe at the L1-L2 and L2-L3 levels and vznbdmlh-qd-ktbfue elsewhere. Vacuum phenomenon at multiple levels. Degenerative-related endplate sclerotic change at the L1-L2 and L2-L3 levels. DEGENERATIVE CHANGES: Overall severe multilevel degenerative change, characterized by varying degrees of posterior disc bulges, ligamentum flavum hypertrophy, and facet arthropathy. SPINAL CANAL/NEUROFORAMEN: Multilevel spinal canal stenoses that is moderate at the L1-L2 level and uyarolko-vg-phsweb from the L2-L3 through the L5-S1 levels secondary to posterior disc bulges/osteophyte complexes, ligamentum flavum hypertrophy, and facet arthropathy. Multilevel spinal canal stenoses that is severe at the right greater than left L1-L2 level, moderate at the bilateral L3-L4 level, and severe at the bilateral L5-S1 level. SOFT TISSUES: Posterior paraspinal soft tissues are unremarkable. OTHER: Partially imaged large volume ascites throughout the abdomen and pelvis. Partially imaged liver with a shrunken appearance and nodular surface suggestive of cirrhosis. Scarred atrophic left kidney with a small nonobstructive stone. Right kidney with a cyst measuring 1.1 cm. Multiple sigmoid colon diverticula without evidence of diverticulitis. These findings are better evaluated on concurrently reported chest, abdomen, and pelvis CT. Procedure Note Jazmyn Ferris MD - 06/24/2023 EXAM: CT HEAD WO CONTRAST, CT LUMBAR SPINE WO CONTRAST, CT THORACICSPINE WO CONTRAST, CT CERVICAL SPINE WO CONTRAST, DATE/TIME OF EXAM:06/24/2023 4:42 PM, LOCATION: [facility] HISTORY: Trauma EXAMINATION: CT scan of the head and CT scan of the cervical, thoracic, and lumbarspine without intravenous contrast TECHNIQUE: CT of the head and cervical spine was performed without intravenous contrast according to standard protocol. CT dose reduction technique was used, including Automated Exposure Control. Reformatted axial, sagittal, and coronal images of the thoracic and lumbar spine were obtained by the technologist from a concurrently performed chest, abdomen, and pelvis CT and sent to the workstation for review. COMPARISON: No prior similar studies are available for comparison. FINDINGS: HEAD: BRAIN PARENCHYMA: No acute hemorrhage, large vascular territory infarct,or mass effect. Small chronic lacune of the right thalamus. Left subinsular region with a tiny hypodensity, which either represents a small chronic lacune or prominent perivascular space. Hypodensities of the bilateral inferior basal ganglia, which favor prominent perivascular spaces. Scattered white matter hypodensities, which are nonspecific but likely represents the sequela of chronic microangiopathic change.Vqpq-jd-hyqxmbqe global parenchymal volume loss, which is commensurate for age. VENTRICLES/EXTRA-AXIAL SPACES: No ventriculomegaly or extra-axial collection. Basal cisterns are patent. EXTRACRANIAL STRUCTURES: No acute calvarial fracture. Incidentally noted hyperostosis frontalis interna. Age-indeterminate chronic-appearing fractures of the nasal bones. Minimal mucosal thickening of the ethmoidair cells and the maxillary sinuses. Nasal cavity is clear. Leftwarddeviated nasal septum with a moderate-sized spur indenting the mucosal surface of the left inferior nasal turbinate. Small right mastoid effusion. Left mastoid air cells are clear. Bilateral lens are present; otherwise,orbits are unremarkable. Moderate calcific atherosclerosis of the carotidsiphons and mild calcific atherosclerosis of the vertebral artery V4 segments. Incidentally noted unerupted left maxillary molar and questionable unerupted tooth of the left anterior maxilla. CERVICAL SPINE: ALIGNMENT: Minimal levoconvex curvature of the cervical spine inaddition to minimal grade 1 anterolisthesis of C2 on C3 and C3 on C4. Notraumatic malalignment. ATLANTOAXIAL JOINT: The dens is intact, the lateral masses of C1 are normally aligned relative to C2, and the atlantodental interval isnormal. Yuns-ho-xomkqhow degenerative changes at the C1-C2 level. BONES: Vertebral body heights are maintained without evidence of acute fracture. Osseous structures are demineralized. DISCS: Multilevel advanced disc space narrowing, which is severe at the C5-C6 and C6-C7 levels. DEGENERATIVE CHANGES: Overall dyzlpppq-um-chunjg multilevel degenerative changes, characterized by varying degrees of posterior disc bulges/osteophyte complexes, facet arthropathy, and uncovertebral joint hypertrophy. SPINAL CANAL/NEUROFORAMEN: Multilevel spinal canal stenoses that is mlzj-rt-elwzmyaw at the C3-C4 and C4-C5 levels and moderate at the C5-C6 and C6-C7 levels secondary to posterior disc bulges/osteophytecompresses. Multilevel neuroforaminal narrowing that is high-grade at the bilateral C3-C4, left C5-C6, and bilateral C6-C7 levels secondary to facet arthropathy and/or uncovertebral joint hypertrophy. SOFT TISSUES: No prevertebral soft tissue swelling. Posterior paraspinal soft tissues are unremarkable. Heterogeneous thyroid with a right lobe nodule measuring up to 4.2 cm and a left lobe nodule measuring 1.4 cm. OTHER: Left greater than right pleural effusions with associated passive atelectasis, which is better evaluated on concurrently reported chest, abdomen, and pelvis CT. Moderate left and ztka-kl-ggyshqui rightcalcific atherosclerosis of the carotid bulbs. THORACIC SPINE: ALIGNMENT: Mild dextroconvex curvature and mild kyphosis of thoracicspine curvature without significant listhesis. No traumatic malalignment. BONES: Vertebral body heights are maintained without evidence of acute fracture. Osseous structures are markedly demineralized. DISCS: Multilevel advanced disc space narrowing. DEGENERATIVE CHANGES: Overall moderate multilevel degenerative changes. SPINAL CANAL/NEUROFORAMEN: No significant osseous spinal canal stenosis. Multilevel neuroforaminal narrowing that is high-grade at the bilateral T10-T11 level. SOFT TISSUES: Posterior paraspinal soft tissues are unremarkable. OTHER: Small bilateral pleural effusions with associated passive atelectasis, which is better evaluated on concurrently reported chest, abdomen, an pelvis CT. Bbxo-ew-bowncjnp calcific atherosclerosis of the thoracic aorta. LUMBAR SPINE: ALIGNMENT: Mild levoconvex curvature of the lumbar spine withapproximately 7 mm right lateral listhesis of L1 relative to L2. Minimalretrolistheses of L1 on L2 and L2 on L3. Degenerative-related grade 1 anterolisthesisof L4 on L5 (measuring 3 mm) and L5 on S1 (measuring 7 mm). No traumatic malalignment. BONES: Vertebral body heights are maintained without evidence of acute fracture. Anterior aspect of the L3 vertebral body with a circumscribed sclerotic lesion measuring up to 1 cm (12/18, ), which favors abenign enostosis (i.e. bone island). Osseous structures are markedly demineralized. DISCS: Multilevel advanced disc space narrowing, which is severe at the L1-L2 and L2-L3 levels and ipvkrlsd-dz-bvsffp elsewhere. Vacuumphenomenon at multiple levels. Degenerative-related endplate sclerotic change atthe L1-L2 and L2-L3 levels. DEGENERATIVE CHANGES: Overall severe multilevel degenerative change, characterized by varying degrees of posterior disc bulges, ligamentum flavum hypertrophy, and facet arthropathy. SPINAL CANAL/NEUROFORAMEN: Multilevel spinal canal stenoses that is moderate at the L1-L2 level and jidpjjdk-im-quefib from the L2-E4iopuqix the L5-S1 levels secondary to posterior disc bulges/osteophytecomplexes, ligamentum flavum hypertrophy, and facet arthropathy. Multilevel spinal canal stenoses that is severe at the right greater than left L1-G4rhzwj, moderate at the bilateral L3-L4 level, and severe at the bilateral L5-S1 level. SOFT TISSUES: Posterior paraspinal soft tissues are unremarkable. OTHER: Partially imaged large volume ascites throughout the abdomen and pelvis. Partially imaged liver with a shrunken appearance and nodular surface suggestive of cirrhosis. Scarred atrophic left kidney with asmall nonobstructive stone. Right kidney with a cyst measuring 1.1 cm.Multiple sigmoid colon diverticula without evidence of diverticulitis. These findings are better evaluated on concurrently reported chest, abdomen,and pelvis CT. IMPRESSION: 1.No acute intracranial abnormality. 2.No acute fracture or traumatic malalignment of the cervical, thoracic,or lumbar spine. 3.Heterogeneous thyroid with a right lobe nodule measuring up to 4.2 cm. Recommend follow-up nonemergent outpatient thyroid ultrasound if not recently performed. 4.Please refer to concurrently reported chest, abdomen, and pelvis CTfor description of additional nonspine-related abnormalities. > Dictated by Josh Ortega DO (resident physician in radiology). I, Jazmyn Ferris MD, PhD have personally reviewed and interpreted this examination/study. > Interpreting Provider: Jazmyn Ferris MD, PhD on 06/24/2023 7:11 PM Alexander Damico MD CT ORDERABLES * XR PELVIS 1 OR 2VW (06/24/2023 4:34 PM ADULT CARE MANAGER) Anatomical Region Laterality Modality Pelvis Radiographic Shila ging 06/24/2023 4:13 PM ADULT CARE MANAGER Impressions 06/25/2023 2:38 PM ADULT CARE MANAGER IMPRESSION: No acute fracture identified. Report dictated by Josh Ortega DO (resident physician in radiology). Josh Muñiz DO have personally reviewed and interpreted this examination/study. > Interpreting Provider: Josh Valentine DO on 06/25/2023 2:38 PM Narrative 06/25/2023 2:38 PM ADULT CARE MANAGER PROCEDURE: XR PELVIS 1 OR 2VW, DATE/TIME OF EXAM: 06/24/2023 4:07 PM, LOCATION [facility] INDICATION: Trauma Fracture suspected COMPARISON: None. FINDINGS: No acute fracture is identified. The femoral heads appear well-seated within their respective acetabula. The pubic symphysis is intact. Bone density and texture are normal. The sacroiliac joints are normal. Procedure Note Josh Valentine DO - 06/25/2023 PROCEDURE: XR PELVIS 1 OR 2VW, DATE/TIME OF EXAM: 06/24/2023 4:07 PM, LOCATION [facility] INDICATION: Trauma Fracture suspected COMPARISON: None. FINDINGS: No acute fracture is identified. The femoral heads appear well-seated within their respective acetabula. The pubic symphysis is intact. Bone density and texture are normal. The sacroiliac joints are normal. IMPRESSION: No acute fracture identified. Report dictated by Josh Ortega DO (resident physician in radiology). Josh Muñiz DO have personally reviewed and interpreted this examination/study. > Interpreting Provider: Josh Valentine DO on 06/25/2023 2:38 PM Alexander Damico MD DIAGNOSTIC IMAGING O RDERABLES * (ABNORMAL) PTT [facility] (06/24/2023 4:05 PM ADULT CARE MANAGER) APTT 43.6(H) 23.0 - 38.4 Seconds 06/24/2023 4:49 PM ADULT CARE MANAGER [facility] Comment:Suggested therapeuti c range for full dose I.V. unfractionated heparin therapy for venous thromboembolism is 71 to 109 seconds. Blood BLOOD SPECIMEN / Unknown Venipuncture / Unknown 06/24/2023 4:05 PM ADULT CARE MANAGER 06/24/2023 4:23 PM ADULT CARE MANAGER Alexander Damico MD LAB - COAGULATION OR DERABLES [facility] [address] [place] [address], [facility] [phone] * TYPE + SCREEN PANEL (06/24/2023 4:05 PM ADULT CARE MANAGER) [facility] Antibody Screen NEG 4:52 PM ADULT CARE MANAGER [facility] ABO Rh A POS 06/24/2023 4:52 PM [facility] Blood Bank BLOOD SPECIMEN / Unknown Venipuncture / Unknown 06/24/2023 4:05 PM ADULT CARE MANAGER 06/24/2023 4:14 PM ADULT CARE MANAGER Alexander Damico MD LAB - BLOOD BANK ORD ERABLES Performing Organization Address [facility]/ZIP Co de Phone Number [facility] [address] [place] [address], [facility] [phone] * (ABNORMAL) CBC W AUTO DIFFERENTIAL (06/24/2023 4:05 PM ADULT CARE MANAGER) Only the most recent of4 resultswithin the time period is included. [facility] WBC 6.7 3.5 - 10.5 10 3/uL 06/24/2023 4:36 PM [facility] RBC 3.66(L) 3.80 - 5.20 10 6/uL 06/24/2023 4:36 PM [facility] Hemoglobin 9.9(L) 12.0 - 15.6 g/dL 06/24/2023 4:36 PM [facility] Hematocrit 31.7(L) 35.0 - 45.0 % 06/24/2023 4:36 PM [facility] MCV 86.6 80.7 - 98.3 fL 06/24/2023 4:36 PM [facility] MCH 27.0 26.7 - 34.0 pg 06/24/2023 4:36 PM [facility] MCHC 31.2 30.8 - 35.9 g/dL 06/24/2023 4:36 PM [facility] RDW-SD 52.4(H) 36.0 - 50.0 fL 06/24/2023 4:36 PM [facility] RDW-CV 16.9(H) 11.2 - 14.8 % 06/24/2023 4:36 PM [facility] Platelet Count 233 150 - 400 10 3/uL 06/24/2023 4:36 PM [facility] MPV 8.8(L) 9.4 - 12.9 fL 06/24/2023 4:36 PM [facility] nRBC Absolute 0.00 0 10 3/uL 06/24/2023 4:36 PM [facility] nRBC Auto 0.0 0 /100 WBC 06/24/2023 4:36 PM [facility] Neutrophils % 81.3(H) 35.0 - 70.0 % 06/24/2023 4:36 PM [facility] Lymphocytes % 8.6(L) 20.0 - 43.0 % 06/24/2023 4:36 PM [facility] Monocytes % 6.1 5.0 - 13.0 % 06/24/2023 4:36 PM [facility] Eosinophils % 3.0 0.0 - 6.0 % 06/24/2023 4:36 PM [facility] Basophil % 0.4 0.0 - 2.0 % 06/24/2023 4:36 PM [facility] Neutrophils Absolute 5.45 1.60 - 7.00 10 3/uL 06/24/2023 4:36 PM [facility] Lymphocyte Absolute 0.58(L) 1.10 - 3.90 10 3/uL 06/24/2023 4:36 PM [facility] Monocytes Absolute 0.41 0.26 - 1.07 10 3/uL 06/24/2023 4:36 PM [facility] Eosinophils Absolute 0.20 0.00 - 0.47 10 3/uL 06/24/2023 4:36 PM [facility] Basophils Absolute 0.03 0.00 - 0.08 10 3/uL 06/24/2023 4:36 PM [facility] Immature Granulocytes % 0.6 0.0 - 1.0 % 06/24/2023 4:36 PM [facility] Immature Granulocytes Absolute 0.04 06/24/2023 4:36 PM [facility] Blood BLOOD SPECIMEN / Unknown Venipuncture / Unknown 06/24/2023 4:05 PM ADULT CARE MANAGER 06/24/2023 4:23 PM ADULT CARE MANAGER Alexander Damico MD LAB - HEMATOLOGY ORD AMY Performing Organization Address [facility]/ZIP Co de Phone Number [facility] [address] [place] [phone], [facility] [phone] * ALCOHOL ETHYL BLOOD (06/24/2023 4:05 PM ADULT CARE MANAGER) Ethanol (mg/dL) <10 <10 mg/dL 4:52 PM [facility] Ethanol Calculated (g/dL) <0.010 <=0.010 g/dL 06/24/2023 4:52 PM [facility] Blood BLOOD SPECIMEN / Unknown Venipuncture / Unknown 06/24/2023 4:05 PM ADULT CARE MANAGER 06/24/2023 4:23 PM ADULT CARE MANAGER Narrative [facility] - 06/24/2023 4:52 PM ADULT CARE MANAGER Ethanol Interp <10: None Detected. Depression of GUITAR TECHNICIAN: >100 mg/dl Potentially Critical: >250 mg/dl Potentially Fatal >400 mg/dl Ethanol in the patient's blood will contribute to the osmolar gap. Ethanol's contribution to the osmolar gap can be estimated by dividing the concentration of ethanol in mg/dL by 4.6. This test is for clinical use only and does not equal a MICHELLE for legal purposes. Alexander Damico MD LAB - CHEMISTRY ARMIN HARRIS Performing Organization Address City/[facility]/ZIP Co de Phone Number [facility] [address] [place] [phone], [facility] [phone] * ECHOCARDIOGRAM 2D WITH DOPPLER (10/23/2020 7:27 AM CDT) Only the most recent of4 resultswithin the time period is included. 10/23/2020 7:27 AM CDT Narrative Procedure Note Mandy Hitchcock DO - 10/23/2020 . [facility] [address] [place] [address] Echocardiography Examination Transthoracic Name: MARY BETH GUTIERREZ MPI#: MR#: [id number] Admission Number: [id number] Study Date: 10/23/2020 Study Time: 06:36 AM Date Of : 1935 Age: 85 years Height: 58 in. (147.3 cm) Weight: 184 lbs. (83.46 kg) BSA: 1.76 m2 Gender: Female Blood Pressure: 164 mmHg / 90 mmHg Heart Rate: Exam Details Procedure Ordered: ECHOCARDIOGRAM 2D W/DOPPLER Procedure Components: Complete 2D, M-mode, complete spectral Doppler, color Doppler Procedure Status: Routine study Facility Location: [facility] Indication: Shortness of Breath Procedure Production Support Consultant: DARRELL Salazar,RDCS,RVT Ordering Provider: KEIRY JONES Reading Physician: Mandy Hitchcock, DO Conclusions Left Ventricle: Left ventricle is normal in size. Normal global systolic left ventricular function. EF range is 70 % -75 %. Left ventricle wall thickness is mildly to moderately increased. There are no regional wall motion abnormalities. Diastolic function is indeterminate. Right Ventricle: Moderately dilated right ventricle. Right ventricular systolic function is mildly reduced. Pulmonary artery pressure moderately increased. Aortic Valve: There is mild to moderate aortic stenosis. Peak velocity 2.2 m/s with mean gradient 10 mmHg. DI 0.42-0.50. Tricuspid Valve Measurements RVSP: 57 mmHg. Patient: MARY BETH GUTIERREZ Study Date: 10/23/2020 06:36 AM Page 1 of 4 Follow up: Findings Left Ventricle: Left ventricle is normal in size. Normal global systolic left ventricular function. EF evaluated by biplane method of disks. Left ventricle wall thickness is mildly to moderately increased. There are no regional wall motion abnormalities. Diastolic function is indeterminate. Right Ventricle: Moderately dilated right ventricle. Right ventricular wall thickness is normal. Right ventricular systolic function is mildly reduced. Pulmonary artery pressure moderately increased. Left Atrium: The left atrium is severely dilated. Right Atrium: The right atrium is markedly dilated. Mitral Valve: Mitral leaflets exhibit normal cuspal separation. No mitral regurgitation. No mitral valve stenosis. There is annular calcification. Aortic Valve: Aortic leaflets exhibit moderately reduced cuspal separation. No aortic valve regurgitation. There is mild to moderate aortic stenosis. Peak velocity 2.2 m/s with mean gradient 10 mmHg. DI 0.42-0.50. Aortic leaflets exhibit calcification. Tricuspid Valve: Tricuspid valve leaflets are normal. Mild tricuspid regurgitation. No tricuspid valve stenosis. Pulmonic Valve: Pulmonic leaflets exhibit normal cuspal separation. No pulmonic valve regurgitation is evident. There is no pulmonic valve stenosis. Aorta: The aorta is normal. No dilation of the ascending aorta. The aortic root exhibits normal size. Great Vessels: IVC: The inferior vena cava is normal in size and course. Pericardium: The pericardium is normal in appearance. No pericardial effusion. Clinical Data Hypertension: Yes Known CAD: Yes Comment: Pulmonary HTN, Paroxysmal atrial fibrillation, Pure hypercholesterolemia, SOB Measurements Anatomy Label Value Normal Value Aorta AoRoot, 2D 2.7 cm (1.4cm - 2.6cm) Aortic Valve AV Vmean 1.43 m/s Aortic Valve AV VTI 42.91 cm Aortic Valve AV PGmax 20 mmHg Aortic Valve AV PGmean 10 mmHg Aortic Valve AV Vmax, Curve 2.23 m/s (1m/s - 1.7m/s) Aortic Valve LVOT VTI / AV VTI 0.55 Aortic Valve NASEEM D (continuity eq. VTI) 1.4 cm Aortic Valve NASEEM Index (continuity 0.68 cm /m Patient: MARY BETH GUTIERREZ Study Date: 10/23/2020 06:36 AM Page 2 of 4 eq.Vmax) Aortic Valve LVOT Vmax / AV Vmax 0.48 Inferior Vena Cava IVC 2.6 cm (1.2cm - 2.3cm) Interventricular septum IVSd, 2D 1.2 cm (0.6cm - 1.1cm) Left Atrium LADs, 2D 5.4 cm (2.7cm - 3.8cm) Left Atrium LA Area s, A4C 40.7 cm (0cm - 20cm ) Left Atrium LA Area s, A2C 34 cm (0cm - 20cm ) Left Atrium LAESV, MOD4 173 ml (22ml - 52ml) Left Atrium LAESV, MOD2 128 ml (22ml - 52ml) Left Atrium LAESV index, MOD4 98.3 ml/m Left Atrium LAESV index, MOD2 72.7 ml/m Left Atrium LAESV index, AL4 111.4 ml/m Left Atrium LAESV index, AL2 76.7 ml/m Left Ventricle LVOT Vmax 1.07 m/s (0.7m/s - 1.1m/s) Left Ventricle LVOTd 1.8 cm (1.8cm - 2cm) Left Ventricle LVOT VTI 23.72 cm (18cm - 22cm) Left Ventricle LVOT PGmax 5 mmHg Left Ventricle LVDd, 2D 4.6 cm (3.7cm - 5.2cm) Left Ventricle LVDs, 2D 3 cm (2.2cm - 3.5cm) Left Ventricle LVPWd, 2D 1.2 cm (0.6cm - 0.9cm) Left Ventricle FS, 2D 34.78 % Left Ventricle LVEDV, BP 64 ml (56ml - 104ml) Left Ventricle LVESV, BP 14 ml (19ml - 49ml) Left Ventricle LVEDV Index, BP 36.4 ml/m (35ml/m - 75ml/m ) Left Ventricle LVESV Index, BP 8 ml/m (12ml/m - 30ml/m ) Left Ventricle LVOT PGmean 2 mmHg Left Ventricle LVOT Vmean 0.73 m/s Left Ventricle EF lower range (%) 70 % Left Ventricle EF upper range (%) 75 % Left Ventricle Diastolic MV E Vmax 1.04 m/s Function Mitral Valve MV Vmax 1.25 m/s Mitral Valve MV Vmean 0.66 m/s Mitral Valve MV VTI 23.94 cm Mitral Valve MVA D (continuity eq.) 2.6 cm Mitral Valve MV PGmax 6 mmHg Mitral Valve MV PGmean 2 mmHg Mitral Valve MVA PHT 3.5 cm Mitral Valve MV PHT 63 ms Right Ventricle Diastolic TR Pmax 49 mmHg Function Right Ventricle Diastolic PV AT 88 ms Function Tricuspid Valve RVSP 57 mmHg Tricuspid Valve RA Pressure 8 mmHg Tricuspid Valve TR Vmax 3.52 m/s (No Signature Object) Patient: MARY BETH GUTIERREZ Study Date: 10/23/2020 06:36 AM Page 3 of 4 Patient: MARY BETH GUTIERREZ Study Date: 10/23/2020 06:36 AM Page 4 of 4 Keiry Jones [facility] DIRECTOR ECHO ORDERAB LES [facility] [address] [place] [address] * MONITOR - HOLTER (12/15/2018) Impressions Boy Cast MD - 12/15/2018 [facility] Heart & Vascular Care - Holter Monitor Name: Mary Beth Gutierrez : 1935 Primary Care Physician:Ed Patel MD Referring Physician: Michael Mondragon MD Clinical Indication: Palpitations. A 14 day holter was placed on 11/27/18. Findings: 14 day holter demonstrates sinus rhythm with an average heart rate of 66 bpm. The minimum HR was 40 bpm at 1:29am and the maximum HR was 149 bpm at 9:11am. There were episodes of atrial fibrillation 13.2 % of the time with the longest episode lasting 44 hr. There were 116 pauses up to 2.4 sec mostly overnight. There were very rare isolated atrial ventricular premature complexes. The patient recorded 13 episodes without specifying symptoms. Corresponding strips demonstrate sinus. Conclusion: 1. Sinus rhythm with paroxysmal atrial fibrillation. Overall, the patient was in AFib 13 % of the time. 2. There were rare pauses up to 2.4 sec overnight. 3. The patient recorded 13 episodes without specifying symptoms. Corresponding strips demonstrate sinus. Thank you. Please do not hesitate to call if there are any questions. Boy Cast MD [facility] - Heart & Vascular Care Office Michael Mondragon MD CARDIAC SERVICES ORD ERABLES * LAB RESULTS ORDER (10/25/2018) Scanned Document LAB - THERAPEUTIC DR UG MONITORING ORDERABLES * XR CHEST PA AND LATERAL (01/18/2017 1:58 PM CDT) Only the most recent of2 resultswithin the time period is included. Anatomical Region Laterality Modality Chest Radiographic Shila ging 01/18/2017 2:05 PM CDT Narrative 01/18/2017 2:05 PM CDT Exam: PA and lateral views of the chest. History: Other forms of dyspnea Findings/Impression: Comparison is made with the previous exam of 2016. Sternotomy wires are present in the midline No focal consolidation, pleural effusion, or pneumothorax is identified. There are opacities seen in the left lung base representing atelectasis/airspace disease. There is also eventration of the right hemidiaphragm. The heart is enlarged. The mediastinal contours appear normal. Procedure Note Ankur Palacios MD - 01/18/2017 Exam: PA and lateral views of the chest. History: Other forms of dyspnea Findings/Impression: Comparison is made with the previous exam of 2016. Sternotomy wires are present in the midline No focal consolidation, pleural effusion, or pneumothorax is identified. There are opacities seen in the left lung base representing atelectasis/airspace disease. There is also eventration of the right hemidiaphragm. The heart is enlarged. The mediastinal contours appear normal. Miguelito Wall MD DIAGNOSTIC IMAGING O RDERABLES * COMPLETE PFT W/WO BRONCHODILATOR (10/27/2016 11:57 AM CDT) Narrative [facility] - 10/27/2016 11:57 AM CDT Miguelito Wall MD 10/27/2016 11:57 AM PULMONARY FUNCTION TEST FVC 1.49 L, 74% predicted. Post bronchodilators 1.25 L, 62% predicted . FEV1 1.19 L, 77 % predicted. Post bronchodilator 1.22 L, 79% predicted. FEV1/ FVC ratio is 80%. FEF 25-75% 1.21L, 87% of predicted TLC 2.79 L, 79% of predicted RV/ TLC ratio 45%, 104 % of predicted. DLCO 9.3 mL / min/ mmHg 51% of predicted. DLCO/VA 1.09 mL / min/ mmHg/L 121% of predicted. Interpretation: Mild reduction in FVC and FEV1 with normal FEV1/ FVC ratio. Lung volumes show mild reduction in TLC with normal RV/ TLC ratio. Diffusion capacity is decreased, but when adjusted for lung volumes the results were normal. Impression: Mild restrictive defect with no obstructive defect. There is no significant response to bronchodilators, but that does not preclude their clinical use. The reduction in diffusion capacity with normal DLCO/ VA could be due to the reduction in lung volumes due to the measurement maneuver. However COPD, interstitial lung disease and pulmonary vascular disease can also decrease diffusion capacity. Please correlate clinically. Miguelito Wall MD, [facility] Be advised that voice recognition software was used in the production of this record. Errors in interpretation may have been inadvertently missed during review. Miguelito Wall MD RESPIRATORY THERAPY ORDERABLES [facility] * CARDIAC CATH PROCEDURE (2016 6:09 PM ADULT CARE MANAGER) Narrative [facility] - 2016 6:09 PM ADULT CARE MANAGER Michael Mondragon MD 2016 6:09 PM POST CORONARY ANGIOGRAPHY/INTERVENTION PROCEDURE NOTE Patient Name: Mary Beth Gutierrez :1935 Physician Name: Michael Mondragon MD Pre-Procedural Diagnosis: Angina, + stress test Procedure Performed: Left Heart Cath, Visualization of Bypass Grafts, Percutaneous Coronary Intervention Indications: 1.CAD Presentation - Stable Angina Procedure: 1. Left heart cath 2. LV gram 3. Coronary angiography. 4. Moderate sedation - After a time-out was performed, conscious sedation (IV fentanyl + IV versed) was administered by CCL RN under direct physician supervision (supervision time from 10.30 am to 1 pm). 5. PTCA/stenting of proximal RCA 85% to 0% 6. Visualization of bypass grafts LVgram: LVEF: 75%. Wall motion - hypercontractile. Mitral regurgitation - minld LVEDP: 15 mmHg Coronary results: R dominant circulation a)LM - 40% distal b)LAD - large. Diffuse 60% proximal/mid stenosis. D1 - occluded. Filled by SVG. c)CIRC - large. Mid L cx stent has 60-70% stenosis. d)RCA - dominant. Calcified. Diffuse disease. Proximal 85% diffuse stenosis. Mid - 50%. 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 She declined trying this again. Michael Mondragon MD [facility] Interventional Cardiology [facility] Heart institute Office Michael Mondragon MD CARDIAC SERVICES ORD ERABLES [facility] * CARDIAC CATH CONSULT (for Epic Reporting) (2016 6:09 PM ADULT CARE MANAGER) Narrative [facility] - 2016 6:09 PM ADULT CARE MANAGER Michael Mondragon MD 2016 6:09 PM POST CORONARY ANGIOGRAPHY/INTERVENTION PROCEDURE NOTE Patient Name: Mary Beth Gutierrez :1935 Physician Name: Michael Mondragon MD Pre-Procedural Diagnosis: Angina, + stress test Procedure Performed: Left Heart Cath, Visualization of Bypass Grafts, Percutaneous Coronary Intervention Indications: 1.CAD Presentation - Stable Angina Procedure: 1. Left heart cath 2. LV gram 3. Coronary angiography. 4. Moderate sedation - After a time-out was performed, conscious sedation (IV fentanyl + IV versed) was administered by CCL RN under direct physician supervision (supervision time from 10.30 am to 1 pm). 5. PTCA/stenting of proximal RCA 85% to 0% 6. Visualization of bypass grafts LVgram: LVEF: 75%. Wall motion - hypercontractile. Mitral regurgitation - minld LVEDP: 15 mmHg Coronary results: R dominant circulation a)LM - 40% distal b)LAD - large. Diffuse 60% proximal/mid stenosis. D1 - occluded. Filled by SVG. c)CIRC - large. Mid L cx stent has 60-70% stenosis. d)RCA - dominant. Calcified. Diffuse disease. Proximal 85% diffuse stenosis. Mid - 50%. 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 She declined trying this again. Michael Mondragon MD [facility] Interventional Cardiology [facility] Heart institute Office Michael Mondragon MD ECHO ORDERABLES [facility] [address] [place] [address] * PULMONARY/RESPIRATORY REPORT ORDER (10/05/2016 5:53 AM ADULT CARE MANAGER) Narrative 10/05/2016 5:53 AM ADULT CARE MANAGER Ordered by an unspecified provider. Scanned Document RESPIRATORY THERAPY ORDERABLES * CARDIAC PROCEDURE ORDER (10/05/2016 5:53 AM ADULT CARE MANAGER) Narrative 10/05/2016 5:53 AM ADULT CARE MANAGER Ordered by an unspecified provider. Scanned Document CARDIAC SERVICES ORD ERABLES * CARDIAC RHYTHM STRIP ORDER (10/05/2016 5:05 AM ADULT CARE MANAGER) Only the most recent of2 resultswithin the time period is included. Narrative 10/05/2016 5:05 AM ADULT CARE MANAGER Ordered by an unspecified provider. Scanned Document CARDIAC SERVICES ORD ERABLES * (ABNORMAL) ACT - POINT OF CARE (09/30/2016 2:25 PM ADULT CARE MANAGER) ACT POCT 111(A) 125 - 187 Seconds [facility] POCT TESTING QC Verified Yes Yes [facility] POC T TESTING Blood BLOOD SPECIMEN / Unknown 09/30/2016 2:25 PM ADULT CARE MANAGER Michael Mondragon MD LAB - POINT OF CARE ORDERABLES [facility] POCT TESTING [address] [phone] * (ABNORMAL) BLOOD GASES ART (09/30/2016 11:12 AM ADULT CARE MANAGER) pH Arterial 7.38 7.35 - 7.45 pH 09/30/2016 11:45 AM ADULT CARE MANAGER [facility] RESP THERAPY pCO2 Arterial 45 35 - 45 mm hg 09/30/2016 11:45 AM ADULT CARE MANAGER [facility] RESP THERAPY pO2 Arterial 47(LL) 80 - 100 mm hg 09/30/2016 11:45 AM ADULT CARE MANAGER [facility] RESP THERAPY HCO3 Arterial 26 22 - 26 mmol/L 09/30/2016 11:45 AM ADULT CARE MANAGER [facility] RESP THERAPY BE Arterial 0.5 -2.0 - 2.0 mmol/L 09/30/2016 11:45 AM ADULT CARE MANAGER [facility] RESP THERAPY O2 Saturation Arterial 81(L) 90 - 100 % 09/30/2016 11:45 AM ADULT CARE MANAGER [facility] RESP THERAPY Hemoglobin Arterial 13.4(L) 14.0 - 16.0 gm/dL 09/30/2016 11:45 AM ADULT CARE MANAGER [facility] RESP THERAPY Carboxyhemoglobin Arterial 0.6 0.0 - 2.5 % 09/30/2016 11:45 AM ADULT CARE MANAGER [facility] RESP THERAPY Methemoglobin Arterial 0.5 0.0 - 2.0 % 09/30/2016 11:45 AM ADULT CARE MANAGER [facility] RESP THERAPY Oxyhemoglobin Arterial 80 % 09/30/2016 11:45 AM ADULT CARE MANAGER [facility] RESP THERAPY Mode Room Air 09/30/2016 11:45 AM ADULT CARE MANAGER [facility] RESP THERAPY Sumanth's Test N/A 09/30/2016 11:45 AM ADULT CARE MANAGER [facility] RESP THERAPY Sample Site R Radial 09/30/2016 11:45 AM ADULT CARE MANAGER [facility] RESP THERAPY Sample Type Arterial 09/30/2016 11:45 AM ADULT CARE MANAGER [facility] RESP THERAPY Controls Operator [employer] ID [id number] 09/30/2016 11:45 AM ADULT CARE MANAGER [facility] RESP THERAPY Notified Who Cat lab 09/30/2016 11:45 AM ADULT CARE MANAGER [facility] RESP THERAPY Notification Time 09/30/2016 11:45 09/30/2016 11:45 AM ADULT CARE MANAGER [facility] RESP THERAPY Notified By Vinay Dickey RCP 09/30/2016 11:45 AM ADULT CARE MANAGER [facility] RESP THERAPY Blood ARTERIAL BLOOD SPECIMEN / Unknown 09/30/2016 11:12 AM ADULT CARE MANAGER 09/30/2016 11:12 AM ADULT CARE MANAGER Michael Mondragon MD LAB - BLOOD GASES OR DERABLES Performing Organization Address [facility] Co de Phone Number [facility] RESP THERAPY [address] * PT-INR (09/28/2016 3:51 PM ADULT CARE MANAGER) INR 1.0 [facility] Comment: Reference Range 0.9-1.1 Moderate-intensity Warfarin Therapy 2.0-3.0 Higher-intensity Warfarin Therapy 3.0-4.0 PT 10.1 9.0 - 11.5 sec [facility] Comment: For more information on this test, go to: [email or web address].[email or web address].COM/faq/[email or web address] REPORT COMMENT: FASTING:NO Test Performed at: [facility] [address] [place] [address] BRADLEY LEES DO,MPH Blood BLOOD SPECIMEN / Unknown 09/28/2016 3:51 PM ADULT CARE MANAGER 09/28/2016 3:51 PM ADULT CARE MANAGER Michael Mondragon MD LAB - COAGULATION OR DERABLES Performing Organization Address City/[facility]/ZIP Co de Phone Number [facility] [address] [place] [address] * NM MYOCARD PERFUSION SPECT STRESS AND REST (09/22/2016 10:51 AM ADULT CARE MANAGER) Only the most recent of2 resultswithin the time period is included. Anatomical Region Laterality Modality Chest Nuclear Digisoni cs 09/22/2016 8:48 AM ADULT CARE MANAGER Narrative Procedure Note Boy Cast MD - 09/22/[address] [place] [address] [facility] Myocardial Perfusion Scan Report Pat.Name: MARY BETH GUTIERREZ Pat.ID: [id number] St.Date: 09/22/2016 Refer.MD: Ed Patel MD Exam Time: 8:48:00 AM Study Type:Nuclear Myocardial Perfusion Scan Weight: 186lb Age: 3 1935,80Y Sex: FEMALE Sonogrphr: RYAN Kim Reason for Study:CAD, Chest pain, Dyspnea on exertion Procedures:Lexiscan Perfusion Scan, Gated Stress Visit ID: [id number] Nurse: RAMSES Valencia Risk Factors:Hypertension, Hypercholesterolemia, Family history Clinical Symptoms:Chest pain/tightness/pressure, Dyspnea on exertion Surgery: Cardiac Stent Placement, Coronary Artery Bypass Graft- 2007 Medications:Aspirin, Atenolol, Lisinopril, Norvasc, Eye drops, Zetia, Imdur, HCTZ Supervised by:RAMSES Valencia SUMMARY: FINDINGS: Myocardial perfusion imaging reveals a moderate sized area of moderately decreased activity in the anterior wall which is reversible between both imaging sets and is consistent with ischemia. The remaining lira demonstrate normal perfusion. LV cavity size appears normal in both imaging sets. Gated myocardial imaging reveals normal LV systolic function with a calculated ejection fraction of 80%. SUMMARY: 1. Abnormal myocardial perfusion study with a moderate sized area of likely moderate ischemia in the anterior wall. 2. Gated images reveal normal LV systolic function. STRESS: Baseline Vital Signs: Intervention: Lexiscan Peak Dose: 0.4 mg Stress Test Results: Target HR: 119 Symptoms and Complications: Signed 09/22/2016 06:08 PM Boy Cast MD, [facility] Michael Mondragon MD [place] ORDERABLES * EVENT MONITOR (08/13/2014) Impressions Boy Cast MD - 08/13/2014 [facility] - Event Monitor Name: Mary Beth Gutierrez : 1935 Primary care provider: Ed Patel Referring provider: Michael Mondragon Clinical Indication: 78 yo woman with palpitations. A 30 day event monitor was placed on 07/10/14 until . Findings: 30 day automatic-recording event monitor demonstrates sinus rhythm with HR range 60-90 bpm. Automatic daily recordings demonstrated rare isolated atrial and ventricular premature complexes. There were no episodes of atrial fibrillation. The patient manually activated the monitor four times, once listing the symptom as fluttering. Corresponding strips demonstrate isolated PVCs. Conclusion: 1. 30 day automatic-recording event monitor demonstrates sinus rhythm with rare atrial and ventricular premature complexes. 2. There were no significant arrhythmias. 3. The patient manually activated the monitor four times, once listing the symptom as fluttering. Corresponding strips demonstrate isolated PVCs. Thank you. Please do not hesitate to call if there are any questions. Boy Cast MD [facility] Office Michael Mondragon MD CARDIAC SERVICES ORD ERABLES * CT ANGIO CHEST W WO CONTRAST (07/05/2014 6:07 AM ADULT CARE MANAGER) Anatomical Region Laterality Modality Chest Computed Tomogra phy 07/05/2014 7:44 AM ADULT CARE MANAGER Impressions 07/05/2014 8:49 AM ADULT CARE MANAGER Negative for pulmonary embolus. Edited by Lexy Tinsley on 07/05/2014 7:48 AM Narrative 07/05/2014 8:[address] angiogram pulmonary arteries. HISTORY: Chest pain, dyspnea. 100 cc Omnipaque 350 is utilized. 3-D MIPs images are provided. Images range from lung apices to the costophrenic sulci during contrast infusion. No filling defects in the pulmonary arteries to suggest pulmonary emboli are seen. There are few areas of groundglass opacification in the lungs. There is no pleural or pericardial effusion. A few small lymph nodes are seen in the mediastinum. A left thyroid lobe nodule or cyst is present. The aorta has normal caliber. A small left adrenal nodule may be present. Procedure Note Ghulam Terrazas MD - 07/05/2014 CT angiogram pulmonary arteries. HISTORY: Chest pain, dyspnea. 100 cc Omnipaque 350 is utilized. 3-D MIPs images are provided. Images range from lung apices to the costophrenic sulci during contrast infusion. No filling defects in the pulmonary arteries to suggest pulmonary emboli are seen. There are few areas of groundglass opacification in the lungs. There is no pleural or pericardial effusion. A few small lymph nodes are seen in the mediastinum. A left thyroid lobe nodule or cyst is present. The aorta has normal caliber. A small left adrenal nodule may be present. IMPRESSION Negative for pulmonary embolus. Edited by Lexy Tinsley on 07/05/2014 7:48 AM Derrick Hughes MD CT ORDERABLES * TROPONIN I (07/05/2014 3:52 AM ADULT CARE MANAGER) Only the most recent of2 resultswithin the time period is included. Troponin I 0.038 0.000 - 0.049 ng/mL 07/05/2014 4:37 AM [facility] Blood BLOOD SPECIMEN / Unknown Venipuncture / Unknown 07/05/2014 3:52 AM ADULT CARE MANAGER 07/05/2014 4:10 AM [facility] Narrative [facility] - 07/05/2014 4:37 AM [facility] Note: Diagnosis of myocardial infarction requires symptoms of ischemia or EKG changes of ischemia and TNI >99th of normal (0.05 ng/mL). Troponin should be drawn on initial assessment and 3-6 hours later as clinically indicated. Any condition resulting in myocardial cell damage can increase cardiac troponin levels. In addition to myocardial infarction, these include but are not limited to CHF, arrhythmia, myocarditis, and non-cardiac related causes such as pulmonary embolism, renal failure and sepsis. Derrick Hughes MD LAB - CHEMISTRY ARMIN HARRIS [facility] [address] [place] [address] * TSH (07/05/2014 3:52 AM ADULT CARE MANAGER) TSH 1.80 0.358 - 3.740 uIU/mL 07/05/2014 2:10 PM ADULT CARE MANAGER [facility] Comment: Blood BLOOD SPECIMEN / Unknown Venipuncture / Unknown 07/05/2014 3:52 AM ADULT CARE MANAGER 07/05/2014 1:42 PM ADULT CARE MANAGER Stevie Mathews MD LAB - CHEMISTRY ARMIN HARRIS Performing Organization Address [facility] Co de Phone Number [facility] [address] [place] [id number] * XR HIP 2+ VW RIGHT (12/11/2012 12:28 PM CDT) Anatomical Region Laterality Modality Pelvis, Lower Extremity Radiogra phic Imaging 12/11/2012 1:53 PM CDT Impressions 12/11/2012 1:53 PM CDT Unremarkable. Narrative 12/11/2012 1:53 PM CDT Right hip, two views DATE: 12/11/2012 INDICATION: Three weeks of hip pain FINDINGS: There is no fracture, dislocation or significant degenerative change. The joint space is preserved. Procedure Note Iris Pascal MD - 12/11/2012 Right hip, two views DATE: 12/11/2012 INDICATION: Three weeks of hip pain FINDINGS: There is no fracture, dislocation or significant degenerative change. The joint space is preserved. IMPRESSION Unremarkable. Ed Patel MD DIAGNOSTIC IMAGING O RDERABLES * XR LUMBAR SPINE 4+VW ROUTINE (12/11/2012 12:28 PM CDT) Anatomical Region Laterality Modality Spine Radiographic Shila ging 12/11/2012 1:55 PM CDT Impressions 12/11/2012 3:11 PM CDT Multilevel chronic spondylosis and degenerative disc disease. Narrative 12/11/2012 3:11 PM CDT LUMBOSACRAL SPINE, FIVE VIEWS DATE: 12/11/2012. INDICATION: Lower back pain. FINDINGS: All lumbar interspaces are narrowed and with vacuum disc phenomena indicating chronic degenerative disc disease. Lower lumbar facets are hypertrophied, greatest between L4 and S1. There is no fracture or subluxation. Oblique views do not demonstrate pars defects. The sacroiliac joints are patent. Procedure Note Iris Pascal MD - 12/11/2012 LUMBOSACRAL SPINE, FIVE VIEWS DATE: 12/11/2012. INDICATION: Lower back pain. FINDINGS: All lumbar interspaces are narrowed and with vacuum disc phenomena indicating chronic degenerative disc disease. Lower lumbar facets are hypertrophied, greatest between L4 and S1. There is no fracture or subluxation. Oblique views do not demonstrate pars defects. The sacroiliac joints are patent. IMPRESSION Multilevel chronic spondylosis and degenerative disc disease. Ed Patel MD DIAGNOSTIC IMAGING O RDERABLES * (ABNORMAL) URINALYSIS ROUTINE W/REFLEX TO CULTURE (09/12/2011 10:50 PM ADULT CARE MANAGER) Source Clean Catch [facility] Color UA Yellow [facility] Character UA Hazy [facility] Glucose UA NEGATIVE NEGATIVE mg/dl [facility] Bilirubin UA SMALL(H) NEGATIVE [facility] Ketone UA TRACE(H) NEGATIVE mg/dl [facility] Specific Bradley UA >=1.030(H) 1.003 - 1.030 [facility] Blood UA NEGATIVE NEGATIVE [facility] pH UA 5.0 5.0 - 9.0 [facility] Protein UA 30(H) NEGATIVE-TR MARZENA mg/dl [facility] Urobilinogen UA 0.2 0.2 - 1.0 Melina Units/dl [facility] Nitrite UA NEGATIVE NEGATIVE [facility] Leukocyte UA TRACE(H) NEGATIVE [facility] WBC UA 7-15(H) 0 - 2 HPF [facility] Epithelial Cell UA 4-5 Squamous None Seen HPF [facility] Mucus UA Few [facility] Bacteria UA Few(H) None Seen [facility] Urine Culture Reflexed to culture [facility] Urine specimen (specimen) URINE SPECIMEN OBTAINED BY CLEAN CATCH PROCEDURE / Unknown 09/12/2011 10:50 PM ADULT CARE MANAGER 09/12/2011 10:57 PM ADULT CARE MANAGER Ken Neely MD LAB - URINALYSIS ORD ERABLES Performing Organization Address [facility]/ZIP Co de Phone Number [facility] [address] [place] [address] * CULTURE URINE (09/12/2011 10:50 PM ADULT CARE MANAGER) Result [facility] Comment: Final CULTURE >10,000 CFU/mL of multiple bacterial morphotypes present. Suggest appropriate recollection with timely transportation to the laboratory if clinically indicated. URINE SPECIMEN OBTAINED BY CLEAN CATCH PROCEDURE / Unknown 09/12/2011 10:50 PM ADULT CARE MANAGER 09/12/2011 11:07 PM ADULT CARE MANAGER Narrative Resulting Agency Comment Performed By [facility];[address] [place] [address];[place] [address] Ken Neely MD LAB - MICROBIOLOGY O RDERABLES Performing Organization Address City/[facility] Co de Phone Number [facility] [address] [place] [address] * LIPASE BLOOD (09/12/2011 10:00 PM ADULT CARE MANAGER) Lipase 84 73 - 393 U/L [facility] Blood specimen (specimen) BLOOD SPECIMEN / Unknown 09/12/2011 10:00 PM ADULT CARE MANAGER 09/12/2011 10:08 PM ADULT CARE MANAGER Ken Neely MD LAB - CHEMISTRY ARMIN HARRIS Performing Organization Address City/[facility]/ZIP Co de Phone Number [facility] [address] [place] [address] * AMYLASE BLOOD (09/12/2011 10:00 PM ADULT CARE MANAGER) Amylase 25 15 - 115 U/L [facility] Blood specimen (specimen) BLOOD SPECIMEN / Unknown 09/12/2011 10:00 PM ADULT CARE MANAGER 09/12/2011 10:08 PM ADULT CARE MANAGER Ken Neely MD LAB - CHEMISTRY ARMIN HARRIS [facility] Organization Address City/State/ZIP Co de Phone Number [facility] [address] [place] [address] * XR ANKLE 3+VW LEFT ROUTINE (12/30/2009 12:34 PM CDT) Anatomical Region Laterality Modality Lower Extremity Radiographic Shila ging 12/30/2009 12:4 1 PM CDT Narrative 12/30/2009 12:42 PM CDT Three view left ankle CLINICAL INFORMATION: Injury and pain There is a nondisplaced distal fibular fracture. The tibiotalar articulation and talar dome is normal. Lateral soft tissue swelling is present. There is no joint effusion DIAGNOSIS: Distal fibular fracture and lateral soft tissue swelling. Procedure Note Derrick Wilkins MD - 12/30/2009 Three view left ankle CLINICAL INFORMATION: Injury and pain There is a nondisplaced distal fibular fracture. The tibiotalar articulation and talar dome is normal. Lateral soft tissue swelling is present. There is no joint effusion DIAGNOSIS: Distal fibular fracture and lateral soft tissue swelling. Ed Patel MD [facility] Care Teams Bilingual Sales Assistant Relationship Specialty Start Date End Date Ed Patel MD [address] [place] [address] [place] [phone] PCP - General 12/30/09 Denia Wick RN Automotive Service Porter 07/05/14 Michael Mondragon MD Cardiovascular Disease 11/27/18 Keiry Jones, CAR DISPATCHER-COMMUNITY CENTER DIRECTOR [facility] Heart [place] [address] [place] [address] [address] [place] [address] Nurse Practitioner Cardiology 11/20/20
--- OUTSIDE RECORDS SUMMARY | 2024-10-11 13:05 | XMS_ITS | Continuity of Care Document ---
Author Organization [facility] [place] [address] [place] [address] [address] [place] [address] Phone Care Team Providers Care Raschel Knitting Machine Operator Name Role Phone [facility] Unavailable Unavail able Sickage, Natasha Unavailable Unavailable Advance Directives Directive Yes / No Effective Date File Name No Information Encounters Encounter Description Practice Location Reason(s) For Visit Diagnoses Date Provider Providers Copied on Encounter [facility], [address], [place], [place], [id number], [place] tel:[phone] [facility] [place] No Information [facility]. [address] [facility], [address], [place], [place], [address] , [place]. tel:[phone] Referring Provider: Shanna Pérez, [address] [facility] [place] [address], [place], [address]. tel:[phone] sulting Provider: Natasha Celis, [address] [place] [address], [address]. tel:[phone] Family History Family Member Type Diagnosis Age [...]
--- OUTSIDE RECORDS SUMMARY | 2024-10-11 13:05 | XMS_ITS | CONTINUITY OF CARE DOCUMENT ---
Author Name kelseyajaymarcie Address Unknown Organization [facility] Address [address] [facility] [address] [place] [address] Phone [phone] Care Team Providers Care Stock Sheets Cleaner Inspector Name Role Phone Edgar PIZARRO, Guy Unavailable FRANK MALIN Unavailable [phone] FRANK MALIN Unavailable [phone] INSURANCE PROVIDERS Payer name Policy type / Coverage type [place] red green party ID AARP MEDICARE ADVANTAGE ([facility] COMPLETE PPO) Other [id number]
[2024-10-15 08:28] LABS: Alpha Fetoprotein Tumor Marker 2.8 ng/mL
== END 2024-10-11 11:25 | disposition home or self-care (01) ==
PROVIDERS: PCP Nurse Practitioner; Visit Provider Nurse Practitioner
DX: J90 Pleural effusion, not elsewhere classified (principal); K74.60 Unspecified cirrhosis of liver; R18.8 Other ascites
CPT/HCPCS: 36415; 71046; 80053; 82105; 85027; 85610

== ENCOUNTER 2024-10-12 16:26 | Inpatient (IN) | payer MEDICARE, SELFPAY ==
--- NOTE | ~2024-10-12 | US_ITS ---
EXAMINATION: US thoracentesis DATE: 10/13/2024 10:26 INDICATION: pleural effusion TECHNIQUE: The procedure and its risks, benefits, and alternatives were discussed with the patient. P otential risks discussed included bleeding, infection, and pneumothorax. The patient understood the r isks and agreed to proceed. The skin was prepped and draped in sterile fashion. 1% lidocaine was used for local anesthesia. Under ultrasound guidance, a 5 Fr catheter with trochar was advanced into the right pleural effusion. Fluid was aspirated. The catheter was removed, and a dressing was applied. Th ere were no immediate complications. FINDINGS: Ultrasound images demonstrate a right pleural effusion and the catheter within the fluid. IMPRESSION: 1. Successful ultrasound-guided thoracentesis yielding 600 mL of isaias-colored fluid. Reviewed, dictated and finalized at location A. NG MACHINE OPERATOR
--- NOTE | ~2024-10-12 | XR_ITS ---
EXAMINATION: [id number] DATE: 10/13/2024 09:27 INDICATION: Right pleural effusion status post thoracentesis. TECHNIQUE: A single frontal view of the chest was obtained. COMPARISON: Chest 2 views 10/12/2024 FINDINGS: There is no pneumonia, pleural effusion, or pneumothorax. Cardiomegaly is noted. Median ashkan rnotomy wires and mediastinal surgical clips are seen, likely from prior coronary artery bypass graft ing. There is an old healed fracture of proximal right humerus. IMPRESSION: 1. Cardiomegaly. Reviewed, dictated and finalized at location A. ERCIAL REAL ESTATE LENDER IMPRESSION: 1. Cardiomegaly.
--- NOTE | ~2024-10-12 | XR_ITS ---
XR chest 2V Ordering provider: Ludmila Segovia APRN History: 89 years Female with . shortness of breath . Comparison: October 11, 2024 FINDINGS: MEDIASTINUM: The cardiac silhouette is moderately enlarged. Congestive megan. Postoperative changes. LUNGS: No pneumothorax. Opacification in the right lung base suggestive of atelectasis versus pneumon ia with minimal effusion. Minimal atelectatic changes in the left lung base medially. OTHER: No free air under the diaphragm. Degenerative spine. Atherosclerotic changes of the aorta. Old fracture in the right humerus IMPRESSION: Cardiomegaly. Right basilar atelectasis versus pneumonia with pleural effusion. Reviewed, dictated and finalized at location A. L INSPECTOR
--- NOTE | ~2024-10-12 | CT_ITS ---
EXAMINATION:CT diagnostic chest wo con DATE: 10/13/2024 02:10 INDICATION: Shortness of breath. TECHNIQUE: Computed tomography (CT) of the chest was performed without intravenous contrast. Automate d exposure control and iterative reconstruction technique were employed. The dose-length product (DLP ) was 259.66 mGy-cm. COMPARISON: Chest CT 08/20/2023 FINDINGS: The lungs demonstrate mild atelectasis. There is septal thickening in the lungs, consistent with mild pulmonary edema. There is a moderate-sized right pleural effusion. There is dependent atel ectasis in right lung. Cardiomegaly is noted. There are coronary artery calcifications. There are horace nges of coronary artery bypass grafting. No pericardial effusion. The central pulmonary arteries are enlarged, consistent with pulmonary arterial hypertension. There are nodules in the thyroid measuring up to 3.1 cm. There is surface nodularity of the liver, consistent with cirrhosis. There is a 5 mm s tone in left kidney. There is severe cervical and thoracic spondylosis. IMPRESSION: 1. Mild pulmonary edema. 2. Moderate-sized right pleural effusion. 3. Multinodular goiter. Consider thyroid ultrasound if clinically indicated given the patient's age. 4. Cirrhosis of the liver. Reviewed, dictated and finalized at location A. CHOOL DISABILITY TEACHER IMPRESSION: 1. Mild pulmonary edema. 2. Moderate-sized right pleural effusion. 3. Multinodular goiter. Consider thyroid ultrasound if clinically indicated giv en the patient's age. 4. Cirrhosis of the liver.
--- OUTSIDE RECORDS SUMMARY | 2024-10-12 16:29 | XMS_ITS | Clinical Summary ---
Author Organization [facility] Address [facility] [facility] [place] [address] Care Team Providers Care Work Study Student Name Role Phone Ed Patel MD Primary Care Provider [phone] Denia Wick RN Unavailable Michael Mondragon MD Unavailable [phone] Keiry Solorio SLAT GRADER-REAL ESTATE LAWYER Unavailable [phone] Source Comments [facility],non-owned Affiliates and Associated Physician Practices is amultiple site organization consisting of ambulatory clinics and hospital sitesin [place], [place], [place] and [place]. This disclosure is being madepursuant to the Care Everywhere program and may not contain all information available regarding this patient. Last updated 18.[facility] Allergies Active Allergy Reactions Criticality Noted [...] hours., Reported on 08/12/2023 saline nasal spray ([place]; Baby [place]) 0.65 % nasal spray [place] 2 (two) sprays into each nostril every [...] atrial fibrillation 07/03/2019 Coronary artery disease involving [place] heart 0 02/28/2017 MARINELLI (dyspnea on exertion) 2016 Pulmonary hypertension 2016 MARINELLI (dyspnea on exertion) 10/13/20162022 Overview (07/07/2023): Last Assessment & Plan: Dyspnea is likely due to obesity and CHF. Will continue with hydrochlorothiazide and Lasix on every other day. 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 No 06/24/2023 Housing Stability Vital [...] 12:08 PM 07/05/2014 5:38 PM Care Teams Work Study Student Relationship Specialty Start Date End Date Ed Patel MD [address] [facility] [address] [place] [address] PCP - General 12/30/09 Denia Wick, RN Knife Changer 07/05/14 Michael Mondragon MD Cardiovascular Disease 11/27/18 Keiry Solorio, SLAT GRADER-REAL ESTATE LAWYER [facility] Heart [place] [facility] [facility] [address] [place] [address] Nurse Practitioner Cardiology 11/20/20
--- OUTSIDE RECORDS SUMMARY | 2024-10-12 16:29 | XMS_ITS | CONTINUITY OF CARE DOCUMENT ---
Author Name kelseyajaymarcie Address Unknown Organization [facility] Address [address] [facility] [address] [place] [address] Phone [phone] Care Team Providers Care Shell Reprint Operator Name Role Phone Edgar PIZARRO, Guy Unavailable [phone] FRANK MALIN Unavailable [phone] FRANK MALIN Unavailable [phone] INSURANCE PROVIDERS Payer name Policy type / Coverage type [place] red republican ID AARP MEDICARE ADVANTAGE ([facility] COMPLETE PPO) Other [id number]
--- OUTSIDE RECORDS SUMMARY | 2024-10-12 16:29 | XMS_ITS | Clinical Summary ---
Author Organization [facility] Address [address] [place] [address] Care Team Providers Care Medical Field Representative Name Role Phone Unavailable Primary Care Provider [...]
--- OUTSIDE RECORDS SUMMARY | 2024-10-12 16:29 | XMS_ITS | Encounter Summary ---
Author Organization [facility] Address [address] [place] [address] Care Team Providers Care Helicopter Mechanic Name Role Phone Unavailable Primary Care Provider Unavailabl e Encounter Details Date Type Department Care Team (Late st Contact Info) Description 03/01/2002 Outpatient Historical [facility] Matthew Wilson MD [facility] [place] [address] CATARACT NOS (Primary Dx) Social History Tobacco Use Types Packs/Day Years Used Date Smoking Tobacco: Never Assessed Comments Unknown Sex and Gender Information Value Date Recorded Sex Assigned at Not on file Legal Sex Female 3:28 AM CLERK Gender Identity Not on file Sexual Orientation Not on file documented as of this encounter Plan of Treatment Not on file documented as of this encounter Visit Diagnoses Diagnosis Unspecified cataract- Primary documented in this encounter
--- OUTSIDE RECORDS SUMMARY | 2024-10-12 16:29 | XMS_ITS | Clinical Summary ---
Author Organization [facility] Address [address] [place] [address] Care Team Providers Care International Project Engineer Name Role Phone Ed Patel MD Primary Care Provider [phone] Allergies Active Allergy Reactions Criticality Noted Date Comments Apixaban Other (See comments) Low 07/03/2019 States she went numb on her left side and had bad chest pains/will not take ever again Dicyclomine Dizziness Low 07/05/2014 Sjciofv-Pll-Mfk Reductase Inhibitors Unknown High 09/30/2016 Medications ezetimibe [...] Active vitamins A,C,E-zinc-tracy er (PRESERVISION AREDS) 7,160-113-100 pnbv-ip-rklk tablet Take 1 tablet by mouth 2 [...] 2016 Assessment & Plan (09/21/2019 4:02 PM MARINE CARGO INSPECTOR): Dyspnea is likely due to obesity and CHF. Will continue with hydrochlorothiazide and Lasix on every other day. Assessment & Plan (07/06/2019 8:51 PM MARINE CARGO INSPECTOR): Patient feels better after blood transfusion. Her [...] Comments Blood Pressure 178/70 09/19/2019 1:49 PM MARINE CARGO INSPECTOR Pulse 70 09/19/2019 1:49 PM MARINE CARGO INSPECTOR Temperature 36.7 C (98.1 F) 09/19/2019 1:49 PM MARINE CARGO INSPECTOR Respiratory Rate 22 09/19/2019 1:49 PM MARINE CARGO INSPECTOR Oxygen Saturation 97% 09/19/2019 1:49 PM MARINE CARGO INSPECTOR Inhaled Oxygen Concentration - - Weight 80 kg (176 lb 6.4 oz) 09/19/2019 1:49 PM MARINE CARGO INSPECTOR Height 147.3 cm (4' 10 ) 07/04/2019 2:40 PM MARINE CARGO INSPECTOR Body Mass Index 36.87 07/04/2019 2:40 PM MARINE CARGO INSPECTOR Plan of Treatment Not on file Insurance [facility] MEDICARE RAILROAD MEDICARE [employer] Care Teams International Project Engineer Relationship Specialty Start Date End Date Ed Patel MD [address] [address] PCP - General Internal Medicine 04/18/19
--- OUTSIDE RECORDS SUMMARY | 2024-10-12 16:29 | XMS_ITS | Referral Summary ---
Author Organization [facility] Address [facility] [facility] [place] [address] Care Team Providers Care Pumper Gager Name Role Phone Ed Patel MD Primary Care Provider Denia Wick RN Unavailable [phone] Michael Mondragon MD Unavailable [phone] Keiry Solorio FITTING ROOM SUPERVISOR-TIRE BALANCER Unavailable [phone] Source Comments [facility],non-owned Affiliates and Associated Physician Practices is amultiple site organization consisting of ambulatory clinics and hospital sitesin [place], [place], [place] and [place]. This disclosure is being madepursuant to the Care Everywhere program and may not contain all information available regarding this patient. Last updated 18.[facility] Allergies Active Allergy Reactions Criticality [...] hours., Reported on 08/12/2023 saline nasal spray ([place]; Baby [place]) 0.65 % nasal spray [place] 2 (two) sprays into each nostril every [...] atrial fibrillation 07/03/2019 Coronary artery disease involving [place] heart 0 02/28/2017 MARINELLI (dyspnea on exertion) 2016 Pulmonary hypertension 2016 MARINELLI (dyspnea on exertion) 10/13/20162022 Overview (07/07/2023): Last Assessment & Plan: Dyspnea is likely due to obesity and CHF. Will continue with hydrochlorothiazide and Lasix on every other day. 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 No 06/24/2023 Housing Stability Vital [...] 12:08 PM 07/05/2014 5:38 PM Care Teams Pumper Gager Relationship Specialty Start Date End Date Ed Patel MD [address] [facility] [address] [place] [phone] PCP - General 12/30/09 Denia Wick RN Commercial Portfolio Manager 07/05/14 Michael Mondragon MD Cardiovascular Disease 11/27/18 Keiry Solorio APRN-TIRE BALANCER [facility] Heart [place] [address] [place] [address] [address] [place] [address] Nurse Practitioner Cardiology 11/20/20
--- OUTSIDE RECORDS SUMMARY | 2024-10-12 16:29 | XMS_ITS | Clinical Summary ---
Author Organization [facility] Address [address] Fernández: Epic Prelude ADT [place] [address] Care Team Providers Care Hotel Valet Attendant Name Role Phone Unavailable Primary Care Provider Unavailabl e Social History Tobacco Use Types Packs/Day Years Used Date Smoking Tobacco: Never Assessed Comments Unknown Sex and Gender Information Value Date Recorded Sex Assigned at Not on file Legal Sex Female 3:28 AM OVERNIGHT HOUSEPERSON Gender Identity Not on file Sexual Orientation Not on file Plan of Treatment Health Maintenance Due Date Last Done Comments DTAP/TDAP/TD VACCINES (1 - Tdap) 10[birth year]12/1954 PNEUMOCOCCAL VACCINE 50+ YEARS (1 of 1 - PCV) 10/12/18 86 ZOSTER VACCINE (1 of 2) 10/12/1985 OSTEOPOROSIS SCREENING 10/12/2000 RSV VACCINE (60+ or ) (1 - 1-dose 75+ series) 10/12/2010 INFLUENZA VACCINE (#1) 2024 Insurance [facility] [id number]
--- OUTSIDE RECORDS SUMMARY | 2024-10-12 16:29 | XMS_ITS | Encounter Summary ---
Author Organization [facility] Address [address] [place], [place] [address] [address] Care Team Providers Care Seo Executive Name Role Phone Ed Patel MD Primary Care Provider Denia Wick RN Unavailable Michael Mondragon MD Unavailable [phone] Keiry Solorio DANCE COACH-CASK MAKER Unavailable [phone] Reason for Visit * Reason Onset Date Comments Follow-up 07/27/2023 Encounter Details Date Type Department Care Team (Late st Contact Info) Description 07/27/2023 Telephone [facility] [address] [facility] [facility] [place] [phone] Harjinder Metz MD [address] [facility] [address] [place] [address] Follow-up Social History Tobacco Use Types Packs/Day [...] and heating? Not hard at all 06/24/2023 [facility] [place] [facility] of Occupat ional Health - Occupational Stress [...] place to sleep or slept in a chcf (including now)? No 06/24/2023 Housing Stability Vital [...] be a change in weight barring status NTORY TRANSCRIBER documented in this encounter Plan of Treatment Not on file documented as of this encounter Visit Diagnoses Not on filedocumented in this encounter Care Teams Seo Executive Relationship Specialty Start Date End Date Ed Patel MD [address] [place] [address] [place] [phone] PCP - General 12/30/09 Denia Wick RN Pneumatic Hoist Operator 07/05/14 Michael Mondragon MD Cardiovascular Disease 11/27/18 Keiry Solorio APRN-[facility]ONZALO [facility] Heart [place] [address] [place] [address] [address] [place] [address] Nurse Practitioner Cardiology 11/20/20 documented as of this encounter
--- OUTSIDE RECORDS SUMMARY | 2024-10-12 16:29 | XMS_ITS | Clinical Summary ---
Author Organization [facility] Address [address] [place] [address] Care Team Providers Care Molder Feeder Name Role Phone Fiona Doherty APRN, SENIOR CAREGIVER Unavailable [phone] Ed Patel MD Primary Care Provider [phone] Allergies Active Allergy Reactions Criticality Noted Date [...] naloxone HCl (Narcan) 4 MG/0.1ML Liquid 1 [place] by Nasal route as needed for Opioid [...] Date Resolved Date Pleural effusion 10/21/2023 10/24/2023 Encounters Date Type Department Care Team Description 10/12/2024 Telephone [facility] [place] [address] [place] [address] Fiona Doherty, OFFICE MANAGER EXECUTIVE ASSISTANT, SENIOR CAREGIVER Advice Only from Last 3 Months Immunizations Immunization Administration Dates Next Due Albumin IV 10/23/2023,10/23/2023,10/22/2023 ,10/22/2023 Social History Tobacco Use Types Packs/Day Years Used Date Smoking Tobacco: Never Passive Smoke Exposure: Never Smokeless Tobacco: Never Tobacco Cessation:Counseling Given: Not Answered Alcohol Use Standard Drinks/Week Comments Never 0 (1 standard drink = 0.6 oz pur e alcohol) [facility] Utilities Answer Date Recorded In the past 12 months has th e electric, gas, oil, or water company threatened to shut off services in your home? Patient declined 10/21/2023 Social Connection and Isolation Panel [NHANES] A nswer Date Recorded In a typical week, how many times do you talk on the phone with family, friends, or neighbors? Patient declined 10/21/2023 How often do you get togethe r with friends or relatives? Patient declined 10/21/2023 How often do you attend oriental orthodox or latter-day serv ices? Patient declined 10/21/2023 Do you belong to any clubs o r organizations such as oriental orthodox groups, unions, fraternal or athletic groups, or [...] medical care, and heating? Patient declined 10/21/2023 [facility] of Occupat ional Health - [...] place to sleep or slept in a senior care (including now)? Patient declined 10/21/2023 Comments No Sex and Gender Information Value Date Recorded Sex Assigned at Not on file Legal Sex Female 9:47 AM GRAINING MACHINE OPERATOR Gender Identity Not on file Sexual Orientation [...] Visit [facility] [place] [address] [place] [phone] Fiona Doherty APRN, SENIOR CAREGIVER [address] [place] [address] Health Maintenance Due Date Last Done Comments DEXA Bone Density 1935 TdaP Immunization 1935 Pneumococcal Immunization (5 0+ years) (1 of 2 - PCV) 10/12/1954 Zoster Immunization (1 of 2) 10/12/1985 Hepatitis B Immunization (1 of 3 - Risk 3-dose series) 1995 Respiratory Syncytial Virus (RSV) Immunization (Adult) (1 - 1-dose 75+ series) 10/12/2010 Influenza Immunization (#1) 04/08/202405/10, 06/25/2018, 04/07/2017 SARS-COV-2 Immunization ( season) 2024 10/28/2020, 10/07/2020 Hepatitis C Virus (HCV) Screening Completed 06/26/2023 Meningococcal Immunization (ACWY) Aged Out No longer eligible b ased on patient's age to complete this topic Rotavirus Immunization Aged Out No lo nger eligible based on patient's age to complete this topic Insurance [facility] Advance Directives * Full Code (Latest Code Status on File) Date Activated Date Inactivated Comments 10/21/2023 9:25 PM 10/24/2023 6:54 PM CPR-Full Dago atment: FULL ARREST: Attempt Resuscitation/CPR wit intubation and mechanical ventilation. PRE-ARREST: Use entire range of life support measures to stabilize the patient. Care Teams Molder Feeder Relationship Specialty Start Date End Date Ed Patel MD [address] [place] [address] PCP - General Primary Care 07/22/23 Fiona Doherty, OFFICE MANAGER EXECUTIVE ASSISTANT, SENIOR CAREGIVER [address] [facility], [address] [place] [address] Nurse Practitioner Cardiology 07/14/23
--- OUTSIDE RECORDS SUMMARY | 2024-10-12 16:29 | XMS_ITS | Encounter Summary ---
Author Organization [facility] Address [address] [place] [address] Phone Care Team Providers Care Polystyrene Molding Machine Tender Name Role Phone Fiona Doherty APRN, SLAB LIFTING ENGINEER Unavailable [phone] Ed Patel MD Primary Care Provider [phone] Reason for Visit * Reason Onset Date Comments Advice Only 10/12/2024 Encounter Details Date Type Department Care Team (Late st Contact Info) Description 10/12/2024 Telephone [facility] - Cardiology - [place] [address] [place] [address] Fiona Doherty APRN, SLAB LIFTING ENGINEER [address] [facility], [address] [place] [address] Advice Only Social History Tobacco Use Types Packs/Day Years Used Date Smoking Tobacco: Never Passive Smoke Exposure: Never Smokeless Tobacco: Never Alcohol Use Standard Drinks/Week Comments Never 0 (1 standard drink = 0.6 oz pur e alcohol) [facility] Utilities Answer Date Recorded In the past 12 months has AW[employer], gas, oil, or water [employer] threatened to shut off services in your home? Patient declined 10/21/2023 Social Connection and Isolation Panel [NHANES] A nswer Date Recorded In a typical week, how many times do you talk on the phone with family, friends, or neighbors? Patient declined 10/21/2023 How often do you get togethe r with friends or relatives? Patient declined 10/21/2023 How often do you attend denominational or baptist serv ices? Patient declined 10/21/2023 Do you belong to any clubs o r organizations such as denominational groups, unions, fraternal or athletic groups, or [...] medical care, and heating? Patient declined 10/21/2023 [facility] - Occupational Stress Questionnaire Answer Date [...] or slept in a assisted (including now)? Patient declined 10/21/2023 Comments No Sex and Gender Information Value Date Recorded Sex Assigned at Not on file Legal Sex Female 9:47 AM WHEEL SHOP SUPERVISOR Gender Identity Not on file Sexual Orientation Not on file documented as of this encounter Miscellaneous Notes * Telephone Encounter - Kandi Wasserman RN - 10/12/2024 11:49 AM CST Patients jessie Zamora calling, states they saw results of CXR from Ray, wanted to know what to do? Patient has had Shortness of breath Since Tuesday10/07/24 Received results from Ray Chopra APRN Large right-sided pleural effusion without focal infiltrate, similar in appearance to previous examination 10/08/[address] Payne have patient go to the ED Patients jessie Zamora is aware and verbalizes understanding. Will take her to the ED L SHOP SUPERVISOR L SHOP SUPERVISOR documented in this encounter Plan of Treatment Upcoming Encounters Date Type Department Care Team (Late st Contact Info) Description 11/12/2024 3:00 PM CDT Office Visit [facility] - Cardiology - [place] [address] [place] [address] Fiona Doherty APRN, SLAB LIFTING ENGINEER [address] [facility], [address] [place] [address] documented as of this encounter Visit Diagnoses Not on filedocumented in this encounter Care Teams Polystyrene Molding Machine Tender Relationship Specialty [place] [address] [place] [id number] PCP - General Primary Care 07/22/23 Fiona Dhoerty, [employer] OFFICER, SLAB LIFTING ENGINEER [address] [facility], [address] [place] [address] Nurse Practitioner Cardiology 07/14/23 documented as of this encounter
--- OUTSIDE RECORDS SUMMARY | 2024-10-12 16:29 | XMS_ITS | Patient Health Summary ---
Author Organization [facility] Address [address] [place] [address] Care Team Providers Care Vice President For Instruction Name Role Phone Ed Patel MD Primary Care Provider [phone] Denia Wick RN Unavailable [phone] Michael Mondragon MD Unavailable [phone] Keiry Jones GALLERY HOST-JEWEL SUPERVISOR Unavailable [phone] Note from [facility],non-owned Affiliates and Associated Physician Practices is amultiple site organization consisting of ambulatory clinics and hospital sitesin [place], [place], [place] and [place]. This disclosure is being madepursuant to the Care Everywhere program and may not contain all information available regarding this patient. Last updated 18.[facility] Allergies * Dicyclomine(Dizziness) * Propoxyphene N-Apap * [...] / 24 hours. 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 No 06/24/2023 Housing Stability Vital [...] TISSUE(Performed 05/02/2024) Performed for Gastric nodule * [place] ESOPHAGOSCOPY,ENDOSCOPIC ULTRASND(Performed 05/02/2024) Performed for Gastric nodule [...] Other cirrhosis of liver (HCC) * CYTOLOGY NON-CLOCK AND WATCH ASSEMBLER PANEL (STL)(Performed 06/27/2023) Performed for Other cirrhosis [...] NAAT QUANT(Performed 06/26/2023) * CERULOPLASMIN(Performed 06/26/2023) * [id number] BLOOD(Performed 06/26/2023) * CBC W/O DIFFERENTIAL(Performed 06/26/2023) [...] artery disease involving coronary bypass graft of wyandotte heart with unstable angina pectoris (HCC) * BASIC METABOLIC PANEL (CALCIUM TOTAL)(Performed 04/18/2020) Performed for Shortness of breath * B-TYPE NATRIURETIC PEPTIDE(Performed 04/18/2020) Performed for Shortness of breath, 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 (HCC), Essential [...] CDT) Case Report Surgical Pathology Report Case: [id number] Authorizing Provider: Dinorah Winkler MD Collected: 05/02/2024 11:21 AM Ordering Location: [facility] ENDOSCOPY Received: 05/02/2024 12:55 PM Pathologist: Keiry Hui MD Specimen: Gastric Biopsy, Gastric antral nodule 05/03/2024 3:28 PM CDT [facility] PATH[facility] Final Diagnosis Stomach, antral nodule, endomucosal resection (A): - Hyperplastic polyp with reactive changes and features of erosion 05/03/2024 3:[facility] Microscopic Description and Comment Microscopic examination substantiates the final diagnosis. 05/03/2024 3:28 PM [facility] Clinical History The patient is an 88-year-old woman with gastric mucosal mass/polyp found on endoscopy. Operative procedure/findings: Upper EUS/EGD - mass in the antrum of the stomach, endomucosal resection 05/03/2024 3:28 PM T [facility] PATHOLOGY LAB Gross Description The requisition and specimen(s) are identified with the patient's name Mary Beth Gutierrez. Received in formalin, specimen A , is a 1.2 x 1.0 x 1.0 cm dark pink polypoid tissue. The resection margin is inked green. The tissue is sectioned and entirely submitted in cassettes A1. DF 05/03/2024 3:28 PM CDT [facility] PATHOLOGY LAB Pathologist Location at [facility] 05/03/2024 3:28 PM CDT [facility] PATHOLOGY LAB Disclaimer The performance characteristics of all immunohistochemical and indirect immunofluorescence stains (if any) cited in this report were determined by the Histopathology Laboratory of [facility]. Some of these tests were developed by [...] attending (teaching) pathologist. 05/03/2024 3:28 PM CDT [facility] PATHOLOGY LAB Embedded Images 05/03/2024 3:28 PM CDT [facility] PATHOLOGY LAB Biopsy, NOS GASTRIC BIOPSY SPECIMEN / Unknown 05/02/2024 11:21 AM CDT 05/02/2024 12:55 PM CDT Comment:Pre-op diagnosis: Gastric nodule [K31.89] Dinorah Winkler MD LAB - PATHOLOGY/CYTO LOGY ORDERABLES Performing Organization Address City/State/[facility] Co de Phone Number [facility] PATHOLOGY LAB [address] [phone] * ENDOSCOPIC ULTRASONOGRAPHY, GI (05/02/2024 10:50 AM [...] to the second part of duodenum. The [id number] was introduced through the and advanced to [...] clips were successfully placed (MR conditional). 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 There was no bleeding during, or at the end, of the procedure. Multiple stones were visualized endosonographically in the gallbladder. Estimated Blood Loss: Estimated blood loss: none. Complications: No immediate complications. Impression: - Normal esophagus. - A single gastric polyp. - Normal examined duodenum. - A mass was found in the antrum of the stomach. Clips (MR conditional) were placed. 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 - Multiple stones were visualized endosonographically [...] non-sam portions. Procedure Code(s): --- Professional --- 01243, Esophagogastroduodenos copy, flexible, transoral; with endoscopic mucosal resection 66342, Esophagogastroduodenos copy, flexible, transoral; with endoscopic ultrasound examination limited to the esophagus, stomach or duodenum, and adjacent structures Diagnosis Code(s): --- Professional --- K31.7, Polyp of stomach and duodenum K31.89, Other diseases of stomach and duodenum CPT copyright 2021 [employer]. All rights reserved. The codes documented in this report are preliminary and upon electronics technician apprentice review may be revised to meet current compliance requirements. Dinorah Winkler MD 05/02/2024 12:01:15 PM This report has been signed electronically. Note Initiated On: 05/02/2024 10:50 AM Number of Addenda: [address] [phone] [facility] 05/02/2024 10:5 0 AM CDT Dinorah Winkler MD GI PROCEDURE ORDERAB LES [facility] * XR SHOULDER RIGHT 2VW OR MORE (08/10/2023 9:16 AM ACCESS SPECIALIST) Only the most recent of2 resultswithin the time period is included. Anatomical Region Laterality Modality Upper Extremity Radiographic Shila ging 08/10/2023 9:24 AM ACCESS SPECIALIST Impressions 08/10/2023 9:31 AM ACCESS SPECIALIST IMPRESSION: Moderately displaced proximal humerus fracture with continued callus formation. Report dictated by Larry Kraus MD (residential specialist). I, Jose M Eden MD have personally reviewed and interpreted this examination/study. > Interpreting Provider: Jose M Eden MD on 08/10/2023 9:31 AM Narrative 08/10/2023 9:31 AM ACCESS SPECIALIST PROCEDURE: XR SHOULDER RIGHT 2VW OR MORE, DATE/TIME OF EXAM: 08/10/2023 9:16 AM, LOCATION [facility] INDICATION: S42.201A: Closed fracture of proximal end [...] DATE/TIME OF EXAM: 08/10/2023 9:16 AM, LOCATION [facility] INDICATION: S42.201A: Closed fracture of proximal end [...] formation. Report dictated by Larry Kraus MD (residential specialist). I, Jose M Eden MD have personally reviewed and interpreted this examination/study. > Interpreting Provider: Jose M Eden MD on 08/10/2023 9:31 AM Josh Stephens MD DIAGNOSTIC IMAGING O RDERABLES * (ABNORMAL) PT-INR [facility] (07/05/2023 3:26 AM ACCESS SPECIALIST) Only the most recent of13 resultswithin the time period is included. PT 29.5(H) 12.1 - 14.8 Seconds 07/05/2023 4:28 AM [facility] INR 2.9 See Comment 07/05/2023 4:28 AM [facility] Comment:The suggested therap eutic range for standard coumadin (warfarin) therapy is an INR of 2.0-3.0. For high-risk patients (Mechanical Mitral Valve Prosthesis, etc.), the suggested prophylactic therapeutic range is an INR of 2.5-3.5. Blood BLOOD SPECIMEN / Unknown Lab Venipuncture / Unknown 07/05/2023 3:26 AM ACCESS SPECIALIST 07/05/2023 3:57 AM ACCESS SPECIALIST Alexander Damico MD LAB - COAGULATION OR DERABLES [address] [address], [place] [phone] * (ABNORMAL) CBC W/O DIFFERENTIAL (07/05/2023 3:26 AM ACCESS SPECIALIST) Only the most recent of17 resultswithin the time period is included. WBC 5.7 3.5 - 10.5 10 3/uL 07/05/2023 4:12 AM [facility] RBC 2.79(L) 3.80 - 5.20 10 6/uL 07/05/2023 4:12 AM [facility] Hemoglobin 7.5(L) 12.0 - 15.6 g/dL 07/05/2023 4:12 AM [facility] Hematocrit 24.2(L) 35.0 - 45.0 % 07/05/2023 4:12 AM [facility] MCV 86.7 80.7 - 98.3 fL 07/05/2023 4:12 AM [facility] MCH 26.9 26.7 - 34.0 pg 07/05/2023 4:12 AM [facility] MCHC 31.0 30.8 - 35.9 g/dL 07/05/2023 4:12 AM [facility] RDW-SD 51.2(H) 36.0 - 50.0 fL 07/05/2023 4:12 AM [facility] RDW-CV 16.6(H) 11.2 - 14.8 % 07/05/2023 4:12 AM [facility] Platelet Count 221 150 - 400 10 3/uL 07/05/2023 4:12 AM [facility] MPV 8.7(L) 9.4 - 12.9 fL 07/05/2023 4:12 AM [facility] nRBC Absolute 0.00 0 10 3/uL 07/05/2023 4:12 AM [facility] nRBC Auto 0.0 0 /100 WBC 07/05/2023 4:12 AM [facility] Blood BLOOD SPECIMEN / Unknown Lab Venipuncture / Unknown 07/05/2023 3:26 AM ACCESS SPECIALIST 07/05/2023 3:57 AM [facility] Alexander Damico MD LAB - HEMATOLOGY ORD ERABLES [facility] [address] [place] [address], [place] [phone] * (ABNORMAL) COMPREHENSIVE METABOLIC PANEL (07/05/2023 3:26 AM ACCESS SPECIALIST) Only the most recent of13 resultswithin the time period is included. BUN 28(H) 7 - 26 mg/dL 07/05/2023 4:29 AM [facility] Creatinine 1.20(H) 0.56 - 0.96 mg/dL 07/05/2023 4:29 AM [facility] Sodium 139 136 - 145 mmol/L 07/05/2023 4:29 AM [facility] Potassium 4.2 3.5 - 4.5 mmol/L 07/05/2023 4:29 AM [facility] Chloride 102 98 - 107 mmol/L 07/05/2023 4:29 AM [facility] CO2 31(H) 22 - 29 mmol/L 07/05/2023 4:29 AM [facility] Glucose 94 70 - 115 mg/dL 07/05/2023 4:29 AM [facility] Calcium 8.2(L) 8.4 - 10.2 mg/dL 07/05/2023 4:29 AM [facility] Protein Total 4.8(L) 6.0 - 8.3 g/dL 07/05/2023 4:29 AM [facility] Albumin 2.4(L) 3.4 - 5.0 g/dL 07/05/2023 4:29 AM [facility] Bilirubin Total 1.2 0.2 - 1.2 mg/dL 07/05/2023 4:29 AM [facility] Alkaline Phosphatase 80 40 - 150 U/L 07/05/2023 4:29 AM [facility] ALT 9 5 - 55 U/L 07/05/2023 4:29 AM [facility] AST 12 5 - 34 U/L 07/05/2023 4:29 AM [facility] Anion Gap 6 6 - 16 07/05/2023 4:29 AM [facility] BUN/Creatinine Ratio 23 7 - 23 07/05/2023 4:29 AM [facility] Osmolality Calculated 293 275 - 295 mOsm/kg 07/05/2023 4:29 AM [facility] Albumin/Globulin Ratio 1.0(L) 1.1 - 2.3 07/05/2023 4:29 AM [facility] eGFR by CKD-EPI 44(L) >=90 mL/min/1.7 3 m2 07/05/2023 4:29 AM [facility] Blood BLOOD SPECIMEN / Unknown Lab Venipuncture / Unknown 07/05/2023 3:26 AM ACCESS SPECIALIST 07/05/2023 3:59 AM ACCESS SPECIALIST Alexander Damico MD LAB - CHEMISTRY [place] Performing Organization Address City/[facility]/ZIP Co de Phone Number [facility] [address] [place] [address], [place] [phone] * PHOSPHORUS BLOOD (07/05/2023 3:26 AM ACCESS SPECIALIST) Only the most recent of13 resultswithin the time period is included. Phosphorus 3.2 2.9 - 5.1 mg/dL 07/05/2023 4:29 AM ACCESS SPECIALIST [facility] Blood BLOOD SPECIMEN / Unknown Lab Venipuncture / Unknown 07/05/2023 3:26 AM ACCESS SPECIALIST 07/05/2023 3:59 AM ACCESS SPECIALIST Alexander Damico MD LAB - CHEMISTRY [place] Performing Organization Address [facility]/ZIP Co de Phone Number [address] [address], [place] [phone] * MAGNESIUM BLOOD (07/05/2023 3:26 AM ACCESS SPECIALIST) Only the most recent of13 resultswithin the time period is included. Magnesium 1.8 1.6 - 2.6 mg/dL 07/05/2023 4:29 AM ACCESS SPECIALIST [facility] Blood BLOOD SPECIMEN / Unknown Lab Venipuncture / Unknown 07/05/2023 3:26 AM ACCESS SPECIALIST 07/05/2023 3:59 AM ACCESS SPECIALIST Alexander Damico MD LAB - CHEMISTRY [place] [address] [address], [place] [phone] * VAS RIGHT VENOUS DUPLEX UE (07/04/2023 12:44 PM ACCESS SPECIALIST) Anatomical Region Laterality Modality Upper Extremity Intravascular Ul trasound 07/04/2023 11:5 4 AM ACCESS SPECIALIST Narrative Procedure Note Gabrielle Perales MD - 07/06/2023 Alexander Damico MD VASCULAR LAB ORDERAB LES * (ABNORMAL) B-TYPE NATRIURETIC PEPTIDE (07/04/2023 9:54 AM ACCESS SPECIALIST) Only the most recent of4 resultswithin the time period is included. BNP 821(H) <100 pg/mL 07/04/2023 10:59 AM ACCESS SPECIALIST [facility] Comment: A decision threshold of 100 pg/mL [...] Lab Venipuncture / Unknown 07/04/2023 9:54 AM ACCESS SPECIALIST 07/04/2023 10:27 AM ACCESS SPECIALIST Alexander Damico MD LAB - CHEMISTRY [facility]MIN [facility] Organization Address City/State/[facility] Co de Phone Number [facility] [address] [place] [phone], [place] [phone] * TSH REFLEX FREE T4 (06/29/2023 3:06 AM ACCESS SPECIALIST) TSH 2.946 0.350 - 4.940 uIU/mL 06/29/2023 4:44 AM ACCESS SPECIALIST [facility] Blood BLOOD SPECIMEN / Unknown Lab Venipuncture / Unknown 06/29/2023 3:06 AM ACCESS SPECIALIST 06/29/2023 3:52 AM ACCESS SPECIALIST Alexander Damico MD LAB - CHEMISTRY [facility] [facility] Organization Address City/State/ZIP Co de Phone Number [address] [address], [place] [phone] * ECHO COMPLETE W CONTRAST (06/28/2023 12:21 PM ACCESS SPECIALIST) BSA [id number] m2 SSM CV FUJI PACS LV biplane [...] CV FUJ I PACS LV mass 2D 258.71397 [id number] 66 - 150 g SSM CV FUJI [...] grad 2 mmHg SSM CV FUJI PACS NH pk cyrus 296.85 cm/s SSM CV FUJ I PACS NH pk grad 10 mmHg SSM CV FU [...] Index 68 ml/m2 SSM CV FUJI PACS [id number] 5.689 cm SSM CV FUJ I PACS [id number] 5.403 cm SSM CV FUJ I PACS Prox Asc Ao Diameter Index 1.6 cm SSM CV FUJI PACS LVIDs index 1.57 1.3 - 2.1 cm/m2 SSM CV FUJI PACS LV LVIDd index 2.29 2.3 - 3.1 cm/m2 SSM CV FUJI PACS sPAP 79.0 mmHg SSM CV FUJ I PACS Anatomical Region Laterality Modality Ultrasound Narrative 06/28/2023 2:03 PM ACCESS SPECIALIST Left Ventricle: Left ventricle size is normal. [...] * CARDIAC EKG ORDER (06/28/2023 8:23 AM ACCESS SPECIALIST) Only the most recent of2 resultswithin the time period is included. Narrative 06/28/2023 8:23 AM ACCESS SPECIALIST Ordered by an unspecified provider. Scanned Document CARDIAC SERVICES ORD ERABLES * IR US PARACENTESIS (06/27/2023 3:38 PM ACCESS SPECIALIST) Anatomical Region Laterality Modality Abdomen X-Ray Angiograph y 06/27/2023 4:50 PM ACCESS SPECIALIST Impressions 06/27/2023 4:53 PM ACCESS SPECIALIST IMPRESSION: Successful ultrasound-guided paracentesis, diagnostic and therapeutic. > Interpreting Provider: Carlos Enrique Mayfield MD on 06/27/2023 4:53 PM Narrative 06/27/2023 4:53 PM ACCESS SPECIALIST PROCEDURE: IR US PARACENTESIS DATE/TIME OF EXAM: [...] sterile fashion. Standard timeout was performed and [place] Protocol Policy steps were completed for the documented procedure. 1% lidocaine was utilized to anesthetize the skin and subcutaneous tissues at the proposed needle entry site. A tiny dermatotomy was made. A 6.5 Nauruan pigtail drainage catheter was inserted into the [...] sterile fashion. Standard timeout was performed and [place] Protocol Policy steps were completed for the documented procedure. 1% lidocaine was utilized to anesthetize the skin and subcutaneoustissues at the proposed needle entry site. A tiny dermatotomy was made. A 6.5 Nauruan pigtail drainage catheter was inserted into the [...] MD IR ORDERABLES * PROTEIN BODY FLUID ([facility] ONLY) (06/27/2023 3:33 PM ACCESS SPECIALIST) Protein Fluid 2.8 Not Established For Fluids g/dL 06/27/2023 4:17 PM ACCESS SPECIALIST [facility] Comment:The analytical perfo rmance of this test has been independently validated by [facility]. A reference range has not been established. Comparison of this result with the concentration in blood, serum or plasma is recommended. Fluid PERITONEAL FLUID / Unknown Collection / Unknown 06/27/2023 3:33 PM ACCESS SPECIALIST 06/27/2023 3:54 PM ACCESS SPECIALIST Alexander Damico MD LAB - BODY FLUID ORD ERABLES [facility] [address] [place] [address], [place] [phone] * ALBUMIN BODY FLUID ([facility] ONLY) (06/27/2023 3:33 PM ACCESS SPECIALIST) Albumin Fluid 1.7 Not Established For Fluids g/dL 06/27/2023 4:17 PM ACCESS SPECIALIST [facility] Comment:The analytical perfo rmance of this test has been independently validated by [facility]. A reference range has not been established. Comparison of this result with the concentration in blood, serum or plasma is recommended. Fluid PERITONEAL FLUID / Unknown Collection / Unknown 06/27/2023 3:33 PM ACCESS SPECIALIST 06/27/2023 3:54 PM ACCESS SPECIALIST Alexander Damico MD LAB - BODY FLUID ORD ERABLES Performing Organization Address [facility]/ZIP Co de Phone Number [address] [address], [place] [phone] * (ABNORMAL) CELL COUNT W DIFFERENTIAL FLUID (06/27/2023 3:33 PM ACCESS SPECIALIST) Pathologist [facility] Color Fluid Yellow(A) Colorless, Straw 06/27/2023 4:24 PM ACCESS SPECIALIST [facility] Clarity Fluid Slightly Cloudy(A) Clear 06/27/2023 4:24 PM [facility] Volume Fluid 5.0 mL 06/27/2023 4:24 PM [facility] WBC Fluid 264 Reference Range Not Established x10e6/L 06/27/2023 4:24 PM [facility] RBC Fluid <3,000 Reference Range Not Established x10e6/L 06/27/2023 4:24 PM [facility] Differential Manual Differential to follow. 06/27/2023 4:24 PM [facility] Fluid PERITONEAL FLUID / Unknown Collection / Unknown 06/27/2023 3:33 PM ACCESS SPECIALIST 06/27/2023 3:54 PM ACCESS SPECIALIST Narrative [facility] - 06/27/2023 4:24 PM ACCESS SPECIALIST No reference ranges established for body fluid cell counts. The reference ranges provided are derived from published literature. The test results must be integrated into the clinical context for interpretation. Alexander Damico MD LAB - BODY FLUID ORD ERABLES Performing Organization Address City/[facility]/ZIP Co de Phone Number [address] [address], [place] [phone] * CYTOLOGY NON-CLOCK AND WATCH ASSEMBLER PANEL (STL) (06/27/2023 3:33 PM ACCESS SPECIALIST) Case Report Medical Cytology Report Case: [id number] Authorizing Provider: Alexander Damico MD Collected: 06/27/2023 03:33 PM Ordering Location: [address] Received: 06/28/2023 08:42 AM Pathologist: Roxana Jones MD Specimen: Peritoneal Fluid 07/02/2023 2:33 PM [facility] PATHOLOGY [facility] Specimen Adequacy Adequate cellularity for evaluation. 07/02/2023 2:33 PM [facility] PATHOLOG[facility] LAB Final Diagnosis Peritoneal fluid, paracentesis, cytology: - Negative for malignancy - Mixed inflammation with reactive mesothelial cells and macrophages 07/02/2023 2:33 PM [facility] PATHOLOGY LAB Clinical History The patient is a 87-year-old woman with MASLD complicated presenting following a fall. 07/02/2023 2:33 PM [facility] PATHOLOGY LAB Gross Description 1 cytospin Pap stained slide from 2 cc clear, yellow fluid 07/02/2023 2:33 PM [facility] PATHOLOGY LAB Microscopic Description Microscopic examination substantiates the final diagnosis. The specimen is insufficient to make a cell block. 07/02/2023 2:33 PM [facility] PATHOLOGY LAB Pathologist Location at [facility] 07/02/2023 2:33 PM [facility] PATHOLOG[facility] Disclaimer The performance characteristics of all immunohistochemical and indirect immunofluorescence stains (if any) cited in this report were determined by the Histopathology Laboratory of [facility]. Some of these tests rely on the use of analyte-specific reagents and are subject to specific labeling requirements by the [place] Food and Drug Administration. Such tests were developed by the Histology Laboratory of [facility] and have not been cleared or [...] the attending (teaching) pathologist. 07/02/2023 2:33 PM [facility] PATHOLOGY LAB Embedded Images 07/02/2023 2:33 PM [facility] PATHOLOGY LAB Pathology/Cytolo gy PERITONEAL FLUID / Unknown Collection / Unknown 06/27/2023 3:33 PM ACCESS SPECIALIST 06/28/2023 8:42 AM ACCESS SPECIALIST Alexander Damico MD LAB - PATHOLOGY/CYTO LOGY ORDERABLES [facility] [address] [place] [address], [place] [phone] * DIFFERENTIAL MANUAL FLUID (06/27/2023 3:33 PM ACCESS SPECIALIST) Segs % Fluid 57 % 06/27/2023 5:23 PM ACCESS SPECIALIST [facility] Lymphocytes % Fluid 6 % 06/27/2023 5:23 PM ACCESS SPECIALIST [facility] Monocytes % Fluid 1 % 023 5:23 PM ACCESS SPECIALIST [facility] Macrophages % Fluid 35 % 06/27/2023 5:23 PM ACCESS SPECIALIST [facility] Mesothelials % Fluid 1 % 06/27/2023 5:23 PM ACCESS SPECIALIST [facility] Fluid PERITONEAL FLUID / Unknown Collection / Unknown 06/27/2023 3:33 PM ACCESS SPECIALIST 06/27/2023 3:54 PM ACCESS SPECIALIST Narrative [facility] - 06/27/2023 5:23 PM ACCESS SPECIALIST Occasional erythrophage and siderophage seen. Alexander Damico MD LAB - BODY FLUID ORD ERABLES Performing Organization Address [facility]/ZIP Co de Phone Number [facility] [address] [phone], [place] [phone] * CULTURE FLUID+GRAM STAIN (06/27/2023 3:33 PM ACCESS SPECIALIST) Culture No growth FAHRAN 07/01/2023 5:27 AM ACCESS SPECIALIST [facility] Gram Stain Light Red blood cells 07/01/2023 5:27 AM ACCESS SPECIALIST [facility] Gram Stain No organisms seen 023 5:27 AM ACCESS SPECIALIST [facility] Gram Stain No polymorphonuclear cells 07/01/2023 5:27 AM ACCESS SPECIALIST [facility] Other PERITONEAL FLUID / Unknown Collection / Unknown 06/27/2023 3:33 PM ACCESS SPECIALIST 06/27/2023 3:54 PM ACCESS SPECIALIST Alexander Damico MD LAB - MICROBIOLOGY O RDERABLES [facility] [address] [place], [place] [address], [place] [phone] * US ABDOMEN LTD W COMP DOPPLER (06/27/2023 11:49 AM ACCESS SPECIALIST) Anatomical Region Laterality Modality Abdomen Ultrasound 06/27/2023 11:3 3 AM ACCESS SPECIALIST Impressions 06/27/2023 1:38 PM ACCESS SPECIALIST IMPRESSION: 1.Hepatic cirrhosis with sequela of portal [...] evaluation. > Dictated by Tayo Sow MD (residential specialist). I, Aren Carlton MD have personally reviewed and interpreted this examination/study. > Interpreting Provider: Aren Carlton MD on 06/27/2023 1:38 PM Narrative 06/27/2023 1:38 PM ACCESS SPECIALIST PROCEDURE: US ABDOMEN LTD W COMP DOPPLER, DATE/TIME OF EXAM: 06/27/2023 9:44 AM, LOCATION [facility] INDICATION: K74.69: Other cirrhosis of liver (CMS/HCC) [...] DOPPLER, DATE/TIME OF EXAM:06/27/2023 9:44 AM, LOCATION [facility] INDICATION: K74.69: Other cirrhosis of liver (CMS/HCC) [...] evaluation. > Dictated by Tayo Sow MD (residential specialist). I, Aren Carlton MD have personally reviewed and interpreted this examination/study. 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 There is mild bowing of the tibia and fibula and a likely chronic deformity of distal fibula. No acute fracture. There is soft tissue swelling of the left lower extremity. A calcaneal spur is present. > Interpreting Provider: Oswald Lehman MD on 06/27/2023 10:51 AM Narrative 06/27/2023 10:51 AM ACCESS SPECIALIST PROCEDURE: XR TIBIA FIBULA LEFT 2VW DATE/TIME [...] URINALYSIS W/MICROSCOPIC NO CULTURE (06/27/2023 6:40 AM ACCESS SPECIALIST) Color UA Yellow Straw, Yellow 06/27/2023 7:03 AM [facility] Clarity UA Clear Clear 06/27/2023 7:03 AM [facility] Specific Bend UA 1.019 1.005 - 1.030 06/27/2023 7:03 AM [facility] pH UA 5.0 5.0 - 8.0 pH 06/27/2023 7:03 AM [facility] Protein UA Negative Negative 06/27/2023 7:03 AM [facility] Glucose UA Negative Negative 06/27/2023 7:03 AM [facility] Ketone UA Negative Negative 06/27/2023 7:03 AM [facility] Bilirubin UA Negative Negative 06/27/2023 7:03 AM [facility] Blood UA Negative Negative 06/27/2023 7:03 AM [facility] Nitrite UA Negative Negative 06/27/2023 7:03 AM [facility] Leukocyte Esterase Negative Negative 06/27/2023 7:03 AM [facility] Urobilinogen UA Negative Negative mg/dL 06/27/2023 7:03 AM [facility] RBC UA 0-2 None Seen, 0-2, 3-5 /HPF 06/27/2023 7:03 AM [facility] WBC UA 0-5 None Seen, 0-5 /HPF 06/27/2023 7:03 AM [facility] Squamous Epithelial Cells UA 0-2 None Seen, 0-2, 3-5 /HPF 06/27/2023 7:03 AM [facility] Urine URINE SPECIMEN OBTAINED BY CLEAN CATCH PROCEDURE / Unknown Collection / Unknown 06/27/2023 6:40 AM ACCESS SPECIALIST 06/27/2023 6:55 AM [facility] - 06/27/2023 7:03 AM ACCESS SPECIALIST Alexander Damico MD LAB - URINALYSIS ORD ERABLES [facility] [address] [place] [address], [place] [phone] * (ABNORMAL) URINE DRUG SCREEN IMMUNOASSAY (06/27/2023 6:40 AM [facility]) [facility] Amphetamines Screen Urine Negative Negative : < 1000 ng/mL 06/27/2023 7:18 AM [facility] Barbiturates Screen Urine Negative Negative : < 200 ng/mL 06/27/2023 7:18 AM [facility] Benzodiazepine Screen Urine Negative Negative : < 200 ng/mL 06/27/2023 7:18 AM [facility] Opiates Urine Positive(A) Negative : < 300 ng/mL 06/27/2023 7:18 AM [facility] Comment:Positive urine opiat e screening results should be confirmed by another generally accepted non-immunological method such as gas chromatography or mass spectrometry. Cocaine Metabolites Urine Negative Negative : < 300 ng/mL 06/27/2023 7:18 AM [facility] Phencyclidine Screen Urine Negative Negative : < 25 ng/ml 06/27/2023 7:18 AM [facility] Cannabinoids Screen Urine Negative Negative : <50 ng/mL 06/27/2023 7:18 AM [facility] Methadone Screen Urine Negative Negative : < 300 ng/mL 06/27/2023 7:18 AM [facility] Fentanyl Screen Urine Positive(A) Negative : <1.5 ng/mL 06/27/2023 7:18 AM [facility] Comment:Positive urine fenta nyl screening results should be confirmed by another generally accepted non-immunological method such as gas chromatography or mass spectrometry. Urine URINE / Unknown Collection / Unknown 06/27/2023 6:40 AM [facility] 06/27/2023 6:55 AM [facility] - 06/27/2023 7:18 AM [facility] The Urine Toxicology Screening Panel does not screen for Propoxyphene, Meprobamate, Carisoprodol, Trazodone, clcn-uca-yizvbth medications and/or volatiles (Acetone, Isopropanol, Methanol or Ethylene Glycol). Ethanol, Salicylate, Acetaminophen, Tricyclic Antidepressants and several therapeutic drugs may be individually assayed in serum or plasma specimen. Toxicology testing by the [facility] is an aid to medical diagnosis and treatment of patients. No documented chain of custody was maintained. Results are intended to be used for clinical purposes only. Alexander Damico MD LAB - URINE CHEMISTR Y ORDERABLES [facility] [address] [place] [address], [place] [phone] * XR CHEST 1VW PORTABLE (06/27/2023 5:50 AM ACCESS SPECIALIST) Only the most recent of4 resultswithin the time period is included. Anatomical Region Laterality Modality Chest Radiographic Shila ging 06/27/2023 10:4 1 AM ACCESS SPECIALIST Impressions 06/27/2023 10:42 AM ACCESS SPECIALIST IMPRESSION: Median sternotomy wires are well aligned. 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 There is cardiomegaly. There is left lower lung atelectasis and calcification of the mitral annulus. There is a hiatal hernia. No pneumothorax. There may be a small left pleural effusion. Heart size is unchanged. > Interpreting Provider: Oswald Lehman MD on 06/27/2023 10:42 AM Narrative 06/27/2023 10:42 AM ACCESS SPECIALIST PROCEDURE: XR CHEST 1VW PORTABLE DATE/TIME OF [...] * (ABNORMAL) CYTOPLASMIC PATTERN (06/27/2023 4:59 AM ACCESS SPECIALIST) Cytoplasmic Pattern Titer 1:640(A) 06/29/2023 10:24 PM ACCESS SPECIALIST [email or web address] ([facility]) Cytoplasmic Pattern Rods and Rings(A) 06/29/2023 10:24 PM ACCESS SPECIALIST [email or web address] ([facility]) Comment: Performed By: [employer] [address] [place] [address] Dock Coordinator: Ken Mcfadden MD, PhD CLIA Number: [id number] Blood BLOOD SPECIMEN / Unknown Venipuncture / Unknown 06/27/2023 4:59 AM ACCESS SPECIALIST 06/27/2023 5:08 AM ACCESS SPECIALIST Alexander Damico MD LAB - CHEMISTRY [facility]) [address] [place] [address], [place] * ELIAS HEP-2 IGG BY IFA (06/27/2023 4:59 AM ACCESS SPECIALIST) ELIAS HEp-2 IgG <1:80 <1:80 06/29/2023 10:24 PM ACCESS SPECIALIST [facility] ([facility]) ELIAS Interpretive Comment See Note 06/29/2023 10:24 PM ACCESS SPECIALIST [facility] ([facility]) Comment: Antinuclear antibodies by IFA negative for [...] not necessarily rule out SARD. Performed By: [employer] [address] [place] [address] Dock Coordinator: Ken Mcfadden MD, PhD CLIA Number: [id number] Blood BLOOD SPECIMEN / Unknown Venipuncture / Unknown 06/27/2023 4:59 AM ACCESS SPECIALIST 06/27/2023 5:08 AM ACCESS SPECIALIST Alexander Damico MD LAB - SEROLOGY ORDER SAMIRA [employer] ([facility]) [address] [place] [id number], [place] * SMOOTH MUSCLE ANTIBODY W REFLEX TITER (06/27/2023 4:59 AM ACCESS SPECIALIST) F-Actin Antibody IgG 9 0 - 19 Units 06/28/2023 8:47 PM ACCESS SPECIALIST [employer] ([facility]) Comment: If F-Actin (Smooth Muscle) Antibody, IgG [...] suspicion for AIH is strong. Performed By: [employer] [address] [place] [address] Dock Coordinator: Ken Mcfadden MD, PhD CLIA Number: [id number] Blood BLOOD SPECIMEN / Unknown Venipuncture / Unknown 06/27/2023 4:59 AM ACCESS SPECIALIST 06/27/2023 5:08 AM ACCESS SPECIALIST Alexander Damico MD LAB - SEROLOGY ORDER SAMIRA Performing Organization Address City/[facility]/ZIP Co de Phone Number [facility] ([facility]) [address] [place] [address] * HIV-1 HIV-2 ANTIBODY + HIV P24 AG PANEL (06/27/2023 4:59 AM ACCESS SPECIALIST) HIV Antigen/Antibod y 1 & 2 Non-reacti ve Non-react juan 06/27/2023 6:07 AM ACCESS SPECIALIST [facility] Comment:No Laboratory eviden ce of HIV infection. Blood BLOOD SPECIMEN / Unknown Venipuncture / Unknown 06/27/2023 4:59 AM ACCESS SPECIALIST 06/27/2023 5:08 AM ACCESS SPECIALIST Alexander Damico MD LAB - CHEMISTRY ORDE STEVEN [facility] [address] [place] [address], [place] [phone] * MITOCHONDRIAL ANTIBODY SCREEN (06/27/2023 4:59 AM ACCESS SPECIALIST) Mitochondrial M2 Antibody 9.4 0.0 - 24.9 Units 06/28/2023 8:47 PM ACCESS SPECIALIST [employer] ([facility]) Comment: REFERENCE INTERVAL: Mitochondrial (M2) Antibody, IgG [...] does not rule out PBC. Performed By: [employer] [address] [place] [address] Dock Coordinator: Ken Mcfadden MD, PhD CLIA Number: [id number] Blood BLOOD SPECIMEN / Unknown Venipuncture / Unknown 06/27/2023 4:59 AM ACCESS SPECIALIST 06/27/2023 5:08 AM ACCESS SPECIALIST Alexander Damico MD LAB - CHEMISTRY [facility] Organization Address City/State/ZIP Co de Phone Number [email or web address]) [address] [place] [address], [place] * (ABNORMAL) ELIAS BLOOD SCREEN W/REFLEX TITER (06/27/2023 4:59 AM ACCESS SPECIALIST) Pathologist [facility] ELIAS IgG Detected (A) None Detected 06/28/2023 10:39 PM ACCESS SPECIALIST [employer] ([facility]) Comment: Antibodies to Anti-Nuclear Antibodies (ELIAS) detected. [...] dsDNA, histones, SS-A (Ro), SS-B (La), Zarate, Zarate/CALENDER LET OFF OPERATOR, Scl-70, Roxane-1, centromeric proteins, other antigens extracted from the HEp-2 cell nucleus. ELIAS RODRICK assays have been reported to have lower sensitivities than ELIAS IFA for systemic autoimmune rheumatic diseases (SARD). Negative results do not necessarily rule out SARD. Performed By: [facility] [address] [place] [address] Dock Coordinator: Ken Mcfadden MD, PhD CLIA Number: [id number] Blood BLOOD SPECIMEN / Unknown Venipuncture / Unknown 06/27/2023 4:59 AM ACCESS SPECIALIST 06/27/2023 5:08 AM ACCESS SPECIALIST Alexander Damico MD LAB - CHEMISTRY [facility] Performing Organization Address [facility] Co de Phone Number [facility] ([facility]) [address] [place] [id number], [place] * HEPATITIS B SURFACE ANTIBODY (06/27/2023 4:59 AM ACCESS SPECIALIST) Hepatitis B Virus Surface Antibody Non-react juan Non-react juan 06/27/2023 6:07 AM ACCESS SPECIALIST [facility] Comment: < 8 mIU/mL Hepatitis B surface Antibody (HBsAb). Nonreactive for HBsAb - individual is considered not immune to Hepatitis B Virus infection. Hepatitis B Surface Antibody Quantitative 0.1 <8.0 mIU/mL 06/27/2023 6:07 AM ACCESS SPECIALIST [facility] Comment: Hepatitis B Surface Antibody Numeric Result Interpretation: Nonreactive: <8.0 mIU/mL Indeterminate: 8.0 - 12.0 mIU/mL Reactive: >12.0 mIU/mL Blood BLOOD SPECIMEN / Unknown Venipuncture / Unknown 06/27/2023 4:59 AM ACCESS SPECIALIST 06/27/2023 5:08 AM ACCESS SPECIALIST Alexander Damico MD LAB - CHEMISTRY [facility] Performing Organization Address City/[facility]/ZIP Co de Phone Number [facility] [address] [place] [address], [place] [phone] * HEPATITIS B CORE ANTIBODY TOTAL (06/27/2023 4:59 AM ACCESS SPECIALIST) Pathologist [facility] HBc Antibody Total Non-reacti ve Non-reacti ve 06/27/2023 6:07 AM ACCESS SPECIALIST [facility] Blood BLOOD SPECIMEN / Unknown Venipuncture / Unknown 06/27/2023 4:59 AM ACCESS SPECIALIST 06/27/2023 5:08 AM ACCESS SPECIALIST Alexander Damico MD LAB - CHEMISTRY [place] [address] [address], [place] [phone] * HEPATITIS B SURFACE ANTIGEN W RFLX CONFIRMATION (06/27/2023 4:59 AM ACCESS SPECIALIST) Pathologist [facility] Hepatitis B Virus Surface Antigen Non-reacti ve Non-reacti ve 06/27/2023 6:07 AM ACCESS SPECIALIST [facility] Blood BLOOD SPECIMEN / Unknown Venipuncture / Unknown 06/27/2023 4:59 AM ACCESS SPECIALIST 06/27/2023 5:08 AM ACCESS SPECIALIST Alexander Damico MD LAB - CHEMISTRY [facility]MIN [facility] Performing Organization Address [facility]/ZIP Co de Phone Number [address] [address], [place] [phone] * (ABNORMAL) FOLATE (06/27/2023 4:59 AM ACCESS SPECIALIST) [facility] Folate 4.1(L) 7.0 - 31.4 ng/mL 06/27/2023 6:18 AM ACCESS SPECIALIST [facility] Blood BLOOD SPECIMEN / Unknown Venipuncture / Unknown 06/27/2023 4:59 AM ACCESS SPECIALIST 06/27/2023 5:08 AM ACCESS SPECIALIST Alexander Damico MD LAB - CHEMISTRY [facility] Performing Organization Address City/[facility]/ZIP Co de Phone Number [address] [address], [place] [phone] * VITAMIN B12 (06/27/2023 4:59 AM ACCESS SPECIALIST) [facility] Vitamin B12 369 213 - 816 pg/mL 06/27/2023 6:18 AM [facility] Blood BLOOD SPECIMEN / Unknown Venipuncture / Unknown 06/27/2023 4:59 AM ACCESS SPECIALIST 06/27/2023 5:08 AM ACCESS SPECIALIST Alexander Damico MD LAB - CHEMISTRY [facility] Performing Organization Address [facility] Co de Phone Number [address] [address], [place] [phone] * (ABNORMAL) IRON + TRANSFERRIN PANEL (06/27/2023 4:59 AM ACCESS SPECIALIST) [facility] Iron 21(L) 40 - 150 ug/dL 06/27/2023 5:52 AM [facility] Transferrin 200 174 - 382 mg/dL 06/27/2023 5:52 AM [facility] Transferrin Saturation % 8(L) 16 - 50 % 06/27/2023 5:52 AM [facility] TIBC Calculated 250 240 - 450 ug/dL 06/27/2023 5:52 AM [facility] Blood BLOOD SPECIMEN / Unknown Venipuncture / Unknown 06/27/2023 4:59 AM ACCESS SPECIALIST 06/27/2023 5:08 AM ACCESS SPECIALIST Alexander Damico MD LAB - CHEMISTRY [facility] Performing Organization Address [facility] Co de Phone Number [address] [address], [place] [phone] * (ABNORMAL) HEPATITIS A ANTIBODY (06/27/2023 4:59 AM ACCESS SPECIALIST) [facility] Hepatitis A Virus Antibody Total Positive( A) Negative 06/28/2023 1:32 PM ACCESS SPECIALIST [employer] ([facility]) Comment: The positive anti-HAV is consistent with recent or remote Hepatitis A infection or antibody response to HAV vaccination. False positive anti-HAV can occur. Performed By: [employer] [address] [place] [address] Dock Coordinator: Ken Mcfadden MD, PhD CLIA Number: [id number] Blood BLOOD SPECIMEN / Unknown Venipuncture / Unknown 06/27/2023 4:59 AM ACCESS SPECIALIST 06/27/2023 5:08 AM ACCESS SPECIALIST Alexander Damico MD LAB - CHEMISTRY ARMIN HARIRS [address] * FERRITIN (06/27/2023 4:59 AM ACCESS SPECIALIST) [facility] Ferritin 92 13 - 204 ng/mL 06/27/2023 6:07 AM ACCESS SPECIALIST [facility] Blood BLOOD SPECIMEN / Unknown Venipuncture / Unknown 06/27/2023 4:59 AM ACCESS SPECIALIST 06/27/2023 5:08 AM ACCESS SPECIALIST Alexander Damico MD LAB - CHEMISTRY [facility] Performing Organization Address [facility] Co de Phone Number [address] [address], [place] [phone] * HEPATITIS C AB SCREEN RFLX NAAT QUANT (06/26/2023 11:55 PM ACCESS SPECIALIST) [facility] Hepatitis C Antibody Non-react juan Non-reac tive 06/27/2023 1:13 AM ACCESS SPECIALIST [facility] Comment:Hepatitis C Antibody screen indicates no serologic evidence of past or current infection with Hepatitis C Virus. Patients with unexplained liver disease who are immunocompromised or suspected of having acute Hepatitis C infection may benefit from Nucleic Acid Test (NIDHI) for Hepatitis C Viral RNA to confirm Hepatitis C status. Blood BLOOD SPECIMEN / Unknown Lab Venipuncture / Unknown 06/26/2023 11:55 PM ACCESS SPECIALIST 06/27/2023 12:08 AM ACCESS SPECIALIST Alexander Damico MD LAB - CHEMISTRY [facility]MIN [facility] Performing Organization Address City/[facility]/ZIP Co de Phone Number [address] [address], [place] [phone] * CERULOPLASMIN (06/26/2023 11:55 PM ACCESS SPECIALIST) Pathologist [facility] Ceruloplasmin 32 20 - 60 mg/dL 06/27/2023 2:07 AM ACCESS SPECIALIST [facility] Blood BLOOD SPECIMEN / Unknown Lab Venipuncture / Unknown 06/26/2023 11:55 PM ACCESS SPECIALIST 06/27/2023 12:08 AM ACCESS SPECIALIST Alexander Damico MD LAB - CHEMISTRY [facility]MIN H[facility] [address] [place] [address], [place] [phone] * (ABNORMAL) NASFR-0-NTHLERBAEGT BLOOD (06/26/2023 11:55 PM ACCESS SPECIALIST) [facility] Ltpoo-9-Fygtxv ypsin 284(H) 90 - 200 mg/dL 06/27/2023 2:07 AM ACCESS SPECIALIST [facility] Blood BLOOD SPECIMEN / Unknown Lab Venipuncture / Unknown 06/26/2023 11:55 PM ACCESS SPECIALIST 06/27/2023 12:08 AM ACCESS SPECIALIST Alexander Damico MD LAB - CHEMISTRY ARMIN [facility] Performing Organization Address City/[facility]/ZIP Co de Phone Number [facility] [address] [place] [address], [place] [phone] * TRANSFUSE RED BLOOD CELL LEUKOREDUCED UNIT(S) (06/26/2023 12:11 PM ACCESS SPECIALIST) Alexander Damico MD NURSING - BLOOD PROD TRANSFUSION * PREPARE (CROSSMATCH) RBC UNIT(S), 1 Units (06/26/2023 7:13 AM ACCESS SPECIALIST) Only the most recent of2 resultswithin the time period is included. [facility] Unit Description AS1 LR PRBC [facility] BLOOD BANK LAB Unit ABO A [facility] BLOOD BANK LAB Unit Rh POS [facility] BLOOD BANK LAB Product Number R02 [facility] B LOOD BANK LAB Unit Donor # [id number] [facility] BLOOD BANK LAB Unit Status transfused [facility] BLO OD BANK LAB Product Code [id number] [facility] BLO OD BANK LAB Blood Type Barcode 6200 [facility] BLOOD BANK LAB Expiration Date [id number] S BLOOD BANK LAB Blood Bank BLOOD SPECIMEN / Unknown 06/24/2023 4:14 PM ACCESS SPECIALIST Alexander Damico MD LAB - BLOOD BANK ORD ERABLES [facility] BLOOD BANK LAB [address] [place] [address], [place] [phone] * (ABNORMAL) BASIC METABOLIC PANEL (CALCIUM TOTAL) (06/26/2023 12:26 AM ACCESS SPECIALIST) Only the most recent of5 resultswithin the time period is included. BUN 18 7 - 26 mg/dL 06/26/2023 1:01 AM [facility] Creatinine 1.22(H) 0.56 - 0.96 mg/dL 06/26/2023 1:01 AM [facility] Sodium 138 136 - 145 mmol/L 06/26/2023 1:01 AM [facility] Potassium 4.2 3.5 - 4.5 mmol/L 06/26/2023 1:01 AM [facility] Chloride 107 98 - 107 mmol/L 06/26/2023 1:01 AM [facility] CO2 23 22 - 29 mmol/L 06/26/2023 1:01 AM [facility] Glucose 114 70 - 115 mg/dL 06/26/2023 1:01 AM [facility] Calcium 7.9(L) 8.4 - 10.2 mg/dL 06/26/2023 1:01 AM [facility] Anion Gap 8 6 - 16 06/26/2023 1:01 AM [facility] BUN/Creatinine Ratio 15 7 - 23 06/26/2023 1:01 AM [facility] Osmolality Calculated 289 275 - 295 mOsm/kg 06/26/2023 1:01 AM [facility] eGFR by CKD-EPI 43(L) >=90 mL/min/1.7 3 m2 06/26/2023 1:01 AM [facility] Blood BLOOD SPECIMEN / Unknown Venipuncture / Unknown 06/26/2023 12:26 AM ACCESS SPECIALIST 06/26/2023 12:36 AM ACCESS SPECIALIST Tony Hoskins MD LAB - CHEMISTRY ARMIN H[facility] [address] [place] [address], [place] [phone] * TRANSFUSE RED BLOOD CELL LEUKOREDUCED UNIT(S) (06/25/2023 11:34 PM ACCESS SPECIALIST) Alexander Damico MD NURSING - BLOOD PROD TRANSFUSION * (ABNORMAL) VITAMIN D 25-HYDROXY (06/25/2023 12:35 AM ACCESS SPECIALIST) Vitamin D, 25 Hydroxy 20.0(L) 30.0 - 80.0 ng/mL 06/25/2023 8:47 AM ACCESS SPECIALIST [facility] Comment: The recommendations for 25-Hydroxy Vitamin D [...] Unknown Venipuncture / Unknown 06/25/2023 12:35 AM ACCESS SPECIALIST 06/25/2023 12:39 AM ACCESS SPECIALIST Brooklyn Carias PA-C LAB - CHEMIS TRY ORDERABLES [facility] [address] [place] [address], [place] [phone] * (ABNORMAL) TEG 6 GLOBAL HEMOSTASIS W/ LYSIS (06/24/2023 6:59 PM ACCESS SPECIALIST) Only the most recent of2 resultswithin the time period is included. Citrated Kaolin R (Reaction Time) 11.4(H) 4.6 - 9.1 min 06/24/2023 8:36 PM ACCESS SPECIALIST [facility] Comment:CK R result above no rmal range. Consistent with hypocoagulable clotting factors. Consider presence of clotting factor deficiency and/or anti-coagulant. Citrated Kaolin LY30 (Lysis) 0.9 0.0 - 2.6 % 06/24/2023 8:36 PM [facility] Citrated Functional Fibrinogen MA (Max Amplitude) 14.2(L) 15.0 - 32.0 mm 06/24/2023 8:36 PM [facility] Comment:CFF MA below normal range. Consistent with decreased fibrinogen contribution to clot strength. Citrated RapidTEG MA (Max Amplitude) 58.3 52.0 - 70.0 mm 06/24/2023 8:36 PM [facility] Blood BLOOD SPECIMEN / Unknown Venipuncture / Unknown 06/24/2023 6:59 PM ACCESS SPECIALIST 06/24/2023 7:04 PM ACCESS SPECIALIST Tony Hoskins MD LAB - HEMATOLOGY ORD ERABLES [facility] [address] [place] [address], [place] [phone] * (ABNORMAL) TEG 6S PLATELET MAPPING (06/24/2023 6:59 PM ACCESS SPECIALIST) Only the most recent of2 resultswithin the time period is included. TEGPLM (Max Amplitude) Koalin 58.5 53.0 - 68.0 mm 06/24/2023 8:22 PM [facility] TEGPLM (Max Amplitude) ACTF 6.4 2.0 - 19.0 mm 06/24/2023 8:22 PM [facility] TEGPLM (Max Amplitude) ADP 46.6 45.0 - 69.0 mm 06/24/2023 8:22 PM [facility] TEGPLM (Max Amplitude) AA 30.0(L) 51.0 - 71.0 mm 06/24/2023 8:22 PM [facility] Comment:AA MA below normal r imani. Inhibition present. TEGPLM %Inhibition ADP 22.8(H) 0.0 - 17.0 % 06/24/2023 8:22 PM [facility] TEGPLM %Inhibition AA 54.7(H) 0.0 - 11.0 % 06/24/2023 8:22 PM ACCESS SPECIALIST [facility] TEGPLM %Aggregation ADP 77.2(L) 83.0 - 100.0 % 06/24/2023 8:22 PM [facility] TEGPLM % Aggregation AA 45.3(L) 89.0 - 100.0 % 06/24/2023 8:22 PM [facility] Blood BLOOD SPECIMEN / Unknown Venipuncture / Unknown 06/24/2023 6:59 PM ACCESS SPECIALIST 06/24/2023 7:04 PM ACCESS SPECIALIST Tony Hoskins MD LAB - HEMATOLOGY ORD ERABLES Performing Organization Address City/[facility]/ZIP Co de Phone Number [facility] [address] [place] [address], [place] [phone] * EKG 12-LEAD (06/24/2023 5:07 PM ACCESS SPECIALIST) Only the most recent of5 resultswithin the time period is included. Ventricular Rate 78 BPM [facility] MUSE QRS Duration ms 84 ms [facility] MUSE Q-T Interval ms 404 ms [facility] MUSE QTC Calculation (Bezet) 460 ms [facility] MUSE Calculated R [place] 51 degrees [facility] MUSE Calculated T [place] -48 degrees [facility] MUSE Interpretation EKG ATRIAL FIBRILLATION LOW VOLTAGE QRS NONSPECIFIC T WAVE ABNORMALITY ABNORMAL ECG WHEN COMPARED WITH ECG OF 30-SEP-2016 12:46, ATRIAL FIBRILLATION HAS REPLACED SINUS RHYTHM QRS VOLTAGE HAS DECREASED T WAVE INVERSION NO LONGER EVIDENT IN ANTERIOR LEADS Confirmed by MD VINAY, BERNARD ([id number]) on 06/26/2023 12:19:24 PM [facility] MUSE 06/24/2023 5:07 PM ACCESS SPECIALIST 06/26/2023 12:19 PM ACCESS SPECIALIST Alexander Damico MD ECG ORDERABLES Performing Organization Address City/[facility]/ZIP Co de Phone Number [facility] MUSE * XR HUMERUS RIGHT 2VW OR MORE (06/24/2023 4:58 PM ACCESS SPECIALIST) Anatomical Region Laterality Modality Upper Extremity Radiographic Shila ging 06/24/2023 5:44 PM ACCESS SPECIALIST Narrative 06/25/2023 2:38 PM ACCESS SPECIALIST PROCEDURE: XR HUMERUS RIGHT 2VW OR MORE, DATE/TIME OF EXAM: 06/24/2023 4:58 PM, LOCATION [facility] INDICATION: T14.90XA: Trauma ADDITIONAL CLINICAL INFORMATION: Ordering Provider Reason For Exam: fracture COMPARISON: None. FINDINGS/IMPRESSION: Moderately displaced comminuted proximal humeral shaft fracture with medial angulation of the distal humeral shaft. Report dictated by Josh Ortega DO (residential specialist). Josh Muñiz DO have personally reviewed and interpreted this examination/study. > Interpreting Provider: Josh Valentine DO on 06/25/2023 2:38 PM Procedure Note Josh Valentine DO - 06/25/2023 PROCEDURE: XR HUMERUS RIGHT 2VW OR MORE, DATE/TIME OF EXAM: 06/24/2023 4:58 PM, LOCATION [facility] INDICATION: T14.90XA: Trauma ADDITIONAL CLINICAL INFORMATION: Ordering Provider Reason For Exam: fracture COMPARISON: None. FINDINGS/IMPRESSION: Moderately displaced comminuted proximal humeral shaft fracture withmedial angulation of the distal humeral shaft. Report dictated by Josh Ortega DO (residential specialist). Josh Muñiz DO have personally reviewed and interpreted this examination/study. > Interpreting Provider: Josh Valentine DO on 06/25/2023 2:38 PM Tony Hoskins MD DIAGNOSTIC IMAGING O RDERABLES * XR ELBOW RIGHT 2VW (06/24/2023 4:58 PM ACCESS SPECIALIST) Anatomical Region Laterality Modality Upper Extremity Radiographic Shila ging 06/27/2023 1:15 PM ACCESS SPECIALIST Impressions 06/27/2023 1:37 PM ACCESS SPECIALIST IMPRESSION: No fracture or dislocation. Report dictated by Cuong Hardy DO (Heat Treating Furnace Tender). Josh Muñiz DO have personally reviewed and interpreted this examination/study. > Interpreting Provider: Josh Valentine DO on 06/27/2023 1:37 PM Narrative 06/27/2023 1:37 PM ACCESS SPECIALIST PROCEDURE: XR ELBOW RIGHT 2VW, DATE/TIME OF EXAM: 06/24/2023 4:58 PM, LOCATION [facility] INDICATION: T14.90XA: Trauma ADDITIONAL CLINICAL INFORMATION: Ordering [...] DATE/TIME OF EXAM: 06/24/2023 4:58 PM, LOCATION [facility] INDICATION: T14.90XA: Trauma ADDITIONAL CLINICAL INFORMATION: Ordering Provider Reason For Exam: fracture Technologist Note: Additional: COMPARISON: Lateral and AP views of the right humerus obtained on 06/24/2023. FINDINGS: There is no fracture. There is osteopenia. The joint alignment is normal. The soft tissues are normal without evidence of joint effusion. IMPRESSION: No fracture or dislocation. Report dictated by Cuong Hardy DO (Heat Treating Furnace Tender). I, Josh Valentine DO have personally reviewed and interpreted this examination/study. > Interpreting Provider: Josh Valentine DO on 06/27/2023 1:37 PM Tony Hoskins MD DIAGNOSTIC IMAGING O RDERABLES * BLOOD TYPE VERIFICATION (06/24/2023 4:43 PM ACCESS SPECIALIST) ABO Rh A POS 06/24/2023 5:0 6 PM ACCESS SPECIALIST [facility] BLOOD BANK LAB Blood Bank BLOOD SPECIMEN / Unknown Venipuncture / Unknown 06/24/2023 4:43 PM ACCESS SPECIALIST 06/24/2023 4:59 PM ACCESS SPECIALIST Alexander Damico MD LAB - BLOOD BANK ORD ERABLES [facility] BLOOD BANK LAB [address] [place] [address], [place] [phone] * CT CHEST ABDOMEN PELVIS W CONT - Abdomen-pelvis trauma, blunt or penetrating (06/24/2023 4:40 PM ACCESS SPECIALIST) Anatomical Region Laterality Modality Chest, Abdomen, Pelvis Computed Tomography 06/24/2023 4:38 PM ACCESS SPECIALIST Impressions 06/25/2023 8:58 AM ACCESS SPECIALIST Impression: 1.Partially visualized comminuted and displaced right [...] atherosclerosis. > Dictated by Xavi Castañeda DO (residential specialist). I, Kim Sharp MD have personally reviewed and interpreted this examination/study. > Interpreting Provider: Kim Sharp MD on 06/25/2023 8:58 AM Narrative 06/25/2023 8:58 AM ACCESS SPECIALIST PROCEDURE: CT CHEST ABDOMEN PELVIS W CONT, DATE/TIME OF EXAM: 06/24/2023 4:42 PM, LOCATION [facility] INDICATION: Trauma ADDITIONAL CLINICAL INFORMATION: Ordering Provider [...] CONT, DATE/TIME OF EXAM:06/24/2023 4:42 PM, LOCATION [facility] INDICATION: Trauma ADDITIONAL CLINICAL INFORMATION: Ordering Provider [...] in the L3 vertebral body (series 10, ). Grade 1 anterolisthesis of L5 on S1. [...] atherosclerosis. > Dictated by Xavi Castañeda DO (residential specialist). Kim Muñiz MD have personally reviewed and interpreted this examination/study. > Interpreting Provider: Kim Sharp MD on 06/25/2023 8:58 AM Alexander Damico MD CT ORDERABLES * CT LUMBAR SPINE WO CONTRAST - T/L-spine trauma, Spine fracture (06/24/2023 4:40 PM ACCESS SPECIALIST) Anatomical Region Laterality Modality Spine Computed Tomogra phy 06/24/2023 5:02 PM ACCESS SPECIALIST Impressions 06/24/2023 7:11 PM ACCESS SPECIALIST IMPRESSION: 1.No acute intracranial abnormality. 2.No acute fracture or traumatic malalignment of the cervical, thoracic, or lumbar spine. 3.Heterogeneous thyroid with a right lobe nodule measuring up to 4.2 cm. Recommend follow-up nonemergent outpatient thyroid ultrasound if not recently performed. 4.Please refer to concurrently reported chest, abdomen, and pelvis CT for description of additional nonspine-related abnormalities. > Dictated by Josh Ortega DO (residential specialist). Jazmyn Muñiz MD, PhD have personally reviewed and interpreted this examination/study. > Interpreting Provider: Jazmyn Ferris MD, PhD on 06/24/2023 7:11 PM Narrative 06/24/2023 7:11 PM ACCESS SPECIALIST EXAM: CT HEAD WO CONTRAST, CT LUMBAR SPINE WO CONTRAST, CT THORACIC SPINE WO CONTRAST, CT CERVICAL SPINE WO CONTRAST, DATE/TIME OF EXAM: 06/24/2023 4:42 PM, LOCATION: [facility] HISTORY: Trauma EXAMINATION: CT scan of the [...] represents the sequela of chronic microangiopathic change. Awkd-yt-lrfeozqq global parenchymal volume loss, which is commensurate [...] C2, and the atlantodental interval is normal. Xwpi-tf-zsdspqhe degenerative changes at the C1-C2 level. BONES: Vertebral body heights are maintained without evidence of acute fracture. Osseous structures are demineralized. DISCS: Multilevel advanced disc space narrowing, which is severe at the C5-C6 and C6-C7 levels. DEGENERATIVE CHANGES: Overall gccvtlrz-gj-vbaccy multilevel degenerative changes, characterized by varying degrees of posterior disc bulges/osteophyte complexes, facet arthropathy, and uncovertebral joint hypertrophy. SPINAL CANAL/NEUROFORAMEN: Multilevel spinal canal stenoses that is nuzb-oh-axfdquea at the C3-C4 and C4-C5 levels and [...] abdomen, and pelvis CT. Moderate left and quru-xy-epyihumh right calcific atherosclerosis of the carotid bulbs. [...] concurrently reported chest, abdomen, an pelvis CT. Ennz-yy-rhtnqunw calcific atherosclerosis of the thoracic aorta. LUMBAR [...] at the L1-L2 and L2-L3 levels and ptcjoowk-qo-uwxomb elsewhere. Vacuum phenomenon at multiple levels. Degenerative-related endplate sclerotic change at the L1-L2 and L2-L3 levels. DEGENERATIVE CHANGES: Overall severe multilevel degenerative change, characterized by varying degrees of posterior disc bulges, ligamentum flavum hypertrophy, and facet arthropathy. SPINAL CANAL/NEUROFORAMEN: Multilevel spinal canal stenoses that is moderate at the L1-L2 level and cooqrqit-up-umvgvf from the L2-L3 through the L5-S1 levels [...] CONTRAST, DATE/TIME OF EXAM:06/24/2023 4:42 PM, LOCATION: [facility] HISTORY: Trauma EXAMINATION: CT scan of the [...] likely represents the sequela of chronic microangiopathic change.Ibrw-md-ssujmjig global parenchymal volume loss, which is commensurate [...] to C2, and the atlantodental interval isnormal. Lnlp-ni-khfikgfz degenerative changes at the C1-C2 level. BONES: Vertebral body heights are maintained without evidence of acute fracture. Osseous structures are demineralized. DISCS: Multilevel advanced disc space narrowing, which is severe at the C5-C6 and C6-C7 levels. DEGENERATIVE CHANGES: Overall qezuxviv-pd-dxuyta multilevel degenerative changes, characterized by varying degrees of posterior disc bulges/osteophyte complexes, facet arthropathy, and uncovertebral joint hypertrophy. SPINAL CANAL/NEUROFORAMEN: Multilevel spinal canal stenoses that is nvij-vs-lrwcwhdx at the C3-C4 and C4-C5 levels and [...] abdomen, and pelvis CT. Moderate left and dwyt-ta-seemfvuu rightcalcific atherosclerosis of the carotid bulbs. THORACIC [...] concurrently reported chest, abdomen, an pelvis CT. Bdvs-qb-spzxyxbb calcific atherosclerosis of the thoracic aorta. LUMBAR [...] at the L1-L2 and L2-L3 levels and aqbfsxmh-oc-pcrkpr elsewhere. Vacuumphenomenon at multiple levels. Degenerative-related endplate sclerotic change atthe L1-L2 and L2-L3 levels. DEGENERATIVE CHANGES: Overall severe multilevel degenerative change, characterized by varying degrees of posterior disc bulges, ligamentum flavum hypertrophy, and facet arthropathy. SPINAL CANAL/NEUROFORAMEN: Multilevel spinal canal stenoses that is moderate at the L1-L2 level and igumrmrf-yx-dvppqq from the L2-E0tkwrlie the L5-S1 levels secondary to posterior disc bulges/osteophytecomplexes, ligamentum flavum hypertrophy, and facet arthropathy. Multilevel spinal canal stenoses that is severe at the right greater than left L1-N9xhnir, moderate at the bilateral L3-L4 level, and [...] abnormalities. > Dictated by Josh Ortega DO (residential specialist). Jazmyn Muñiz MD, PhD have personally reviewed and interpreted this examination/study. > Interpreting Provider: Jazmyn Ferris MD, PhD on 06/24/2023 7:11 PM Alexander Damico MD CT ORDERABLES * CT THORACIC SPINE WO CONTRAST - T/L-spine trauma, spine fracture (06/24/2023 4:40 PM ACCESS SPECIALIST) Anatomical Region Laterality Modality Spine Computed Tomogra phy 06/24/2023 5:02 PM ACCESS SPECIALIST Impressions 06/24/2023 7:11 PM ACCESS SPECIALIST IMPRESSION: 1.No acute intracranial abnormality. 2.No acute fracture or traumatic malalignment of the cervical, thoracic, or lumbar spine. 3.Heterogeneous thyroid with a right lobe nodule measuring up to 4.2 cm. Recommend follow-up nonemergent outpatient thyroid ultrasound if not recently performed. 4.Please refer to concurrently reported chest, abdomen, and pelvis CT for description of additional nonspine-related abnormalities. > Dictated by Josh Ortega DO (residential specialist). Jazmyn Muñiz MD, PhD have personally reviewed and interpreted this examination/study. > Interpreting Provider: Jazmyn Ferris MD, PhD on 06/24/2023 7:11 PM Narrative 06/24/2023 7:11 PM ACCESS SPECIALIST EXAM: CT HEAD WO CONTRAST, CT LUMBAR SPINE WO CONTRAST, CT THORACIC SPINE WO CONTRAST, CT CERVICAL SPINE WO CONTRAST, DATE/TIME OF EXAM: 06/24/2023 4:42 PM, LOCATION: [facility] HISTORY: Trauma EXAMINATION: CT scan of the [...] represents the sequela of chronic microangiopathic change. Tfbj-so-rnjphenx global parenchymal volume loss, which is commensurate [...] C2, and the atlantodental interval is normal. Enoj-cu-eoeenbyt degenerative changes at the C1-C2 level. BONES: Vertebral body heights are maintained without evidence of acute fracture. Osseous structures are demineralized. DISCS: Multilevel advanced disc space narrowing, which is severe at the C5-C6 and C6-C7 levels. DEGENERATIVE CHANGES: Overall ipboxcym-rj-hxkevl multilevel degenerative changes, characterized by varying degrees of posterior disc bulges/osteophyte complexes, facet arthropathy, and uncovertebral joint hypertrophy. SPINAL CANAL/NEUROFORAMEN: Multilevel spinal canal stenoses that is vcgf-wm-ohhlkzbw at the C3-C4 and C4-C5 levels and [...] abdomen, and pelvis CT. Moderate left and zufy-zp-iuzoehvw right calcific atherosclerosis of the carotid bulbs. [...] concurrently reported chest, abdomen, an pelvis CT. Wiex-og-aypkgitn calcific atherosclerosis of the thoracic aorta. LUMBAR [...] at the L1-L2 and L2-L3 levels and lovykpke-ak-fxwvkr elsewhere. Vacuum phenomenon at multiple levels. Degenerative-related endplate sclerotic change at the L1-L2 and L2-L3 levels. DEGENERATIVE CHANGES: Overall severe multilevel degenerative change, characterized by varying degrees of posterior disc bulges, ligamentum flavum hypertrophy, and facet arthropathy. SPINAL CANAL/NEUROFORAMEN: Multilevel spinal canal stenoses that is moderate at the L1-L2 level and xfzrdfii-ku-knonwe from the L2-L3 through the L5-S1 levels [...] CONTRAST, DATE/TIME OF EXAM:06/24/2023 4:42 PM, LOCATION: [facility] HISTORY: Trauma EXAMINATION: CT scan of the [...] likely represents the sequela of chronic microangiopathic change.Oaqf-yb-emszvpcz global parenchymal volume loss, which is commensurate [...] to C2, and the atlantodental interval isnormal. Bnmi-ml-kgydgone degenerative changes at the C1-C2 level. BONES: Vertebral body heights are maintained without evidence of acute fracture. Osseous structures are demineralized. DISCS: Multilevel advanced disc space narrowing, which is severe at the C5-C6 and C6-C7 levels. DEGENERATIVE CHANGES: Overall nuwnowvg-wq-fvzusz multilevel degenerative changes, characterized by varying degrees of posterior disc bulges/osteophyte complexes, facet arthropathy, and uncovertebral joint hypertrophy. SPINAL CANAL/NEUROFORAMEN: Multilevel spinal canal stenoses that is pdog-sx-eftkzerb at the C3-C4 and C4-C5 levels and [...] abdomen, and pelvis CT. Moderate left and kjox-dq-hnxqtgag rightcalcific atherosclerosis of the carotid bulbs. THORACIC [...] concurrently reported chest, abdomen, an pelvis CT. Soms-st-ynttaiob calcific atherosclerosis of the thoracic aorta. LUMBAR [...] at the L1-L2 and L2-L3 levels and cyirzvvi-ns-rghgwp elsewhere. Vacuumphenomenon at multiple levels. Degenerative-related endplate sclerotic change atthe L1-L2 and L2-L3 levels. DEGENERATIVE CHANGES: Overall severe multilevel degenerative change, characterized by varying degrees of posterior disc bulges, ligamentum flavum hypertrophy, and facet arthropathy. SPINAL CANAL/NEUROFORAMEN: Multilevel spinal canal stenoses that is moderate at the L1-L2 level and qljuzedt-ma-bhedhn from the L2-Z4velkzui the L5-S1 levels secondary to posterior disc bulges/osteophytecomplexes, ligamentum flavum hypertrophy, and facet arthropathy. Multilevel spinal canal stenoses that is severe at the right greater than left L1-O0qgpbx, moderate at the bilateral L3-L4 level, and [...] abnormalities. > Dictated by Josh Ortega DO (residential specialist). I, Jazmyn Ferris MD, PhD have personally reviewed and interpreted this examination/study. > Interpreting Provider: Jazmyn Ferris MD, PhD on 06/24/2023 7:11 PM Alexander Damico MD CT ORDERABLES * CT CERVICAL SPINE WO CONTRAST - C-Spine Trauma, Spine fracture (06/24/2023 4:40 PM ACCESS SPECIALIST) Anatomical Region Laterality Modality Spine Computed Tomogra phy 06/24/2023 5:02 PM ACCESS SPECIALIST Impressions 06/24/2023 7:11 PM ACCESS SPECIALIST IMPRESSION: 1.No acute intracranial abnormality. 2.No acute fracture or traumatic malalignment of the cervical, thoracic, or lumbar spine. 3.Heterogeneous thyroid with a right lobe nodule measuring up to 4.2 cm. Recommend follow-up nonemergent outpatient thyroid ultrasound if not recently performed. 4.Please refer to concurrently reported chest, abdomen, and pelvis CT for description of additional nonspine-related abnormalities. > Dictated by Josh Ortega DO (residential specialist). I, Jazmyn Ferris MD, PhD have personally reviewed and interpreted this examination/study. > Interpreting Provider: Jazmyn Ferris MD, PhD on 06/24/2023 7:11 PM Narrative 06/24/2023 7:11 PM ACCESS SPECIALIST EXAM: CT HEAD WO CONTRAST, CT LUMBAR SPINE WO CONTRAST, CT THORACIC SPINE WO CONTRAST, CT CERVICAL SPINE WO CONTRAST, DATE/TIME OF EXAM: 06/24/2023 4:42 PM, LOCATION: [facility] HISTORY: Trauma EXAMINATION: CT scan of the [...] represents the sequela of chronic microangiopathic change. Lwqs-rq-keqlvzgq global parenchymal volume loss, which is commensurate [...] C2, and the atlantodental interval is normal. Xuzn-us-zktoqkon degenerative changes at the C1-C2 level. BONES: Vertebral body heights are maintained without evidence of acute fracture. Osseous structures are demineralized. DISCS: Multilevel advanced disc space narrowing, which is severe at the C5-C6 and C6-C7 levels. DEGENERATIVE CHANGES: Overall tkukerod-xh-ejakqb multilevel degenerative changes, characterized by varying degrees of posterior disc bulges/osteophyte complexes, facet arthropathy, and uncovertebral joint hypertrophy. SPINAL CANAL/NEUROFORAMEN: Multilevel spinal canal stenoses that is hmdp-il-znsnzxgr at the C3-C4 and C4-C5 levels and [...] abdomen, and pelvis CT. Moderate left and mhbo-vm-sfydlnrq right calcific atherosclerosis of the carotid bulbs. [...] concurrently reported chest, abdomen, an pelvis CT. Zvif-ht-kekrekqf calcific atherosclerosis of the thoracic aorta. LUMBAR [...] at the L1-L2 and L2-L3 levels and sornhhtp-xo-ugdbft elsewhere. Vacuum phenomenon at multiple levels. Degenerative-related endplate sclerotic change at the L1-L2 and L2-L3 levels. DEGENERATIVE CHANGES: Overall severe multilevel degenerative change, characterized by varying degrees of posterior disc bulges, ligamentum flavum hypertrophy, and facet arthropathy. SPINAL CANAL/NEUROFORAMEN: Multilevel spinal canal stenoses that is moderate at the L1-L2 level and vyxdjera-re-yttrnh from the L2-L3 through the L5-S1 levels [...] CONTRAST, DATE/TIME OF EXAM:06/24/2023 4:42 PM, LOCATION: [facility] HISTORY: Trauma EXAMINATION: CT scan of the [...] likely represents the sequela of chronic microangiopathic change.Wsfa-qh-kxydjfxx global parenchymal volume loss, which is commensurate [...] to C2, and the atlantodental interval isnormal. Enzs-ya-hkzdyvgf degenerative changes at the C1-C2 level. BONES: Vertebral body heights are maintained without evidence of acute fracture. Osseous structures are demineralized. DISCS: Multilevel advanced disc space narrowing, which is severe at the C5-C6 and C6-C7 levels. DEGENERATIVE CHANGES: Overall ntwammpx-tp-nciwge multilevel degenerative changes, characterized by varying degrees of posterior disc bulges/osteophyte complexes, facet arthropathy, and uncovertebral joint hypertrophy. SPINAL CANAL/NEUROFORAMEN: Multilevel spinal canal stenoses that is yomo-ae-sgxopjgc at the C3-C4 and C4-C5 levels and [...] abdomen, and pelvis CT. Moderate left and wopn-vp-bywhzlvp rightcalcific atherosclerosis of the carotid bulbs. THORACIC [...] concurrently reported chest, abdomen, an pelvis CT. Nxsu-ix-ailvrpxy calcific atherosclerosis of the thoracic aorta. LUMBAR [...] at the L1-L2 and L2-L3 levels and tdysvlqt-ip-pskwin elsewhere. Vacuumphenomenon at multiple levels. Degenerative-related endplate sclerotic change atthe L1-L2 and L2-L3 levels. DEGENERATIVE CHANGES: Overall severe multilevel degenerative change, characterized by varying degrees of posterior disc bulges, ligamentum flavum hypertrophy, and facet arthropathy. SPINAL CANAL/NEUROFORAMEN: Multilevel spinal canal stenoses that is moderate at the L1-L2 level and egfrhzwo-im-nhiewz from the L2-M8remokgb the L5-S1 levels secondary to posterior disc bulges/osteophytecomplexes, ligamentum flavum hypertrophy, and facet arthropathy. Multilevel spinal canal stenoses that is severe at the right greater than left L1-K6viaaj, moderate at the bilateral L3-L4 level, and [...] abnormalities. > Dictated by Josh Ortega DO (residential specialist). Jazmyn Muñiz MD, PhD have personally reviewed and interpreted this examination/study. > Interpreting Provider: Jazmyn Ferris MD, PhD on 06/24/2023 7:11 PM Alexander Damico MD CT ORDERABLES * CT HEAD WO CONTRAST - Head Trauma, CSF leak, mental status changes (06/24/2023 4:40 PM ACCESS SPECIALIST) Anatomical Region Laterality Modality Head Computed Tomogra phy 06/24/2023 5:02 PM ACCESS SPECIALIST Impressions 06/24/2023 7:11 PM ACCESS SPECIALIST IMPRESSION: 1.No acute intracranial abnormality. 2.No acute fracture or traumatic malalignment of the cervical, thoracic, or lumbar spine. 3.Heterogeneous thyroid with a right lobe nodule measuring up to 4.2 cm. Recommend follow-up nonemergent outpatient thyroid ultrasound if not recently performed. 4.Please refer to concurrently reported chest, abdomen, and pelvis CT for description of additional nonspine-related abnormalities. > Dictated by Josh Ortega DO (residential specialist). Jazmyn Muñiz MD, PhD have personally reviewed and interpreted this examination/study. > Interpreting Provider: Jazmyn Ferris MD, PhD on 06/24/2023 7:11 PM Narrative 06/24/2023 7:11 PM ACCESS SPECIALIST EXAM: CT HEAD WO CONTRAST, CT LUMBAR SPINE WO CONTRAST, CT THORACIC SPINE WO CONTRAST, CT CERVICAL SPINE WO CONTRAST, DATE/TIME OF EXAM: 06/24/2023 4:42 PM, LOCATION: [facility] HISTORY: Trauma EXAMINATION: CT scan of the [...] represents the sequela of chronic microangiopathic change. Phqk-bs-prxgvwjf global parenchymal volume loss, which is commensurate [...] C2, and the atlantodental interval is normal. Lxxh-cf-rwzvpjst degenerative changes at the C1-C2 level. BONES: Vertebral body heights are maintained without evidence of acute fracture. Osseous structures are demineralized. DISCS: Multilevel advanced disc space narrowing, which is severe at the C5-C6 and C6-C7 levels. DEGENERATIVE CHANGES: Overall jjmifczb-rd-ofinyi multilevel degenerative changes, characterized by varying degrees of posterior disc bulges/osteophyte complexes, facet arthropathy, and uncovertebral joint hypertrophy. SPINAL CANAL/NEUROFORAMEN: Multilevel spinal canal stenoses that is dxrn-mz-egzcncgh at the C3-C4 and C4-C5 levels and [...] abdomen, and pelvis CT. Moderate left and kvyp-ot-thgkslzz right calcific atherosclerosis of the carotid bulbs. [...] concurrently reported chest, abdomen, an pelvis CT. Syuq-nx-sjxwipok calcific atherosclerosis of the thoracic aorta. LUMBAR [...] at the L1-L2 and L2-L3 levels and reoqwohv-jf-emysap elsewhere. Vacuum phenomenon at multiple levels. Degenerative-related endplate sclerotic change at the L1-L2 and L2-L3 levels. DEGENERATIVE CHANGES: Overall severe multilevel degenerative change, characterized by varying degrees of posterior disc bulges, ligamentum flavum hypertrophy, and facet arthropathy. SPINAL CANAL/NEUROFORAMEN: Multilevel spinal canal stenoses that is moderate at the L1-L2 level and xvaxosrt-cg-qxpthw from the L2-L3 through the L5-S1 levels [...] CONTRAST, DATE/TIME OF EXAM:06/24/2023 4:42 PM, LOCATION: [facility] HISTORY: Trauma EXAMINATION: CT scan of the [...] likely represents the sequela of chronic microangiopathic change.Ebhg-wm-fjqtmdld global parenchymal volume loss, which is commensurate [...] to C2, and the atlantodental interval isnormal. Wgzx-rp-wfdxptdm degenerative changes at the C1-C2 level. BONES: Vertebral body heights are maintained without evidence of acute fracture. Osseous structures are demineralized. DISCS: Multilevel advanced disc space narrowing, which is severe at the C5-C6 and C6-C7 levels. DEGENERATIVE CHANGES: Overall gboheoor-pg-tpslkt multilevel degenerative changes, characterized by varying degrees of posterior disc bulges/osteophyte complexes, facet arthropathy, and uncovertebral joint hypertrophy. SPINAL CANAL/NEUROFORAMEN: Multilevel spinal canal stenoses that is vhuu-gb-hycbjxbl at the C3-C4 and C4-C5 levels and [...] abdomen, and pelvis CT. Moderate left and sivr-lg-imyhtbrf rightcalcific atherosclerosis of the carotid bulbs. THORACIC [...] concurrently reported chest, abdomen, an pelvis CT. Ppbp-kf-ifigctug calcific atherosclerosis of the thoracic aorta. LUMBAR [...] at the L1-L2 and L2-L3 levels and uorprjkq-ek-adxpxl elsewhere. Vacuumphenomenon at multiple levels. Degenerative-related endplate sclerotic change atthe L1-L2 and L2-L3 levels. DEGENERATIVE CHANGES: Overall severe multilevel degenerative change, characterized by varying degrees of posterior disc bulges, ligamentum flavum hypertrophy, and facet arthropathy. SPINAL CANAL/NEUROFORAMEN: Multilevel spinal canal stenoses that is moderate at the L1-L2 level and [id number] from the L2-[id number] the L5-S1 levels secondary to posterior disc bulges/osteophytecomplexes, ligamentum flavum hypertrophy, and facet arthropathy. Multilevel spinal canal stenoses that is severe at the right greater than left L1-S9cdsnd, moderate at the bilateral L3-L4 level, and [...] abnormalities. > Dictated by Josh Ortega DO (residential specialist). I, Jazmyn Ferris MD, PhD have personally reviewed and interpreted this examination/study. > Interpreting Provider: Jazmyn Ferris MD, PhD on 06/24/2023 7:11 PM Alexander Damico MD CT ORDERABLES * XR PELVIS 1 OR 2VW (06/24/2023 4:34 PM ACCESS SPECIALIST) Anatomical Region Laterality Modality Pelvis Radiographic Shila ging 06/24/2023 4:13 PM ACCESS SPECIALIST Impressions 06/25/2023 2:38 PM ACCESS SPECIALIST IMPRESSION: No acute fracture identified. Report dictated by Josh Ortega DO (residential specialist). Josh Muñiz DO have personally reviewed and interpreted this examination/study. > Interpreting Provider: Josh Valentine DO on 06/25/2023 2:38 PM Narrative 06/25/2023 2:38 PM ACCESS SPECIALIST PROCEDURE: XR PELVIS 1 OR 2VW, DATE/TIME OF EXAM: 06/24/2023 4:07 PM, LOCATION [facility] INDICATION: Trauma Fracture suspected COMPARISON: None. FINDINGS: No acute fracture is identified. The femoral heads appear well-seated within their respective acetabula. The pubic symphysis is intact. Bone density and texture are normal. The sacroiliac joints are normal. Procedure Note Josh Valentine DO - 06/25/2023 PROCEDURE: XR PELVIS 1 OR 2VW, DATE/TIME OF EXAM: 06/24/2023 4:07 PM, LOCATION [facility] INDICATION: Trauma Fracture suspected COMPARISON: None. FINDINGS: No acute fracture is identified. The femoral heads appear well-seated within their respective acetabula. The pubic symphysis is intact. Bone density and texture are normal. The sacroiliac joints are normal. IMPRESSION: No acute fracture identified. Report dictated by Josh Ortega DO (residential specialist). Josh Muñiz DO have personally reviewed and interpreted this examination/study. > Interpreting Provider: Josh Valentine DO on 06/25/2023 2:38 PM Alexander Damico MD DIAGNOSTIC IMAGING O RDERABLES * (ABNORMAL) PTT [facility] (06/24/2023 4:05 PM ACCESS SPECIALIST) APTT 43.6(H) 23.0 - 38.4 Seconds 06/24/2023 4:49 PM ACCESS SPECIALIST [facility] Comment:Suggested therapeuti c range for full dose I.V. unfractionated heparin therapy for venous thromboembolism is 71 to 109 seconds. Blood BLOOD SPECIMEN / Unknown Venipuncture / Unknown 06/24/2023 4:05 PM ACCESS SPECIALIST 06/24/2023 4:23 PM ACCESS SPECIALIST Alexander Damico MD LAB - COAGULATION OR DERABLES [facility] [address] [place] [address], [place] [phone] * TYPE + SCREEN PANEL (06/24/2023 4:05 PM ACCESS SPECIALIST) [facility] Antibody Screen NEG 4:52 PM ACCESS SPECIALIST [facility] BLOOD BANK LAB ABO Rh A POS 06/24/2023 4:52 PM [facility] BLOOD BANK LAB Blood Bank BLOOD SPECIMEN / Unknown Venipuncture / Unknown 06/24/2023 4:05 PM ACCESS SPECIALIST 06/24/2023 4:14 PM ACCESS SPECIALIST Alexander Damico MD LAB - BLOOD BANK ORD ERABLES Performing Organization Address [facility]/ZIP Co de Phone Number [facility] BLOOD BANK LAB [address] [place] [address], [place] [phone] * (ABNORMAL) CBC W AUTO DIFFERENTIAL (06/24/2023 4:05 PM ACCESS SPECIALIST) Only the most recent of4 resultswithin the time period is included. [facility] WBC 6.7 3.5 - 10.5 10 3/uL 06/24/2023 4:36 PM [facility] RBC 3.66(L) 3.80 - 5.20 10 6/uL 06/24/2023 4:36 PM [facility] Hemoglobin 9.9(L) 12.0 - 15.6 g/dL 06/24/2023 4:36 PM [facility] Hematocrit 31.7(L) 35.0 - 45.0 % 06/24/2023 4:36 PM [facility] MCV 86.6 80.7 - 98.3 fL 06/24/2023 4:36 PM [facility] MCH 27.0 26.7 - 34.0 pg 06/24/2023 4:36 PM [facility] MCHC 31.2 30.8 - 35.9 g/dL 06/24/2023 4:36 PM [facility] RDW-SD 52.4(H) 36.0 - 50.0 fL 06/24/2023 4:36 PM [facility] RDW-CV 16.9(H) 11.2 - 14.8 % 06/24/2023 4:36 PM [facility] Platelet Count 233 150 - 400 10 3/uL 06/24/2023 4:36 PM [facility] MPV 8.8(L) 9.4 - 12.9 fL 06/24/2023 4:36 PM [facility] nRBC Absolute 0.00 0 10 3/uL 06/24/2023 4:36 PM [facility] nRBC Auto 0.0 0 /100 WBC 06/24/2023 4:36 PM [facility] Neutrophils % 81.3(H) 35.0 - 70.0 % 06/24/2023 4:36 PM [facility] Lymphocytes % 8.6(L) 20.0 - 43.0 % 06/24/2023 4:36 PM [facility] Monocytes % 6.1 5.0 - 13.0 % 06/24/2023 4:36 PM [facility] Eosinophils % 3.0 0.0 - 6.0 % 06/24/2023 4:36 PM [facility] Basophil % 0.4 0.0 - 2.0 % 06/24/2023 4:36 PM [facility] Neutrophils Absolute 5.45 1.60 - 7.00 10 3/uL 06/24/2023 4:36 PM [facility] Lymphocyte Absolute 0.58(L) 1.10 - 3.90 10 3/uL 06/24/2023 4:36 PM [facility] Monocytes Absolute 0.41 0.26 - 1.07 10 3/uL 06/24/2023 4:36 PM [facility] Eosinophils Absolute 0.20 0.00 - 0.47 10 3/uL 06/24/2023 4:36 PM [facility] Basophils Absolute 0.03 0.00 - 0.08 10 3/uL 06/24/2023 4:36 PM [facility] Immature Granulocytes % 0.6 0.0 - 1.0 % 06/24/2023 4:36 PM [facility] Immature Granulocytes Absolute 0.04 06/24/2023 4:36 PM [facility] Blood BLOOD SPECIMEN / Unknown Venipuncture / Unknown 06/24/2023 4:05 PM ACCESS SPECIALIST 06/24/2023 4:23 PM ACCESS SPECIALIST Alexander Damico MD LAB - HEMATOLOGY ORD AMY Performing Organization Address [facility]/ZIP Co de Phone Number [facility] [address] [place] [address], [place] [phone] * ALCOHOL ETHYL BLOOD (06/24/2023 4:05 PM ACCESS SPECIALIST) Ethanol (mg/dL) <10 <10 mg/dL 4:52 PM [facility] Ethanol Calculated (g/dL) <0.010 <=0.010 g/dL 06/24/2023 4:52 PM [facility] Blood BLOOD SPECIMEN / Unknown Venipuncture / Unknown 06/24/2023 4:05 PM ACCESS SPECIALIST 06/24/2023 4:23 PM ACCESS SPECIALIST Narrative [facility] - 06/24/2023 4:52 PM ACCESS SPECIALIST Ethanol Interp <10: None Detected. Depression of GENERAL MANAGER IN TRAINING: >100 mg/dl Potentially Critical: >250 mg/dl Potentially [...] - CHEMISTRY ARMIN HARRIS Performing Organization Address City/[facility]/ZIP Co de Phone Number [facility] [address] [place] [address], [place] [phone] * ECHOCARDIOGRAM 2D WITH DOPPLER (10/23/2020 7:27 AM CDT) Only the most recent of4 resultswithin the time period is included. 10/23/2020 7:27 AM CDT Narrative Procedure Note Mandy Hitchcock DO - 10/23/2020 . [facility] [address] [place] [address] Echocardiography Examination Transthoracic Name: MARY BETH GUTIERREZ MPI#: MR#: [id number] Admission Number: [id number] Study Date: 10/23/2020 Study Time: 06:36 AM [...] Routine study Facility Location: [facility] [place] Indication: Shortness of Breath Procedure Accounts Receivable Representative: DARRELL Salazar,RDCS,RVT Ordering Provider: KEIRY JONES Reading [...] AM Page 4 of 4 Keiry Jones GALLERY HOST-JEWEL SUPERVISOR ECHO ORDERAB LES [facility] [address] [place] [address] * MONITOR - HOLTER (12/15/2018) Impressions Boy Cast MD - 12/15/2018 [facility] - [...] there are any questions. Boy Cast MD [facility] - Heart & Vascular Care Office Michael [...] W/WO BRONCHODILATOR (10/27/2016 11:57 AM CDT) Narrative [facility] 10/27/2016 11:57 AM CDT Miguelito Wall [...] capacity. Please correlate clinically. Miguelito Wall MD, [facility]. Be advised that voice recognition software was used in the production of this record. Errors in interpretation may have been inadvertently missed during review. Miguelito Wall MD RESPIRATORY THERAPY ORDERABLES [facility] * CARDIAC CATH PROCEDURE (2016 6:09 PM ACCESS SPECIALIST) Narrative [facility] - 2016 6:09 PM ACCESS SPECIALIST Michael Mondragon MD 2016 6:09 PM POST [...] declined trying this again. Michael Mondragon MD [facility] Interventional Cardiology [facility] Heart institute Office Michael Mondragon MD CARDIAC SERVICES ORD ERABLES [facility] * CARDIAC CATH CONSULT (for Epic Reporting) (2016 6:09 PM ACCESS SPECIALIST) Narrative [facility] CARDIOLOGY - 2016 6:09 PM ACCESS SPECIALIST Michael Mondragon MD 2016 6:09 PM POST [...] declined trying this again. Michael Mondragon MD [facility] Interventional Cardiology [facility] Heart institute Office Michael Mondragon MD ECHO ORDERABLES [facility] CARDIOLOGY [address] [place] [address] * PULMONARY/RESPIRATORY REPORT ORDER (10/05/2016 5:53 AM ACCESS SPECIALIST) Narrative 10/05/2016 5:53 AM ACCESS SPECIALIST Ordered by an unspecified provider. Scanned Document RESPIRATORY THERAPY ORDERABLES * CARDIAC PROCEDURE ORDER (10/05/2016 5:53 AM ACCESS SPECIALIST) Narrative 10/05/2016 5:53 AM ACCESS SPECIALIST Ordered by an unspecified provider. Scanned Document CARDIAC SERVICES ORD ERABLES * CARDIAC RHYTHM STRIP ORDER (10/05/2016 5:05 AM ACCESS SPECIALIST) Only the most recent of2 resultswithin the time period is included. Narrative 10/05/2016 5:05 AM ACCESS SPECIALIST Ordered by an unspecified provider. Scanned Document CARDIAC SERVICES ORD ERABLES * (ABNORMAL) ACT - POINT OF CARE (09/30/2016 2:25 PM ACCESS SPECIALIST) ACT POCT 111(A) 125 - 187 Seconds [facility] POCT TESTING QC Verified Yes Yes [facility] POC T TESTING Blood BLOOD SPECIMEN / Unknown 09/30/2016 2:25 PM ACCESS SPECIALIST Michael Mondragon MD LAB - POINT OF CARE ORDERABLES [facility] POCT TESTING [address] [phone] * (ABNORMAL) BLOOD GASES ART (09/30/2016 11:12 AM ACCESS SPECIALIST) pH Arterial 7.38 7.35 - 7.45 pH 09/30/2016 11:45 AM ACCESS SPECIALIST [facility] RESP THERAPY pCO2 Arterial 45 35 - 45 mm hg 09/30/2016 11:45 AM ACCESS SPECIALIST [facility] RESP THERAPY pO2 Arterial 47(LL) 80 - 100 mm hg 09/30/2016 11:45 AM ACCESS SPECIALIST [facility] RESP THERAPY HCO3 Arterial 26 22 - 26 mmol/L 09/30/2016 11:45 AM ACCESS SPECIALIST [facility] RESP THERAPY BE Arterial 0.5 -2.0 - 2.0 mmol/L 09/30/2016 11:45 AM ACCESS SPECIALIST [facility] RESP THERAPY O2 Saturation Arterial 81(L) 90 - 100 % 09/30/2016 11:45 AM ACCESS SPECIALIST [facility] RESP THERAPY Hemoglobin Arterial 13.4(L) 14.0 - 16.0 gm/dL 09/30/2016 11:45 AM ACCESS SPECIALIST [facility] RESP THERAPY Carboxyhemoglobin Arterial 0.6 0.0 - 2.5 % 09/30/2016 11:45 AM ACCESS SPECIALIST [facility] RESP THERAPY Methemoglobin Arterial 0.5 0.0 - 2.0 % 09/30/2016 11:45 AM ACCESS SPECIALIST [facility] RESP THERAPY Oxyhemoglobin Arterial 80 % 09/30/2016 11:45 AM ACCESS SPECIALIST [facility] RESP THERAPY Mode Room Air 09/30/2016 11:45 AM ACCESS SPECIALIST [facility] RESP THERAPY Sumanth's Test N/A 09/30/2016 11:[address] [facility] RESP THERAPY Sample Site R Radial 09/30/2016 11:[address] [facility] RESP THERAPY Sample Type Arterial 09/30/2016 11:[address] [facility] RESP THERAPY Design Engineering Technician ID [id number] 09/30/2016 11:45 AM ACCESS SPECIALIST [facility] RESP THERAPY Notified Who Cat lab 09/30/2016 11:45 AM ACCESS SPECIALIST [facility] RESP THERAPY Notification Time 09/30/2016 11:45 09/30/2016 11:45 AM ACCESS SPECIALIST [facility] RESP THERAPY Notified By Vinay Dickey RCP 09/30/2016 11:[address] [facility] RESP THERAPY Blood ARTERIAL BLOOD SPECIMEN / Unknown 09/30/2016 11:12 AM ACCESS SPECIALIST 09/30/2016 11:12 AM ACCESS SPECIALIST Michael Mondragon MD LAB - BLOOD GASES OR DERABLES Performing Organization Address [facility] Co de Phone Number [facility] RESP THERAPY [address] * PT-INR (09/28/2016 3:51 PM ACCESS SPECIALIST) INR 1.0 [facility] Comment: Reference Range 0.9-1.1 Moderate-intensity Warfarin Therapy 2.0-3.0 Higher-intensity Warfarin Therapy 3.0-4.0 PT 10.1 9.0 - 11.5 sec [facility] Comment: For more information on this test, go to: http://education.MD2U/faq/FZA429 REPORT COMMENT: FASTING:NO Test Performed at: [facility] [address] [place] [address] BRADLEY LEES DO,MPH Blood BLOOD SPECIMEN / Unknown 09/28/2016 3:51 PM ACCESS SPECIALIST 09/28/2016 3:51 PM ACCESS SPECIALIST Michael Mondragon MD LAB - COAGULATION OR DERABLES Performing Organization Address City/[facility]/ZIP Co de Phone Number [facility] [address] [place] [address] * NM MYOCARD PERFUSION SPECT STRESS AND REST (09/22/2016 10:51 AM ACCESS SPECIALIST) Only the most recent of2 resultswithin the time period is included. Anatomical Region Laterality Modality Chest Nuclear Digisoni cs 09/22/2016 8:48 AM ACCESS SPECIALIST Narrative Procedure Note Boy Cast MD - 09/22/[address] [place] [address] [facility]/heart Nuclear Myocardial Perfusion Scan Report Pat.Name: MARY BETH GUTIERREZ Pat.ID: [id number] St.Date: 09/22/2016 Refer.MD: Ed Patel MD Exam Time: 8:48:00 AM Study Type:Nuclear Myocardial Perfusion Scan Weight: 186lb Age: 3 1935,80Y Sex: FEMALE Sonogrphr: RYAN Kim Reason for Study:CAD, Chest pain, Dyspnea on exertion Procedures:Lexiscan Perfusion Scan, Gated Stress Visit ID: [id number] Nurse: RAMSES Valencia Risk Factors:Hypertension, Hypercholesterolemia, Family [...] Signed 09/22/2016 06:08 PM [facility], [facility] Michael Mondragon MD [place] ORDERABLES * EVENT MONITOR (08/13/2014) Impressions Boy Cast MD - 08/13/2014 [facility] - Event Monitor Name: Mary Beth Gutierrez [...] there are any questions. Boy Cast MD [facility] Office Michael Mondragon MD CARDIAC SERVICES ORD ERABLES * CT ANGIO CHEST W WO CONTRAST (07/05/2014 6:07 AM ACCESS SPECIALIST) Anatomical Region Laterality Modality Chest Computed Tomogra phy 07/05/2014 7:44 AM ACCESS SPECIALIST Impressions 07/05/2014 8:49 AM ACCESS SPECIALIST Negative for pulmonary embolus. Edited by Lexy Tinsley on 07/05/2014 7:48 AM Narrative 07/05/2014 8:[address] angiogram pulmonary arteries. HISTORY: Chest pain, [...] ORDERABLES * TROPONIN I (07/05/2014 3:52 AM ACCESS SPECIALIST) Only the most recent of2 resultswithin the time period is included. Troponin I 0.038 0.000 - 0.049 ng/mL 07/05/2014 4:[address] [facility] Blood BLOOD SPECIMEN / Unknown Venipuncture / Unknown 07/05/2014 3:52 AM ACCESS SPECIALIST 07/05/2014 4:10 AM [facility] Narrative [facility] - 07/05/2014 4:37 AM [facility] [...] Hughes MD LAB - CHEMISTRY ARMIN HARRIS [facility] [address] [place] [address] * TSH (07/05/2014 3:52 AM ACCESS SPECIALIST) TSH 1.80 0.358 - 3.740 uIU/mL 07/05/2014 2:[address] [facility] Comment: Blood BLOOD SPECIMEN / Unknown Venipuncture / Unknown 07/05/2014 3:52 AM ACCESS SPECIALIST 07/05/2014 1:42 PM ACCESS SPECIALIST Stevie Mathews MD LAB - CHEMISTRY ARMIN HARRIS Performing Organization Address [facility] Co de Phone Number [facility] [address] [place] [address] * XR HIP 2+ VW RIGHT (12/11/2012 [...] ROUTINE W/REFLEX TO CULTURE (09/12/2011 10:50 PM ACCESS SPECIALIST) Source Clean Catch [facility] Color UA Yellow [facility] Character UA Hazy [facility] Glucose UA NEGATIVE NEGATIVE mg/dl [facility] Bilirubin UA SMALL(H) NEGATIVE [facility] Ketone UA TRACE(H) NEGATIVE mg/dl [facility] Specific Bend UA >=1.030(H) 1.003 - 1.030 [facility] Blood UA NEGATIVE NEGATIVE [facility] pH UA 5.0 5.0 - [...] [facility] Urine Culture Reflexed to culture [facility] Urine specimen (specimen) URINE SPECIMEN OBTAINED BY CLEAN CATCH PROCEDURE / Unknown 09/12/2011 10:50 PM ACCESS SPECIALIST 09/12/2011 10:57 PM ACCESS SPECIALIST Ken Neely MD LAB - URINALYSIS ORD ERABLES Performing Organization Address [facility]/ZIP Co de Phone Number [facility] [address] [place] [address] * CULTURE URINE (09/12/2011 10:50 PM ACCESS SPECIALIST) Result [facility] Comment: Final CULTURE >10,000 CFU/mL of multiple bacterial morphotypes present. Suggest appropriate recollection with timely transportation to the laboratory if clinically indicated. URINE SPECIMEN OBTAINED BY CLEAN CATCH PROCEDURE / Unknown 09/12/2011 10:50 PM ACCESS SPECIALIST 09/12/2011 11:07 PM ACCESS SPECIALIST Narrative Resulting Agency Comment Performed By [facility];[address] [place] [address];[place] [address] Ken Neely MD LAB - MICROBIOLOGY O RDERABLES Performing Organization Address City/[facility] Co de Phone Number [facility] [address] [place] [address] * LIPASE BLOOD (09/12/2011 10:00 PM ACCESS SPECIALIST) Lipase 84 73 - 393 U/L [facility] Blood specimen (specimen) BLOOD SPECIMEN / Unknown 09/12/2011 10:00 PM ACCESS SPECIALIST 09/12/2011 10:08 PM ACCESS SPECIALIST Ken Neely MD LAB - CHEMISTRY ARMIN HARRIS Performing Organization Address City/[facility]/ZIP Co de Phone Number [facility] [address] [place] [address] * AMYLASE BLOOD (09/12/2011 10:00 PM ACCESS SPECIALIST) Amylase 25 15 - 115 U/L [facility] Blood specimen (specimen) BLOOD SPECIMEN / Unknown 09/12/2011 10:00 PM ACCESS SPECIALIST 09/12/2011 10:08 PM ACCESS SPECIALIST Ken Neely MD LAB - CHEMISTRY ARMIN HARRIS [facility] Organization Address City/State/ZIP Co de Phone Number [facility] [address] [place] [address] * XR ANKLE 3+VW LEFT ROUTINE (12/30/2009 [...] swelling. Ed Patel MD DIAGNOSTIC [facility] Care Teams Vice President For Instruction Relationship Specialty Start Date End Date Ed Patel MD [address] [place] [address] [place] [phone] PCP - General 12/30/09 Denia Wick RN Battery Filler 07/05/14 Michael Mondragon MD Cardiovascular Disease 11/27/18 Keiry Jones, GALLERY HOST-JEWEL SUPERVISOR [facility] [place] [address] [place] [address] [address] [place] [address] Nurse Practitioner Cardiology 11/20/20
--- OUTSIDE RECORDS SUMMARY | 2024-10-12 16:29 | XMS_ITS | Continuity of Care Document ---
Author Organization Formerly [facility] Address [address] [place] [address] [address] [place] [address] Phone Care Team Providers Care School Business Manager Name Role Phone [facility] [employer] Unavailable Unavail able Sickage, Natasha Unavailable Unavailable Advance Directives Directive Yes / No Effective Date File Name No Information Encounters Encounter Description Practice Location Reason(s) For Visit Diagnoses Date Provider Providers Copied on Encounter [facility], [address], [place], [place], [id number], [place] tel:[phone] [facility] [place] No Information [facility]. [address], [address], [place], [place], [id number] , [place]. tel:[phone] Referring Provider: Shanna Pérez, [address] [place] [address], [place], [address]. tel:[phone] sulting Provider: Natasha Celis, [address] [place] [address], [address]. tel:[phone] Family History Family Member Type Diagnosis Age At Onset No Information Payers Payer name Insurance type Covered alliance party ID Authoriza tion(s) No Information Social History [...]
--- OUTSIDE RECORDS SUMMARY | 2024-10-12 16:29 | XMS_ITS | Encounter Summary ---
Author Organization [employer] Address [address] [place] [address] Care Team Providers Care Carpenters Name Role Phone Unavailable Primary Care Provider Unavailabl e Encounter Details Date Type Department Care Team (Late st Contact Info) Description 02/22/2002 Outpatient Historical [facility] Support Serv. (Adt Cardiology-[facility]) [address] [place] [address] Cornelio Scott MD NO ADDRESS ON FILE Social History Tobacco Use Types Packs/Day Years Used Date Smoking Tobacco: Never Assessed Comments Unknown Sex and Gender Information Value Date Recorded Sex Assigned at Not on file Legal Sex Female 3:28 AM YARN PACKER Gender Identity Not on file Sexual Orientation Not on file documented as of this encounter Plan of Treatment Not on file documented as of this encounter Visit Diagnoses Not on filedocumented in this encounter
--- OUTSIDE RECORDS SUMMARY | 2024-10-12 16:29 | XMS_ITS | Referral Summary ---
Author Organization [facility] Address [address] [place] [address] Care Team Providers Care Professor Of Special Education Name Role Phone Ed Patel MD Primary Care Provider [phone] Allergies Active Allergy Reactions Criticality Noted Date Comments Apixaban Other (See comments) Low 07/03/2019 States she went numb on her left side and had bad chest pains/will not take ever again Dicyclomine Dizziness Low 07/05/2014 Nctvitv-Cek-Nym Reductase Inhibitors Unknown High 09/30/2016 Medications ezetimibe [...] Active vitamins A,C,E-zinc-tracy er (PRESERVISION AREDS) 7,160-113-100 [id number]-mmjq tablet Take 1 tablet by mouth 2 [...] 2016 Assessment & Plan (09/21/2019 4:02 PM BOOK CUTTER): Dyspnea is likely due to obesity and CHF. Will continue with hydrochlorothiazide and Lasix on every other day. Assessment & Plan (07/06/2019 8:51 PM BOOK CUTTER): Patient feels better after blood transfusion. Her [...] Comments Blood Pressure 178/70 09/19/2019 1:49 PM BOOK CUTTER Pulse 70 09/19/2019 1:49 PM BOOK CUTTER Temperature 36.7 C (98.1 F) 09/19/2019 1:49 PM BOOK CUTTER Respiratory Rate 22 09/19/2019 1:49 PM BOOK CUTTER Oxygen Saturation 97% 09/19/2019 1:49 PM BOOK CUTTER Inhaled Oxygen Concentration - - Weight 80 kg (176 lb 6.4 oz) 09/19/2019 1:49 PM BOOK CUTTER Height 147.3 cm (4' 10 ) 07/04/2019 2:40 PM BOOK CUTTER Body Mass Index 36.87 07/04/2019 2:40 PM BOOK CUTTER Plan of Treatment Not on file Insurance [facility] MEDICARE RAILROAD MEDICARE [employer] [facility] Address: [facility] [address] [place] [address] Care Teams Professor Of Special Education Relationship Specialty Start Date End Date Ed Patel MD [address] [address] PCP - General Internal Medicine 04/18/19
--- NOTE | 2024-10-12 16:34 | ECG_ITS ---
Test Date: 2024-10-12 16:46:11 Measurements Intervals [place] Rate: 72 P: 0 VT: 0 QRS: 6 QRSD: 90 T: -51 QT: 408 QTc: 449 Interpretive Statements ATRIAL FIBRILLATION NONSPECIFIC ST AND T-WAVE ABNORMALITY ABNORMAL ECG No previous ECG available for comparison Electronically Signed On 10-13-2024 15:33:05 CHILDREN'S PROGRAM COORDINATOR by Cuong Clay M.D.
--- NOTE | 2024-10-12 16:35 | ED_ITS ---
HPI - SOB/Dyspnea General Chief Complaint: Shortness of Breath/Dyspnea <Ludmila Segoiva APRN - Last Filed: 10/12/24 16:42> Stated Complaint: SOB <Ludmila Segovia APRN - Last Filed: 10/12/24 16:42> Time Seen by Provider: 10/12/24 16:30 <Ludmila Segovia APRN - Last Filed: 10/12/24 16:42> Focused HPI: Patient is an 89-year-old female who presents to the ER with shortness of breath. Her son reports she went to see her doctor yesterday who identifies the patient has pleural effusion and edema around her heart. Patient currently denies chest pain but endorses ?heaviness to her upper chest, along with weakness. She reports approximately 1 week ago she had signs/symptoms of illness including nausea for 2-3 days, but those symptoms have resolved. Patient's son reports he is a ?nurse practitioner and made his mother come in for evaluation. GENERAL: Well-appearing, well-nourished, and in mild respiratory distress. HEAD: Normocephalic, atraumatic. CHEST: Clear to auscultation. ?Mild respiratory distress. HEART: Regular rate and rhythm.? NEURO: ?Alert and oriented x3. Patient screened in triage and initial orders placed.? ?Additional care and disposition to be based upon?diagnostic testing and treatment. <Ludmila Segovia APRN - Last Filed: 10/12/24 16:42> History of Present Illness HPI Narrative: Patient 89-year-old female who presents emergency department chief complaint of shortness of breath. The patient reports he was seen by GI the other day and told that her pleural effusions have gotten bigger the patient reports she has been short of breath today and had a room air saturation of 87% the patient does not normally wear oxygen. The patient does report that she has had history of thoracentesis and paracentesis before the past <Maurisio eLal MD - Last Filed: 10/13/24 03:00> Related Data Home Medications: Home Medications ?Medication ?Instructions ?Recorded ?Confirmed ?Last Taken ?Type diltiazem HCl 30 mg tablet 30 mg PO Q12H 05/17/23 10/11/24 11/02/23 09:00 History (Cardizem) alprazolam 0.25 mg tablet 0.25 mg PO DAILY PRN Anxiety 07/07/23 10/11/24 08/18/23 20:00 History ezetimibe 10 mg tablet 10 mg PO HS 07/07/23 10/11/24 11/02/23 20:00 History krill oil 500 mg capsule 1,500 mg PO DAILY 07/07/23 10/11/24 11/03/23 09:00 History lidocaine 5 % topical patch 1 patch topical DAILY PRN Pain 07/07/23 10/11/24 08/19/23 08:00 History nitroglycerin 0.4 mg sublingual 0.4 mg sublingual Q5M PRN Chest 07/07/23 10/11/24 07/08/23 History tablet Pain rivaroxaban 10 mg tablet (Xarelto) 10 mg PO HS 07/07/23 10/11/24 11/02/23 20:00 History ergocalciferol (vitamin D2) 1,250 1,250 mcg PO WEEKLY 08/19/23 10/11/24 10/30/23 09:00 History mcg (50,000 unit) capsule simethicone 125 mg tablet 125 mg PO TID PRN gas, bloating 08/23/23 10/11/24 10/07/23 History coenzyme Q10 200 mg tablet 200 mg PO DAILY 10/07/23 10/11/24 11/03/23 09:00 History vitamins A,C,B-mlmg-hxqugo 2,148 2 tablet PO BID 10/07/23 10/11/24 11/03/23 09:00 History mcg-113 mg-45 mg-17.4 mg tablet (PreserVision AREDS) ascorbate calcium (vitamin C) 500 500 mg PO DAILY 03/29/24 10/11/24 Unknown History mg tablet ondansetron HCl 4 mg tablet 8 mg PO Q8H PRN Nausea 03/29/24 10/11/24 Unknown History <Ludmila Segovia, HOT PLATE [employer] PRESS OPERATOR - Last Filed: 10/12/24 16:42> Allergies/Adverse Reactions: Allergies Allergy/AdvReac Type Severity Reaction Status Date / Time atropine Allergy Unknown Unknown Verified 03/29/24 10:46 acetaminophen (From AdvReac Headache Verified 03/29/24 10:46 Darvocet-N 100) apixaban (From Eliquis) AdvReac Numbness Verified 03/29/24 10:46 propoxyphene (From AdvReac Headache Verified 03/29/24 10:46 Darvocet-N) Wwhtiwf-FPT-MiX Reductase AdvReac Muscle Pain Verified 03/29/24 10:46 Inhibitor <Ludmila Segovia APRN - Last Filed: 10/12/24 16:42> Review of Systems 2 Review of Systems: A 10 system review of systems was completed on the patient and is negative except for what is stated in the HPI. Nursing and ancillary documentation was reviewed. <Maurisio Leal MD - Last Filed: 10/13/24 03:00> [facility] Past Medical History Medical History: Medical History CHF (congestive heart failure) Echocardiogram 08/2023: EF 55-60 with normal left ventricular dimension, moderate left ventricular wall thickness, indeterminate diastolic dysfunction, severe right ventricular enlargement, reduced right ventricular systolic function, severe left and right atrial enlargement, fzom-lu-zyzsywwl aortic valve stenosis with peak velocity 2 O2 mean gradient of 7 and valve area of 1.5, mild aortic valve regurgitation, severe tricuspid regurgitation, severe pulmonary hypertension with RVSP of 60, moderate pulmonic regurgitation Recurrent right pleural effusion Requiring multiple thoracentesis Gastric nodule Right humeral fracture Chronic anemia Chronic kidney disease, stage 3 Gastroesophageal reflux disease Cirrhosis of liver Coronary artery disease Chronic anticoagulation Paroxysmal atrial fibrillation Autoimmune liver disease Glaucoma Macular degeneration Hypertension Arthritis <Ludmila Segovia APRN - Last Filed: 10/12/24 16:42> Surgical History Surgical History: Surgical History History of cataract extraction History of tonsillectomy History of hysterectomy History of coronary artery bypass graft (2006) <Ludmila Segovia APRN - Last Filed: 10/12/24 16:42> Family History Family History: Family History Mother Heart disease Hypertension <Ludmila Segovia APRN - Last Filed: 10/12/24 16:42> Social History Social History: Social History Social History: She was for 60 years but has been since 2018. She lives alone. She mobilizes by use of a folding wheelchair and therapy is encouraged her to start trying to ambulate with a Rollator. She still drives. Healthcare power of school traffic supervisor: Oma Guaman, niece. Code status: Full code. (she would not want long-term intubation, tracheostomy or G-tube) Smoking status: Never smoker Alcohol intake: never Substance use: never Substance use type: does not use Do You Feel Safe in your Home?: Yes Lack of Transportation: No Lack of Food: Never True Current Housing: I Have Housing Concerned About Future Housing: No Difficulty Paying Gas/Electric Bills: No Difficulty Paying for Meds: No Currently Unemployed: No Education: High School Diploma/GED Difficulty w/ Childcare or Family Care: No Additional living arrangements comments: Lives alone. Spiritual care concerns: No <Ludmila Segovia APRN - Last Filed: 10/12/24 16:42> Exam 2 Narrative: GENERAL: Well-appearing, well-nourished, and in no acute distress. HEAD: Normocephalic, atraumatic. EYES: PERRLA and EOMI. ENT: Nares clear, no rhinorrhea or epistaxis. Mucous membranes moist. NECK: Supple. CHEST: Clear to auscultation. No respiratory distress. HEART: Regular rate and rhythm. No murmur heard. Normal peripheral pulses. ABDOMEN: Soft, nontender, nondistended, normal active bowel sounds. EXTREMITIES: Normal range of motion. No edema. SKIN: Warm, dry, no rash. NEURO: No focal deficits. Alert and oriented x3. PSYCH: Normal mood and affect. <Maurisio Leal MD - Last Filed: 10/13/24 03:00> Course Vital Signs Vital signs: Vital Signs Temperature 36.4 C 10/12/24 16:36 Pulse Rate 71 10/12/24 16:36 Respiratory Rate 24 H 10/12/24 16:36 Blood Pressure 126/71 10/12/24 16:36 Pulse Oximetry 95 10/12/24 16:36 Oxygen Delivery Nasal Cannula 10/12/24 16:36 Oxygen Flow Rate 2 10/12/24 16:36 Temperature 36.4 C 10/12/24 16:36 Pulse Rate 67 10/13/24 00:29 Respiratory Rate 17 10/13/24 00:27 Blood Pressure 144/72 H 10/13/24 00:15 Pulse Oximetry 98 10/13/24 00:30 Oxygen Delivery Nasal Cannula 10/13/24 00:30 Oxygen Flow Rate 2 10/13/24 00:30 <Ludmila Segovia APRN - Last Filed: 10/12/24 16:42> Vital Signs Temperature 36.4 C 10/12/24 16:36 Pulse Rate 71 10/12/24 16:36 Respiratory Rate 24 H 10/12/24 16:36 Blood Pressure 126/71 10/12/24 16:36 Pulse Oximetry 95 10/12/24 16:36 Oxygen Delivery Nasal Cannula 10/12/24 16:36 Oxygen Flow Rate 2 10/12/24 16:36 Temperature 36.4 C 10/12/24 16:36 Pulse Rate 67 10/13/24 00:29 Respiratory Rate 17 10/13/24 00:27 Blood Pressure 144/72 H 10/13/24 00:15 Pulse Oximetry 98 10/13/24 00:30 Oxygen Delivery Nasal Cannula 10/13/24 00:30 Oxygen Flow Rate 2 10/13/24 00:30 <Maurisio Leal MD - Last Filed: 10/13/24 03:00> MDM - SOB/Dyspnea MDM Narrative Medical decision making narrative: Differential diagnosis includes pneumonia, pleural effusion, fluid overload, renal failure Laboratory studies were obtained on the patient showed normal CBC CMP showed a creatinine 1.[address] chest showed no evidence of pneumonia but did redemonstrate the pleural effusion <Maurisio Leal MD - Last Filed: 10/13/24 03:00> Lab Data Result diagrams: 10/12/24 21:39 10/12/24 21:39 <Ludmila Segovia APRN - Last Filed: 10/12/24 16:42> Labs: Lab Results 10/12/24 10/13/24 Range/Units 21:39 02:18 WBC 6.2 (4.5-10.0) K/mm3 RBC 4.21 (4.2-5.4) M/mm3 Hgb 13.0 (12.0-15.0) g/dL Hct 39.9 (37.0-47.0) % MCV 94.8 (80-100) fl MCH 30.9 (26-34) pg MCHC 32.6 (32-36) g/dl RDW 14.7 H (11.5-14.5) % Plt Count 177 (150-375) k/mm3 MPV 8.6 (7.4-10.4) fl Immature Gran % (Auto) 0.3 (0-0.5) % Neut % (Auto) 75.5 H (45.5-73.1) % Lymph % (Auto) 14.1 L (18.3-44.2) % [place] % (Auto) 7.9 (2.6-8.5) % Eos % (Auto) 1.6 (0-4.4) % Baso % (Auto) 0.6 (0.2-1.2) % Lymph # (Auto) 0.87 L (0.9-3.2) K/mm3 [place] # (Auto) 0.5 (0.1-0.6) K/mm3 Eos # (Auto) 0.1 (0-0.3) K/mm3 Baso # (Auto) 0.0 (0.0-0.1) K/mm3 Abs Immat Gran (auto) 0.02 (0.00-0.031) K/mm3 Absolute Neuts (auto) 4.7 (1.3-6.7) K/mm3 Absolute Nucleated RBC 0.000 (0.0-0.012) K/mm3 Nucleated RBC % 0.0 (0.0-0.2) % PT 22.2 H (11.1-14.7) Seconds INR 1.9 APTT 44.0 H (22.3-36.8) Seconds Sodium 141 (137-145) mmol/L Potassium 3.8 (3.4-5.0) mmol/L Chloride 104 (98-107) mmol/L Carbon Dioxide 26 (22-30) mmol/L Anion Gap 11 (4-12) mmol/L BUN 20 H (7-17) mg/dL Creatinine 1.18 H (0.7-1.0) mg/dL Estim Creat Clear Calc Not Reportable Estimated GFR 43 L (59 - ) Glucose 128 H (65-110) mg/dL Calcium 9.6 (8.4-10.2) mg/dL Total Bilirubin 1.1 (0.2-1.3) mg/dL AST 24 (14-36) U/L ALT 20 (6-35) U/L Alkaline Phosphatase 96 (38-126) U/L Troponin I < 0.012 (0.000-0.034) ng/mL NT-Pro-B Natriuret Pep 4340 H (19.9-100) pg/mL Total Protein 7.0 (6.3-8.2) g/dL Albumin 4.3 (3.5-5.1) g/dL Influenza A (RT-PCR) Pending Influenza B (RT-PCR) Pending RSV (RT-PCR) Pending SARS-CoV-2 RNA (RT-PCR) Pending <Ludmila Segovia, HOT [employer]ATE [employer] PRESS OPERATOR - Last Filed: 10/12/24 16:42> Lab Results 10/12/24 10/13/24 Range/Units 21:39 02:18 WBC 6.2 (4.5-10.0) K/mm3 RBC 4.21 (4.2-5.4) M/mm3 Hgb 13.0 (12.0-15.0) g/dL Hct 39.9 (37.0-47.0) % MCV 94.8 (80-100) fl MCH 30.9 (26-34) pg MCHC 32.6 (32-36) g/dl RDW 14.7 H (11.5-14.5) % Plt Count 177 (150-375) k/mm3 MPV 8.6 (7.4-10.4) fl Immature Gran % (Auto) 0.3 (0-0.5) % Neut % (Auto) 75.5 H (45.5-73.1) % Lymph % (Auto) 14.1 L (18.3-44.2) % Bourbon % (Auto) 7.9 (2.6-8.5) % Eos % (Auto) 1.6 (0-4.4) % Baso % (Auto) 0.6 (0.2-1.2) % Lymph # (Auto) 0.87 L (0.9-3.2) K/mm3 Bourbon # (Auto) 0.5 (0.1-0.6) K/mm3 Eos # (Auto) 0.1 (0-0.3) K/mm3 Baso # (Auto) 0.0 (0.0-0.1) K/mm3 Abs Immat Gran (auto) 0.02 (0.00-0.031) K/mm3 Absolute Neuts (auto) 4.7 (1.3-6.7) K/mm3 Absolute Nucleated RBC 0.000 (0.0-0.012) K/mm3 Nucleated RBC % 0.0 (0.0-0.2) % PT 22.2 H (11.1-14.7) Seconds INR 1.9 APTT 44.0 H (22.3-36.8) Seconds Sodium 141 (137-145) mmol/L Potassium 3.8 (3.4-5.0) mmol/L Chloride 104 (98-107) mmol/L Carbon Dioxide 26 (22-30) mmol/L Anion Gap 11 (4-12) mmol/L BUN 20 H (7-17) mg/dL Creatinine 1.18 H (0.7-1.0) mg/dL Estim Creat Clear Calc Not Reportable Estimated GFR 43 L (59 - ) Glucose 128 H (65-110) mg/dL Calcium 9.6 (8.4-10.2) mg/dL Total Bilirubin 1.1 (0.2-1.3) mg/dL AST 24 (14-36) U/L ALT 20 (6-35) U/L Alkaline Phosphatase 96 (38-126) U/L Troponin I < 0.012 (0.000-0.034) ng/mL NT-Pro-B Natriuret Pep 4340 H (19.9-100) pg/mL Total Protein 7.0 (6.3-8.2) g/dL Albumin 4.3 (3.5-5.1) g/dL Influenza A (RT-PCR) Pending Influenza B (RT-PCR) Pending RSV (RT-PCR) Pending SARS-CoV-2 RNA (RT-PCR) Pending <Maurisio Leal MD - Last Filed: 10/13/24 03:00> Discharge Plan Discharge Clinical Impression: Acute hypoxemic respiratory failure, Pleural effusion <Ludmila Segovia APRN - Last Filed: 10/12/24 16:42> Patient Disposition: Still a Patient <Ludmila Segovia APRN - Last Filed: 10/12/24 16:42> Condition: Stable <Ludmila Segovia APRN - Last Filed: 10/12/24 16:42> Patient Language: Egyptian <Ludmila Segovia APRN - Last Filed: 10/12/24 16:42> Prescriptions: No Action diltiazem HCl [Cardizem] 30 mg tablet 30 mg PO Q12H lidocaine 5 % adhesive patch,medicated 1 patch topical DAILY PRN (Reason: Pain) Rx Instructions: leave on most painful area for up to 12 hrs Xarelto 10 mg tablet 10 mg PO HS alprazolam 0.25 mg tablet 0.25 mg PO DAILY PRN (Reason: Anxiety) ezetimibe 10 mg tablet 10 mg PO HS krill oil 500 mg capsule 1,500 mg PO DAILY nitroglycerin 0.4 mg tablet, sublingual 0.4 mg sublingual Q5M PRN (Reason: Chest Pain) Rx Instructions: do not exceed 3 doses per episode ascorbate calcium (vitamin C) 500 mg tablet 500 mg PO DAILY famotidine 40 mg tablet 40 mg PO DAILY Qty: 90 3RF ondansetron HCl 4 mg tablet 8 mg PO Q8H PRN (Reason: Nausea) omeprazole 40 mg capsule,delayed release(DR/EC) 40 mg PO DAILY Qty: 30 6RF coenzyme Q10 200 mg Tablet 200 mg PO DAILY PreserVision AREDS 2,148 mcg-113 mg-45 mg-17.4mg Tablet 2 tablet PO BID Rx Instructions: administer with AM and PM meals ferrous sulfate 324 mg (65 mg iron) tablet,delayed release (DR/EC) 324 mg PO BID Qty: 60 0RF ergocalciferol (vitamin D2) 1,250 mcg (50,000 unit) capsule 1,250 mcg PO WEEKLY simethicone 125 mg Tablet 125 mg PO TID PRN (Reason: gas, bloating) torsemide 40 mg Tablet 40 mg PO BID 30 Days Qty: 60 0RF <Ludmila Segovia APRN - Last Filed: 10/12/24 16:42> Follow-up/Referrals: Estefany Chopra APRN [Primary Care Provider] - <Ludmila Segovia APRN - Last Filed: 10/12/24 16:42> Time of Disposition: 03:00 <Ludmila Segovia APRN - Last Filed: 10/12/24 16:42> 03:00 <Maurisio Leal MD - Last Filed: 10/13/24 03:00>
[2024-10-12 16:36] VITALS: BP 126/71; PULSE 71; RESP 24; TEMP 36.4; O2SAT 95
--- NOTE | 2024-10-12 21:01 | ECG_ITS ---
Test Date: 2024-10-12 21:32:41 Measurements Intervals [place] Rate: 63 P: 0 MS: 0 QRS: 3 QRSD: 90 T: -59 QT: 418 QTc: 428 Interpretive Statements ATRIAL FIBRILLATION NONSPECIFIC ST AND T-WAVE ABNORMALITY ABNORMAL ECG Compared to ECG 10/12/2024 16:46:11 NO DIFFERENCE Electronically Signed On 10-13-2024 15:43:18 PROCESS ANALYST by Cuong Clay M.D.
[2024-10-12 21:47] LABS: Basophils Percent Auto 0.6 % (0.2-1.2); Eosinophils Absolute Auto 0.1 K/mm3 (0-0.3); Eosinophils Percent Auto 1.6 % (0-4.4); Hematocrit 39.9 % (37.0-47.0); Immature Granulocyte Absolute 0.02 K/mm3 (0.00-0.031); Immature Granulocyte Percent A 0.3 % (0-0.5); Lymphocytes Absolute Auto 0.87 K/mm3 (0.9-3.2); Lymphocytes Percent Auto 14.1 % (18.3-44.2); Mean Corpuscular HGB Conc 32.6 g/dl (32-36); Mean Corpuscular Hemoglobin 30.9 pg (26-34); Mean Corpuscular Volume 94.8 fl (80-100); Mean Platelet Volume 8.6 fl (7.4-10.4); Monocytes Absolute Auto 0.5 K/mm3 (0.1-0.6); Monocytes Percent Auto 7.9 % (2.6-8.5); Neutrophils Absolute Auto 4.7 K/mm3 (1.3-6.7); Neutrophils Percent Auto 75.5 % (45.5-73.1); Platelet Count Result 177 k/mm3 (150-375); Red Blood Count 4.21 M/mm3 (4.2-5.4); Red Cell Distribution Width 14.7 % (11.5-14.5); White Blood Count 6.2 K/mm3 (4.5-10.0)
[2024-10-12 21:57] LABS: Alanine Aminotransferase 20 U/L (6-35); Albumin Level 4.3 g/dL (3.5-5.1); Alkaline Phosphatase 96 U/L (38-126); Anion Gap 11 mmol/L (4-12); Aspartate Amino Transferase 24 U/L (14-36); Bilirubin,Total 1.1 mg/dL (0.2-1.3); Blood Urea Nitrogen 20 mg/dL (7-17); Calcium 9.6 mg/dL (8.4-10.2); Carbon Dioxide 26 mmol/L (22-30); Chloride 104 mmol/L (98-107); Estimated Glomerular Filt Rate 43; Glucose 128 mg/dL (65-110); Potassium 3.8 mmol/L (3.4-5.0); Sodium 141 mmol/L (137-145)
[2024-10-12 21:58] LABS: INR 1.9; Prothrombin Time 22.2 Seconds (11.1-14.7)
[2024-10-12 22:09] LABS: NT Pro B Type Natriuretic Pept 4340 pg/mL (19.9-100); Troponin I < 0.012 ng/mL (0.000-0.034)
[2024-10-12 22:47] VITALS: BP 150/65; PULSE 64; RESP 19; O2SAT 95
[2024-10-12 23:21] VITALS: PULSE 66; RESP 24; O2SAT 98
[2024-10-12 23:22] VITALS: BP 151/83; PULSE 74; RESP 17; O2SAT 98
[2024-10-12 23:30] VITALS: PULSE 66; RESP 29; O2SAT 94
[2024-10-12 23:31] VITALS: PULSE 74; RESP 12; O2SAT 96
[2024-10-13] VITALS (22 sets, daily range): BP systolic 120–150; BP diastolic 52–87; PULSE 51–90; RESP 16–32; TEMP 36.4–36.6; O2SAT 91–99; BMI 28.7
--- NOTE | 2024-10-13 | ECHO_ITS ---
Patient Info Name: Mary Beth Puente Age: 89 years : 1935 Gender: Female Ht: 58 in Wt: 137 lbs BSA: 1.62 m2 HR: 72 bpm BP: 125 / 55 mmHg Heart Rhythm: Atrial Fibrillation Technical Quality: Fair Exam Date: 10/13/2024 1:24 PM Exam Location: Echo Lab Patient Status: Inpatient Admit Date: 10/13/2024 Staff Ordering Physician: Olga Allison PA-C Enterprise Mobility Architect: Alicia Headley RDCS Attending Provider: Olga Allison PA-C Referring Physician: Keegan NOBLE; Exam Type: CA echo doppler color flow Study Info Indications - plural effusion Complete two-dimensional, color flow and Doppler transthoracic echocardiogram is performed. Summary 1. Complete two-dimensional, color flow and Doppler transthoracic echocardiogram is performed. 2. Left ventricular hypertrophy with normal systolic function. 3. Severe biatrial dilation. 4. Atrial fibrillation. 5. Right ventricular enlargement. 6. Aortic valve stenosis which is at least moderate by Doppler looks to be severe by 2D imaging. 7. Compared to echocardiogram from last year the findings are similar. Left Ventricle Left ventricular chamber dimension is normal. Left ventricular systolic function is normal, estimated at 60-65%. There is moderate concentric increased left ventricular wall thickness. The left ventricular diastolic function is indeterminate. Right Ventricle Right ventricular chamber dimension is moderately enlarged. Left Atria Left atrial chamber dimension is severely enlarged. Right Atria Right atrial chamber dimension is severely enlarged. Aortic Valve The aortic valve is trileaflet. There is severe aortic valve sclerosis. There is moderate to severe aortic valve stenosis with a peak velocity of 204 cm/s, mean gradient of 8 mmHg, and aortic valve area of 1.7 cm2. There is no aortic valve regurgitation. Pulmonic Valve The pulmonic valve is normal. There is mild pulmonic regurgitation. Mitral Valve The mitral valve has normal leaflets. There is trace mitral valve regurgitation. The mitral valve annulus is moderately calcified. Tricuspid Valve The tricuspid valve leaflets are normal. There is moderate to severe tricuspid valve regurgitation. Pericardium/Pleural The pericardium appears normal. Aorta The aortic root size at the sinus of Valsalva is normal. Left Ventricular Outflow Tract Name Value Normal LVOT 2D LVOT Diameter 2.0 cm LVOT Doppler LVOT Peak Gradient 3 mmHg LVOT Mean Gradient 1 mmHg LVOT VTI 25 cm LVOT VTI/AV VTI Ratio 0.5 LVOT Stroke Volume 77 ml Pulmonic Valve Name Value Normal RVOT Doppler RVOT Peak Gradient 2 mmHg PV Doppler PV Peak Gradient 5 mmHg Mitral Valve Name Value Normal MV Doppler MV Decel Boyle 432 cm/s2 MV PHT 68 ms MV Area (PHT) 3.2 cm2 4.0-5.0 MV Diastolic Function MV E Peak Velocity 102 cm/s MV A Peak Velocity 0 cm/s MV E/A 1,042.5 MV Decel Time 236 ms MV Annular TDI MV E/e' (Septal) 11.9 <=8.0 MV E/e' (Lateral) 7.4 <=8.0 MV E/e' (Average) 9.6 Tricuspid Valve Name Value Normal TV Regurgitation Doppler TR Peak Velocity 291 cm/s TR Peak Gradient 34 mmHg Aortic Valve Name Value Normal AV Doppler AV Peak Velocity 204 cm/s AV Peak Gradient 17 mmHg AV Mean Gradient 8 mmHg AV VTI 46 cm AV Area (Cont Eq VTI) 1.7 cm2 >=3.0 AV Area (Cont Eq Sumeet) 1.4 cm2 AV Regurgitation 2D LVOT Area 3.1 cm2 Ventricles Name Value Normal LV Dimensions 2D/MM IVS Diastolic Thickness (2D) 1.1 cm 0.6-1.0 LVID Diastole (2D) 4.7 cm 3.8-5.2 LVIW Diastolic Thickness (2D) 1.0 cm 0.6-0.9 LVID Systole (2D) 3.0 cm 2.2-3.5 LVOT Diameter 2.0 cm LV Mass (2D Cubed) 177.14 g 67.00-162.00 LV Mass Index (2D Cubed) 109 g/m2 43-95 Relative Wall Thickness (2D) 0.45 LV Fractional Shortening/Ejection Fraction 2D/MM LV Fractional Shortening (2D) 36 % 27-45 LV EF (2D Teicholz) 66 % 54-74 LV Diastolic Volume (4C MOD) 86 ml LV EF (4C MOD) 63 % LV Diastolic Volume (2C MOD) 108 ml LV EF (2C MOD) 51 % LV Diastolic Volume (BP MOD) 100 ml 46-106 LV Diastolic Volume Index (BP MOD) 62 ml/m2 29-61 LV Systolic Volume (BP MOD) 42 ml 14-42 LV Systolic Volume Index (BP MOD) 26 ml/m2 8-24 LV EF (BP MOD) 58 % 54-74 LV Diastolic Length (4C) 6.8 cm LV Systolic Length (4C) 5.9 cm LV Stroke Volume (4C MOD) 54 ml Atria Name Value Normal LA Dimensions LA Volume (4C A-L) 132 ml LA Volume (BP A-L) 136 ml RA Dimensions RA Area (4C) 33.7 cm2 <=18.0 Report Signatures
--- OUTSIDE RECORDS SUMMARY | 2024-10-13 00:28 | XMS_ITS | CONTINUITY OF CARE DOCUMENT ---
Author Name kelseyajaymarcie Address Unknown Organization [facility] Address [address] [place] [address] Phone [phone] Care Team Providers Care Senior Bioinformatics Scientist Name Role Phone Edgar PIZARRO, Guy Unavailable [phone] FRANK MALIN Unavailable [phone] FRANK MALIN Unavailable [phone] INSURANCE PROVIDERS Payer name Policy type / Coverage type [place] [employer] party ID AARP MEDICARE ADVANTAGE ([facility] COMPLETE PPO) Other [id number]
--- OUTSIDE RECORDS SUMMARY | 2024-10-13 00:28 | XMS_ITS | Continuity of Care Document ---
Author Organization [facility] [place] Address [address] [place] [address] [address] [place] [address] Phone Care Team Providers Care [employer] Process Technician Name Role Phone [facility] Unavailable Unavail able Sickage, Natasha Unavailable Unavailable Advance Directives Directive Yes / No Effective Date File Name No Information Encounters Encounter Description Practice Location Reason(s) For Visit Diagnoses Date Provider Providers Copied on Encounter [facility], [address], [place], [place], [id number], [place] tel:[phone] [facility] No Information [facility] [address] [address] [facility], [address], [place], [place], [id number] , [place]. tel:[phone] Referring Provider: Shanna Pérez, [address], [place], [address]. tel:[phone] sulting Provider: Natasha Celis, [address] [place] [address], [id number]. tel:[phone] Family History Family Member Type Diagnosis Age At Onset No Information Payers Payer name Insurance type Covered constitution party ID Authoriza tion(s) No Information Social [...]
--- OUTSIDE RECORDS SUMMARY | 2024-10-13 00:28 | XMS_ITS | Patient Health Summary ---
Author Organization [facility] Address [address] [place] [address] Care Team Providers Care Fire Crew Worker Name Role Phone Ed Patel MD Primary Care Provider [phone] Denia Wick RN Unavailable [phone] Michael Mondragon MD Unavailable [phone] Keiry Jones PRESS TENDER STAR SIGNAL-BLOCK CUBER Unavailable [phone] Note from [facility],non-owned Affiliates and Associated Physician Practices is amultiple site organization consisting of ambulatory clinics and hospital sitesin [place], [place], [place] and [place]. This disclosure is being madepursuant to the Care Everywhere program and may not contain all information available regarding this patient. Last updated 18.[facility] Allergies * Dicyclomine(Dizziness) * Propoxyphene N-Apap * [...] / 24 hours. 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 - Occupational [...] to sleep or slept in a senior living (including now)? No 06/24/2023 Housing Stability Vital [...] TISSUE(Performed 05/02/2024) Performed for Gastric nodule * GA ESOPHAGOSCOPY,ENDOSCOPIC ULTRASND(Performed 05/02/2024) Performed for Gastric nodule [...] Other cirrhosis of liver (HCC) * CYTOLOGY NON-MANAGER TELEMARKETING PANEL (STL)(Performed 06/27/2023) Performed for Other cirrhosis [...] 06/27/2023) * B-TYPE NATRIURETIC PEPTIDE(Performed 06/27/2023) * LEIAS BLOOD SCREEN W/REFLEX TITER(Performed 06/27/2023) * PT-INR [facility](Performed 06/27/2023) * PHOSPHORUS BLOOD(Performed 06/27/2023) * MAGNESIUM BLOOD(Performed 06/27/2023) * COMPREHENSIVE METABOLIC PANEL(Performed 06/27/2023) * CBC W/O DIFFERENTIAL(Performed 06/27/2023) * PHOSPHORUS BLOOD(Performed 06/26/2023) * MAGNESIUM BLOOD(Performed 06/26/2023) * COMPREHENSIVE METABOLIC PANEL(Performed 06/26/2023) * HEPATITIS C AB SCREEN RFLX NAAT QUANT(Performed 06/26/2023) * CERULOPLASMIN(Performed 06/26/2023) * [id number] BLOOD(Performed 06/26/2023) * CBC W/O DIFFERENTIAL(Performed 06/26/2023) [...] artery disease involving coronary bypass graft of sioux heart with unstable angina pectoris (HCC) * BASIC METABOLIC PANEL (CALCIUM TOTAL)(Performed 04/18/2020) Performed for Shortness of breath * B-TYPE NATRIURETIC PEPTIDE(Performed 04/18/2020) Performed for Shortness of breath, 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 (HCC), Essential [...] CDT) Case Report Surgical Pathology Report Case: [id number] Authorizing Provider: Dinorah Winkler MD Collected: 05/02/2024 11:21 AM Ordering Location: [facility] Received: 05/02/2024 12:55 PM Pathologist: Keiry Hui MD Specimen: Gastric Biopsy, Gastric antral nodule 05/03/2024 3:28 PM CDT [facility] Final Diagnosis Stomach, antral nodule, endomucosal resection (A): - Hyperplastic polyp with reactive changes and features of erosion 05[facility]03[facility]24 3:[facility] Microscopic Description and Comment Microscopic examination substantiates the final diagnosis. 05/03/2024 3:28 PM [facility] Clinical History The patient is an 88-year-old woman with gastric mucosal mass/polyp found on endoscopy. Operative procedure/findings: Upper EUS/EGD - mass in the antrum of the stomach, endomucosal resection 05/03/2024 3:28 PM T [facility] Gross Description The requisition and specimen(s) are identified with the patient's name Mary Beth Gutierrez. Received in formalin, specimen A , is a 1.2 x 1.0 x 1.0 cm dark pink polypoid tissue. The resection margin is inked green. The tissue is sectioned and entirely submitted in cassettes A1. DF 05/03/2024 3:28 PM CDT [facility] Pathologist Location at [facility] 05/03/2024 3:28 PM CDT [facility] Disclaimer The performance characteristics of all immunohistochemical and indirect immunofluorescence stains (if any) cited in this report were determined by the Histopathology Laboratory of [facility]. Some of these tests were developed by [...] attending (teaching) pathologist. 05/03/2024 3:28 PM CDT [facility] Embedded Images 05/03/2024 3:28 PM CDT [facility] Biopsy, NOS GASTRIC BIOPSY SPECIMEN / Unknown 05/02/2024 11:21 AM CDT 05/02/2024 12:55 PM CDT Comment:Pre-op diagnosis: Gastric nodule [K31.89] Dinorah Winkler MD LAB - PATHOLOGY/CYTO LOGY ORDERABLES Performing Organization Address City/State/[facility] Co de Phone Number [facility] [address] [phone] * ENDOSCOPIC ULTRASONOGRAPHY, GI (05/02/2024 10:50 AM [...] to the second part of duodenum. The [id number] was introduced through the and advanced to [...] clips were successfully placed (MR conditional). 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 There was no bleeding during, or at the end, of the procedure. Multiple stones were visualized endosonographically in the gallbladder. Estimated Blood Loss: Estimated blood loss: none. Complications: No immediate complications. Impression: - Normal esophagus. - A single gastric polyp. - Normal examined duodenum. - A mass was found in the antrum of the stomach. Clips (MR conditional) were placed. 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 - Multiple stones were visualized endosonographically [...] non-sam portions. Procedure Code(s): --- Professional --- 74968, Esophagogastroduodenos copy, flexible, transoral; with endoscopic mucosal resection 68493, Esophagogastroduodenos copy, flexible, transoral; with endoscopic ultrasound examination limited to the esophagus, stomach or duodenum, and adjacent structures Diagnosis Code(s): --- Professional --- K31.7, Polyp of stomach and duodenum K31.89, Other diseases of stomach and duodenum CPT copyright 2021 [employer]. All rights reserved. The codes documented in this report are preliminary and upon glaze grinder review may be revised to meet current compliance requirements. Dinorah Winkler MD 05/02/2024 12:01:15 PM This report has been signed electronically. Note Initiated On: 05/02/2024 10:50 AM Number of Addenda: [address] [id number] [facility] 05/02/2024 10:5 0 AM CDT Dinorah Winkler MD GI PROCEDURE ORDERAB LES [facility] * XR SHOULDER RIGHT 2VW OR MORE (08/10/2023 9:16 AM PRINCIPAL TECHNOLOGIST) Only the most recent of2 resultswithin the time period is included. Anatomical Region Laterality Modality Upper Extremity Radiographic Shila ging 08/10/2023 9:24 AM PRINCIPAL TECHNOLOGIST Impressions 08/10/2023 9:31 AM PRINCIPAL TECHNOLOGIST IMPRESSION: Moderately displaced proximal humerus fracture with continued callus formation. Report dictated by Larry Kraus MD (president [place]). I, Jose M Eden MD have personally reviewed and interpreted this examination/study. > Interpreting Provider: Jose M Eden MD on 08/10/2023 9:31 AM Narrative 08/10/2023 9:31 AM PRINCIPAL TECHNOLOGIST PROCEDURE: XR SHOULDER RIGHT 2VW OR MORE, DATE/TIME OF EXAM: 08/10/2023 9:16 AM, LOCATION [facility] INDICATION: S42.201A: Closed fracture of proximal [...] DATE/TIME OF EXAM: 08/10/2023 9:16 AM, LOCATION [facility] INDICATION: S42.201A: Closed fracture of proximal [...] formation. Report dictated by Larry Kraus MD (president [place]). I, Jose M Eden MD have personally reviewed and interpreted this examination/study. > Interpreting Provider: Jose M Eden MD on 08/10/2023 9:31 AM Josh Stephens MD DIAGNOSTIC IMAGING O RDERABLES * (ABNORMAL) PT-INR [facility] (07/05/2023 3:26 AM PRINCIPAL TECHNOLOGIST) Only the most recent of13 resultswithin the time period is included. PT 29.5(H) 12.1 - 14.8 Seconds 07/05/2023 4:28 AM [facility] INR 2.9 See Comment 07/05/2023 4:28 AM [facility] Comment:The suggested therap eutic range for standard coumadin (warfarin) therapy is an INR of 2.0-3.0. For high-risk patients (Mechanical Mitral Valve Prosthesis, etc.), the suggested prophylactic therapeutic range is an INR of 2.5-3.5. Blood BLOOD SPECIMEN / Unknown Lab Venipuncture / Unknown 07/05/2023 3:26 AM PRINCIPAL TECHNOLOGIST 07/05/2023 3:57 AM PRINCIPAL TECHNOLOGIST Alexander Damico MD LAB - COAGULATION OR DERABLES [address] [address], [facility] [phone] * (ABNORMAL) CBC W/O DIFFERENTIAL (07/05/2023 3:26 AM PRINCIPAL TECHNOLOGIST) Only the most recent of17 resultswithin the time period is included. WBC 5.7 3.5 - 10.5 10 3/uL 07/05/2023 4:12 AM [facility] RBC 2.79(L) 3.80 - 5.20 10 6/uL 07/05/2023 4:12 AM [facility] Hemoglobin 7.5(L) 12.0 - 15.6 g/dL 07/05/2023 4:12 AM [facility] Hematocrit 24.2(L) 35.0 - 45.0 % 07/05/2023 4:12 AM [facility] MCV 86.7 80.7 - 98.3 fL 07/05/2023 4:12 AM [facility] MCH 26.9 26.7 - 34.0 pg 07/05/2023 4:12 AM [facility] MCHC 31.0 30.8 - 35.9 g/dL 07/05/2023 4:12 AM [facility] RDW-SD 51.2(H) 36.0 - 50.0 fL 07/05/2023 4:12 AM [facility] RDW-CV 16.6(H) 11.2 - 14.8 % 07/05/2023 4:12 AM [facility] Platelet Count 221 150 - 400 10 3/uL 07/05/2023 4:12 AM [facility] MPV 8.7(L) 9.4 - 12.9 fL 07/05/2023 4:12 AM [facility] nRBC Absolute 0.00 0 10 3/uL 07/05/2023 4:12 AM [facility] nRBC Auto 0.0 0 /100 WBC 07/05/2023 4:12 AM [facility] Blood BLOOD SPECIMEN / Unknown Lab Venipuncture / Unknown 07/05/2023 3:26 AM PRINCIPAL TECHNOLOGIST 07/05/2023 3:57 AM [facility] Alexander Damico MD LAB - HEMATOLOGY ORD ERABLES [facility] [address] [place] [address], [facility] [phone] * (ABNORMAL) COMPREHENSIVE METABOLIC PANEL (07/05/2023 3:26 AM PRINCIPAL TECHNOLOGIST) Only the most recent of13 resultswithin the time period is included. BUN 28(H) 7 - 26 mg/dL 07/05/2023 4:29 AM [facility] Creatinine 1.20(H) 0.56 - 0.96 mg/dL 07/05/2023 4:29 AM [facility] Sodium 139 136 - 145 mmol/L 07/05/2023 4:29 AM [facility] Potassium 4.2 3.5 - 4.5 mmol/L 07/05/2023 4:29 AM [facility] Chloride 102 98 - 107 mmol/L 07/05/2023 4:29 AM [facility] CO2 31(H) 22 - 29 mmol/L 07/05/2023 4:29 AM [facility] Glucose 94 70 - 115 mg/dL 07/05/2023 4:29 AM [facility] Calcium 8.2(L) 8.4 - 10.2 mg/dL 07/05/2023 4:29 AM [facility] Protein Total 4.8(L) 6.0 - 8.3 g/dL 07/05/2023 4:29 AM [facility] Albumin 2.4(L) 3.4 - 5.0 g/dL 07/05/2023 4:29 AM [facility] Bilirubin Total 1.2 0.2 - 1.2 mg/dL 07/05/2023 4:29 AM [facility] Alkaline Phosphatase 80 40 - 150 U/L 07/05/2023 4:29 AM [facility] ALT 9 5 - 55 U/L 07/05/2023 4:29 AM [facility] AST 12 5 - 34 U/L 07/05/2023 4:29 AM [facility] Anion Gap 6 6 - 16 07/05/2023 4:29 AM [facility] BUN/Creatinine Ratio 23 7 - 23 07/05/2023 4:29 AM [facility] Osmolality Calculated 293 275 - 295 mOsm/kg 07/05/2023 4:29 AM [facility] Albumin/Globulin Ratio 1.0(L) 1.1 - 2.3 07/05/2023 4:29 AM [facility] eGFR by CKD-EPI 44(L) >=90 mL/min/1.7 3 m2 07/05/2023 4:29 AM [facility] Blood BLOOD SPECIMEN / Unknown Lab Venipuncture / Unknown 07/05/2023 3:26 AM PRINCIPAL TECHNOLOGIST 07/05/2023 3:59 AM PRINCIPAL TECHNOLOGIST Alexander Damico MD LAB - CHEMISTRY ARMIN [place]IS Performing Organization Address City/[facility]/ZIP Co de Phone Number [facility] [address] [place] [phone], [place] [phone] * PHOSPHORUS BLOOD (07/05/2023 3:26 AM PRINCIPAL TECHNOLOGIST) Only the most recent of13 resultswithin the time period is included. Phosphorus 3.2 2.9 - 5.1 mg/dL 07/05/2023 4:29 AM PRINCIPAL TECHNOLOGIST [facility] Blood BLOOD SPECIMEN / Unknown Lab Venipuncture / Unknown 07/05/2023 3:26 AM PRINCIPAL TECHNOLOGIST 07/05/2023 3:59 AM PRINCIPAL TECHNOLOGIST Alexander Damico MD LAB - CHEMISTRY ARMIN [place]IS Performing Organization Address [facility]/ZIP Co de Phone Number [address] [address], [place] [phone] * MAGNESIUM BLOOD (07/05/2023 3:26 AM PRINCIPAL TECHNOLOGIST) Only the most recent of13 resultswithin the time period is included. Magnesium 1.8 1.6 - 2.6 mg/dL 07/05/2023 4:29 AM PRINCIPAL TECHNOLOGIST [facility] Blood BLOOD SPECIMEN / Unknown Lab Venipuncture / Unknown 07/05/2023 3:26 AM PRINCIPAL TECHNOLOGIST 07/05/2023 3:59 AM PRINCIPAL TECHNOLOGIST Alexander Damico MD LAB - CHEMISTRY [place] [address] [address], [place] [phone] * VAS RIGHT VENOUS DUPLEX UE (07/04/2023 12:44 PM PRINCIPAL TECHNOLOGIST) Anatomical Region Laterality Modality Upper Extremity Intravascular Ul trasound 07/04/2023 11:5 4 AM PRINCIPAL TECHNOLOGIST Narrative Procedure Note Gabrielle Perales MD - 07/06/2023 Alexander Damico MD VASCULAR LAB ORDERAB LES * (ABNORMAL) B-TYPE NATRIURETIC PEPTIDE (07/04/2023 9:54 AM PRINCIPAL TECHNOLOGIST) Only the most recent of4 resultswithin the time period is included. BNP 821(H) <100 pg/mL 07/04/2023 10:59 AM PRINCIPAL TECHNOLOGIST [facility] Comment: A decision threshold of 100 [...] Lab Venipuncture / Unknown 07/04/2023 9:54 AM PRINCIPAL TECHNOLOGIST 07/04/2023 10:27 AM PRINCIPAL TECHNOLOGIST Alexander Damico MD LAB - CHEMISTRY ARMIN HARRIS [facility] Organization Address City/State/[facility] Co de Phone Number [facility] [address] [place] [phone], [facility] [phone] * TSH REFLEX FREE T4 (06/29/2023 3:06 AM PRINCIPAL TECHNOLOGIST) TSH 2.946 0.350 - 4.940 uIU/mL 06/29/2023 4:44 AM PRINCIPAL TECHNOLOGIST [facility] Blood BLOOD SPECIMEN / Unknown Lab Venipuncture / Unknown 06/29/2023 3:06 AM PRINCIPAL TECHNOLOGIST 06/29/2023 3:52 AM PRINCIPAL TECHNOLOGIST Alexander Damico MD LAB - CHEMISTRY ARMIN HARRIS [facility] Organization Address City/State/ZIP Co de Phone Number [address] [address], [facility] [phone] * ECHO COMPLETE W CONTRAST (06/28/2023 12:21 PM PRINCIPAL TECHNOLOGIST) BSA 1.1304030 [id number] m2 SSM CV FUJI PACS LV biplane [...] CV FUJ I PACS LV mass 2D 258.76312 [id number] 66 - 150 g SSM CV FUJI [...] grad 2 mmHg SSM CV FUJI PACS GA pk cyrus 296.85 cm/s SSM CV FUJ I PACS GA pk grad 10 mmHg SSM CV FU [...] Index 68 ml/m2 SSM CV FUJI PACS [id number] 5.689 cm SSM CV FUJ I PACS [id number] 5.403 cm SSM CV FUJ I PACS Prox Asc Ao Diameter Index 1.6 cm SSM CV FUJI PACS LVIDs index 1.57 1.3 - 2.1 cm/m2 SSM CV FUJI PACS LV LVIDd index 2.29 2.3 - 3.1 cm/m2 SSM CV FUJI PACS sPAP 79.0 mmHg SSM CV FUJ I PACS Anatomical Region Laterality Modality Ultrasound Narrative 06/28/2023 2:03 PM PRINCIPAL TECHNOLOGIST Left Ventricle: Left ventricle size is normal. [...] * CARDIAC EKG ORDER (06/28/2023 8:23 AM PRINCIPAL TECHNOLOGIST) Only the most recent of2 resultswithin the time period is included. Narrative 06/28/2023 8:23 AM PRINCIPAL TECHNOLOGIST Ordered by an unspecified provider. Scanned Document CARDIAC SERVICES ORD ERABLES * IR US PARACENTESIS (06/27/2023 3:38 PM PRINCIPAL TECHNOLOGIST) Anatomical Region Laterality Modality Abdomen X-Ray Angiograph y 06/27/2023 4:50 PM PRINCIPAL TECHNOLOGIST Impressions 06/27/2023 4:53 PM PRINCIPAL TECHNOLOGIST IMPRESSION: Successful ultrasound-guided paracentesis, diagnostic and therapeutic. > Interpreting Provider: Carlos Enrique Mayfield MD on 06/27/2023 4:53 PM Narrative 06/27/2023 4:53 PM PRINCIPAL TECHNOLOGIST PROCEDURE: IR US PARACENTESIS DATE/TIME OF EXAM: [...] sterile fashion. Standard timeout was performed and [place] Protocol Policy steps were completed for the documented procedure. 1% lidocaine was utilized to anesthetize the skin and subcutaneous tissues at the proposed needle entry site. A tiny dermatotomy was made. A 6.5 [place] pigtail drainage catheter was inserted into the [...] sterile fashion. Standard timeout was performed and [place] Protocol Policy steps were completed for the documented procedure. 1% lidocaine was utilized to anesthetize the skin and subcutaneoustissues at the proposed needle entry site. A tiny dermatotomy was made. A 6.5 [place] pigtail drainage catheter was inserted into the [...] MD IR ORDERABLES * PROTEIN BODY FLUID ([facility] ONLY) (06/27/2023 3:33 PM PRINCIPAL TECHNOLOGIST) Protein Fluid 2.8 Not Established For Fluids g/dL 06/27/2023 4:17 PM PRINCIPAL TECHNOLOGIST [facility] Comment:The analytical perfo rmance of this test has been independently validated by [facility]. A reference range has not been established. Comparison of this result with the concentration in blood, serum or plasma is recommended. Fluid PERITONEAL FLUID / Unknown Collection / Unknown 06/27/2023 3:33 PM PRINCIPAL TECHNOLOGIST 06/27/2023 3:54 PM PRINCIPAL TECHNOLOGIST Alexander Damico MD LAB - BODY FLUID ORD ERABLES [facility] [address] [place] [address], [facility] [phone] * ALBUMIN BODY FLUID ([facility] ONLY) (06/27/2023 3:33 PM PRINCIPAL TECHNOLOGIST) Albumin Fluid 1.7 Not Established For Fluids g/dL 06/27/2023 4:17 PM PRINCIPAL TECHNOLOGIST [facility] Comment:The analytical perfo rmance of this test has been independently validated by [facility]. A reference range has not been established. Comparison of this result with the concentration in blood, serum or plasma is recommended. Fluid PERITONEAL FLUID / Unknown Collection / Unknown 06/27/2023 3:33 PM PRINCIPAL TECHNOLOGIST 06/27/2023 3:54 PM PRINCIPAL TECHNOLOGIST Alexander Damico MD LAB - BODY FLUID ORD ERABLES Performing Organization Address [facility]/ZIP Co de Phone Number [address] [address], [facility] [phone] * (ABNORMAL) CELL COUNT W DIFFERENTIAL FLUID (06/27/2023 3:33 PM PRINCIPAL TECHNOLOGIST) Pathologist [facility] Color Fluid Yellow(A) Colorless, Straw 06/27/2023 4:24 PM PRINCIPAL TECHNOLOGIST [facility] Clarity Fluid Slightly Cloudy(A) Clear 06/27/2023 4:24 PM [facility] Volume Fluid 5.0 mL 06/27/2023 4:24 PM [facility] WBC Fluid 264 Reference Range Not Established x10e6/L 06/27/2023 4:24 PM [facility] RBC Fluid <3,000 Reference Range Not Established x10e6/L 06/27/2023 4:24 PM [facility] Differential Manual Differential to follow. 06/27/2023 4:24 PM [facility] Fluid PERITONEAL FLUID / Unknown Collection / Unknown 06/27/2023 3:33 PM PRINCIPAL TECHNOLOGIST 06/27/2023 3:54 PM PRINCIPAL TECHNOLOGIST Narrative [facility] - 06/27/2023 4:24 PM PRINCIPAL TECHNOLOGIST No reference ranges established for body fluid cell counts. The reference ranges provided are derived from published literature. The test results must be integrated into the clinical context for interpretation. Alexander Damico MD LAB - BODY FLUID ORD ERABLES Performing Organization Address City/[facility]/ZIP Co de Phone Number [address] [address], [facility] [phone] * CYTOLOGY NON-MANAGER TELEMARKETING PANEL (STL) (06/27/2023 3:33 PM PRINCIPAL TECHNOLOGIST) Case Report Medical Cytology Report Case: [id number] Authorizing Provider: Alexander Damico MD Collected: 06/27/2023 03:33 PM Ordering Location: [address] Received: 06/28/2023 08:42 AM Pathologist: Roxana Jones MD Specimen: Peritoneal Fluid 07/02/2023 2:33 PM [facility] Specimen Adequacy Adequate cellularity for evaluation. 07/02/2023 2:33 PM [facility] Final Diagnosis Peritoneal fluid, paracentesis, cytology: - Negative for malignancy - Mixed inflammation with reactive mesothelial cells and macrophages 07/02/2023 2:33 PM [facility] Clinical History The patient is a 87-year-old woman with MASLD complicated presenting following a fall. 07/02/2023 2:33 PM [facility] Gross Description 1 cytospin Pap stained slide from 2 cc clear, yellow fluid 07/02/2023 2:33 PM [facility] Microscopic Description Microscopic examination substantiates the final diagnosis. The specimen is insufficient to make a cell block. 07/02/2023 2:33 PM [facility] Pathologist Location at [facility] 07/02/2023 2:33 PM [facility] Disclaimer The performance characteristics of all immunohistochemical and indirect immunofluorescence stains (if any) cited in this report were determined by the Histopathology Laboratory of [facility]. Some of these tests rely on the use of analyte-specific reagents and are subject to specific labeling requirements by the [place] Food and Drug Administration. Such tests were developed by the Histology Laboratory of [facility] and have not been cleared or [...] the attending (teaching) pathologist. 07/02/2023 2:33 PM [facility] Embedded Images 07/02/2023 2:33 PM [facility] Pathology/Cytolo gy PERITONEAL FLUID / Unknown Collection / Unknown 06/27/2023 3:33 PM PRINCIPAL TECHNOLOGIST 06/28/2023 8:42 AM PRINCIPAL TECHNOLOGIST Alexander Damico MD LAB - PATHOLOGY/CYTO LOGY ORDERABLES [facility] [address] [place] [address], [facility] [phone] * DIFFERENTIAL MANUAL FLUID (06/27/2023 3:33 PM PRINCIPAL TECHNOLOGIST) Segs % Fluid 57 % 06/27/2023 5:23 PM PRINCIPAL TECHNOLOGIST [facility] Lymphocytes % Fluid 6 % 06/27/2023 5:23 PM PRINCIPAL TECHNOLOGIST [facility] Monocytes % Fluid 1 % 023 5:23 PM PRINCIPAL TECHNOLOGIST [facility] Macrophages % Fluid 35 % 06/27/2023 5:23 PM PRINCIPAL TECHNOLOGIST [facility] Mesothelials % Fluid 1 % 06/27/2023 5:23 PM PRINCIPAL TECHNOLOGIST [facility] Fluid PERITONEAL FLUID / Unknown Collection / Unknown 06/27/2023 3:33 PM PRINCIPAL TECHNOLOGIST 06/27/2023 3:54 PM PRINCIPAL TECHNOLOGIST Narrative [facility] - 06/27/2023 5:23 PM PRINCIPAL TECHNOLOGIST Occasional erythrophage and siderophage seen. Alexander Damico MD LAB - BODY FLUID ORD ERABLES Performing Organization Address [facility]/ZIP Co de Phone Number [facility] [address] [phone], [facility] [phone] * CULTURE FLUID+GRAM STAIN (06/27/2023 3:33 PM PRINCIPAL TECHNOLOGIST) Culture No growth FARHAN 07/01/2023 5:27 AM PRINCIPAL TECHNOLOGIST [facility] Gram Stain Light Red blood cells 07/01/2023 5:27 AM PRINCIPAL TECHNOLOGIST [facility] Gram Stain No organisms seen 023 5:27 AM PRINCIPAL TECHNOLOGIST [facility] Gram Stain No polymorphonuclear cells 07/01/2023 5:27 AM PRINCIPAL TECHNOLOGIST [facility] Other PERITONEAL FLUID / Unknown Collection / Unknown 06/27/2023 3:33 PM PRINCIPAL TECHNOLOGIST 06/27/2023 3:54 PM PRINCIPAL TECHNOLOGIST Alexander Damico MD LAB - MICROBIOLOGY O RDERABLES [facility] MICROBIOLOGY [address] [place], [place] [address], [facility] [phone] * US ABDOMEN LTD W COMP DOPPLER (06/27/2023 11:49 AM PRINCIPAL TECHNOLOGIST) Anatomical Region Laterality Modality Abdomen Ultrasound 06/27/2023 11:3 3 AM PRINCIPAL TECHNOLOGIST Impressions 06/27/2023 1:38 PM PRINCIPAL TECHNOLOGIST IMPRESSION: 1.Hepatic cirrhosis with sequela of portal [...] evaluation. > Dictated by Tayo Sow MD ([place]). I, Aren Carlton MD have personally reviewed and interpreted this examination/study. > Interpreting Provider: Aren Carlton MD on 06/27/2023 1:38 PM Narrative 06/27/2023 1:38 PM PRINCIPAL TECHNOLOGIST PROCEDURE: US ABDOMEN LTD W COMP DOPPLER, DATE/TIME OF EXAM: 06/27/2023 9:44 AM, LOCATION [facility] INDICATION: K74.69: Other cirrhosis of liver [...] DOPPLER, DATE/TIME OF EXAM:06/27/2023 9:44 AM, LOCATION [facility] INDICATION: K74.69: Other cirrhosis of liver [...] evaluation. > Dictated by Tayo Sow MD (president [place]). I, Aren Carlton MD have personally reviewed and interpreted this examination/study. 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 There is mild bowing of the tibia and fibula and a likely chronic deformity of distal fibula. No acute fracture. There is soft tissue swelling of the left lower extremity. A calcaneal spur is present. > Interpreting Provider: Oswald Lehman MD on 06/27/2023 10:51 AM Narrative 06/27/2023 10:51 AM PRINCIPAL TECHNOLOGIST PROCEDURE: XR TIBIA FIBULA LEFT 2VW DATE/TIME [...] URINALYSIS W/MICROSCOPIC NO CULTURE (06/27/2023 6:40 AM PRINCIPAL TECHNOLOGIST) Color UA Yellow Straw, Yellow 06/27/2023 7:03 AM [facility] Clarity UA Clear Clear 06/27/2023 7:03 AM [facility] Specific [place] UA 1.019 1.005 - 1.030 06/27/2023 7:03 AM [facility] pH UA 5.0 5.0 - 8.0 pH 06/27/2023 7:03 AM [facility] Protein UA Negative Negative 06/27/2023 7:03 AM [facility] Glucose UA Negative Negative 06/27/2023 7:03 AM [facility] Ketone UA Negative Negative 06/27/2023 7:03 AM [facility] Bilirubin UA Negative Negative 06/27/2023 7:03 AM [facility] Blood UA Negative Negative 06/27/2023 7:03 AM [facility] Nitrite UA Negative Negative 06/27/2023 7:03 AM [facility] Leukocyte Esterase Negative Negative 06/27/2023 7:03 AM [facility] Urobilinogen UA Negative Negative mg/dL 06/27/2023 7:03 AM [facility] RBC UA 0-2 None Seen, 0-2, 3-5 /HPF 06/27/2023 7:03 AM [facility] WBC UA 0-5 None Seen, 0-5 /HPF 06/27/2023 7:03 AM [facility] Squamous Epithelial Cells UA 0-2 None Seen, 0-2, 3-5 /HPF 06/27/2023 7:03 AM [facility] Urine URINE SPECIMEN OBTAINED BY CLEAN CATCH PROCEDURE / Unknown Collection / Unknown 06/27/2023 6:40 AM PRINCIPAL TECHNOLOGIST 06/27/2023 6:55 AM [facility] [address] - 06/27/2023 7:03 AM PRINCIPAL TECHNOLOGIST Alexander Damico MD LAB - URINALYSIS ORD ERABLES [facility] [address] [place] [address], [facility] [phone] * (ABNORMAL) URINE DRUG SCREEN IMMUNOASSAY (06/27/2023 6:40 AM [facility]) [facility] Amphetamines Screen Urine Negative Negative : < 1000 ng/mL 06/27/2023 7:18 AM [facility] Barbiturates Screen Urine Negative Negative : < 200 ng/mL 06/27/2023 7:18 AM [facility] Benzodiazepine Screen Urine Negative Negative : < 200 ng/mL 06/27/2023 7:18 AM [facility] Opiates Urine Positive(A) Negative : < 300 ng/mL 06/27/2023 7:18 AM [facility] Comment:Positive urine opiat e screening results should be confirmed by another generally accepted non-immunological method such as gas chromatography or mass spectrometry. Cocaine Metabolites Urine Negative Negative : < 300 ng/mL 06/27/2023 7:18 AM [facility] Phencyclidine Screen Urine Negative Negative : < 25 ng/ml 06/27/2023 7:18 AM [facility] Cannabinoids Screen Urine Negative Negative : <50 ng/mL 06/27/2023 7:18 AM [facility] Methadone Screen Urine Negative Negative : < 300 ng/mL 06/27/2023 7:18 AM [facility] Fentanyl Screen Urine Positive(A) Negative : <1.5 ng/mL 06/27/2023 7:18 AM [facility] Comment:Positive urine fenta nyl screening results should be confirmed by another generally accepted non-immunological method such as gas chromatography or mass spectrometry. Urine URINE / Unknown Collection / Unknown 06/27/2023 6:40 AM [facility] 06/27/2023 6:55 AM [facility] [address] - 06/27/2023 7:18 AM [facility] The Urine Toxicology Screening Panel does not screen for Propoxyphene, Meprobamate, Carisoprodol, Trazodone, fgxu-fpf-ldlkcqa medications and/or volatiles (Acetone, Isopropanol, Methanol or Ethylene Glycol). Ethanol, Salicylate, Acetaminophen, Tricyclic Antidepressants and several therapeutic drugs may be individually assayed in serum or plasma specimen. Toxicology testing by the [facility] is an aid to medical diagnosis and treatment of patients. No documented chain of custody was maintained. Results are intended to be used for clinical purposes only. Alexander Damico MD LAB - URINE CHEMISTR Y ORDERABLES [facility] [address] [place] [address], [facility] [phone] * XR CHEST 1VW PORTABLE (06/27/2023 5:50 AM PRINCIPAL TECHNOLOGIST) Only the most recent of4 resultswithin the time period is included. Anatomical Region Laterality Modality Chest Radiographic Shila ging 06/27/2023 10:4 1 AM PRINCIPAL TECHNOLOGIST Impressions 06/27/2023 10:42 AM PRINCIPAL TECHNOLOGIST IMPRESSION: Median sternotomy wires are well aligned. 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 There is cardiomegaly. There is left lower lung atelectasis and calcification of the mitral annulus. There is a hiatal hernia. No pneumothorax. There may be a small left pleural effusion. Heart size is unchanged. > Interpreting Provider: Oswald Lehman MD on 06/27/2023 10:42 AM Narrative 06/27/2023 10:42 AM PRINCIPAL TECHNOLOGIST PROCEDURE: XR CHEST 1VW PORTABLE DATE/TIME OF [...] size is unchanged. > Interpreting Provider: Oswald eLhman MD on 06/27/2023 10:42 AM Alexander Damico MD DIAGNOSTIC IMAGING O RDERABLES * (ABNORMAL) CYTOPLASMIC PATTERN (06/27/2023 4:59 AM PRINCIPAL TECHNOLOGIST) Cytoplasmic Pattern Titer 1:640(A) 06/29/2023 10:24 PM PRINCIPAL TECHNOLOGIST [facility] ([facility]) Cytoplasmic Pattern Rods and Rings(A) 06/29/2023 10:24 PM PRINCIPAL TECHNOLOGIST [employer] ([facility]) Comment: Performed By: [employer] [address] [place] [address] Disciplinary Hearing Officer: Ken Mcfadden MD, PhD CLIA Number: [id number] Blood BLOOD SPECIMEN / Unknown Venipuncture / Unknown 06/27/2023 4:59 AM PRINCIPAL TECHNOLOGIST 06/27/2023 5:08 AM PRINCIPAL TECHNOLOGIST Alexander Damico MD LAB - CHEMISTRY [facility]) [address] [place] [address], [facility] * ELIAS HEP-2 IGG BY IFA (06/27/2023 4:59 AM PRINCIPAL TECHNOLOGIST) ELIAS HEp-2 IgG <1:80 <1:80 06/29/2023 10:24 PM PRINCIPAL TECHNOLOGIST [facility] ([facility]) ELIAS Interpretive Comment See Note 06/29/2023 10:24 PM PRINCIPAL TECHNOLOGIST [facility] ([facility]) Comment: Antinuclear antibodies by IFA negative for [...] not necessarily rule out SARD. Performed By: [employer] [address] [place] [address] Disciplinary Hearing Officer: Ken Mcfadden MD, PhD CLIA Number: [id number] Blood BLOOD SPECIMEN / Unknown Venipuncture / Unknown 06/27/2023 4:59 AM PRINCIPAL TECHNOLOGIST 06/27/2023 5:08 AM PRINCIPAL TECHNOLOGIST Alexander Damico MD LAB - SEROLOGY ORDER SAMIRA [employer] ([facility]) [address] [place] [phone], [facility] * SMOOTH MUSCLE ANTIBODY W REFLEX TITER (06/27/2023 4:59 AM PRINCIPAL TECHNOLOGIST) F-Actin Antibody IgG 9 0 - 19 Units 06/28/2023 8:47 PM PRINCIPAL TECHNOLOGIST [employer] ([facility]) Comment: If F-Actin (Smooth Muscle) Antibody, IgG [...] suspicion for AIH is strong. Performed By: [employer] [address] [place] [address] Disciplinary Hearing Officer: Ken Mcfadden MD, PhD CLIA Number: [id number] Blood BLOOD SPECIMEN / Unknown Venipuncture / Unknown 06/27/2023 4:59 AM PRINCIPAL TECHNOLOGIST 06/27/2023 5:08 AM PRINCIPAL TECHNOLOGIST Alexander Damico MD LAB - SEROLOGY ORDER SAMIRA Performing Organization Address City/[facility]/ZIP Co de Phone Number [facility] ([facility]) [address] [place] [address] * HIV-1 HIV-2 ANTIBODY + HIV P24 AG PANEL (06/27/2023 4:59 AM PRINCIPAL TECHNOLOGIST) HIV Antigen/Antibod y 1 & 2 Non-reacti ve Non-react juan 06/27/2023 6:07 AM PRINCIPAL TECHNOLOGIST [facility] Comment:No Laboratory eviden ce of HIV infection. Blood BLOOD SPECIMEN / Unknown Venipuncture / Unknown 06/27/2023 4:59 AM PRINCIPAL TECHNOLOGIST 06/27/2023 5:08 AM PRINCIPAL TECHNOLOGIST Alexander Damico MD LAB - CHEMISTRY ORDE STEVEN [facility] [address] [place] [address], [facility] [phone] * MITOCHONDRIAL ANTIBODY SCREEN (06/27/2023 4:59 AM PRINCIPAL TECHNOLOGIST) Mitochondrial M2 Antibody 9.4 0.0 - 24.9 Units 06/28/2023 8:47 PM PRINCIPAL TECHNOLOGIST [employer] ([facility]) Comment: REFERENCE INTERVAL: Mitochondrial (M2) Antibody, IgG [...] does not rule out PBC. Performed By: [employer] [address] [place] [address] Disciplinary Hearing Officer: Ken Mcfadden MD, PhD CLIA Number: [id number] Blood BLOOD SPECIMEN / Unknown Venipuncture / Unknown 06/27/2023 4:59 AM PRINCIPAL TECHNOLOGIST 06/27/2023 5:08 AM PRINCIPAL TECHNOLOGIST Alexander Damico MD LAB - CHEMISTRY [facility]MIN [facility] Organization Address City/State/ZIP Co de Phone Number [facility] [facility]) [address] [place] [address], [facility] * (ABNORMAL) ELIAS BLOOD SCREEN W/REFLEX TITER (06/27/2023 4:59 AM PRINCIPAL TECHNOLOGIST) Pathologist [facility] ELIAS IgG Detected (A) None Detected 06/28/2023 10:39 PM PRINCIPAL TECHNOLOGIST [employer] ([facility]) Comment: Antibodies to Anti-Nuclear Antibodies (ELIAS) detected. [...] dsDNA, histones, SS-A (Ro), SS-B (La), Zarate, Zarate/LAND RE[employer]AMATION SPECIALIST, Scl-70, Roxane-1, centromeric proteins, other antigens extracted from the HEp-2 cell nucleus. ELIAS RODRICK assays have been reported to have lower sensitivities than ELIAS IFA for systemic autoimmune rheumatic diseases (SARD). Negative results do not necessarily rule out SARD. Performed By: [employer] [address] [place] [address] Disciplinary Hearing Officer: Ken Mcfadden MD, PhD CLIA Number: [id number] Blood BLOOD SPECIMEN / Unknown Venipuncture / Unknown 06/27/2023 4:59 AM PRINCIPAL TECHNOLOGIST 06/27/2023 5:08 AM PRINCIPAL TECHNOLOGIST Alexander Damico MD LAB - CHEMISTRY [place]MIN [place] Performing Organization Address [facility] Co de Phone Number [facility] ([facility]) [address] [place] [address], [facility] * HEPATITIS B SURFACE ANTIBODY (06/27/2023 4:59 AM PRINCIPAL TECHNOLOGIST) Hepatitis B Virus Surface Antibody Non-react juan Non-react juan 06/27/2023 6:07 AM PRINCIPAL TECHNOLOGIST [facility] Comment: < 8 mIU/mL Hepatitis B surface Antibody (HBsAb). Nonreactive for HBsAb - individual is considered not immune to Hepatitis B Virus infection. Hepatitis B Surface Antibody Quantitative 0.1 <8.0 mIU/mL 06/27/2023 6:07 AM PRINCIPAL TECHNOLOGIST [facility] Comment: Hepatitis B Surface Antibody Numeric Result Interpretation: Nonreactive: <8.0 mIU/mL Indeterminate: 8.0 - 12.0 mIU/mL Reactive: >12.0 mIU/mL Blood BLOOD SPECIMEN / Unknown Venipuncture / Unknown 06/27/2023 4:59 AM PRINCIPAL TECHNOLOGIST 06/27/2023 5:08 AM PRINCIPAL TECHNOLOGIST Alexander Damico MD LAB - CHEMISTRY [facility]MIN [facility] Performing Organization Address City/[facility]/ZIP Co de Phone Number [facility] [address] [place] [address], [facility] [phone] * HEPATITIS B CORE ANTIBODY TOTAL (06/27/2023 4:59 AM PRINCIPAL TECHNOLOGIST) Pathologist [facility] HBc Antibody Total Non-reacti ve Non-reacti ve 06/27/2023 6:07 AM PRINCIPAL TECHNOLOGIST [facility] Blood BLOOD SPECIMEN / Unknown Venipuncture / Unknown 06/27/2023 4:59 AM PRINCIPAL TECHNOLOGIST 06/27/2023 5:08 AM PRINCIPAL TECHNOLOGIST Alexander Damico MD LAB - CHEMISTRY [place]MIN [place] [address] [address], [place] [phone] * HEPATITIS B SURFACE ANTIGEN W RFLX CONFIRMATION (06/27/2023 4:59 AM PRINCIPAL TECHNOLOGIST) Pathologist [facility] Hepatitis B Virus Surface Antigen Non-reacti ve Non-reacti ve 06/27/2023 6:07 AM PRINCIPAL TECHNOLOGIST [facility] Blood BLOOD SPECIMEN / Unknown Venipuncture / Unknown 06/27/2023 4:59 AM PRINCIPAL TECHNOLOGIST 06/27/2023 5:08 AM PRINCIPAL TECHNOLOGIST Alexander Damico MD LAB - CHEMISTRY [facility]MIN [facility] Performing Organization Address [facility]/ZIP Co de Phone Number [address] [address], [place] [phone] * (ABNORMAL) FOLATE (06/27/2023 4:59 AM PRINCIPAL TECHNOLOGIST) [facility] Folate 4.1(L) 7.0 - 31.4 ng/mL 06/27/2023 6:18 AM PRINCIPAL TECHNOLOGIST [facility] Blood BLOOD SPECIMEN / Unknown Venipuncture / Unknown 06/27/2023 4:59 AM PRINCIPAL TECHNOLOGIST 06/27/2023 5:08 AM PRINCIPAL TECHNOLOGIST Alexander Damico MD LAB - CHEMISTRY [facility]MIN [facility] Performing Organization Address City/[facility]/ZIP Co de Phone Number [address] [address], [place] [phone] * VITAMIN B12 (06/27/2023 4:59 AM PRINCIPAL TECHNOLOGIST) [facility] Vitamin B12 369 213 - 816 pg/mL 06/27/2023 6:18 AM [facility] Blood BLOOD SPECIMEN / Unknown Venipuncture / Unknown 06/27/2023 4:59 AM PRINCIPAL TECHNOLOGIST 06/27/2023 5:08 AM PRINCIPAL TECHNOLOGIST Alexander Damico MD LAB - CHEMISTRY ARMIN [facility] Performing Organization Address [facility] Co de Phone Number [address] [address], [facility] [phone] * (ABNORMAL) IRON + TRANSFERRIN PANEL (06/27/2023 4:59 AM PRINCIPAL TECHNOLOGIST) [facility] Iron 21(L) 40 - 150 ug/dL 06/27/2023 5:52 AM [facility] Transferrin 200 174 - 382 mg/dL 06/27/2023 5:52 AM [facility] Transferrin Saturation % 8(L) 16 - 50 % 06/27/2023 5:52 AM [facility] TIBC Calculated 250 240 - 450 ug/dL 06/27/2023 5:52 AM [facility] Blood BLOOD SPECIMEN / Unknown Venipuncture / Unknown 06/27/2023 4:59 AM PRINCIPAL TECHNOLOGIST 06/27/2023 5:08 AM PRINCIPAL TECHNOLOGIST Alexander Damico MD LAB - CHEMISTRY ARMIN [facility] Performing Organization Address [facility] Co de Phone Number [address] [address], [facility] [phone] * (ABNORMAL) HEPATITIS A ANTIBODY (06/27/2023 4:59 AM PRINCIPAL TECHNOLOGIST) [facility] Hepatitis A Virus Antibody Total Positive( A) Negative 06/28/2023 1:32 PM PRINCIPAL TECHNOLOGIST [employer] ([facility]) Comment: The positive anti-HAV is consistent with recent or remote Hepatitis A infection or antibody response to HAV vaccination. False positive anti-HAV can occur. Performed By: [employer] [address] [place] [address] Disciplinary Hearing Officer: Ken Mcfadden MD, PhD CLIA Number: [id number] Blood BLOOD SPECIMEN / Unknown Venipuncture / Unknown 06/27/2023 4:59 AM PRINCIPAL TECHNOLOGIST 06/27/2023 5:08 AM PRINCIPAL TECHNOLOGIST Alexander Damico MD LAB - CHEMISTRY ARMIN HARRSI [address] * FERRITIN (06/27/2023 4:59 AM PRINCIPAL TECHNOLOGIST) [facility] Ferritin 92 13 - 204 ng/mL 06/27/2023 6:07 AM PRINCIPAL TECHNOLOGIST [facility] Blood BLOOD SPECIMEN / Unknown Venipuncture / Unknown 06/27/2023 4:59 AM PRINCIPAL TECHNOLOGIST 06/27/2023 5:08 AM PRINCIPAL TECHNOLOGIST Alexander Damico MD LAB - CHEMISTRY ARMIN [facility] Performing Organization Address [facility] Co de Phone Number [address] [address], [place] [phone] * HEPATITIS C AB SCREEN RFLX NAAT QUANT (06/26/2023 11:55 PM PRINCIPAL TECHNOLOGIST) [facility] Hepatitis C Antibody Non-react juan Non-reac tive 06/27/2023 1:13 AM PRINCIPAL TECHNOLOGIST [facility] Comment:Hepatitis C Antibody screen indicates no serologic evidence of past or current infection with Hepatitis C Virus. Patients with unexplained liver disease who are immunocompromised or suspected of having acute Hepatitis C infection may benefit from Nucleic Acid Test (NIDHI) for Hepatitis C Viral RNA to confirm Hepatitis C status. Blood BLOOD SPECIMEN / Unknown Lab Venipuncture / Unknown 06/26/2023 11:55 PM PRINCIPAL TECHNOLOGIST 06/27/2023 12:08 AM PRINCIPAL TECHNOLOGIST Alexander Damico MD LAB - CHEMISTRY ARMIN [facility]IS Performing Organization Address City/[facility]/ZIP Co de Phone Number [address] [address], [place] [phone] * CERULOPLASMIN (06/26/2023 11:55 PM PRINCIPAL TECHNOLOGIST) Pathologist [facility] Ceruloplasmin 32 20 - 60 mg/dL 06/27/2023 2:07 AM PRINCIPAL TECHNOLOGIST [facility] Blood BLOOD SPECIMEN / Unknown Lab Venipuncture / Unknown 06/26/2023 11:55 PM PRINCIPAL TECHNOLOGIST 06/27/2023 12:08 AM PRINCIPAL TECHNOLOGIST Alexander Damico MD LAB - CHEMISTRY ARMIN H[place]IS [facility] [address] [place] [address], [place] [phone] * (ABNORMAL) HKKFF-3-VUYIFINIYIC BLOOD (06/26/2023 11:55 PM PRINCIPAL TECHNOLOGIST) [facility] Aqpzt-8-Bsgrhi ypsin 284(H) 90 - 200 mg/dL 06/27/2023 2:07 AM PRINCIPAL TECHNOLOGIST [facility] Blood BLOOD SPECIMEN / Unknown Lab Venipuncture / Unknown 06/26/2023 11:55 PM PRINCIPAL TECHNOLOGIST 06/27/2023 12:08 AM PRINCIPAL TECHNOLOGIST Alexander Damico MD LAB - CHEMISTRY ARMIN HARRIS Performing Organization Address City/[facility]/ZIP Co de Phone Number [facility] [address] [place] [address], [place] [phone] * TRANSFUSE RED BLOOD CELL LEUKOREDUCED UNIT(S) (06/26/2023 12:11 PM PRINCIPAL TECHNOLOGIST) Alexander Damico MD NURSING - BLOOD PROD TRANSFUSION * PREPARE (CROSSMATCH) RBC UNIT(S), 1 Units (06/26/2023 7:13 AM PRINCIPAL TECHNOLOGIST) Only the most recent of2 resultswithin the time period is included. [facility] Unit Description AS1 LR PRBC [facility] Unit ABO A [facility] Rh POS [facility] Product Number R02 [facility] Unit Donor # [id number] [facility] Unit Status transfused [facility] Product Code [id number] [facility] Blood Type Barcode 6200 [facility] Expiration Date [id number] S BLOOD BANK LAB Blood Bank BLOOD SPECIMEN / Unknown 06/24/2023 4:14 PM PRINCIPAL TECHNOLOGIST Alexander Damico MD LAB - BLOOD BANK ORD ERABLES [facility] [address] [place] [address], [facility] [phone] * (ABNORMAL) BASIC METABOLIC PANEL (CALCIUM TOTAL) (06/26/2023 12:26 AM PRINCIPAL TECHNOLOGIST) Only the most recent of5 resultswithin the time period is included. BUN 18 7 - 26 mg/dL 06/26/2023 1:01 AM [facility] Creatinine 1.22(H) 0.56 - 0.96 mg/dL 06/26/2023 1:01 AM [facility] Sodium 138 136 - 145 mmol/L 06/26/2023 1:01 AM [facility] Potassium 4.2 3.5 - 4.5 mmol/L 06/26/2023 1:01 AM [facility] Chloride 107 98 - 107 mmol/L 06/26/2023 1:01 AM [facility] CO2 23 22 - 29 mmol/L 06/26/2023 1:01 AM [facility] Glucose 114 70 - 115 mg/dL 06/26/2023 1:01 AM [facility] Calcium 7.9(L) 8.4 - 10.2 mg/dL 06/26/2023 1:01 AM [facility] Anion Gap 8 6 - 16 06/26/2023 1:01 AM [facility] BUN/Creatinine Ratio 15 7 - 23 06/26/2023 1:01 AM [facility] Osmolality Calculated 289 275 - 295 mOsm/kg 06/26/2023 1:01 AM [facility] eGFR by CKD-EPI 43(L) >=90 mL/min/1.7 3 m2 06/26/2023 1:01 AM [facility] Blood BLOOD SPECIMEN / Unknown Venipuncture / Unknown 06/26/2023 12:26 AM PRINCIPAL TECHNOLOGIST 06/26/2023 12:36 AM PRINCIPAL TECHNOLOGIST Tony Hoskins MD LAB - CHEMISTRY ARMIN HARR[facility] [address] [place] [address], [place] [phone] * TRANSFUSE RED BLOOD CELL LEUKOREDUCED UNIT(S) (06/25/2023 11:34 PM PRINCIPAL TECHNOLOGIST) Alexander Damico MD NURSING - BLOOD PROD TRANSFUSION * (ABNORMAL) VITAMIN D 25-HYDROXY (06/25/2023 12:35 AM PRINCIPAL TECHNOLOGIST) Vitamin D, 25 Hydroxy 20.0(L) 30.0 - 80.0 ng/mL 06/25/2023 8:47 AM PRINCIPAL TECHNOLOGIST [facility] Comment: The recommendations for 25-Hydroxy Vitamin [...] Unknown Venipuncture / Unknown 06/25/2023 12:35 AM PRINCIPAL TECHNOLOGIST 06/25/2023 12:39 AM PRINCIPAL TECHNOLOGIST Brooklyn Carias PA-C LAB - CHEMIS TRY ORDERABLES [facility] [address] [place] [address], [place] [phone] * (ABNORMAL) TEG 6 GLOBAL HEMOSTASIS W/ LYSIS (06/24/2023 6:59 PM PRINCIPAL TECHNOLOGIST) Only the most recent of2 resultswithin the time period is included. [employer] Kaolin R (Reaction Time) 11.4(H) 4.6 - 9.1 min 06/24/2023 8:36 PM PRINCIPAL TECHNOLOGIST [facility] Comment:CK R result above no rmal range. Consistent with hypocoagulable clotting factors. Consider presence of clotting factor deficiency and/or anti-coagulant. Cit[employer] Kaolin LY30 (Lysis) 0.9 0.0 - 2.6 % 06/24/2023 8:36 PM [facility] Citrated Functional Fibrinogen MA (Max Amplitude) 14.2(L) 15.0 - 32.0 mm 06/24/2023 8:36 PM [facility] Comment:CFF MA below normal range. Consistent with decreased fibrinogen contribution to clot strength. Citrated RapidTEG MA (Max Amplitude) 58.3 52.0 - 70.0 mm 06/24/2023 8:36 PM [facility] Blood BLOOD SPECIMEN / Unknown Venipuncture / Unknown 06/24/2023 6:59 PM PRINCIPAL TECHNOLOGIST 06/24/2023 7:04 PM PRINCIPAL TECHNOLOGIST Tony Hoskins MD LAB - HEMATOLOGY ORD ERABLES [facility] [address] [place] [address], [facility] [phone] * (ABNORMAL) TEG 6S PLATELET MAPPING (06/24/2023 6:59 PM PRINCIPAL TECHNOLOGIST) Only the most recent of2 resultswithin the time period is included. TEGPLM (Max Amplitude) Koalin 58.5 53.0 - 68.0 mm 06/24/2023 8:22 PM [facility] TEGPLM (Max Amplitude) ACTF 6.4 2.0 - 19.0 mm 06/24/2023 8:22 PM [facility] TEGPLM (Max Amplitude) ADP 46.6 45.0 - 69.0 mm 06/24/2023 8:22 PM [facility] TEGPLM (Max Amplitude) AA 30.0(L) 51.0 - 71.0 mm 06/24/2023 8:22 PM [facility] Comment:AA MA below normal r imani. Inhibition present. TEGPLM %Inhibition ADP 22.8(H) 0.0 - 17.0 % 06/24/2023 8:22 PM [facility] TEGPLM %Inhibition AA 54.7(H) 0.0 - 11.0 % 06/24/2023 8:22 PM PRINCIPAL TECHNOLOGIST [facility] TEGPLM %Aggregation ADP 77.2(L) 83.0 - 100.0 % 06/24/2023 8:22 PM [facility] TEGPLM % Aggregation AA 45.3(L) 89.0 - 100.0 % 06/24/2023 8:22 PM [facility] Blood BLOOD SPECIMEN / Unknown Venipuncture / Unknown 06/24/2023 6:59 PM PRINCIPAL TECHNOLOGIST 06/24/2023 7:04 PM PRINCIPAL TECHNOLOGIST Tony Hoskins MD LAB - HEMATOLOGY ORD ERABLES Performing Organization Address City/[facility]/ZIP Co de Phone Number [facility] [address] [place] [address], [facility] [phone] * EKG 12-LEAD (06/24/2023 5:07 PM PRINCIPAL TECHNOLOGIST) Only the most recent of5 resultswithin the time period is included. Ventricular Rate 78 BPM [facility] QRS Duration ms 84 ms [facility] Q-T Interval ms 404 ms [facility] QTC Calculation (Bezet) 460 ms [facility] Calculated R [place] 51 degrees [facility] Calculated T [place] -48 degrees [facility] Interpretation EKG ATRIAL FIBRILLATION LOW VOLTAGE QRS NONSPECIFIC T WAVE ABNORMALITY ABNORMAL ECG WHEN COMPARED WITH ECG OF 30-SEP-2016 12:46, ATRIAL FIBRILLATION HAS REPLACED SINUS RHYTHM QRS VOLTAGE HAS DECREASED T WAVE INVERSION NO LONGER EVIDENT IN ANTERIOR LEADS Confirmed by MD VINAY, BERNARD ([id number]) on 06/26/2023 12:19:24 PM [facility] 06/24/2023 5:07 PM PRINCIPAL TECHNOLOGIST 06/26/2023 12:19 PM PRINCIPAL TECHNOLOGIST Alexander Damico MD ECG ORDERABLES Performing Organization Address City/[facility]/ZIP Co de Phone Number [facility] * XR HUMERUS RIGHT 2VW OR MORE (06/24/2023 4:58 PM PRINCIPAL TECHNOLOGIST) Anatomical Region Laterality Modality Upper Extremity Radiographic Shila ging 06/24/2023 5:44 PM PRINCIPAL TECHNOLOGIST Narrative 06/25/2023 2:38 PM PRINCIPAL TECHNOLOGIST PROCEDURE: XR HUMERUS RIGHT 2VW OR MORE, DATE/TIME OF EXAM: 06/24/2023 4:58 PM, LOCATION [facility] INDICATION: T14.90XA: Trauma ADDITIONAL CLINICAL INFORMATION: Ordering Provider Reason For Exam: fracture COMPARISON: None. FINDINGS/IMPRESSION: Moderately displaced comminuted proximal humeral shaft fracture with medial angulation of the distal humeral shaft. Report dictated by Josh Ortega DO ([place]). Josh Muñiz DO have personally reviewed and interpreted this examination/study. > Interpreting Provider: Josh Valentine DO on 06/25/2023 2:38 PM Procedure Note Josh Valentine DO - 06/25/2023 PROCEDURE: XR HUMERUS RIGHT 2VW OR MORE, DATE/TIME OF EXAM: 06/24/2023 4:58 PM, LOCATION [facility] INDICATION: T14.90XA: Trauma ADDITIONAL CLINICAL INFORMATION: Ordering Provider Reason For Exam: fracture COMPARISON: None. FINDINGS/IMPRESSION: Moderately displaced comminuted proximal humeral shaft fracture withmedial angulation of the distal humeral shaft. Report dictated by Josh Ortega DO ([place]). Josh Muñiz DO have personally reviewed and interpreted this examination/study. > Interpreting Provider: Josh Valentine DO on 06/25/2023 2:38 PM Tony Hoskins MD DIAGNOSTIC IMAGING O RDERABLES * XR ELBOW RIGHT 2VW (06/24/2023 4:58 PM PRINCIPAL TECHNOLOGIST) Anatomical Region Laterality Modality Upper Extremity Radiographic Shila ging 06/27/2023 1:15 PM PRINCIPAL TECHNOLOGIST Impressions 06/27/2023 1:37 PM PRINCIPAL TECHNOLOGIST IMPRESSION: No fracture or dislocation. Report dictated by Cuong Hardy DO (Coverage Specialist Rn). Josh Muñiz DO have personally reviewed and interpreted this examination/study. > Interpreting Provider: Josh Valentine DO on 06/27/2023 1:37 PM Narrative 06/27/2023 1:37 PM PRINCIPAL TECHNOLOGIST PROCEDURE: XR ELBOW RIGHT 2VW, DATE/TIME OF EXAM: 06/24/2023 4:58 PM, LOCATION [facility] INDICATION: T14.90XA: Trauma ADDITIONAL CLINICAL INFORMATION: [...] DATE/TIME OF EXAM: 06/24/2023 4:58 PM, LOCATION [facility] INDICATION: T14.90XA: Trauma ADDITIONAL CLINICAL INFORMATION: Ordering Provider Reason For Exam: fracture Technologist Note: Additional: COMPARISON: Lateral and AP views of the right humerus obtained on 06/24/2023. FINDINGS: There is no fracture. There is osteopenia. The joint alignment is normal. The soft tissues are normal without evidence of joint effusion. IMPRESSION: No fracture or dislocation. Report dictated by Cuong Hardy DO (Coverage Specialist Rn). I, Josh Valentine DO have personally reviewed and interpreted this examination/study. > Interpreting Provider: Josh Valentine DO on 06/27/2023 1:37 PM Tony Hoskins MD DIAGNOSTIC IMAGING O RDERABLES * BLOOD TYPE VERIFICATION (06/24/2023 4:43 PM PRINCIPAL TECHNOLOGIST) ABO Rh A POS 06/24/2023 5:0 6 PM PRINCIPAL TECHNOLOGIST [facility] Blood Bank BLOOD SPECIMEN / Unknown Venipuncture / Unknown 06/24/2023 4:43 PM PRINCIPAL TECHNOLOGIST 06/24/2023 4:59 PM PRINCIPAL TECHNOLOGIST Alexander Damico MD LAB - BLOOD BANK ORD ERABLES [facility] [address] [place] [address], [facility] [phone] * CT CHEST ABDOMEN PELVIS W CONT - Abdomen-pelvis trauma, blunt or penetrating (06/24/2023 4:40 PM PRINCIPAL TECHNOLOGIST) Anatomical Region Laterality Modality Chest, Abdomen, Pelvis Computed Tomography 06/24/2023 4:38 PM PRINCIPAL TECHNOLOGIST Impressions 06/25/2023 8:58 AM PRINCIPAL TECHNOLOGIST Impression: 1.Partially visualized comminuted and displaced right [...] atherosclerosis. > Dictated by Xavi Castañeda DO ([place]). I, Kim Sharp MD have personally reviewed and interpreted this examination/study. > Interpreting Provider: Kim Sharp MD on 06/25/2023 8:58 AM Narrative 06/25/2023 8:58 AM PRINCIPAL TECHNOLOGIST PROCEDURE: CT CHEST ABDOMEN PELVIS W CONT, DATE/TIME OF EXAM: 06/24/2023 4:42 PM, LOCATION [facility] INDICATION: Trauma ADDITIONAL CLINICAL INFORMATION: Ordering [...] CONT, DATE/TIME OF EXAM:06/24/2023 4:42 PM, LOCATION [facility] INDICATION: Trauma ADDITIONAL CLINICAL INFORMATION: Ordering [...] atherosclerosis. > Dictated by Xavi Castañeda DO ([place]). Kim Muñiz MD have personally reviewed and interpreted this examination/study. > Interpreting Provider: Kim Sharp MD on 06/25/2023 8:58 AM Alexander Damico MD CT ORDERABLES * CT LUMBAR SPINE WO CONTRAST - T/L-spine trauma, Spine fracture (06/24/2023 4:40 PM PRINCIPAL TECHNOLOGIST) Anatomical Region Laterality Modality Spine Computed Tomogra phy 06/24/2023 5:02 PM PRINCIPAL TECHNOLOGIST Impressions 06/24/2023 7:11 PM PRINCIPAL TECHNOLOGIST IMPRESSION: 1.No acute intracranial abnormality. 2.No acute fracture or traumatic malalignment of the cervical, thoracic, or lumbar spine. 3.Heterogeneous thyroid with a right lobe nodule measuring up to 4.2 cm. Recommend follow-up nonemergent outpatient thyroid ultrasound if not recently performed. 4.Please refer to concurrently reported chest, abdomen, and pelvis CT for description of additional nonspine-related abnormalities. > Dictated by Josh Ortega DO ([place]). Jazmyn Muñiz MD, PhD have personally reviewed and interpreted this examination/study. > Interpreting Provider: Jazmyn Ferris MD, PhD on 06/24/2023 7:11 PM Narrative 06/24/2023 7:11 PM PRINCIPAL TECHNOLOGIST EXAM: CT HEAD WO CONTRAST, CT LUMBAR SPINE WO CONTRAST, CT THORACIC SPINE WO CONTRAST, CT CERVICAL SPINE WO CONTRAST, DATE/TIME OF EXAM: 06/24/2023 4:42 PM, LOCATION: [facility] HISTORY: Trauma EXAMINATION: CT scan of [...] represents the sequela of chronic microangiopathic change. Uztc-hs-weljtrsq global parenchymal volume loss, which is commensurate [...] C2, and the atlantodental interval is normal. Dqni-pz-qiedvuwv degenerative changes at the C1-C2 level. BONES: Vertebral body heights are maintained without evidence of acute fracture. Osseous structures are demineralized. DISCS: Multilevel advanced disc space narrowing, which is severe at the C5-C6 and C6-C7 levels. DEGENERATIVE CHANGES: Overall esvwdzqw-xj-nhawbs multilevel degenerative changes, characterized by varying degrees of posterior disc bulges/osteophyte complexes, facet arthropathy, and uncovertebral joint hypertrophy. SPINAL CANAL/NEUROFORAMEN: Multilevel spinal canal stenoses that is nreo-yz-ljgiwjsk at the C3-C4 and C4-C5 levels and [...] abdomen, and pelvis CT. Moderate left and pkps-gi-hqtextyp right calcific atherosclerosis of the carotid bulbs. [...] concurrently reported chest, abdomen, an pelvis CT. Clwl-mv-ikxzifof calcific atherosclerosis of the thoracic aorta. LUMBAR [...] at the L1-L2 and L2-L3 levels and iztiassm-gh-dvevnz elsewhere. Vacuum phenomenon at multiple levels. Degenerative-related endplate sclerotic change at the L1-L2 and L2-L3 levels. DEGENERATIVE CHANGES: Overall severe multilevel degenerative change, characterized by varying degrees of posterior disc bulges, ligamentum flavum hypertrophy, and facet arthropathy. SPINAL CANAL/NEUROFORAMEN: Multilevel spinal canal stenoses that is moderate at the L1-L2 level and pxluazux-dp-kyxzon from the L2-L3 through the L5-S1 levels [...] CONTRAST, DATE/TIME OF EXAM:06/24/2023 4:42 PM, LOCATION: [facility] HISTORY: Trauma EXAMINATION: CT scan of [...] likely represents the sequela of chronic microangiopathic change.Owch-qz-prchqkxw global parenchymal volume loss, which is commensurate [...] to C2, and the atlantodental interval isnormal. Chbh-wf-nuiutjcj degenerative changes at the C1-C2 level. BONES: Vertebral body heights are maintained without evidence of acute fracture. Osseous structures are demineralized. DISCS: Multilevel advanced disc space narrowing, which is severe at the C5-C6 and C6-C7 levels. DEGENERATIVE CHANGES: Overall gzizzyyi-dy-xnhlmx multilevel degenerative changes, characterized by varying degrees of posterior disc bulges/osteophyte complexes, facet arthropathy, and uncovertebral joint hypertrophy. SPINAL CANAL/NEUROFORAMEN: Multilevel spinal canal stenoses that is xhoc-fg-pzceeiuk at the C3-C4 and C4-C5 levels and [...] abdomen, and pelvis CT. Moderate left and spkr-hg-xhkwjyum rightcalcific atherosclerosis of the carotid bulbs. THORACIC [...] concurrently reported chest, abdomen, an pelvis CT. Zkuh-rp-obhbafsb calcific atherosclerosis of the thoracic aorta. LUMBAR [...] at the L1-L2 and L2-L3 levels and wafnquxl-yt-rkulxj elsewhere. Vacuumphenomenon at multiple levels. Degenerative-related endplate sclerotic change atthe L1-L2 and L2-L3 levels. DEGENERATIVE CHANGES: Overall severe multilevel degenerative change, characterized by varying degrees of posterior disc bulges, ligamentum flavum hypertrophy, and facet arthropathy. SPINAL CANAL/NEUROFORAMEN: Multilevel spinal canal stenoses that is moderate at the L1-L2 level and xdlcpigl-kt-uwtmbs from the L2-Z7mvomjpk the L5-S1 levels secondary to posterior disc bulges/osteophytecomplexes, ligamentum flavum hypertrophy, and facet arthropathy. Multilevel spinal canal stenoses that is severe at the right greater than left L1-H9xusrd, moderate at the bilateral L3-L4 level, and [...] abnormalities. > Dictated by Josh Ortega DO ([place]). Jazmyn Muñiz MD, PhD have personally reviewed and interpreted this examination/study. > Interpreting Provider: Jazmyn Ferris MD, PhD on 06/24/2023 7:11 PM Alexander Damico MD CT ORDERABLES * CT THORACIC SPINE WO CONTRAST - T/L-spine trauma, spine fracture (06/24/2023 4:40 PM PRINCIPAL TECHNOLOGIST) Anatomical Region Laterality Modality Spine Computed Tomogra phy 06/24/2023 5:02 PM PRINCIPAL TECHNOLOGIST Impressions 06/24/2023 7:11 PM PRINCIPAL TECHNOLOGIST IMPRESSION: 1.No acute intracranial abnormality. 2.No acute fracture or traumatic malalignment of the cervical, thoracic, or lumbar spine. 3.Heterogeneous thyroid with a right lobe nodule measuring up to 4.2 cm. Recommend follow-up nonemergent outpatient thyroid ultrasound if not recently performed. 4.Please refer to concurrently reported chest, abdomen, and pelvis CT for description of additional nonspine-related abnormalities. > Dictated by Josh Ortega DO ([place]). Jazmyn Muñiz MD, PhD have personally reviewed and interpreted this examination/study. > Interpreting Provider: Jazmyn Ferris MD, PhD on 06/24/2023 7:11 PM Narrative 06/24/2023 7:11 PM PRINCIPAL TECHNOLOGIST EXAM: CT HEAD WO CONTRAST, CT LUMBAR SPINE WO CONTRAST, CT THORACIC SPINE WO CONTRAST, CT CERVICAL SPINE WO CONTRAST, DATE/TIME OF EXAM: 06/24/2023 4:42 PM, LOCATION: [facility] HISTORY: Trauma EXAMINATION: CT scan of [...] represents the sequela of chronic microangiopathic change. Kmkn-qa-uryvkxji global parenchymal volume loss, which is commensurate [...] C2, and the atlantodental interval is normal. Allu-yb-mdqrywat degenerative changes at the C1-C2 level. BONES: Vertebral body heights are maintained without evidence of acute fracture. Osseous structures are demineralized. DISCS: Multilevel advanced disc space narrowing, which is severe at the C5-C6 and C6-C7 levels. DEGENERATIVE CHANGES: Overall zeuowvsi-rw-hctkmx multilevel degenerative changes, characterized by varying degrees of posterior disc bulges/osteophyte complexes, facet arthropathy, and uncovertebral joint hypertrophy. SPINAL CANAL/NEUROFORAMEN: Multilevel spinal canal stenoses that is tjyn-bo-dqufrxml at the C3-C4 and C4-C5 levels and [...] abdomen, and pelvis CT. Moderate left and mjrs-wy-zlajkgbx right calcific atherosclerosis of the carotid bulbs. [...] concurrently reported chest, abdomen, an pelvis CT. Kwra-mz-phkfqqpx calcific atherosclerosis of the thoracic aorta. LUMBAR [...] at the L1-L2 and L2-L3 levels and miidglpo-mk-ytdwmj elsewhere. Vacuum phenomenon at multiple levels. Degenerative-related endplate sclerotic change at the L1-L2 and L2-L3 levels. DEGENERATIVE CHANGES: Overall severe multilevel degenerative change, characterized by varying degrees of posterior disc bulges, ligamentum flavum hypertrophy, and facet arthropathy. SPINAL CANAL/NEUROFORAMEN: Multilevel spinal canal stenoses that is moderate at the L1-L2 level and mknwxcci-fk-mwuxxa from the L2-L3 through the L5-S1 levels [...] CONTRAST, DATE/TIME OF EXAM:06/24/2023 4:42 PM, LOCATION: [facility] HISTORY: Trauma EXAMINATION: CT scan of [...] likely represents the sequela of chronic microangiopathic change.Rngg-ho-tcymemoz global parenchymal volume loss, which is commensurate [...] to C2, and the atlantodental interval isnormal. Lqcy-rz-injxewnj degenerative changes at the C1-C2 level. BONES: Vertebral body heights are maintained without evidence of acute fracture. Osseous structures are demineralized. DISCS: Multilevel advanced disc space narrowing, which is severe at the C5-C6 and C6-C7 levels. DEGENERATIVE CHANGES: Overall kmzioxdt-ok-eahhnh multilevel degenerative changes, characterized by varying degrees of posterior disc bulges/osteophyte complexes, facet arthropathy, and uncovertebral joint hypertrophy. SPINAL CANAL/NEUROFORAMEN: Multilevel spinal canal stenoses that is euwo-iu-nnsrbylb at the C3-C4 and C4-C5 levels and [...] abdomen, and pelvis CT. Moderate left and inrh-zs-ctmdpzpm rightcalcific atherosclerosis of the carotid bulbs. THORACIC [...] concurrently reported chest, abdomen, an pelvis CT. Lcrw-nx-sxkhsqsi calcific atherosclerosis of the thoracic aorta. LUMBAR [...] at the L1-L2 and L2-L3 levels and lugbpwvs-sv-lwzged elsewhere. Vacuumphenomenon at multiple levels. Degenerative-related endplate sclerotic change atthe L1-L2 and L2-L3 levels. DEGENERATIVE CHANGES: Overall severe multilevel degenerative change, characterized by varying degrees of posterior disc bulges, ligamentum flavum hypertrophy, and facet arthropathy. SPINAL CANAL/NEUROFORAMEN: Multilevel spinal canal stenoses that is moderate at the L1-L2 level and zjyfnyps-ro-ldttuq from the L2-M3xpimgsm the L5-S1 levels secondary to posterior disc bulges/osteophytecomplexes, ligamentum flavum hypertrophy, and facet arthropathy. Multilevel spinal canal stenoses that is severe at the right greater than left L1-X5mqwgc, moderate at the bilateral L3-L4 level, and [...] abnormalities. > Dictated by Josh Ortega DO ([place]). I, Jazmyn Ferris MD, PhD have personally reviewed and interpreted this examination/study. > Interpreting Provider: Jazmyn Ferris MD, PhD on 06/24/2023 7:11 PM Alexander Damico MD CT ORDERABLES * CT CERVICAL SPINE WO CONTRAST - C-Spine Trauma, Spine fracture (06/24/2023 4:40 PM PRINCIPAL TECHNOLOGIST) Anatomical Region Laterality Modality Spine Computed Tomogra phy 06/24/2023 5:02 PM PRINCIPAL TECHNOLOGIST Impressions 06/24/2023 7:11 PM PRINCIPAL TECHNOLOGIST IMPRESSION: 1.No acute intracranial abnormality. 2.No acute fracture or traumatic malalignment of the cervical, thoracic, or lumbar spine. 3.Heterogeneous thyroid with a right lobe nodule measuring up to 4.2 cm. Recommend follow-up nonemergent outpatient thyroid ultrasound if not recently performed. 4.Please refer to concurrently reported chest, abdomen, and pelvis CT for description of additional nonspine-related abnormalities. > Dictated by Josh Ortega DO ([place]). I, Jazmyn Ferris MD, PhD have personally reviewed and interpreted this examination/study. > Interpreting Provider: Jazmyn Ferris MD, PhD on 06/24/2023 7:11 PM Narrative 06/24/2023 7:11 PM PRINCIPAL TECHNOLOGIST EXAM: CT HEAD WO CONTRAST, CT LUMBAR SPINE WO CONTRAST, CT THORACIC SPINE WO CONTRAST, CT CERVICAL SPINE WO CONTRAST, DATE/TIME OF EXAM: 06/24/2023 4:42 PM, LOCATION: [facility] HISTORY: Trauma EXAMINATION: CT scan of [...] represents the sequela of chronic microangiopathic change. Aypo-il-otrzpopf global parenchymal volume loss, which is commensurate [...] C2, and the atlantodental interval is normal. Iyld-fx-rckonkul degenerative changes at the C1-C2 level. BONES: Vertebral body heights are maintained without evidence of acute fracture. Osseous structures are demineralized. DISCS: Multilevel advanced disc space narrowing, which is severe at the C5-C6 and C6-C7 levels. DEGENERATIVE CHANGES: Overall adhbhngg-ml-gfliwr multilevel degenerative changes, characterized by varying degrees of posterior disc bulges/osteophyte complexes, facet arthropathy, and uncovertebral joint hypertrophy. SPINAL CANAL/NEUROFORAMEN: Multilevel spinal canal stenoses that is znlt-zt-hhuxuyvc at the C3-C4 and C4-C5 levels and [...] abdomen, and pelvis CT. Moderate left and facx-yi-sciwbrrj right calcific atherosclerosis of the carotid bulbs. [...] concurrently reported chest, abdomen, an pelvis CT. Vrjm-ck-iqwtqtvm calcific atherosclerosis of the thoracic aorta. LUMBAR [...] at the L1-L2 and L2-L3 levels and qaemvtmp-hh-bnznul elsewhere. Vacuum phenomenon at multiple levels. Degenerative-related endplate sclerotic change at the L1-L2 and L2-L3 levels. DEGENERATIVE CHANGES: Overall severe multilevel degenerative change, characterized by varying degrees of posterior disc bulges, ligamentum flavum hypertrophy, and facet arthropathy. SPINAL CANAL/NEUROFORAMEN: Multilevel spinal canal stenoses that is moderate at the L1-L2 level and pqjklwmk-lf-leznde from the L2-L3 through the L5-S1 levels [...] CONTRAST, DATE/TIME OF EXAM:06/24/2023 4:42 PM, LOCATION: [facility] HISTORY: Trauma EXAMINATION: CT scan of [...] likely represents the sequela of chronic microangiopathic change.Zpqg-gb-xoqkxtii global parenchymal volume loss, which is commensurate [...] to C2, and the atlantodental interval isnormal. Kjfn-me-uonkwlgd degenerative changes at the C1-C2 level. BONES: Vertebral body heights are maintained without evidence of acute fracture. Osseous structures are demineralized. DISCS: Multilevel advanced disc space narrowing, which is severe at the C5-C6 and C6-C7 levels. DEGENERATIVE CHANGES: Overall nikgjcsg-ih-cisieo multilevel degenerative changes, characterized by varying degrees of posterior disc bulges/osteophyte complexes, facet arthropathy, and uncovertebral joint hypertrophy. SPINAL CANAL/NEUROFORAMEN: Multilevel spinal canal stenoses that is tnuf-bc-prankypj at the C3-C4 and C4-C5 levels and [...] abdomen, and pelvis CT. Moderate left and qrab-pt-cynigfmq rightcalcific atherosclerosis of the carotid bulbs. THORACIC [...] concurrently reported chest, abdomen, an pelvis CT. Furt-wr-jmvjfdtz calcific atherosclerosis of the thoracic aorta. LUMBAR [...] at the L1-L2 and L2-L3 levels and ntcrnkwv-iq-dflcbo elsewhere. Vacuumphenomenon at multiple levels. Degenerative-related endplate sclerotic change atthe L1-L2 and L2-L3 levels. DEGENERATIVE CHANGES: Overall severe multilevel degenerative change, characterized by varying degrees of posterior disc bulges, ligamentum flavum hypertrophy, and facet arthropathy. SPINAL CANAL/NEUROFORAMEN: Multilevel spinal canal stenoses that is moderate at the L1-L2 level and nzdqtvof-ti-hboqyi from the L2-Y1oweqrxj the L5-S1 levels secondary to posterior disc bulges/osteophytecomplexes, ligamentum flavum hypertrophy, and facet arthropathy. Multilevel spinal canal stenoses that is severe at the right greater than left L1-A5koqdb, moderate at the bilateral L3-L4 level, and [...] abnormalities. > Dictated by Josh Ortega DO ([place]). Jazmyn Muñiz MD, PhD have personally reviewed and interpreted this examination/study. > Interpreting Provider: Jazmyn Ferris MD, PhD on 06/24/2023 7:11 PM Alexander Damico MD CT ORDERABLES * CT HEAD WO CONTRAST - Head Trauma, CSF leak, mental status changes (06/24/2023 4:40 PM PRINCIPAL TECHNOLOGIST) Anatomical Region Laterality Modality Head Computed Tomogra phy 06/24/2023 5:02 PM PRINCIPAL TECHNOLOGIST Impressions 06/24/2023 7:11 PM PRINCIPAL TECHNOLOGIST IMPRESSION: 1.No acute intracranial abnormality. 2.No acute fracture or traumatic malalignment of the cervical, thoracic, or lumbar spine. 3.Heterogeneous thyroid with a right lobe nodule measuring up to 4.2 cm. Recommend follow-up nonemergent outpatient thyroid ultrasound if not recently performed. 4.Please refer to concurrently reported chest, abdomen, and pelvis CT for description of additional nonspine-related abnormalities. > Dictated by Josh Ortega DO ([place]). Jazmyn Muñiz MD, PhD have personally reviewed and interpreted this examination/study. > Interpreting Provider: Jazmyn Ferris MD, PhD on 06/24/2023 7:11 PM Narrative 06/24/2023 7:11 PM PRINCIPAL TECHNOLOGIST EXAM: CT HEAD WO CONTRAST, CT LUMBAR SPINE WO CONTRAST, CT THORACIC SPINE WO CONTRAST, CT CERVICAL SPINE WO CONTRAST, DATE/TIME OF EXAM: 06/24/2023 4:42 PM, LOCATION: [facility] HISTORY: Trauma EXAMINATION: CT scan of [...] represents the sequela of chronic microangiopathic change. Qegf-cg-usewcyne global parenchymal volume loss, which is commensurate [...] C2, and the atlantodental interval is normal. Vnbn-mv-ubufctkl degenerative changes at the C1-C2 level. BONES: Vertebral body heights are maintained without evidence of acute fracture. Osseous structures are demineralized. DISCS: Multilevel advanced disc space narrowing, which is severe at the C5-C6 and C6-C7 levels. DEGENERATIVE CHANGES: Overall pedxpabk-co-xegtoy multilevel degenerative changes, characterized by varying degrees of posterior disc bulges/osteophyte complexes, facet arthropathy, and uncovertebral joint hypertrophy. SPINAL CANAL/NEUROFORAMEN: Multilevel spinal canal stenoses that is tjth-vq-xsuxcmbo at the C3-C4 and C4-C5 levels and [...] abdomen, and pelvis CT. Moderate left and zvjv-or-ihnnztew right calcific atherosclerosis of the carotid bulbs. [...] concurrently reported chest, abdomen, an pelvis CT. Pimt-hk-iuorrqwd calcific atherosclerosis of the thoracic aorta. LUMBAR [...] at the L1-L2 and L2-L3 levels and fexnxtvw-pd-pzhfzi elsewhere. Vacuum phenomenon at multiple levels. Degenerative-related endplate sclerotic change at the L1-L2 and L2-L3 levels. DEGENERATIVE CHANGES: Overall severe multilevel degenerative change, characterized by varying degrees of posterior disc bulges, ligamentum flavum hypertrophy, and facet arthropathy. SPINAL CANAL/NEUROFORAMEN: Multilevel spinal canal stenoses that is moderate at the L1-L2 level and qsefebmq-cy-pxdmsr from the L2-L3 through the L5-S1 levels [...] CONTRAST, DATE/TIME OF EXAM:06/24/2023 4:42 PM, LOCATION: [facility] HISTORY: Trauma EXAMINATION: CT scan of [...] likely represents the sequela of chronic microangiopathic change.Jcge-ct-puqqobht global parenchymal volume loss, which is commensurate [...] to C2, and the atlantodental interval isnormal. Lyns-tu-hlxlvgno degenerative changes at the C1-C2 level. BONES: Vertebral body heights are maintained without evidence of acute fracture. Osseous structures are demineralized. DISCS: Multilevel advanced disc space narrowing, which is severe at the C5-C6 and C6-C7 levels. DEGENERATIVE CHANGES: Overall yqloywft-ib-gvvcck multilevel degenerative changes, characterized by varying degrees of posterior disc bulges/osteophyte complexes, facet arthropathy, and uncovertebral joint hypertrophy. SPINAL CANAL/NEUROFORAMEN: Multilevel spinal canal stenoses that is sjvj-ng-psgirisd at the C3-C4 and C4-C5 levels and [...] abdomen, and pelvis CT. Moderate left and vkmu-jc-xyucmzyk rightcalcific atherosclerosis of the carotid bulbs. THORACIC [...] concurrently reported chest, abdomen, an pelvis CT. Yufw-pm-bezskcue calcific atherosclerosis of the thoracic aorta. LUMBAR [...] at the L1-L2 and L2-L3 levels and fkahrkze-tj-fpfggr elsewhere. Vacuumphenomenon at multiple levels. Degenerative-related endplate sclerotic change atthe L1-L2 and L2-L3 levels. DEGENERATIVE CHANGES: Overall severe multilevel degenerative change, characterized by varying degrees of posterior disc bulges, ligamentum flavum hypertrophy, and facet arthropathy. SPINAL CANAL/NEUROFORAMEN: Multilevel spinal canal stenoses that is moderate at the L1-L2 level and ynpuxmfd-kc-mfhxbc from the L2-M6vlcpetp the L5-S1 levels secondary to posterior disc bulges/osteophytecomplexes, ligamentum flavum hypertrophy, and facet arthropathy. Multilevel spinal canal stenoses that is severe at the right greater than left L1-S7gkjvp, moderate at the bilateral L3-L4 level, and [...] abnormalities. > Dictated by Josh Ortega DO (president [place]). I, Jazmyn Ferris MD, PhD have personally reviewed and interpreted this examination/study. > Interpreting Provider: Jazmyn Ferris MD, PhD on 06/24/2023 7:11 PM Alexander Damico MD CT ORDERABLES * XR PELVIS 1 OR 2VW (06/24/2023 4:34 PM PRINCIPAL TECHNOLOGIST) Anatomical Region Laterality Modality Pelvis Radiographic Shila ging 06/24/2023 4:13 PM PRINCIPAL TECHNOLOGIST Impressions 06/25/2023 2:38 PM PRINCIPAL TECHNOLOGIST IMPRESSION: No acute fracture identified. Report dictated by Josh Ortega DO (president [place]). Josh Muñiz DO have personally reviewed and interpreted this examination/study. > Interpreting Provider: Josh Valentine DO on 06/25/2023 2:38 PM Narrative 06/25/2023 2:38 PM PRINCIPAL TECHNOLOGIST PROCEDURE: XR PELVIS 1 OR 2VW, DATE/TIME OF EXAM: 06/24/2023 4:07 PM, LOCATION [facility] INDICATION: Trauma Fracture suspected COMPARISON: None. FINDINGS: No acute fracture is identified. The femoral heads appear well-seated within their respective acetabula. The pubic symphysis is intact. Bone density and texture are normal. The sacroiliac joints are normal. Procedure Note Josh Valentine DO - 06/25/2023 PROCEDURE: XR PELVIS 1 OR 2VW, DATE/TIME OF EXAM: 06/24/2023 4:07 PM, LOCATION [facility] INDICATION: Trauma Fracture suspected COMPARISON: None. FINDINGS: No acute fracture is identified. The femoral heads appear well-seated within their respective acetabula. The pubic symphysis is intact. Bone density and texture are normal. The sacroiliac joints are normal. IMPRESSION: No acute fracture identified. Report dictated by Josh Ortega DO (president [place]). Josh Muñiz DO have personally reviewed and interpreted this examination/study. > Interpreting Provider: Josh Valentine DO on 06/25/2023 2:38 PM Alexander Damico MD DIAGNOSTIC IMAGING O RDERABLES * (ABNORMAL) PTT [facility] (06/24/2023 4:05 PM PRINCIPAL TECHNOLOGIST) APTT 43.6(H) 23.0 - 38.4 Seconds 06/24/2023 4:49 PM PRINCIPAL TECHNOLOGIST [facility] Comment:Suggested therapeuti c range for full dose I.V. unfractionated heparin therapy for venous thromboembolism is 71 to 109 seconds. Blood BLOOD SPECIMEN / Unknown Venipuncture / Unknown 06/24/2023 4:05 PM PRINCIPAL TECHNOLOGIST 06/24/2023 4:23 PM PRINCIPAL TECHNOLOGIST Alexander Damico MD LAB - COAGULATION OR DERABLES [facility] [address] [place] [address], [facility] [phone] * TYPE + SCREEN PANEL (06/24/2023 4:05 PM PRINCIPAL TECHNOLOGIST) [facility] Antibody Screen NEG 4:52 PM PRINCIPAL TECHNOLOGIST [facility] ABO Rh A POS 06/24/2023 4:52 PM [facility] Blood Bank BLOOD SPECIMEN / Unknown Venipuncture / Unknown 06/24/2023 4:05 PM PRINCIPAL TECHNOLOGIST 06/24/2023 4:14 PM PRINCIPAL TECHNOLOGIST Alexander Damico MD LAB - BLOOD BANK ORD ERABLES Performing Organization Address [facility]/ZIP Co de Phone Number [facility] [address] [place] [address], [facility] [phone] * (ABNORMAL) CBC W AUTO DIFFERENTIAL (06/24/2023 4:05 PM PRINCIPAL TECHNOLOGIST) Only the most recent of4 resultswithin the time period is included. [facility] WBC 6.7 3.5 - 10.5 10 3/uL 06/24/2023 4:36 PM [facility] RBC 3.66(L) 3.80 - 5.20 10 6/uL 06/24/2023 4:36 PM [facility] Hemoglobin 9.9(L) 12.0 - 15.6 g/dL 06/24/2023 4:36 PM [facility] Hematocrit 31.7(L) 35.0 - 45.0 % 06/24/2023 4:36 PM [facility] MCV 86.6 80.7 - 98.3 fL 06/24/2023 4:36 PM [facility] MCH 27.0 26.7 - 34.0 pg 06/24/2023 4:36 PM [facility] MCHC 31.2 30.8 - 35.9 g/dL 06/24/2023 4:36 PM [facility] RDW-SD 52.4(H) 36.0 - 50.0 fL 06/24/2023 4:36 PM [facility] RDW-CV 16.9(H) 11.2 - 14.8 % 06/24/2023 4:36 PM [facility] Platelet Count 233 150 - 400 10 3/uL 06/24/2023 4:36 PM [facility] MPV 8.8(L) 9.4 - 12.9 fL 06/24/2023 4:36 PM [facility] nRBC Absolute 0.00 0 10 3/uL 06/24/2023 4:36 PM [facility] nRBC Auto 0.0 0 /100 WBC 06/24/2023 4:36 PM [facility] Neutrophils % 81.3(H) 35.0 - 70.0 % 06/24/2023 4:36 PM [facility] Lymphocytes % 8.6(L) 20.0 - 43.0 % 06/24/2023 4:36 PM [facility] Monocytes % 6.1 5.0 - 13.0 % 06/24/2023 4:36 PM [facility] Eosinophils % 3.0 0.0 - 6.0 % 06/24/2023 4:36 PM [facility] Basophil % 0.4 0.0 - 2.0 % 06/24/2023 4:36 PM [facility] Neutrophils Absolute 5.45 1.60 - 7.00 10 3/uL 06/24/2023 4:36 PM [facility] Lymphocyte Absolute 0.58(L) 1.10 - 3.90 10 3/uL 06/24/2023 4:36 PM [facility] Monocytes Absolute 0.41 0.26 - 1.07 10 3/uL 06/24/2023 4:36 PM [facility] Eosinophils Absolute 0.20 0.00 - 0.47 10 3/uL 06/24/2023 4:36 PM [facility] Basophils Absolute 0.03 0.00 - 0.08 10 3/uL 06/24/2023 4:36 PM [facility] Immature Granulocytes % 0.6 0.0 - 1.0 % 06/24/2023 4:36 PM [facility] Immature Granulocytes Absolute 0.04 06/24/2023 4:36 PM [facility] Blood BLOOD SPECIMEN / Unknown Venipuncture / Unknown 06/24/2023 4:05 PM PRINCIPAL TECHNOLOGIST 06/24/2023 4:23 PM PRINCIPAL TECHNOLOGIST Alexander Damico MD LAB - HEMATOLOGY ORD AMY Performing Organization Address [facility]/ZIP Co de Phone Number [facility] [address] [place] [address], [facility] [phone] * ALCOHOL ETHYL BLOOD (06/24/2023 4:05 PM PRINCIPAL TECHNOLOGIST) Ethanol (mg/dL) <10 <10 mg/dL 4:52 PM [facility] Ethanol Calculated (g/dL) <0.010 <=0.010 g/dL 06/24/2023 4:52 PM [facility] Blood BLOOD SPECIMEN / Unknown Venipuncture / Unknown 06/24/2023 4:05 PM PRINCIPAL TECHNOLOGIST 06/24/2023 4:23 PM PRINCIPAL TECHNOLOGIST Narrative [facility] - 06/24/2023 4:52 PM PRINCIPAL TECHNOLOGIST Ethanol Interp <10: None Detected. Depression of PROOF CLERK: >100 mg/dl Potentially Critical: >250 mg/dl Potentially [...] - CHEMISTRY ARMIN HARRIS Performing Organization Address City/[facility]/ZIP Co de Phone Number [facility] [address] [place] [phone], [facility] [phone] * ECHOCARDIOGRAM 2D WITH DOPPLER (10/23/2020 7:27 AM CDT) Only the most recent of4 resultswithin the time period is included. 10/23/2020 7:27 AM CDT Narrative Procedure Note Mandy Hitchcock DO - 10/23/2020 . [facility] [address] [place] [address] Echocardiography Examination Transthoracic Name: MARY BETH GUTIERREZ MPI#: MR#: [id number] Admission Number: [id number] Study Date: 10/23/2020 Study Time: 06:36 AM [...] Routine study Facility Location: [facility] [place] Indication: Shortness of Breath Procedure Teacher Hearing Impaired: DARRELL Salazar,RDCS,RVT Ordering Provider: KEIRY JONES Reading [...] AM Page 4 of 4 Keiry Jones PRESS TENDER STAR SIGNAL-BLOCK CUBER ECHO ORDERAB LES [facility] [address] [place] [address] * MONITOR - HOLTER (12/15/2018) Impressions Boy Cast MD - 12/15/2018 [facility] - Holter Monitor [...] there are any questions. Boy Cast MD [facility] - [facility] Office Michael [...] W/WO BRONCHODILATOR (10/27/2016 11:57 AM CDT) Narrative [facility] - 10/27/2016 11:57 AM CDT Miguelito Wall [...] capacity. Please correlate clinically. Miguelito Wall MD, [facility]. Be advised that voice recognition software was used in the production of this record. Errors in interpretation may have been inadvertently missed during review. Miguelito Wall MD RESPIRATORY THERAPY ORDERABLES [facility] * CARDIAC CATH PROCEDURE (2016 6:09 PM PRINCIPAL TECHNOLOGIST) Narrative [facility] - 2016 6:09 PM PRINCIPAL TECHNOLOGIST Michael Mondragon MD 2016 6:09 PM POST [...] declined trying this again. Michael Mondragon MD [facility] Interventional Cardiology [facility] Heart institute Office Michael Mondragon MD CARDIAC SERVICES ORD ERABLES [facility] * CARDIAC CATH CONSULT (for Epic Reporting) (2016 6:09 PM PRINCIPAL TECHNOLOGIST) Narrative [facility] CARDIOLOGY - 2016 6:09 PM PRINCIPAL TECHNOLOGIST Michael Mondragon MD 2016 6:09 PM POST [...] declined trying this again. Michael Mondragon MD [facility] Interventional Cardiology [facility] Heart institute Office Michael Mondragon MD ECHO ORDERABLES [facility] CARDIOLOGY [address] [place] [address] * PULMONARY/RESPIRATORY REPORT ORDER (10/05/2016 5:53 AM PRINCIPAL TECHNOLOGIST) Narrative 10/05/2016 5:53 AM PRINCIPAL TECHNOLOGIST Ordered by an unspecified provider. Scanned Document RESPIRATORY THERAPY ORDERABLES * CARDIAC PROCEDURE ORDER (10/05/2016 5:53 AM PRINCIPAL TECHNOLOGIST) Narrative 10/05/2016 5:53 AM PRINCIPAL TECHNOLOGIST Ordered by an unspecified provider. Scanned Document CARDIAC SERVICES ORD ERABLES * CARDIAC RHYTHM STRIP ORDER (10/05/2016 5:05 AM PRINCIPAL TECHNOLOGIST) Only the most recent of2 resultswithin the time period is included. Narrative 10/05/2016 5:05 AM PRINCIPAL TECHNOLOGIST Ordered by an unspecified provider. Scanned Document CARDIAC SERVICES ORD ERABLES * (ABNORMAL) ACT - POINT OF CARE (09/30/2016 2:25 PM PRINCIPAL TECHNOLOGIST) ACT POCT 111(A) 125 - 187 Seconds [facility] POCT TESTING QC Verified Yes Yes [facility] POC T TESTING Blood BLOOD SPECIMEN / Unknown 09/30/2016 2:25 PM PRINCIPAL TECHNOLOGIST Michael Mondragon MD LAB - POINT OF CARE ORDERABLES [facility] POCT TESTING [address] [phone] * (ABNORMAL) BLOOD GASES ART (09/30/2016 11:12 AM PRINCIPAL TECHNOLOGIST) pH Arterial 7.38 7.35 - 7.45 pH 09/30/2016 11:45 AM PRINCIPAL TECHNOLOGIST [facility] RESP THERAPY pCO2 Arterial 45 35 - 45 mm hg 09/30/2016 11:45 AM PRINCIPAL TECHNOLOGIST [facility] RESP THERAPY pO2 Arterial 47(LL) 80 - 100 mm hg 09/30/2016 11:45 AM PRINCIPAL TECHNOLOGIST [facility] RESP THERAPY HCO3 Arterial 26 22 - 26 mmol/L 09/30/2016 11:45 AM PRINCIPAL TECHNOLOGIST [facility] RESP THERAPY BE Arterial 0.5 -2.0 - 2.0 mmol/L 09/30/2016 11:45 AM PRINCIPAL TECHNOLOGIST [facility] RESP THERAPY O2 Saturation Arterial 81(L) 90 - 100 % 09/30/2016 11:45 AM PRINCIPAL TECHNOLOGIST [facility] RESP THERAPY Hemoglobin Arterial 13.4(L) 14.0 - 16.0 gm/dL 09/30/2016 11:45 AM PRINCIPAL TECHNOLOGIST [facility] RESP THERAPY Carboxyhemoglobin Arterial 0.6 0.0 - 2.5 % 09/30/2016 11:45 AM PRINCIPAL TECHNOLOGIST [facility] RESP THERAPY Methemoglobin Arterial 0.5 0.0 - 2.0 % 09/30/2016 11:45 AM PRINCIPAL TECHNOLOGIST [facility] RESP THERAPY Oxyhemoglobin Arterial 80 % 09/30/2016 11:45 AM PRINCIPAL TECHNOLOGIST [facility] RESP THERAPY Mode Room Air 09/30/2016 11:45 AM PRINCIPAL TECHNOLOGIST [facility] RESP THERAPY Sumanth's Test N/A 09/30/2016 11:45 AM PRINCIPAL TECHNOLOGIST [facility] RESP THERAPY Sample Site R Radial 09/30/2016 11:45 AM PRINCIPAL TECHNOLOGIST [facility] RESP THERAPY Sample Type Arterial 09/30/2016 11:45 AM PRINCIPAL TECHNOLOGIST [facility] RESP THERAPY Painter Set ID [id number] 09/30/2016 11:45 AM PRINCIPAL TECHNOLOGIST [facility] RESP THERAPY Notified Who Cat lab 09/30/2016 11:45 AM PRINCIPAL TECHNOLOGIST [facility] RESP THERAPY Notification Time 09/30/2016 11:45 09/30/2016 11:45 AM PRINCIPAL TECHNOLOGIST [facility] RESP THERAPY Notified By Vinay Dickey RCP 09/30/2016 11:45 AM PRINCIPAL TECHNOLOGIST [facility] RESP THERAPY Blood ARTERIAL BLOOD SPECIMEN / Unknown 09/30/2016 11:12 AM PRINCIPAL TECHNOLOGIST 09/30/2016 11:12 AM PRINCIPAL TECHNOLOGIST Michael Mondragon MD LAB - BLOOD GASES OR DERABLES Performing Organization Address [facility] Co de Phone Number [facility] RESP THERAPY [address] * PT-INR (09/28/2016 3:51 PM PRINCIPAL TECHNOLOGIST) INR 1.0 [facility] Comment: Reference Range 0.9-1.1 Moderate-intensity Warfarin Therapy 2.0-3.0 Higher-intensity Warfarin Therapy 3.0-4.0 PT 10.1 9.0 - 11.5 sec [facility] Comment: For more information on this test, go to: http://education.StartSampling/faq/DDM456 REPORT COMMENT: FASTING:NO Test Performed at: [facility] [address] [place] [address] BRADLEY LEES DO,MPH Blood BLOOD SPECIMEN / Unknown 09/28/2016 3:51 PM PRINCIPAL TECHNOLOGIST 09/28/2016 3:51 PM PRINCIPAL TECHNOLOGIST Michael Mondragon MD LAB - COAGULATION OR DERABLES Performing Organization Address City/[facility]/ZIP Co de Phone Number [facility] [address] [place] [address] * NM MYOCARD PERFUSION SPECT STRESS AND REST (09/22/2016 10:51 AM PRINCIPAL TECHNOLOGIST) Only the most recent of2 resultswithin the time period is included. Anatomical Region Laterality Modality Chest Nuclear Digisoni cs 09/22/2016 8:48 AM PRINCIPAL TECHNOLOGIST Narrative Procedure Note Boy Cast MD - 09/22/[address] [place] [address] [facility] Nuclear Myocardial Perfusion Scan Report Pat.Name: MARY BETH GUTIERREZ Pat.ID: [id number] St.Date: 09/22/2016 Refer.MD: Ed Patel MD Exam Time: 8:48:00 AM Study Type:Nuclear Myocardial Perfusion Scan Weight: 186lb Age: 3 1935,80Y Sex: FEMALE Sonogrphr: RYAN Kim Reason for Study:CAD, Chest pain, Dyspnea on exertion Procedures:Lexiscan Perfusion Scan, Gated Stress Visit ID: [id number] Nurse: RAMSES Valencia Risk Factors:Hypertension, Hypercholesterolemia, Family [...] Signed 09/22/2016 06:08 PM Boy Cast MD, [facility] Michael Mondragon MD [place] ORDERABLES * EVENT MONITOR (08/13/2014) Impressions Boy Cast MD - 08/13/2014 [facility] - Event Monitor Name: Mary Beth Gutierrez [...] there are any questions. Boy Cast MD [facility] Office Michael Mondragon MD CARDIAC SERVICES ORD ERABLES * CT ANGIO CHEST W WO CONTRAST (07/05/2014 6:07 AM PRINCIPAL TECHNOLOGIST) Anatomical Region Laterality Modality Chest Computed Tomogra phy 07/05/2014 7:44 AM PRINCIPAL TECHNOLOGIST Impressions 07/05/2014 8:49 AM PRINCIPAL TECHNOLOGIST Negative for pulmonary embolus. Edited by Lexy Tinsley on 07/05/2014 7:48 AM Narrative 07/05/2014 8:[address] angiogram pulmonary arteries. HISTORY: Chest pain, [...] ORDERABLES * TROPONIN I (07/05/2014 3:52 AM PRINCIPAL TECHNOLOGIST) Only the most recent of2 resultswithin the time period is included. Troponin I 0.038 0.000 - 0.049 ng/mL 07/05/2014 4:37 AM [facility] Blood BLOOD SPECIMEN / Unknown Venipuncture / Unknown 07/05/2014 3:52 AM PRINCIPAL TECHNOLOGIST 07/05/2014 4:10 AM [facility] Narrative [facility] - 07/05/2014 4:37 AM [facility] Note: Diagnosis of myocardial infarction [...] Hughes MD LAB - CHEMISTRY ARMIN HARRIS [facility] [address] [place] [address] * TSH (07/05/2014 3:52 AM PRINCIPAL TECHNOLOGIST) TSH 1.80 0.358 - 3.740 uIU/mL 07/05/2014 2:10 PM PRINCIPAL TECHNOLOGIST [facility] Comment: Blood BLOOD SPECIMEN / Unknown Venipuncture / Unknown 07/05/2014 3:52 AM PRINCIPAL TECHNOLOGIST 07/05/2014 1:42 PM PRINCIPAL TECHNOLOGIST Stevie Mathews MD LAB - CHEMISTRY ARMIN HARRIS Performing Organization Address [facility] Co de Phone Number [facility] [address] [place] [phone] * XR HIP 2+ VW RIGHT (12/11/2012 [...] ROUTINE W/REFLEX TO CULTURE (09/12/2011 10:50 PM PRINCIPAL TECHNOLOGIST) Source Clean Catch [facility] Color UA Yellow [facility] Character UA Hazy [facility] Glucose UA NEGATIVE NEGATIVE mg/dl [facility] Bilirubin UA SMALL(H) NEGATIVE [facility] Ketone UA TRACE(H) NEGATIVE mg/dl [facility] Specific [place] UA >=1.030(H) 1.003 - 1.030 [facility] Blood UA NEGATIVE NEGATIVE [facility] pH UA 5.0 5.0 - [...] [facility] Urine Culture Reflexed to culture [facility] Urine specimen (specimen) URINE SPECIMEN OBTAINED BY CLEAN CATCH PROCEDURE / Unknown 09/12/2011 10:50 PM PRINCIPAL TECHNOLOGIST 09/12/2011 10:57 PM PRINCIPAL TECHNOLOGIST Ken Neely MD LAB - URINALYSIS ORD ERABLES Performing Organization Address [facility]/ZIP Co de Phone Number [facility] [address] [place] [address] * CULTURE URINE (09/12/2011 10:50 PM PRINCIPAL TECHNOLOGIST) Result [facility] Comment: Final CULTURE >10,000 CFU/mL of multiple bacterial morphotypes present. Suggest appropriate recollection with timely transportation to the laboratory if clinically indicated. URINE SPECIMEN OBTAINED BY CLEAN CATCH PROCEDURE / Unknown 09/12/2011 10:50 PM PRINCIPAL TECHNOLOGIST 09/12/2011 11:07 PM PRINCIPAL TECHNOLOGIST Narrative Resulting Agency Comment Performed By [facility];[address] [place] [address];[place] [address] Ken Neely MD LAB - MICROBIOLOGY O RDERABLES Performing Organization Address City/[facility] Co de Phone Number [facility] [address] [place] [address] * LIPASE BLOOD (09/12/2011 10:00 PM PRINCIPAL TECHNOLOGIST) Lipase 84 73 - 393 U/L [facility] Blood specimen (specimen) BLOOD SPECIMEN / Unknown 09/12/2011 10:00 PM PRINCIPAL TECHNOLOGIST 09/12/2011 10:08 PM PRINCIPAL TECHNOLOGIST Ken Neely MD LAB - CHEMISTRY ARMIN HARRIS Performing Organization Address City/[facility]/ZIP Co de Phone Number [facility] [address] [place] [address] * AMYLASE BLOOD (09/12/2011 10:00 PM PRINCIPAL TECHNOLOGIST) Amylase 25 15 - 115 U/L [facility] Blood specimen (specimen) BLOOD SPECIMEN / Unknown 09/12/2011 10:00 PM PRINCIPAL TECHNOLOGIST 09/12/2011 10:08 PM PRINCIPAL TECHNOLOGIST Ken Neely MD LAB - CHEMISTRY ARMIN HARRIS [facility] Organization Address City/State/ZIP Co de Phone Number [facility] [address] [place] [address] * XR ANKLE 3+VW LEFT ROUTINE (12/30/2009 [...] and lateral soft tissue swelling. Procedure Note eDrrick Wilkins MD - 12/30/2009 Three view left ankle CLINICAL INFORMATION: Injury and pain There is a nondisplaced distal fibular fracture. The tibiotalar articulation and talar dome is normal. Lateral soft tissue swelling is present. There is no joint effusion DIAGNOSIS: Distal fibular fracture and lateral soft tissue swelling. Ed Patel MD [facility] Care Teams Fire Crew Worker Relationship Specialty Start Date End Date Ed Patel MD [address] [place] [address] [place] [phone] PCP - General 12/30/09 Denia Wick RN Er Manager 07/05/14 Michael Mondragon MD Cardiovascular Disease 11/27/18 Keiry Jones, PRESS TENDER STAR SIGNAL-BLOCK CUBER [facility] [address] [place] [address] [address] [place] [address] Nurse Practitioner Cardiology 11/20/20
--- OUTSIDE RECORDS SUMMARY | 2024-10-13 00:28 | XMS_ITS | Encounter Summary ---
Author Organization [facility] Address [address] [place], [place] [address] [address] Care Team Providers Care Manager Utilities Name Role Phone Ed Patel MD Primary Care Provider [phone] Denia Wick RN Unavailable [phone] Michael Mondragon MD Unavailable [phone] Keiry Solorio SURVEILLANCE SENSOR OPERATOR-COUNTY COURT JUDGE Unavailable [phone] Reason for Visit * Reason Onset Date Comments Follow-up 07/27/2023 Encounter Details Date Type Department Care Team (Late st Contact Info) Description 07/27/2023 Telephone [facility] - Orthopedics [address] [facility], [place] [place] [phone] Harjinder Metz MD [address] [facility] [address] [place] [address] Follow-up Social History Tobacco Use Types Packs/Day [...] and heating? Not hard at all 06/24/2023 [facility] [place] of Occupat ional Health - Occupational Stress [...] place to sleep or slept in a mcfp (including now)? No 06/24/2023 Housing Stability Vital [...] be a change in weight barring status CTOR OF MANAGED SERVICES documented in this encounter Plan of Treatment Not on file documented as of this encounter Visit Diagnoses Not on filedocumented in this encounter Care Teams Manager Utilities Relationship Specialty Start Date End Date Ed Patel MD [address] [place] [address] [place] [phone] PCP - General 12/30/09 Denia Wick RN [employer] Systems Administrator 07/05/14 Michael Mondragon MD Cardiovascular Disease 11/27/18 Keiry Solorio APRN-[facility] [place] [address] [place] [address] [address] [place] [address] Nurse Practitioner Cardiology 11/20/20 documented as of this encounter
--- OUTSIDE RECORDS SUMMARY | 2024-10-13 00:28 | XMS_ITS | Encounter Summary ---
Author Organization [facility] Address [address] [place] [address] Phone Care Team Providers Care Film Waxer Name Role Phone Fiona Doherty APRN, MARKETING FINANCIAL ANALYST Unavailable [phone] Ed Patel MD Primary Care Provider [phone] Reason for Visit * Reason Onset Date Comments Advice Only 10/12/2024 Encounter Details Date Type Department Care Team (Late st Contact Info) Description 10/12/2024 Telephone [facility] - [place] [address] [place] [address] Fiona Doherty APRN, MARKETING FINANCIAL ANALYST [address] [facility], [address] [place] [address] Advice Only Social History Tobacco Use Types Packs/Day Years Used Date Smoking Tobacco: Never Passive Smoke Exposure: Never Smokeless Tobacco: Never Alcohol Use Standard Drinks/Week Comments Never 0 (1 standard drink = 0.6 oz pur e alcohol) [facility] Utilities Answer Date Recorded In the past 12 months has [employer], gas, oil, or water [employer] threatened to shut off services in your home? Patient declined 10/21/2023 Social Connection and Isolation Panel [NHANES] A nswer Date Recorded In a typical week, how many times do you talk on the phone with family, friends, or neighbors? Patient declined 10/21/2023 How often do you get togethe r with friends or relatives? Patient declined 10/21/2023 How often do you attend spiritism or holiness serv ices? Patient declined 10/21/2023 Do you belong to any clubs o r organizations such as spiritism groups, unions, fraternal or athletic groups, or [...] care, and heating? Patient declined 10/21/2023 [facility] of Occupat ional [facility] - Occupational Stress Questionnaire Answer Date [...] on file Legal Sex Female 9:47 AM THIMBLE PRESS OPERATOR Gender Identity Not on file Sexual [...] understanding. Will take her to the ED BLE PRESS OPERATOR BLE PRESS OPERATOR documented in this encounter Plan of Treatment Upcoming Encounters Date Type Department Care Team (Late st Contact Info) Description 11/12/2024 3:00 PM CDT Office Visit [facility] - Cardiology - [place] [address] [place] [address] Fiona Doherty APRN, MARKETING FINANCIAL ANALYST [address] [facility], [address] [place] [address] documented as of this encounter Visit Diagnoses Not on filedocumented in this encounter Care Teams Film Waxer Relationship Specialty [place] [address] [place] [address] PCP - General Primary Care 07/22/23 Foina Doherty, SIGNAL TESTER, MARKETING FINANCIAL ANALYST [address] [facility], [address] [place] [address] Nurse Practitioner Cardiology 07/14/23 documented as of this encounter
--- OUTSIDE RECORDS SUMMARY | 2024-10-13 00:28 | XMS_ITS | Referral Summary ---
Author Organization [facility] Address [facility] [place] [address] Care Team Providers Care Plant Changer Name Role Phone Ed Patel MD Primary Care Provider [phone] Denia Wick RN Unavailable [phone] Michael Mondragon MD Unavailable [phone] Keiry Soloiro FARM LABOR CONTRACTOR-WAFER FABRICATOR Unavailable [phone] Source Comments [facility],non-owned Affiliates and Associated Physician Practices is amultiple site organization consisting of ambulatory clinics and hospital sitesin [place], [place], [place] and [place]. This disclosure is being madepursuant to the Care Everywhere program and may not contain all information available regarding this patient. Last updated 18.[facility] Allergies Active Allergy Reactions Criticality Noted Date [...] hours., Reported on 08/12/2023 saline nasal spray ([place]; Baby [place]) 0.65 % nasal spray [place] 2 (two) sprays into each nostril every [...] atrial fibrillation 07/03/2019 Coronary artery disease involving [place] heart 0 02/28/2017 MARINELLI (dyspnea on exertion) 2016 Pulmonary hypertension 2016 MARINELLI (dyspnea on exertion) 10/13/20162022 Overview (07/07/2023): Last Assessment & Plan: Dyspnea is likely due to obesity and CHF. Will continue with hydrochlorothiazide and Lasix on every other day. 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 No 06/24/2023 Housing Stability [...] 12:08 PM 07/05/2014 5:38 PM Care Teams Plant Changer Relationship Specialty Start Date End Date Ed Patel MD [address] [facility] [address] [place] [phone] PCP - General 12/30/09 Denia Wick RN Printing Engineer 07/05/14 Michael Mondragon MD Cardiovascular Disease 11/27/18 Keiry Solorio APRN-WAFER FABRICATOR [facility] Heart [place] [address] [place] [address] [address] [place] [address] Nurse Practitioner Cardiology 11/20/20
--- OUTSIDE RECORDS SUMMARY | 2024-10-13 00:28 | XMS_ITS | Clinical Summary ---
Author Organization [facility] Address [employer] [place] [address] Care Team Providers Care Hydraulic Riveter Name Role Phone Ed Patel MD Primary Care Provider [phone] Denia Wick RN Unavailable [phone] Michael Mondragon MD Unavailable [phone] Keiry Solorio AMBULANCE OFFICER-WIND TURBINE ERECTOR Unavailable [phone] Source Comments [facility],non-owned Affiliates and Associated Physician Practices is amultiple site organization consisting of ambulatory clinics and hospital sitesin [place], [place], [place] and [place]. This disclosure is being madepursuant to the Care Everywhere program and may not contain all information available regarding this patient. Last updated 18.[facility] Allergies Active Allergy Reactions Criticality [...] hours., Reported on 08/12/2023 saline nasal spray ([place]; Baby [place]) 0.65 % nasal spray [place] 2 (two) sprays into each nostril every [...] atrial fibrillation 07/03/2019 Coronary artery disease involving [place] heart 0 02/28/2017 MARINELLI (dyspnea on exertion) 2016 Pulmonary hypertension 2016 MARINELLI (dyspnea on exertion) 10/13/20162022 Overview (07/07/2023): Last Assessment & Plan: Dyspnea is likely due to obesity and CHF. Will continue with hydrochlorothiazide and Lasix on every other day. 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 02/10/2016 Essential [...] Recorded Patient Health Questionnaire-2 Score 2 08/10/2023 [facility] of Occupat ional Health - [...] 12:08 PM 07/05/2014 5:38 PM Care Teams Hydraulic Riveter Relationship Specialty Start Date End Date Ed Patel MD [address] [facility] [address] [place] [address] PCP - General 12/30/09 Denia Wick, RN Advanced Practice Registered Nurse 07/05/14 Michael Mondragon MD Cardiovascular Disease 11/27/18 Keiry Solorio, AMBULANCE OFFICER-WIND TURBINE ERECTOR [facility] Heart [facility] [facility] [address] [place] [address] Nurse Practitioner Cardiology 11/20/20
--- OUTSIDE RECORDS SUMMARY | 2024-10-13 00:29 | XMS_ITS | Referral Summary ---
Author Organization [facility] Address [address] [place] [address] Care Team Providers Care Occupational Health Professional Name Role Phone Ed Patel MD Primary Care Provider [phone] Allergies Active Allergy Reactions Criticality Noted Date Comments Apixaban Other (See comments) Low 07/03/2019 States she went numb on her left side and had bad chest pains/will not take ever again Dicyclomine Dizziness Low 07/05/2014 Vlbzebf-Epx-Xpl Reductase Inhibitors Unknown High 09/30/2016 Medications ezetimibe [...] Active vitamins A,C,E-zinc-tracy er (PRESERVISION AREDS) 7,160-113-100 mfzj-cg-uinx tablet Take 1 tablet by mouth 2 [...] 2016 Assessment & Plan (09/21/2019 4:02 PM CHILD DEVELOPMENT TEACHER): Dyspnea is likely due to obesity and CHF. Will continue with hydrochlorothiazide and Lasix on every other day. Assessment & Plan (07/06/2019 8:51 PM CHILD DEVELOPMENT TEACHER): Patient feels better after blood transfusion. Her [...] Comments Blood Pressure 178/70 09/19/2019 1:49 PM CHILD DEVELOPMENT TEACHER Pulse 70 09/19/2019 1:49 PM CHILD DEVELOPMENT TEACHER Temperature 36.7 C (98.1 F) 09/19/2019 1:49 PM CHILD DEVELOPMENT TEACHER Respiratory Rate 22 09/19/2019 1:49 PM CHILD DEVELOPMENT TEACHER Oxygen Saturation 97% 09/19/2019 1:49 PM CHILD DEVELOPMENT TEACHER Inhaled Oxygen Concentration - - Weight 80 kg (176 lb 6.4 oz) 09/19/2019 1:49 PM CHILD DEVELOPMENT TEACHER Height 147.3 cm (4' 10 ) 07/04/2019 2:40 PM CHILD DEVELOPMENT TEACHER Body Mass Index 36.87 07/04/2019 2:40 PM CHILD DEVELOPMENT TEACHER Plan of Treatment Not on file Insurance [facility] MEDICARE RAILROAD MEDICARE Hybrent Care Teams Occupational Health Professional Relationship Specialty Start Date End Date Ed Patel MD [address] [address] PCP - General Internal Medicine 04/18/19
--- OUTSIDE RECORDS SUMMARY | 2024-10-13 00:29 | XMS_ITS | Encounter Summary ---
Author Organization [employer] Address [address] [place] [address] Care Team Providers Care Manager Bilingual Name Role Phone Unavailable Primary Care Provider Unavailabl e Encounter Details Date Type Department Care Team (Late st Contact Info) Description 02/22/2002 Outpatient Historical [facility] [place] [facility]. (Adt Cardiology-[place]) [address] 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
--- OUTSIDE RECORDS SUMMARY | 2024-10-13 00:29 | XMS_ITS | Clinical Summary ---
Author Organization [facility] Address [address] [place] [address] Care Team Providers Care Shake Backboard Notcher Name Role Phone Ed Patel MD Primary Care Provider [phone] Allergies Active Allergy Reactions Criticality Noted Date Comments Apixaban Other (See comments) Low 07/03/2019 States she went numb on her left side and had bad chest pains/will not take ever again Dicyclomine Dizziness Low 07/05/2014 Zcnspgw-Xvh-Orw Reductase Inhibitors Unknown High 09/30/2016 Medications ezetimibe [...] Active vitamins A,C,E-zinc-tracy er (PRESERVISION AREDS) 7,160-113-100 mgeh-ej-imdk tablet Take 1 tablet by mouth 2 [...] 2016 Assessment & Plan (09/21/2019 4:02 PM TALEND ETL DEVELOPER): Dyspnea is likely due to obesity and CHF. Will continue with hydrochlorothiazide and Lasix on every other day. Assessment & Plan (07/06/2019 8:51 PM TALEND ETL DEVELOPER): Patient feels better after blood transfusion. Her [...] Comments Blood Pressure 178/70 09/19/2019 1:49 PM TALEND ETL DEVELOPER Pulse 70 09/19/2019 1:49 PM TALEND ETL DEVELOPER Temperature 36.7 C (98.1 F) 09/19/2019 1:49 PM TALEND ETL DEVELOPER Respiratory Rate 22 09/19/2019 1:49 PM TALEND ETL DEVELOPER Oxygen Saturation 97% 09/19/2019 1:49 PM TALEND ETL DEVELOPER Inhaled Oxygen Concentration - - Weight 80 kg (176 lb 6.4 oz) 09/19/2019 1:49 PM TALEND ETL DEVELOPER Height 147.3 cm (4' 10 ) 07/04/2019 2:40 PM TALEND ETL DEVELOPER Body Mass Index 36.87 07/04/2019 2:40 PM TALEND ETL DEVELOPER Plan of Treatment Not on file Insurance [facility] MEDICARE RAILROAD MEDICARE [employer] Care Teams Shake Backboard Notcher Relationship Specialty Start Date End Date Ed Patel MD [address] [address] PCP - General Internal Medicine 04/18/19
--- OUTSIDE RECORDS SUMMARY | 2024-10-13 00:29 | XMS_ITS | Clinical Summary ---
Author Organization [facility] Address [address] [place] [address] Care Team Providers Care Ware Server Name Role Phone Unavailable Primary Care Provider [...]
--- OUTSIDE RECORDS SUMMARY | 2024-10-13 00:29 | XMS_ITS | Encounter Summary ---
Author Organization [employer] Address [address] [place] [address] Care Team Providers Care Material Stockkeeper Yard Name Role Phone Unavailable Primary Care Provider Unavailabl e Encounter Details Date Type Department Care Team (Late st Contact Info) Description 03/01/2002 Outpatient Historical [facility] Matthew Wilson MD [facility] [place] [address] CATARACT NOS (Primary Dx) Social History Tobacco Use Types Packs/Day Years Used Date Smoking Tobacco: Never Assessed Comments Unknown Sex and Gender Information Value Date Recorded Sex Assigned at Not on file Legal Sex Female 3:28 AM REGISTERED PHLEBOTOMIST PART TIME Gender Identity Not on file Sexual Orientation Not on file documented as of this encounter Plan of Treatment Not on file documented as of this encounter Visit Diagnoses Diagnosis Unspecified cataract- Primary documented in this encounter
--- OUTSIDE RECORDS SUMMARY | 2024-10-13 00:29 | XMS_ITS | Clinical Summary ---
Author Organization [facility] Address [address] [facility] [address] 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
--- OUTSIDE RECORDS SUMMARY | 2024-10-13 00:29 | XMS_ITS | Clinical Summary ---
Author Organization [facility] Address [address] [place] [address] Care Team Providers Care Pre School Teacher Name Role Phone Fiona Doherty APRN, COMMERCIAL DESIGNER Unavailable [phone] Ed Patel MD Primary Care Provider [phone] Allergies Active Allergy Reactions Criticality Noted Date [...] naloxone HCl (Narcan) 4 MG/0.1ML Liquid 1 [place] by Nasal route as needed for Opioid [...] Telephone [facility] - Cardiology - [place] [address] [place] [address] Fiona Doherty, PET RESORT CONCIERGE, COMMERCIAL DESIGNER Advice Only from Last 3 Months Immunizations Immunization Administration Dates Next Due Albumin IV 10/23/2023,10/23/2023,10/22/2023 ,10/22/2023 Social History Tobacco Use Types Packs/Day Years Used Date Smoking Tobacco: Never Passive Smoke Exposure: Never Smokeless Tobacco: Never Tobacco Cessation:Counseling Given: Not Answered Alcohol Use Standard Drinks/Week Comments Never 0 (1 standard drink = 0.6 oz pur e alcohol) [facility] Utilities Answer Date Recorded In the [...] declined 10/21/2023 How often do you attend buddhist or muslim serv ices? Patient declined 10/21/2023 Do you belong to any clubs o r organizations such as buddhist groups, unions, fraternal or athletic groups, or [...] medical care, and heating? Patient declined 10/21/2023 [facility] of Occupat ional Health - Occupational [...] place to sleep or slept in a fpc (including now)? Patient declined 10/21/2023 Comments No Sex and Gender Information Value Date Recorded Sex Assigned at Not on file Legal Sex Female 9:47 AM DOCKET SPECIALIST Gender Identity Not on file Sexual Orientation [...] Visit [facility] - Cardiology - [place] [address] [place] [phone] Fiona Doherty APRN, COMMERCIAL DESIGNER [address] [facility] [address], [address] [place] [address] Health Maintenance Due Date Last Done Comments [...] to complete this topic Insurance [facility]IC[facility] Directives * Full Code (Latest Code Status on File) Date Activated Date Inactivated Comments 10/21/2023 9:25 PM 10/24/2023 6:54 PM CPR-Full Dago atment: FULL ARREST: Attempt Resuscitation/CPR wit intubation and mechanical ventilation. PRE-ARREST: Use entire range of life support measures to stabilize the patient. Care Teams Pre School Teacher Relationship Specialty Start Date End Date Ed Patel MD [address] [place] [address] PCP - General Primary Care 07/22/23 Fiona Doherty, PET RESORT CONCIERGE, COMMERCIAL DESIGNER #2 [facility], [address] [place] [address] Nurse Practitioner Cardiology 07/14/23
[2024-10-13 02:59] LABS: Influenza A QL RT-PCR Negative (Negative); Influenza B QL RT-PCR Negative (Negative); RSV RNA, RT-PCR Negative (Negative); SARS-CoV-2 RNA PCR Negative (Negative)
--- NOTE | 2024-10-13 04:59 | ADMGEN ---
This patient, Mary Beth Puente, was admitted to [facility] Surg Room 328-01. Patient/family oriented to hospital policies and general routines including ID bracelet, bed and alarms, visiting hours, pain management, procedures, bathroom and other care routines, personal items, smoking policy, room service/diet, and visiting hours. Information on how to activate the Rapid Response Team has been discussed. Patient/Family are encouraged to report perceived risks to care and to ask questions if they do not understand what they are told or what they should do.
--- NOTE | 2024-10-13 07:52 | P.HP_ITS ---
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 Patient went to her GI appointment on and was endorsing shortness of breath at that time, GI Dr. Chopra ordered a chest XR which showed a large right pleural effusion. Patient continued to have worsening shortness of breath with new onset chest pressure and noted hypoxia on home pulse ox which prompted her to come to the hospital for further evaluation. She denies any change in her medications or missing any of her medications. She denies fevers, cough, chest pain, palpitations, nausea/vomiting and abdominal pain. ED workup: Hypoxia noted on room air, placed on 2L NC. Vitals remained stable. CBC with WBC 5.4, H/H 12.7/39.3, and PLT 186. CMP with Na 141 and K 4.3. BUN/Cr 18/1.12 with GFR 46. PT/INR 25.3/2.3. LFTs WNL. Troponin negative. Viral panel negative. Chest XR: Right basilar atelectasis versus pneumonia with pleural effusion. Chest CT: Mild pulmonary edema, moderate right pleural effusion, multinodular goiter, cirrhosis of the liver. At time of assessment patient has been weaned back to room air following her thoracentesis. She denies shortness of breath and chest pressure. She has no other complaints denying chest pain, palpitations, nausea/vomiting, abdominal pain, abdominal bloating, dizziness and lightheadedness. Review of Systems Review of Systems: All systems reviewed & are unremarkable except as noted in HPI and below [facility] Past Medical History Medical History CHF (congestive heart failure) Echocardiogram 08/2023: EF 55-60 with normal left ventricular dimension, moderate left ventricular wall thickness, indeterminate diastolic dysfunction, severe right ventricular enlargement, reduced right ventricular systolic function, severe left and right atrial enlargement, [id number] aortic valve stenosis with peak velocity 2 O2 mean gradient of 7 and valve area of 1.5, mild aortic valve regurgitation, severe tricuspid regurgitation, severe pulmonary hypertension with RVSP of 60, moderate pulmonic regurgitation Recurrent right pleural effusion Requiring multiple thoracentesis Gastric nodule Right humeral fracture Chronic anemia Chronic kidney disease, stage 3 Gastroesophageal reflux disease Cirrhosis of liver Coronary artery disease Chronic anticoagulation Paroxysmal atrial fibrillation Autoimmune liver disease Glaucoma Macular degeneration Hypertension Arthritis Surgical History Surgical History History of cataract extraction History of tonsillectomy History of hysterectomy History of coronary artery bypass graft (2006) Family History Family History Mother Heart disease Hypertension Social History Social History (Updated 10/13/24 @ 13:39 by Olga Allison PA-C) Social History: She was for 63 years but has been since 2018. She lives alone. No pets. She mobilizes by use of a folding wheelchair and therapy is encouraged her to start trying to ambulate with a Rollator. She still drives. Healthcare power of assistant attorney general: Oma Guaman, niece. Code status: Full code. (she would not want long-term intubation, tracheostomy or G-tube) Smoking status: Never smoker Alcohol intake: never Substance use: never Substance use type: does not use Do You Feel Safe in your Home?: Yes Lack of Transportation: No Lack of Food: Never True Current Housing: I Have Housing Concerned About Future Housing: No Difficulty Paying Gas/Electric Bills: No Difficulty Paying for Meds: No Currently Unemployed: No Education: Decline to Answer Difficulty w/ Childcare or Family Care: No Additional living arrangements comments: Lives alone. Spiritual care concerns: No Meds Home Medications and Allergies Home Medications ?Medication ?Instructions ?Recorded ?Confirmed ?Type diltiazem HCl 30 mg tablet 30 mg PO Q12H 05/17/23 10/13/24 History (Cardizem) alprazolam 0.25 mg tablet 0.25 mg PO DAILY PRN Anxiety 07/07/23 10/13/24 History ezetimibe 10 mg tablet 10 mg PO HS 07/07/23 10/13/24 History krill oil 500 mg capsule 1,500 mg PO DAILY 07/07/23 10/13/24 History lidocaine 5 % topical patch 1 patch topical DAILY PRN Pain 07/07/23 10/13/24 History nitroglycerin 0.4 mg sublingual 0.4 mg sublingual Q5M PRN Chest 07/07/23 10/13/24 History tablet Pain rivaroxaban 10 mg tablet (Xarelto) 10 mg PO HS 07/07/23 10/13/24 History ergocalciferol (vitamin D2) 1,250 1,250 mcg PO WEEKLY 08/19/23 10/13/24 History mcg (50,000 unit) capsule simethicone 125 mg tablet 125 mg PO TID PRN gas, bloating 08/23/23 10/13/24 History coenzyme Q10 200 mg tablet 200 mg PO DAILY 10/07/23 10/13/24 History vitamins A,C,N-hsjq-kgvynw 2,148 2 tablet PO BID 10/07/23 10/13/24 History mcg-113 mg-45 mg-17.4 mg tablet (PreserVision AREDS) ferrous sulfate 324 mg (65 mg 324 mg PO BID #60 tabs 10/09/23 10/13/24 Rx iron) tablet,delayed release torsemide 40 mg tablet 40 mg PO BID 30 days #60 tabs 11/04/23 10/13/24 Rx ascorbate calcium (vitamin C) 500 500 mg PO DAILY 03/29/24 10/13/24 History mg tablet famotidine 40 mg tablet 40 mg PO DAILY #90 tabs 03/29/24 10/13/24 Rx ondansetron HCl 4 mg tablet 8 mg PO Q8H PRN Nausea 03/29/24 10/13/24 History omeprazole 40 mg capsule,delayed 40 mg PO DAILY #30 caps 10/11/24 10/13/24 Rx release cyanocobalamin (vitamin B-12) See Rx Instructions PO .COMPLEX 10/13/24 10/13/24 History furosemide 80 mg tablet 80 mg PO .daily 10/13/24 10/13/24 History labetalol 100 mg tablet 100 mg PO Q12H 10/13/24 10/13/24 History Allergies Allergy/AdvReac Type Severity Reaction Status Date / Time atropine Allergy Unknown Unknown Verified 03/29/24 10:46 acetaminophen (From AdvReac Headache Verified 03/29/24 10:46 Darvocet-N 100) apixaban (From Eliquis) AdvReac Numbness Verified 03/29/24 10:46 propoxyphene (From AdvReac Headache Verified 03/29/24 10:46 Darvocet-N) Kzveeby-PUU-XwH Reductase AdvReac Muscle Pain Verified 03/29/24 10:46 Inhibitor Vital Signs Vital Signs - 24 hr 10/12/24 16:36 10/12/24 22:47 10/12/24 23:21 Temperature 97.6 F Pulse Rate 71 64 66 Respiratory Rate 24 H 19 24 H Blood Pressure 126/71 150/65 H Pulse Oximetry 95 95 98 Oxygen Delivery Nasal Cannula Oxygen Flow Rate 2 10/12/24 23:22 10/12/24 23:30 10/12/24 23:31 Temperature Pulse Rate 74 66 74 Respiratory Rate 17 29 H 12 Blood Pressure 151/83 H Pulse Oximetry 98 94 96 Oxygen Delivery Oxygen Flow Rate 10/13/24 00:15 10/13/24 00:20 10/13/24 00:27 Temperature Pulse Rate 90 68 Respiratory Rate 22 H 17 Blood Pressure 144/72 H Pulse Oximetry 99 99 99 Oxygen Delivery Nasal Cannula Oxygen Flow Rate 2 10/13/24 00:29 10/13/24 00:30 10/13/24 00:30 Temperature Pulse Rate 67 61 Respiratory Rate 27 H Blood Pressure Pulse Oximetry 98 98 Oxygen Delivery Nasal Cannula Oxygen Flow Rate 2 10/13/24 00:32 10/13/24 00:45 10/13/24 00:46 Temperature Pulse Rate 60 61 75 Respiratory Rate 25 H 30 H 27 H Blood Pressure 144/72 H 150/66 H Pulse Oximetry 98 96 98 Oxygen Delivery Oxygen Flow Rate 10/13/24 01:00 10/13/24 01:01 10/13/24 01:20 Temperature Pulse Rate 66 67 77 Respiratory Rate 32 H 28 H 32 H Blood Pressure 149/75 H Pulse Oximetry 98 98 97 Oxygen Delivery Oxygen Flow Rate 10/13/24 01:35 10/13/24 01:50 10/13/24 04:23 Temperature Pulse Rate 67 62 59 L Respiratory Rate 24 H 25 H 21 H Blood Pressure 125/55 L Pulse Oximetry 97 97 97 Oxygen Delivery Oxygen Flow Rate 10/13/24 04:23 10/13/24 04:25 Temperature 97.6 F Pulse Rate 59 L 66 Respiratory Rate 21 H 20 Blood Pressure 125/55 L 139/87 Pulse Oximetry 97 94 Oxygen Delivery Oxygen Flow Rate Exam Narrative: AF HR 66 RR 20 SPO2 94 RA BP 139/87 General: female in no acute respiratory distress who is nontoxic appearing, lying semi recumbent in bed. HEENT: Normocephalic. Atraumatic. Extraocular movement intact. Sclera clear and anicteric. No facial asymmetry. Neck: Neck was supple. No dominant adenopathy, thyromegaly or masses. Chest: Lungs are coarse rhonchi to auscultation on the right. No wheezes or crackles. CV: Heart was regular rate and rhythm. S1-S2. No murmurs, gallops, or rubs. Abd: Abdomen was soft. Nontender. Nondistended. Positive bowel sounds. No organomegaly or masses. Ext: No clubbing, cyanosis, or edema. 2+ DP pulses bilaterally. Neuro: Patient is alert and oriented x4. Strength is 5/5 in both upper and lower extremities. Speech is clear. Psych: Normal mood and affect. Patient is pleasant and cooperative. Skin: Warm and dry. No rashes noted. H&P: Results Labs Labs: Short CBC 10/12/24 Range/Units 21:39 WBC 6.2 (4.5-10.0) K/mm3 Hgb 13.0 (12.0-15.0) g/dL Hct 39.9 (37.0-47.0) % Plt Count 177 (150-375) k/mm3 BMP 10/12/24 21:39 Sodium 141 Potassium 3.8 Chloride 104 Carbon Dioxide 26 BUN 20 H Creatinine 1.18 H Glucose 128 H Calcium 9.6 Cardiac Enzymes 10/12/24 Range/Units 21:39 Troponin I < 0.012 (0.000-0.034) ng/mL Liver Function 10/12/24 Range/Units 21:39 Total Bilirubin 1.1 (0.2-1.3) mg/dL AST 24 (14-36) U/L ALT 20 (6-35) U/L Alkaline Phosphatase 96 (38-126) U/L Albumin 4.3 (3.5-5.1) g/dL Assessment and Plan Assessment and plan (1) Respiratory failure with hypoxia: Code(s): J96.91 - Respiratory failure, unspecified with hypoxia Status: Acute Assessment and Plan: - Oxygen supplementation: 2L on admission, weaned back to RA following thoracentesis - Suspected cause: pleural effusion Patient likely has atelectasis from pleural effusion, pneumonia less likely given that patient remains afebrile without leukocytosis or productive cough - Chest XR: Right basilar atelectasis versus pneumonia with pleural effusion. - Chest CT: Mild pulmonary edema, moderate right pleural effusion, multinodular goiter, cirrhosis of the liver. (2) Pleural effusion: Code(s): J90 - Pleural effusion, not elsewhere classified Status: Acute Assessment and Plan: Patient has recurrent pleural effusions likely due to patients heart failure, pulmonary hypertension, aortic stenosis, and cirrhosis. Previously hospitalized on 08/19/2023 and 10/08/23 with similar symptoms. - Thoracentesis yielding 600 ml. Resume xarelto on 10/14. DVT ppx with SCD - Lasix 40 IV BID as patient continues to have coarse rhonchi on auscultation, consider transitioning to orals tomorrow - Monitor vital signs, I&Os, BUN/creatinine, daily weights, neuro status and patient is a fall risk - Monitor serum electrolytes, Keep serum Potassium>4 and serum Magnesium>2 and CBC (3) CHF (congestive heart failure): Code(s): I50.9 - Heart failure, unspecified Status: Acute Assessment and Plan: - Symptoms: shortness of breath secondary to pleural effusion - BNP: 4340 - Chest XR: Right basilar atelectasis versus pneumonia with pleural effusion. - Chest CT: Mild pulmonary edema, moderate right pleural effusion, multinodular goiter, cirrhosis of the liver. - Echo 08/2023: LVEF 55-60% with indeterminant diastolic dysfunction and severe pulmonary hypertension - Repeat echo as patient has recurrent pleural effusions and no echo for past year - Monitor vital signs, I&Os, BUN/creatinine, daily weights, neuro status and patient is a fall risk - Monitor serum electrolytes, Keep serum Potassium>4 and serum Magnesium>2 and CBC - Has an appointment with her mutuel department manager Chas ARVIZU on November 12 at [facility]. (4) Paroxysmal atrial fibrillation: Code(s): I48.0 - Paroxysmal atrial fibrillation Status: Chronic Assessment and Plan: Chronic - labetalol 100 mg BID - diltiazem 30 mg BID - holding Xarelto for thoracentesis, dvt ppx with SCD (5) Chronic kidney disease, stage 3: Qualifiers: Chronic kidney disease stage 3 subtype: stage 3a (GFR 45-59) Qualified Code(s): N18.31 - Chronic kidney disease, stage 3a Code(s): N18.30 - Chronic kidney disease, stage 3 unspecified Status: Acute Assessment and Plan: BUN/Cr 18/1.12 with GFR 46. Appears at baseline. - Continue to monitor - Avoid nephrotoxic medications and renally dose medications - Monitor I/O (6) Hypertension: Code(s): I10 - Essential (primary) hypertension Status: Acute Assessment and Plan: Chronic - lasix 80 mg daily, currently getting 40 mg IV BID for pleural effusion. transition to home medication when appropriate. - labetalol 100 mg BID - diltiazem 30 mg BID - blood pressures remain stable, continue to monitor (7) Autoimmune liver disease: Code(s): K76.89 - Other specified diseases of liver Status: Acute Assessment and Plan: Chronic, LFTs WNL. Patient denies feeling bloated or increased abdominal pressure. No paracentesis requirement at this time. Quality VTE Prophylaxis VTE prophylaxis: mechanical ordered Hospitalist MIPS Advance Care Plan I have confirmed that the patient's Advanced Care Plan is present, code status is documented, or surrogate decision maker is listed in patient medical record.: Yes Medication Reconciliation I have utilized all available resources to obtain, update and review the patients current medications (includes all prescriptions, OTC, herbals, cannabis, and nutritional supplements).: Yes
[2024-10-13] MEDS: PANTOPRAZOLE 40 MG TABLET PO (10:05)
[2024-10-13] MEDS: FAMOTIDINE 20 MG TABLET 40 MG PO (10:08)
[2024-10-13] MEDS: FUROSEMIDE INJ 40 MG/4 ML VIAL IV PUSH ×2 (10:09→17:25)
[2024-10-13] MEDS: LABETALOL HCL 100 MG TABLET PO ×2 (10:11→20:45)
[2024-10-13] MEDS: dilTIAZem HCL 30 MG TABLET PO ×2 (10:19→20:46)
[2024-10-13 10:46] LABS: Add Urine Microscopic? YES; Appearance Urine Clear (Clear); Bacteria Urine None Seen /hpf; Bilirubin Urine Negative (Negative); Blood Urine Negative (Negative); Color Urine Yellow (Yellow); Glucose Urine UA Negative (Negative); Ketones Urine 1+ mg/dL (Negative); Leukocyte Esterase Ur Trace LEU/UL (Negative); Nitrate Urine Negative (Negative); Non Pathogenic Casts 0-2; Protein Urine Trace mg/dL (Negative); RBC Urine 0-2 /hpf (0-2); Specific Grav Ur 1.019 (1.001-1.035); Squamous Epithelial Cell Urine None Seen /hpf (Few); WBC Urine 0-5 /hpf (0-3); pH Urine 6.5 (5.0-9.0)
[2024-10-13 11:58] LABS: Procalcitonin 0.1 ng/mL
[2024-10-14] VITALS: BP 106/58; PULSE 54; PULSE 60; RESP 20; TEMP 36.3; O2SAT 91
--- NOTE | 2024-10-14 03:11 | PC.NURSE ---
Daylight Savings Time For Daylight Savings Time Ending in the Fall - Clocks are moved back. For Daylight Savings Time Beginning in the Spring - Clocks are moved ahead. For [facility], the time of change occurs at 0200 hrs. Time is taken from the artillery or naval gunfire observer. This entry on the patient's chart recognizes the change in time reflected during documentation. Example: 2 entries for vital signs may be charted for 0200 hrs.
[2024-10-14 04:00] VITALS: PULSE 53
[2024-10-14 04:34] VITALS: BP 119/56; PULSE 64; RESP 20; TEMP 36.6; O2SAT 94
[2024-10-14 06:02] LABS: Basophils Percent Auto 0.6 % (0.2-1.2); Eosinophils Absolute Auto 0.2 K/mm3 (0-0.3); Eosinophils Percent Auto 4.4 % (0-4.4); Hematocrit 36.9 % (37.0-47.0); Hemoglobin 12.1 g/dL (12.0-15.0); Immature Granulocyte Absolute 0.02 K/mm3 (0.00-0.031); Immature Granulocyte Percent A 0.4 % (0-0.5); Lymphocytes Absolute Auto 1.08 K/mm3 (0.9-3.2); Mean Corpuscular HGB Conc 32.8 g/dl (32-36); Mean Corpuscular Hemoglobin 31.2 pg (26-34); Mean Corpuscular Volume 95.1 fl (80-100); Mean Platelet Volume 8.8 fl (7.4-10.4); Monocytes Absolute Auto 0.6 K/mm3 (0.1-0.6); Monocytes Percent Auto 10.4 % (2.6-8.5); Neutrophils Absolute Auto 3.5 K/mm3 (1.3-6.7); Neutrophils Percent Auto 64.2 % (45.5-73.1); Platelet Count Result 166 k/mm3 (150-375); Red Blood Count 3.88 M/mm3 (4.2-5.4); Red Cell Distribution Width 14.6 % (11.5-14.5); White Blood Count 5.4 K/mm3 (4.5-10.0)
[2024-10-14 06:31] LABS: Alanine Aminotransferase 18 U/L (6-35); Alkaline Phosphatase 90 U/L (38-126); Anion Gap 10 mmol/L (4-12); Aspartate Amino Transferase 24 U/L (14-36); Bilirubin,Total 1.3 mg/dL (0.2-1.3); Blood Urea Nitrogen 23 mg/dL (7-17); Calcium 9.2 mg/dL (8.4-10.2); Carbon Dioxide 26 mmol/L (22-30); Chloride 102 mmol/L (98-107); Estimated Glomerular Filt Rate 41; Glucose 93 mg/dL (65-110); Potassium 3.4 mmol/L (3.4-5.0); Sodium 138 mmol/L (137-145)
[2024-10-14 08:00] VITALS: BP 138/74; PULSE 70; PULSE 80; RESP 18; TEMP 36.5; O2SAT 95
[2024-10-14] MEDS: dilTIAZem HCL 30 MG TABLET PO (09:04)
[2024-10-14] MEDS: FAMOTIDINE 20 MG TABLET 40 MG PO (09:04)
[2024-10-14] MEDS: PANTOPRAZOLE 40 MG TABLET PO (09:04)
[2024-10-14] MEDS: LABETALOL HCL 100 MG TABLET PO (09:04)
[2024-10-14] MEDS: FUROSEMIDE 80 MG TABLET PO (09:09)
[2024-10-14] MEDS: ACETAMINOPHEN 500 MG TABLET 1000 MG PO (10:50)
--- NOTE | 2024-10-14 10:52 | PCPTNOTE ---
Per chart review and OT evaluation, pt is IND and does not require a physical therapy evaluation at this time. Will d/c order.
--- NOTE | 2024-10-14 12:44 | P.DS_ITS ---
DS: Admitting Diagnosis Discharge Date 10/14/2024 Admitting Diagnosis respiratory failure pleural effusion heart failure paroxysmal afib CKD Hypertension autoimmune liver disease DS: Discharge Diagnosis Discharge Diagnosis (1) Respiratory failure with hypoxia: Code(s): J96.91 - Respiratory failure, unspecified with hypoxia Status: Acute (2) Pleural effusion: Code(s): J90 - Pleural effusion, not elsewhere classified Status: Acute (3) CHF (congestive heart failure): Code(s): I50.9 - Heart failure, unspecified Status: Acute (4) Paroxysmal atrial fibrillation: Code(s): I48.0 - Paroxysmal atrial fibrillation Status: Chronic (5) Chronic kidney disease, stage 3: Qualifiers: Chronic kidney disease stage 3 subtype: stage 3a (GFR 45-59) Qualified Code(s): N18.31 - Chronic kidney disease, stage 3a Code(s): N18.30 - Chronic kidney disease, stage 3 unspecified Status: Acute (6) Hypertension: Code(s): I10 - Essential (primary) hypertension Status: Acute (7) Autoimmune liver disease: Code(s): K76.89 - Other specified diseases of liver Status: Acute DS: Summary Hospital Course Reason for hospitalization: respiratory failure pleural effusion heart failure paroxysmal afib CKD Hypertension autoimmune liver disease Hospital Course: 89 year old female with past medical history of 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 Patient went to her GI appointment on and was endorsing shortness of breath at that time, GI Dr. Chopra ordered a chest XR which showed a large right pleural effusion. Patient continued to have worsening shortness of breath with new onset chest pressure and noted hypoxia on home pulse ox which prompted her to come to the hospital for further evaluation. Hypoxia noted on room air in the ED and patient placed on supplementation. Vitals otherwise stable and labs unremarkable. Chest XR showed right basilar atelectasis versus pneumonia with pleural effusion. Chest CT showed mild pulmonary edema, moderate right pleural effusion, multinodular goiter, cirrhosis of the liver. Patient likely has atelectasis from pleural effusion, pneumonia less likely given that patient remains afebrile without leukocytosis or productive cough. No antibiotics started. Patient underwent a thoracentesis yielding 600 ml on 10/13. Following thoracentesis patient was weaned to room air. Echo was obtained and LVEF 60-65%, seemingly unchanged from 2023. She denies chest pain, shortness of breath, palpitations. Prior to discharge patient was evaluated by therapy who have no recommendations as patient was independent during assessment. Per patient she feels she is back at her baseline and ready to go home. Patient discharged home in a stable condition. She is to follow up with her primary care provider in 1 week and her specialist as scheduled. Status at Discharge Functional status at discharge: uses cane/walker Time Spent with Patient Time attestation: Total time spent providing and/or coordinating discharge services: Time spent: Greater than 30 minutes Exam Narrative: AF HR 70 RR 18 SPO2 95 RA BP 138/74 General: female in no acute respiratory distress who is nontoxic appearing, sitting up in chair HEENT: Normocephalic. Atraumatic. Extraocular movement intact. Sclera clear and anicteric. No facial asymmetry. Chest: Lungs are slight rhonchi to auscultation on the right lower base. No wheezes or crackles. CV: Heart was regular rate and rhythm. S1-S2. No murmurs, gallops, or rubs. Abd: Abdomen was soft. Nontender. Nondistended. Positive bowel sounds. Ext: No clubbing, cyanosis, or edema. 2+ DP pulses bilaterally. Neuro: Patient is alert and oriented x3. Speech is clear. DS: Data Data Completed and Pending Completed studies during hospitalization: chest xr chest ct thoracentesis us Labs on day of discharge: Labs from last 24 hours 10/14/24 10/13/24 05:50 11:17 WBC 5.4 RBC 3.88 L Hgb 12.1 Hct 36.9 L MCV 95.1 MCH 31.2 MCHC 32.8 RDW 14.6 H Plt Count 166 MPV 8.8 Immature Gran % (Auto) 0.4 Neut % (Auto) 64.2 Lymph % (Auto) 20.0 [place] % (Auto) 10.4 H Eos % (Auto) 4.4 Baso % (Auto) 0.6 Lymph # (Auto) 1.08 [place] # (Auto) 0.6 Eos # (Auto) 0.2 Baso # (Auto) 0.0 Abs Immat Gran (auto) 0.02 Absolute Neuts (auto) 3.5 Absolute Nucleated RBC 0.000 Nucleated RBC % 0.0 Sodium 138 Potassium 3.4 Chloride 102 Carbon Dioxide 26 Anion Gap 10 BUN 23 H Creatinine 1.24 H Estim Creat Clear Calc Not Reportable Estimated GFR 41 L Glucose 93 Calcium 9.2 Total Bilirubin 1.3 AST 24 ALT 18 Alkaline Phosphatase 90 Total Protein 7.0 Albumin 4.0 Procalcitonin 0.1 Discharge Plan Discharge Attending physician on discharge: Jose Carnes Discharging Clinician: Olga Allison Anticipated Discharge Date/Time: 10/14/24 11:34 Patient Disposition: Home, Self-Care Activity: as tolerated Diet: as tolerated, heart healthy and renal Discharge Instructions: Discharge disposition: Patient admitted to the hospital for shortness of breath secondary to recurrent right pleural effusion On admission required oxygen supplementation, weaned off prior to discharge Underwent a thoracentesis on 10/13, okay to resume xarelto this afternoon Strict bleeding precautions as you remain on xarelto including shaving with an electric razor, holding pressure for greater than 20 minutes for injury, protection of had with any falls, etc. Cardiac echo obtained and seemingly unchanged from last year Take your home medications as prescribed Eat well balanced meals and stay hydrated Keep active to remain strong Keep appointments with your specialist Monitor blood pressures Take caution while standing, rising, or moving Change positions slowly taking a break between each position change If you standing feel dizzy sit back down and take a break Encouraged to continue with yearly vaccinations Return to the emergency department if he developed sudden shortness of breath, chest pain, nausea, vomiting, upset stomach or intractable diarrhea Return to the emergency department if you develop fever greater than 101.5 Follow-up with the primary care physician within 1-2 weeks Information to the automation and control engineer PCP has been given Thank you for choosing [facility] for your healthcare needs Patient Instructions: Rivaroxaban (By mouth), Heart Failure (DC), Pain Management in Older Adults (DC), Pleural Effusion (DC), Thoracentesis (DC) Patient Language: Fijian Stand Alone Forms: General Discharge Information Follow-up/Referrals: Al Ivy MD [Physician] - 1 Week Discharge Medications: Continued diltiazem HCl [Cardizem] 30 mg tablet 30 mg PO Q12H lidocaine 5 % adhesive patch,medicated 1 patch topical DAILY PRN (Reason: Pain) Rx Instructions: leave on most painful area for up to 12 hrs Xarelto 10 mg tablet 10 mg PO HS alprazolam 0.25 mg tablet 0.25 mg PO DAILY PRN (Reason: Anxiety) ezetimibe 10 mg tablet 10 mg PO HS krill oil 500 mg capsule 1,500 mg PO DAILY nitroglycerin 0.4 mg tablet, sublingual 0.4 mg sublingual Q5M PRN (Reason: Chest Pain) Rx Instructions: do not exceed 3 doses per episode ascorbate calcium (vitamin C) 500 mg tablet 500 mg PO DAILY famotidine 40 mg tablet 40 mg PO DAILY Qty: 90 3RF ondansetron HCl 4 mg tablet 8 mg PO Q8H PRN (Reason: Nausea) omeprazole 40 mg capsule,delayed release(DR/EC) 40 mg PO DAILY Qty: 30 6RF coenzyme Q10 200 mg Tablet 200 mg PO DAILY PreserVision AREDS 2,148 mcg-113 mg-45 mg-17.4mg Tablet 2 tablet PO BID Rx Instructions: administer with AM and PM meals ferrous sulfate 324 mg (65 mg iron) tablet,delayed release (DR/EC) 324 mg PO BID Qty: 60 0RF labetalol 100 mg tablet 100 mg PO Q12H furosemide 80 mg tablet 80 mg PO .daily cyanocobalamin (vitamin B-12) See Rx Instructions PO .COMPLEX Rx Instructions: orally; spironolactone [Aldactone] 50 mg tablet 50 mg PO QAM ergocalciferol (vitamin D2) 1,250 mcg (50,000 unit) capsule 1,250 mcg PO WEEKLY simethicone 125 mg Tablet 125 mg PO TID PRN (Reason: gas, bloating) Held torsemide 40 mg Tablet 40 mg PO BID 30 Days Qty: 60 0RF Hold Instructions: Resume on 12/05/24. Hold until follow up with instrumentation instructor on November 12 Date of admission: 10/13/24 08:39 Primary Care Provider: Estefany Chopra Admitting Provider: Maurisio Stratton Attending physician on admission: Olga Allison Condition: Stable Hospitalist MIPS Heart Failure (Exclusion) Patient has history of Heart Transplant or Left Ventricular Assistive Device?: No IF YES, STOP HERE Heart Failure (Qualifier) Patient has current or prior documentation of LVEF less than or equal to 40%, or mod/servere depressed LVSF?: No IF NO, STOP HERE
[2024-10-14] MEDS: INFLUENZA VACCINE HIGH DOSE (>64) 180 MCG/0.5 ML SYRINGE IM (13:45)
== END 2024-10-14 15:05 | disposition home or self-care (01) | DRG 291 ==
LOC: ANHED 10-13 03:00 → ANH3MEDSUR 10-13 03:27
PROVIDERS: Registered Nurse; Admitting Provider Internal Medicine; Emergency Provider Emergency Medicine; PCP Nurse Practitioner; Visit Provider Student in an Organized Health Care Education/Training Program
DX: I13.0 Hypertensive heart and chronic kidney disease with heart failure and stage 1 through stage 4 chronic kidney disease, or unspecified chronic kidney disease (principal); I50.43 Acute on chronic combined systolic (congestive) and diastolic (congestive) heart failure; J96.01 Acute respiratory failure with hypoxia; J90 Pleural effusion, not elsewhere classified; I48.0 Paroxysmal atrial fibrillation; I25.10 Atherosclerotic heart disease of native coronary artery without angina pectoris; I35.0 Nonrheumatic aortic (valve) stenosis; I27.20 Pulmonary hypertension, unspecified; N18.31 Chronic kidney disease, stage 3a; K74.69 Other cirrhosis of liver; K21.9 Gastro-esophageal reflux disease without esophagitis; H40.9 Unspecified glaucoma; H35.30 Unspecified macular degeneration; M19.90 Unspecified osteoarthritis, unspecified site; Z20.822 Contact with and (suspected) exposure to COVID-19; Z23 Encounter for immunization; Z79.02 Long term (current) use of antithrombotics/antiplatelets; Z95.1 Presence of aortocoronary bypass graft
CPT/HCPCS: 32555; 36415; 71046; 71250; 80053; 81001; 82105; 83880; 84145; 84484; 85025; 85027; 85610; 85730; 87637; 90471; 90662; 93005; 93306; 97165; 99285; A9270; G0008; G0378; J1940

== ENCOUNTER 2024-11-09 09:05 | Outpatient (CLI) | payer MEDICARE, SELFPAY ==
--- NOTE | ~2024-11-09 | US_ITS ---
US abdomen limited INDICATION: Cirrhosis. PROCEDURE: Realtime right upper abdominal ultrasound. COMPARISON: No prior studies for comparison. FINDINGS: The pancreas is normal without focal mass or pancreatic ductal dilation. Liver surface is nodular trace fluid surrounding the liver, consistent with cirrhosis. There is normal directional fl ow in the portal vein. There are gallstones and gallbladder sludge. Common bile duct measures 2 mm. No sonographic Ortega' s sign. IMPRESSION: 1: Cirrhosis of the liver. 2: Cholelithiasis. Reviewed, dictated and finalized at location A.
--- OUTSIDE RECORDS SUMMARY | 2024-11-09 09:17 | XMS_ITS | Clinical Summary ---
Author Organization [facility] Address [address] Fernández: Epic Prelude ADT [place] [id number] Care Team Providers Care Shellfish Shucker Name Role Phone Unavailable Primary Care Provider Unavailabl e Social History Tobacco Use Types Packs/Day Years Used Date Smoking Tobacco: Never Assessed Comments Unknown Sex and Gender Information Value Date Recorded Sex Assigned at Not on file Legal Sex Female 3:28 AM BOTTLE BOOTH ATTENDANT Gender Identity Not on file Sexual Orientation Not on file Plan of Treatment Health Maintenance Due Date Last Done Comments DTAP/TDAP/TD VACCINES (1 - Tdap) 10[birth year]12/1954 PNEUMOCOCCAL VACCINE 50+ YEARS (1 of 1 - PCV) 10/12/18 86 ZOSTER VACCINE (1 of 2) 10/12/1985 OSTEOPOROSIS SCREENING 10/12/2000 RSV VACCINE (60+ or ) (1 - 1-dose 75+ series) 10/12/2010 INFLUENZA VACCINE (#1) 2024 Insurance [facility] [id number]
--- OUTSIDE RECORDS SUMMARY | 2024-11-09 09:17 | XMS_ITS | Continuity of Care Document ---
Author Organization [facility] [place] [facility] Address [address] [place] [address] [address] [place] [address] Phone Care Team Providers Care Directional Drill Operator Name Role Phone [facility] Unavailable Unavail able Sickage, Natasha Unavailable Unavailable Advance Directives Directive Yes / No Effective Date File Name No Information Encounters Encounter Description Practice Location Reason(s) For Visit Diagnoses Date Provider Providers Copied on Encounter [facility], [address], [place], [place], [id number], [place] tel:[phone] [facility] [place] No Information [facility] [address] [facility], [address], [place], [place], [id number] , [place]. tel:[phone] Referring Provider: Shanna Pérez, [address] [facility] [place] [address], [place], [address]. tel:[phone] sulting Provider: Natasha Celis, [address] [place] [address], [address]. tel:[phone] Family History Family Member Type Diagnosis Age At Onset No Information Payers Payer name Insurance type Covered libertarian ID Authoriza tion(s) No Information Social History [...]
--- OUTSIDE RECORDS SUMMARY | 2024-11-09 09:17 | XMS_ITS | Clinical Summary ---
Author Organization [facility] Address [facility] [facility] [place] [address] Care Team Providers Care Package Pick Up Name Role Phone Ed Patel MD Primary Care Provider [phone] Denia Wick RN Unavailable [phone] Michael Mondragon MD Unavailable [phone] Keiry Solorio CANVAS REPAIRER-PLANT HEALTH MANAGER Unavailable [phone] Source Comments [facility],non-owned Affiliates and Associated Physician Practices is amultiple site organization consisting of ambulatory clinics and hospital sitesin [place], [place], [place] and [place]. This disclosure is being madepursuant to the Care Everywhere program and may not contain all information available regarding this patient. Last updated 18.[facility] Allergies Active Allergy Reactions Criticality Noted Date [...] hours., Reported on 08/12/2023 saline nasal spray ([place]; Baby [place]) 0.65 % nasal spray [place] 2 (two) sprays into each nostril every [...] Recorded Patient Health Questionnaire-2 Score 2 08/10/2023 [facility] - Occupational Stress [...] place to sleep or slept in a alf (including now)? No 06/24/2023 Housing Stability Vital [...] COVID-19 VACCINE ( season) 2024 10/28/2020, 10/07/2020 DEPRESSION SCREENING 08/08/2024 08/10/2023 MEDICARE AWV CALENDAR YEAR 2024 INFLUENZA VACCINE (Season Ended) 2025 06/07/2019, 06/25/2018, 04/07/2017, Additional history exists HIB VACCINE Aged Out No longer eligi ble based on patient's age to complete this topic HPV VACCINE Aged Out No longer eligi ble based on patient's age to complete this topic MENINGOCOCCAL (Group B) VACCINE SHARED DECISION-MAKING Aged Out No longer eligible based on patient's age to complete this topic MENINGOCOCCAL GROUPS A/C/Y/W VACCINE Aged Out No longer eligible based [...] 12:08 PM 07/05/2014 5:38 PM Care Teams Package Pick Up Relationship Specialty Start Date End Date Ed Patel MD [address] [facility] [address] [place] [address] PCP - General 12/30/09 Denia Wick RN Coding Quality Coordinator 07/05/14 Michael Mondragon MD Cardiovascular Disease 11/27/18 Keiry Solorio, CANVAS REPAIRER-PLANT HEALTH MANAGER [facility] [place] [address] [place] [address] [address] [place] [address] Nurse Practitioner Cardiology 11/20/20
--- OUTSIDE RECORDS SUMMARY | 2024-11-09 09:17 | XMS_ITS | Clinical Summary ---
Author Organization [facility] Address [address] [place] [address] Care Team Providers Care Business Planning Analyst Name Role Phone Fiona Doherty APRN, CEO & BOARD DIRECTOR Unavailable [phone] Ed Patel MD Primary Care Provider [phone] Allergies Active Allergy Reactions Criticality Noted Date [...] naloxone HCl (Narcan) 4 MG/0.1ML Liquid 1 [place] by Nasal route as needed for Opioid [...] Telephone [facility] [place] [address] [place] [address] Fiona Doherty, FEDERAL APPELLATE CLERK, CEO & BOARD DIRECTOR Advice Only from Last 3 Months Immunizations Immunization Administration Dates Next Due Albumin IV 10/23/2023,10/23/2023,10/22/2023 ,10/22/2023 Social History Tobacco Use Types Packs/Day Years Used Date Smoking Tobacco: Never Passive Smoke Exposure: Never Smokeless Tobacco: Never Tobacco Cessation:Counseling Given: Not Answered Alcohol Use Standard Drinks/Week Comments Never 0 (1 standard drink = 0.6 oz pur e alcohol) [facility] Utilities Answer Date Recorded In the [...] declined 10/21/2023 How often do you attend mandaen or latter-day serv ices? Patient declined 10/21/2023 Do you belong to any clubs o r organizations such as mandaen groups, unions, fraternal or athletic groups, or [...] medical care, and heating? Patient declined 10/21/2023 [facility] - [...] place to sleep or slept in a snf (including now)? Patient declined 10/21/2023 Comments No Sex and Gender Information Value Date Recorded Sex Assigned at Not on file Legal Sex Female 9:47 AM LIFE INSURANCE AGENT Gender Identity Not on file Sexual Orientation [...] Visit [facility] [place] [address] [place] [address] Fiona Doherty APRN, CEO & BOARD DIRECTOR #[address] [facility] [address] [place], [address] [place] [address] Health Maintenance Due Date Last Done Comments DEXA Bone Density 1935 TdaP Immunization 1935 Pneumococcal Immunization (50+ years) (1 of 2 - PCV) 10/12/1954 Zoster Immunization (1 of 2) 10/12/1985 Hepatitis B Immunization (1 of 3 - Risk 3-dose series) 1995 Respiratory Syncytial Virus (RSV) Immunization (Adult) (1 - 1-dose 75+ series) 10/12/2010 SARS-COV-2 Immunization ( - season) 2024 10/28/2020, 10/07/2020 Influenza Immunization (Season Ended) 2025 06/07/2019, 06/25/2018, 04/07/2017, Additional history exists Hepatitis C Virus (HCV) Screening Completed 06/26/2023 Meningococcal Immunization (ACWY) Aged Out No longer eligible based on patient's age to complete this topic Rotavirus Immunization Aged Out No lo nger eligible based on patient's age to complete this topic [facility] Advance Directives * Full Code (Latest Code Status on File) Date Activated Date Inactivated Comments 10/21/2023 9:25 PM 10/24/2023 6:54 PM CPR-Full Dago atment: FULL ARREST: Attempt Resuscitation/CPR wit intubation and mechanical ventilation. PRE-ARREST: Use entire range of life support measures to stabilize the patient. Care Teams Business Planning Analyst Relationship Specialty Start Date End Date Ed Patel MD [address] [place] [address] PCP - General Primary Care 07/22/23 Fiona Doherty, FEDERAL APPELLATE CLERK, CEO & BOARD DIRECTOR #[address] [facility], [address] [place] [address] Nurse Practitioner Cardiology 07/14/23
--- OUTSIDE RECORDS SUMMARY | 2024-11-09 09:17 | XMS_ITS | Clinical Summary ---
Author Organization [facility] Address [address] [place] [address] Care Team Providers Care Toolmaker Helper Name Role Phone Unavailable Primary Care Provider [...]
--- OUTSIDE RECORDS SUMMARY | 2024-11-09 09:17 | XMS_ITS ---
Author Name Rayo Tesfaye Address [address] [place] [address] Phone [phone] [facility] ices Address [address] [place] [address] Phone [phone] Care Team Providers Care Potato Bucker Name Role Phone Rayo Tesfaye Unavailable [phone] Koffi Abdi Unavailable Functional Status Mental Status Allergies and Intolerances Medications Problems Reason for Referral Past Medical History
--- OUTSIDE RECORDS SUMMARY | 2024-11-09 09:17 | XMS_ITS | Encounter Summary ---
Author Organization [employer] Address [address] [place] [address] Care Team Providers Care Real Estate Internship Name Role Phone Unavailable Primary Care Provider Unavailabl e Encounter Details Date Type Department Care Team (Late st Contact Info) Description 02/22/2002 Outpatient Historical [facility] (Adt [facility]) [address] [place] [address] Cornelio Scott MD NO ADDRESS ON FILE Social History Tobacco Use Types Packs/Day Years Used Date Smoking Tobacco: Never Assessed Comments Unknown Sex and Gender Information Value Date Recorded Sex Assigned at Not on file Legal Sex Female 3:28 AM LOOM FIXER SUPERVISOR Gender Identity Not on file Sexual Orientation Not on file documented as of this encounter Plan of Treatment Not on file documented as of this encounter Visit Diagnoses Not on filedocumented in this encounter
--- OUTSIDE RECORDS SUMMARY | 2024-11-09 09:17 | XMS_ITS | Encounter Summary ---
Author Organization [facility] Address [address] [place], [place] [address] [address] Care Team Providers Care Carrier Washer Name Role Phone Ed Patel MD Primary Care Provider [phone] Denia Wick RN Unavailable Michael Mondragon MD Unavailable [phone] Keiry Solorio PATIENT FINANCIAL SPECIALIST-FRANCHISE SALES DIRECTOR Unavailable [phone] Reason for Visit * Reason Onset Date Comments Follow-up 07/27/2023 Encounter Details Date Type Department Care Team (Late st Contact Info) Description 07/27/2023 Telephone [facility] [address] [facility] [place] [address] Harjinder Metz MD [address] [facility] [address] [place] [address] Follow-up Social History Tobacco Use Types Packs/Day [...] and heating? Not hard at all 06/24/2023 [facility] [place] [facility] Occupat ional Health - Occupational Stress [...] be a change in weight barring status LING SOLUTION MAKER documented in this encounter Plan of Treatment Not on file documented as of this encounter Visit Diagnoses Not on filedocumented in this encounter Care Teams Carrier Washer Relationship Specialty Start Date End Date Ed Patel MD [address] [place] [address] [place] [address] PCP - General 12/30/09 Denia Wick RN Salt Manager 07/05/14 Michael Mondragon MD Cardiovascular Disease 11/27/18 Keiry Solorio APRN-GONZALO [facility] [place] [address] [place] [address] [address] [place] [address] Nurse Practitioner Cardiology 11/20/20 documented as of this encounter
--- OUTSIDE RECORDS SUMMARY | 2024-11-09 09:17 | XMS_ITS ---
Author Name Rayo Tesfaye Address [address] [place] [address] Phone [phone] [employer] ices Address [address] [place] [address] Phone [phone] Care Team Providers Care Wellness Coach Name Role Phone Rayo Tesfaye Unavailable [phone] Koffi Abdi Unavailable Functional Status No Results Mental Status No Results Allergies and Intolerances Name Onset Date Reaction Severity Bentyl (Allergy) TueJul 05 13:38:00 EST 2022 Eliquis (Allergy) TueJul 05 13:36:00 EST 2022 Zmzkesf-UWY-UbO Reductase Inhibitors (Allergy) T Jul 05 13:35:00 EST 2022 Medications Medication Directions Start Date End Date Vitamin C 500 mg tablet 1 tablet TABLET Oral 1 Time Daily Indication: Supplement TueJul 16 14:00:00 EST 2022Jul 29 01:00:00 EST 2022 mupirocin 2 % topical ointment 1 application OINTMENT (GRAM) Topical 1 Time Daily Indication: Cleanse coccyx with NS, apply mupirocin and calcium alginate, cover with foam dressing. TueJul 15 01:00:00 EST 2022Jul 29 01:00:00 EST 2022 Fluad Quad (65yr up)(PF) 60 mcg (15 mcg x 4)/0.5mL IM syringe 0.5 mL SYRINGE (ML) Intramuscular 1 Time Daily for 1 Day Indication: influenza vaccine TueJul 14 12:00:00 EST 2022Jul 14 18:31:00 EST 2022 Fluad Quad (65yr up)(PF) 60 mcg (15 mcg x 4)/0.5mL IM syringe 0.5 mL SYRINGE (ML) Intramuscular 1 Time Daily for 1 Day Indication: influenza vaccine TueJul 14 21:00:00 EST 2022Jul 14 18:33:00 EST 2022 Fluad Quad (65yr up)(PF) 60 mcg (15 mcg x 4)/0.5mL IM syringe 0.5 mL SYRINGE (ML) Intramuscular 1 Time Daily for 1 Day Indication: influenza vaccine TueJul 15 21:00:00 EST 2022Jul 16 20:59:00 EST 2022 mupirocin 2 % topical ointment 1 application OINTMENT (GRAM) Topical 1 Time Daily Indication: Cleanse coccyx with NS, apply mupirocin and silver alginate, cover with foam dressing. TueJul 12 19:00:00 EST 2022Jul 15 07:56:00 EST 2022 Arginaid 4.5 gram-156 mg/9.2 gram oral powder packet 1 packet POWDER IN PACKET (EA) Oral 1 Time Daily Indication: supplement TueJul 11 13:00:00 EST 2022Jul 29 01:00:00 EST 2022 Pro-Stat AWC 17 gram-100 kcal/30 mL oral liquid 30 cc LIQUID (ML) Oral 1 Time Daily Indication: For wound healing & increased needs with cirrhosis TueJul 08 14:00:00 EST 2022Jul 29 01:00:00 EST 2022 ALPRAZolam 0.25 mg tablet 1 tablet TABLE T Oral PRN 1 Time Daily Indication: Anxiety TueJul 07 15:00:00 EST 2022Jul 21 09:00:00 EST 2022 TubersoL 5 tub. unit/0.1 mL intradermal injection solution 0.1 ml VIAL (ML) Intradermal 1 Time Weekly for 2 Weeks Indication: TB test 1st injection on admission, then one week after. Read between 48 and 72 hours TueJul 07 15:00:00 EST 2022Jul 07 18:00:00 EST 2022 TubersoL 5 tub. unit/0.1 mL intradermal injection solution Read Results VIAL (ML) Other 1 Time Weekly for 2 Weeks Indication: TB test Read results between 48-72 hours after 1st and 2nd (1 week apart). If positive do chest x-ray. TueJul 07 09:00:00 2022Jul 21 08:59:00 2022 TubersoL 5 tub. unit/0.1 mL intradermal injection solution 0.1 ml VIAL (ML) Intradermal 1 Time Weekly for 2 Weeks Indication: TB test 1st injection on admission, then one week after. Read between 48 and 72 hours TueJul 07 17:59:00 2022Jul 21 17:58:00 2022 PreserVision AREDS 2,148 mcg-113 mg-45 mg-17.4 mg tablet 1 tab TABLET Oral 2 Times Daily Indication: macular degeneration TueJul 07 15:18:00 2022Jul 29 01:00:00 2022 acetaminophen 500 mg tablet 1 tablet TAB LET Oral PRN Every 6 Hours Indication: Pain; Do NOT exceed 4g/24hr TueJul 05 15:00:00 2022Jul 29:00:00 2022 Jardiance 10 mg tablet 1 tablet TABLET O ral 1 Time Daily Indication: HTN TueJul 05 13:00:00 2022Jul 29 01:00:00 2022 furosemide 40 mg tablet 1 tablet TABLET Oral 1 Time Daily Indication: CHF TueJul 05 13:00:00 2022Jul 29:00:00 2022 lactulose 10 gram/15 mL oral solution 30mL SOLUTION, ORAL Oral 3 Times Daily Indication: Cirrhosis TueJul 05 13:00:00 2022Jul 07 13:20:00 2022 lidocaine 5 % topical patch 1 patch ADHE SIVE PATCH, MEDICATED Topical PRN 1 Time Daily Indication: PainApply 1 patch to skin every 24 hours PRN (for right arm pain) Apply patch to most painful area and remove after 12 hours. May reapply a new patch 12 hours later TueJul 05 14:00:00 2022Jul 29 01:00:00 2022 melatonin 3 mg tablet 2 tablets TABLET O ral 1 Time Daily Indication: Insomnia TueJul 05 14:00:00 2022Jul 29 01:00:00 2022 oxyCODONE 5 mg tablet 1 tablet TABLET Or al PRN Every 8 Hours Indication: Pain TueJul 05 14:00:00 EST 2022Jul 29 01:00:00 EST 2022 pantoprazole 40 mg tablet,delayed release 1 tablet TABLET, DELAYED RELEASE (ENTERIC COATED) Oral 1 Time Daily Indication: GERD TueJul 05 14:00:00 EST 2022Jul 29 01:00:00 EST 2022 Saline NasaL 0.65 % spray aerosol 2 sprays AEROSOL, SPRAY (ML) Intranasal PRN Every 1 Hour Indication: Dry Nose TueJul 05 14:00:00 2022Jul 29 01:00:00 EST 2022 simethicone 80 mg chewable tablet 1 tablet TABLET,CHEWABLE Oral PRN 4 Times Daily Indication: Flatulence TueJul 05 14:00:00 EST 2022Jul 29 01:00:00 EST 2022 spironolactone 25 mg tablet 1 tablet TAB LET Oral 1 Time Daily Indication: Edema TueJul 05 14:00:00 EST 2022Jul 29 01:00:00 EST 2022 Vitamin D3 125 mcg (5,000 unit) tablet 1 tablet TABLET Oral 1 Time Daily for 22 Days Indication: Vitamin D deficiency TueJul 05 07:00:00 EST 2022Jul 27 06:59:00 EST 2022 Vitamin D3 25 mcg (1,000 unit) tablet 1 tablet TABLET Oral 1 Time Daily Indication: Vitamin D deficiency TueJul 27 07:00:00 EST 2022Jul 16 11:55:00 EST 2022 Xarelto 10 mg tablet 1 tablet TABLET Ora l 1 Time Daily Indication: DVT proph TueJul 05 14:00:00 EST 2022Jul 29 01:00:00 EST 2022 ALPRAZolam 0.25 mg tablet 1 tablet TABLE T Oral PRN 1 Time Daily Indication: Anxiety TueJul 05 14:00:00 EST 2022 Pamela Jul 07 15:54:00 EST 2022 coenzyme Q10 100 mg capsule 300mg CAPSUL E Oral 1 Time Daily Indication: Supplement TueJul 05 14:00:00 2022Jul 29 01:00:00 EST 2022 dilTIAZem 30 mg tablet 1 tablet TABLET O ral 3 Times Daily Indication: HTN TueJul 05 14:00:00 EST 2022Jul 29 01:00:00 EST 2022 ezetimibe 10 mg tablet 1 tablet TABLET O ral 1 Time Daily Indication: HLD TueJul 05 14:00:00 2022Jul 29 01:00:00 EST 2022 krill oil 500 mg capsule 2,000mg CAPSULE Oral 1 Time Daily Indication: Supplement TueJul 05 14:00:00 2022Jul 29 01:00:00 2022 labetaloL 200 mg tablet 1 tablet TABLET Oral Every 12 Hours Indication: A-fib TueJul 05 14:00:00 2022Jul 29 01:00:00 EST 2022 nitroglycerin 0.4 mg sublingual tablet 1 tablet TABLET, SUBLINGUAL Sublingual PRN (Max 3 Doses) Indication: Chest [place] 1 tab every 5 minutes up to 3 doses then call 911 TueJul 05 14:00:00 2022Jul 29 01:00:00 EST 2022 red yeast rice 600 mg capsule 1200mg CAPSULE Oral 1 Time Daily Indication: Supplement TueJul 05 14:00:00 2022Jul 29 01:00:00 EST 2022 ondansetron 4 mg disintegrating tablet 1 tablet TABLET,DISINTEGRATING Oral PRN Every 8 Hours Indication: Nausea/Vomiting TueJul 05 14:00:00 2022Jul 29 01:00:00 EST 2022 Problems Active Concerns * Unspecified fracture of upper end of right humerus, subsequent encounter for fracture with routine healing* Code: * Start Date: TueJul 05 00:00:00 EST 2022 * End Date: * Text: * Multiple fractures of ribs, right side, subsequent encounter for fracture with routine healing* Code: * Start Date: TueJul 05 00:00:00 2022 * End Date: * Text: * Other ascites* Code: * Start Date: TueJul 05 00:00:00 2022 * End Date: * Text: * Fall on same level, unspecified, subsequent encounter* Code: * Start Date: TueJul 05 00:00:00 EST 2022 * End Date: * Text: * Pleural effusion in other conditions classified elsewhere* Code: * Start Date: TueJul 05 00:00:00 EST 2022 * End Date: * Text: * Cardiomegaly* Code: * Start Date: TueJul 05 00:00:00 2022 * End Date: * Text: * Paroxysmal atrial fibrillation* Code: * Start Date: TueJul 05 00:00:00 EST 2022 * End Date: * Text: * Atherosclerotic heart disease of [place] coronary artery without angina pectoris* Code: * Start Date: TueJul 05 00:00:00 EST 2022 * End Date: * Text: * Presence of aortocoronary bypass graft* Code: * Start Date: TueJul 05 00:00:00 EST 2022 * End Date: * Text: * Hyperlipidemia, unspecified* Code: * Start Date: TueJul 05 00:00:00 2022 * End Date: * Text: * Chronic diastolic (congestive) heart failure* Code: * Start Date: TueJul 05 00:00:00 EST 2022 * End Date: * Text: * Other specified postprocedural states* Code: * Start Date: TueJul 05 00:00:00 EST 2022 * End Date: * Text: * Pulmonary hypertension, unspecified* Code: * Start Date: TueJul 05 00:00:00 EST 2022 * End Date: * Text: * Portal hypertension* Code: * Start Date: TueJul 05 00:00:00 2022 * End Date: * Text: * Calculus of gallbladder without cholecystitis without obstruction* Code: * Start Date: TueJul 05 00:00:00 2022 * End Date: * Text: * intermediate teacher (current) use of anticoagulants* Code: * Start Date: TueJul 05 00:00:00 EST 2022 * End Date: * Text: * Dilated cardiomyopathy* Code: * Start Date: TueJul 05 00:00:00 2022 * End Date: * Text: * Anemia, unspecified* Code: * Start Date: TueJul 05 00:00:00 2022 * End Date: * Text: * Nontoxic single thyroid nodule* Code: * Start Date: TueJul 05 00:00:00 2022 * End Date: * Text: * Gastro-esophageal reflux disease without esophagitis* Code: * Start Date: TueJul 05 00:00:00 EST 2022 * End Date: * Text: * Diaphragmatic hernia without obstruction or gangrene* Code: * Start Date: TueJul 05 00:00:00 EST 2022 * End Date: * Text: * Acute on chronic diastolic (congestive) heart failure* Code: * Start Date: TueJul 05 00:00:00 EST 2022 * End Date: * Text: * Rheumatic disorders of both mitral and tricuspid valves* Code: * Start Date: TueJul 05 00:00:00 2022 * End Date: * Text: * Other cirrhosis of liver* Code: * Start Date: TueJul 05 00:00:00 2022 * End Date: * Text: * Insomnia, unspecified* Code: * Start Date: TueJul 05 00:00:00 2022 * End Date: * Text: * Hypertensive heart disease with heart failure* Code: * Start Date: TueJul 05 00:00:00 2022 * End Date: * Text: * COVID-19* Code: * Start Date: TueJul 16 00:00:00 2022 * End Date: * Text: * Dorsalgia, unspecified* Code: * Start Date: TueJul 20 00:00:00 2022 * End Date: * Text: * Hypoxemia* Code: * Start Date: TueJul 20 00:00:00 2022 * End Date: * Text: * Vitamin D deficiency, unspecified* Code: * Start Date: TueJul 05 00:00:00 2022 * End Date: * Text: * Anxiety disorder, unspecified* Code: * Start Date: TueJul 05 00:00:00 2022 * End Date: * Text: * Weakness* Code: * Start Date: TueJul 05 00:00:00 2022 * End Date: * Text: * Unsteadiness on feet* Code: * Start Date: TueJul 05 00:00:00 2022 * End Date: * Text: Reason for Referral Past Medical History Resolved Concerns * Problem Unspecified cirrhosis of liver* Code: * Start Date: TueJul 05 00:00:00 2022 * End Date: TueJul 06 00:00:00 EST 2022 * Problem Acute kidney failure, unspecified* Code: * Start Date: TueJul 05 00:00:00 EST 2022 * End Date: TueJul 06 00:00:00 2022 * Problem Rheumatic tricuspid insufficiency* Code: * Start Date: TueJul 05 00:00:00 2022 * End Date: TueJul 06 00:00:00 EST 2022 * Problem Unspecified atrial fibrillation* Code: * Start Date: TueJul 05 00:00:00 2022 * End Date: TueJul 06 00:00:00 EST 2022
--- OUTSIDE RECORDS SUMMARY | 2024-11-09 09:17 | XMS_ITS | Encounter Summary ---
Author Organization [employer] Address 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
--- OUTSIDE RECORDS SUMMARY | 2024-11-09 09:17 | XMS_ITS | CONTINUITY OF CARE DOCUMENT ---
Author Name kelseyajaymarcie Address Unknown Organization [facility] Address [address] [facility] [address] [place] [address] Phone [phone] Care Team Providers Care Covering And Lining Supervisor Name Role Phone Edgar PIZARRO, Guy Unavailable FRANK MALIN Unavailable [phone] FRANK MALIN Unavailable [phone] INSURANCE PROVIDERS Payer name Policy type / Coverage type Bethany red green party ID AARP MEDICARE ADVANTAGE ([facility] COMPLETE PPO) Other [id number]
--- OUTSIDE RECORDS SUMMARY | 2024-11-09 09:17 | XMS_ITS | Clinical Summary ---
Author Organization [facility] at the [facility] Office Center Address [address] [place] [address] Care Team Providers Care Ibm Bpm Developer Name Role Phone Ed Patel MD Primary Care Provider [phone] Allergies Active Allergy Reactions Criticality Noted Date Comments Apixaban Other (See comments) Low 07/03/2019 States she went numb on her left side and had bad chest pains/will not take ever again Dicyclomine Dizziness Low 07/05/2014 Gsjzasz-Ans-Wnf Reductase Inhibitors Unknown High 09/30/2016 Medications ezetimibe [...] Active vitamins A,C,E-zinc-tracy er (PRESERVISION AREDS) 7,160-113-100 vcuc-kt-powk tablet Take 1 tablet by mouth 2 [...] 2016 Assessment & Plan (09/21/2019 4:02 PM LAWN MOWER SHARPENER): Dyspnea is likely due to obesity and CHF. Will continue with hydrochlorothiazide and Lasix on every other day. Assessment & Plan (07/06/2019 8:51 PM LAWN MOWER SHARPENER): Patient feels better after blood transfusion. Her [...] Comments Blood Pressure 178/70 09/19/2019 1:49 PM LAWN MOWER SHARPENER Pulse 70 09/19/2019 1:49 PM LAWN MOWER SHARPENER Temperature 36.7 C (98.1 F) 09/19/2019 1:49 PM LAWN MOWER SHARPENER Respiratory Rate 22 09/19/2019 1:49 PM LAWN MOWER SHARPENER Oxygen Saturation 97% 09/19/2019 1:49 PM LAWN MOWER SHARPENER Inhaled Oxygen Concentration - - Weight 80 kg (176 lb 6.4 oz) 09/19/2019 1:49 PM LAWN MOWER SHARPENER Height 147.3 cm (4' 10 ) 07/04/2019 2:40 PM LAWN MOWER SHARPENER Body Mass Index 36.87 07/04/2019 2:40 PM LAWN MOWER SHARPENER Plan of Treatment Not on file Insurance [facility] MEDICARE [place] [facility] [place] [address] Care Teams Ibm Bpm Developer Relationship Specialty Start Date End Date Ed Patel MD [address] [address] PCP - General Internal Medicine 04/18/19
--- OUTSIDE RECORDS SUMMARY | 2024-11-09 09:17 | XMS_ITS | Referral Summary ---
Author Organization [facility] at the [facility] Address [address] [place] [address] Care Team Providers Care Building Components Designer Name Role Phone Ed Patel MD Primary Care Provider [phone] Allergies Active Allergy Reactions Criticality Noted Date Comments Apixaban Other (See comments) Low 07/03/2019 States she went numb on her left side and had bad chest pains/will not take ever again Dicyclomine Dizziness Low 07/05/2014 Gxydccy-Nvg-Oyr Reductase Inhibitors Unknown High 09/30/2016 Medications ezetimibe [...] Active vitamins A,C,E-zinc-tracy er (PRESERVISION AREDS) 7,160-113-100 cijx-vz-cgav tablet Take 1 tablet by mouth 2 [...] 2016 Assessment & Plan (09/21/2019 4:02 PM POLYSOMNOGRAPHY TECHNOLOGIST): Dyspnea is likely due to obesity and CHF. Will continue with hydrochlorothiazide and Lasix on every other day. Assessment & Plan (07/06/2019 8:51 PM POLYSOMNOGRAPHY TECHNOLOGIST): Patient feels better after blood transfusion. Her [...] Comments Blood Pressure 178/70 09/19/2019 1:49 PM POLYSOMNOGRAPHY TECHNOLOGIST Pulse 70 09/19/2019 1:49 PM POLYSOMNOGRAPHY TECHNOLOGIST Temperature 36.7 C (98.1 F) 09/19/2019 1:49 PM POLYSOMNOGRAPHY TECHNOLOGIST Respiratory Rate 22 09/19/2019 1:49 PM POLYSOMNOGRAPHY TECHNOLOGIST Oxygen Saturation 97% 09/19/2019 1:49 PM POLYSOMNOGRAPHY TECHNOLOGIST Inhaled Oxygen Concentration - - Weight 80 kg (176 lb 6.4 oz) 09/19/2019 1:49 PM POLYSOMNOGRAPHY TECHNOLOGIST Height 147.3 cm (4' 10 ) 07/04/2019 2:40 PM POLYSOMNOGRAPHY TECHNOLOGIST Body Mass Index 36.87 07/04/2019 2:40 PM POLYSOMNOGRAPHY TECHNOLOGIST Plan of Treatment Not on file Insurance [facility] [place] [address] [facility] [place] [address] Care Teams Building Components Designer Relationship Specialty Start Date End Date Ed Patel MD [address] [address] PCP - General Internal Medicine 04/18/19
== END 2024-11-09 09:06 | disposition home or self-care (01) ==
PROVIDERS: PCP Nurse Practitioner; Visit Provider Nurse Practitioner
DX: K74.60 Unspecified cirrhosis of liver (principal); R18.8 Other ascites; K80.20 Calculus of gallbladder without cholecystitis without obstruction
CPT/HCPCS: 76705

== ENCOUNTER 2025-05-28 10:11 | Outpatient (CLI) | payer MEDICARE, SELFPAY ==
[2025-05-28 11:13] LABS: Hematocrit 36.9 % (37.0-47.0); Hemoglobin 11.8 g/dL (12.0-15.0); Mean Corpuscular HGB Conc 32.0 g/dl (32-36); Mean Corpuscular Hemoglobin 30.8 pg (26-34); Mean Corpuscular Volume 96.3 fl (80-100); Platelet Count Result 158 k/mm3 (150-375); Red Blood Count 3.83 M/mm3 (4.2-5.4); White Blood Count 5.8 K/mm3 (4.5-10.0)
[2025-05-28 11:27] LABS: INR 2.7; Prothrombin Time 28.1 Seconds (11.1-14.7)
[2025-05-28 11:33] LABS: Alanine Aminotransferase 20 U/L (6-35); Albumin Level 4.2 g/dL (3.5-5.1); Alkaline Phosphatase 106 U/L (38-126); Anion Gap 9 mmol/L (4-12); Aspartate Amino Transferase 34 U/L (14-36); Bilirubin,Total 1.1 mg/dL (0.2-1.3); Blood Urea Nitrogen 22 mg/dL (7-17); Calcium 9.6 mg/dL (8.4-10.2); Carbon Dioxide 19 mmol/L (22-30); Chloride 108 mmol/L (98-107); Estimated Glomerular Filt Rate 50; Glucose 103 mg/dL (65-110); Potassium 4.2 mmol/L (3.4-5.0); Sodium 136 mmol/L (137-145); Total Protein 7.2 g/dL (6.3-8.2)
== END 2025-05-28 10:12 | disposition home or self-care (01) ==
PROVIDERS: PCP Nurse Practitioner; Visit Provider Nurse Practitioner
DX: K74.60 Unspecified cirrhosis of liver (principal); R18.8 Other ascites
CPT/HCPCS: 36415; 80053; 82105; 85027; 85610